=== PATIENT | female | born 1950 | race Caucasian/White ===

== ENCOUNTER → 2017-03-18 11:06 | Outpatient (CLI) | payer MEDICARE, OTHER, SELFPAY ==
[2017-03-18 12:34] LABS: Hematocrit 43.4 % (37-47); Hemoglobin 13.9 g/dl (12.0-15.0); Red Blood Count 4.74 M/mm3 (4.2-5.4); White Blood Count 6.5 K/mm3 (4.4-11.0)
[2017-03-18 12:35] LABS: Absolute Lymphocyte Count 2.02 X10^3/ul (0.83-4.51); Absolute Neutrophil Count 3.9 X10^3/uL (2.0-7.7); Basophil% 0.6 % (0-1); Eosinophil# 0.08 X10^3/uL; Eosinophils% 1.2 % (0-5); Lymphocyte # 2.02 X10^3/ul (4.0); Lymphocyte % 31.2 % (19-41); Mean Corpuscular Hgb 29.3 pg (27.0-32.0); Mean Corpuscular Volume 91.6 fL (81-99); Mean Platelet Vol. 9.7 fl (6.2-12.0); Monocyte# 0.46 X10^3/uL; Monocyte% 7.1 % (0-10); Neutrophil # 3.85 X10^3/uL (2.7-7.7); Neutrophil % 59.6 % (47-70); Platelet Count 383 K/mm3 (150-450); RBC Distribution Width CV 13.8 % (11.6-14.6); RBC Distribution Width SD 46.1 fl (35.1-43.9)
[2017-03-18 12:36] LABS: Basophil# 0.04 X10^3/uL; Erythrocyte Sedimentation Rate 34 mm/hr (0-30); POSITIVE COUNT NO; POSITIVE DIFFERENTIAL NO; POSITIVE MORPHOLOGY NO
[2017-03-18 13:35] LABS: ALB/GLOB Ratio 0.8 RATIO (0.9-2.4); AST(SGOT) 18 U/L (15-37); Alanine Aminotransfer ALT/SGPT 29 U/L (13-56); Albumin, Serum 3.5 g/dL (3.2-5.0); Alkaline Phosphatase 97 U/L (45-117); Anion Gap 8 (5-15); BUN 13 mg/dL (7-18); BUN/Creat Ratio 20.8 RATIO (10-20); Calcium,Total 9.5 mg/dL (8.5-10.1); Chloride 106 mmol/L (98-107); Creatinine, Serum 0.62 mg/dL (0.55-1.02); EST Glomerular Filtration Rate 101 mL/min (>60); Est Glom Filt Rate - Afr Amer 123 mL/min (>60); Globulin 4.4 g/dL (2.2-4.2); Glucose 90 mg/dL (74-106); Protein, Total 7.9 g/dL (6.4-8.2); Sodium Level 140 mmol/L (136-145); Thyroid Stim Hormone (TSH) 0.58 uIU/mL (0.358-3.74)
[2017-03-19 08:49] LABS: Vitamin D,25 Hydroxy 23.8 ng/mL (19.95-100.01)
== END ==
PROVIDERS: Family Provider Family Medicine; PCP Family Medicine; Visit Provider Physician Assistant
DX: Z96.653 Presence of artificial knee joint, bilateral (principal); K58.9 Irritable bowel syndrome, unspecified; E03.9 Hypothyroidism, unspecified
CPT/HCPCS: 36415; 80053; 82306; 84443; 85025; 85652; 86140

== ENCOUNTER → 2017-03-25 09:09 | Outpatient (CLI) | payer MEDICARE, OTHER, SELFPAY ==
--- NOTE | 2017-03-25 09:12 | NM_ITS ---
CLINICAL: 67-year-old female with reported history of painful left knee arthroplasty operated approximately 10 years previous. LIMITED 99m Tc MDP THREE PHASE BONE SCINTIGRAPHY COMPARISON: None available FINDINGS: Following the intravenous administration of 24.9 mCi of 99m Tc MDP, three-phase bone acquisitions of the knee articulations reveal: 1. The flow and immediate static blood pool acquisitions demonstrate symmetric, normal arterial and venous phase distribution of the radiopharmaceutical to the bilateral knee articulations. 2. Delayed images depict increased tracer concentration identified in the medial-lateral femoral and tibial, distal tibial components of the painful left knee prosthesis. 3. Mild increased uptake is demonstrated in the medial and lateral tibial components of the asymptomatic right knee arthroplasty. 4. The remaining limited skeletal structures are scintigraphically unremarkable. NM/Bone Scan Three Phase IMPRESSION: 1. The increase in radiopharmaceutical concentration identified in the tibial and femoral components of the symptomatic left knee arthroplasty is consistent with a high likelihood of loosening in the setting of operative intervention > 2 years prior to the current presentation. If an infectious etiology is a diagnostic consideration, correlation with labeled leukocyte imaging is recommended. 2. Enhanced uptake otherwise noted in the medial femoral-tibial components of the presumably asymptomatic right knee arthroplasty is most consistent with normal postsurgical change. Electronically Signed: Paolo Quiroga DO at 11:09 EST Tel , Service support ,
== END ==
PROVIDERS: Family Provider Family Medicine; PCP Family Medicine; Visit Provider Physician Assistant
DX: Z96.653 Presence of artificial knee joint, bilateral (principal)
CPT/HCPCS: 78315

== ENCOUNTER → 2017-08-22 12:10 | Outpatient (CLI) | payer MEDICARE, OTHER, SELFPAY ==
--- NOTE | 2017-08-22 12:15 | MRI_ITS ---
STUDY: MRI BRAIN WITH AND WITHOUT CONTRAST (ATTENTION INTERNAL AUDITORY CANALS - I.A.C.'s) REASON FOR EXAM: Female, 67 years old. Right ear pain and ataxia TECHNIQUE: Standardized multiplanar fat and water weighted pulse sequences were obtained. 12 ml of Gadavist contrast material was administered intravenously for the contrast portion of the examination. COMPARISON: None. FINDINGS: Normal bilateral temporal bones. Normal bilateral internal auditory canals. There is no demonstrated intracanalicular or cisternal vestibular schwannoma (acoustic neuroma). There is no enhancement of the bilateral VIIth or VIIIth cranial nerves. Normal bilateral cochlea, vestibules and semicircular canals. Mild atrophy and periventricular white matter ischemic changes without evidence for acute infarct Normal bilateral basal ganglia. Normal thalami. Normal flow voids within the major intracranial circulation suggesting patency by spin echo criteria. Normal venous enhancement. There is no enhancing intra-axial or extra-axial abnormality. There is no extra-axial fluid accumulation. Normal sella turcica, pituitary gland, infundibular stalk, optic chiasm and hypothalamus. Normal tectal plate and pineal gland. Normal midbrain, mike and medulla. Normal cerebellum. Normal basal cisterns. No demonstrated orbital abnormality, within the constraints of a routine brain study. Minor mucosal thickening of the maxillary ethmoid sinuses. Normal calvarium and skull base. Normal visualized soft tissue structures. Normal visualized upper cervical spine. MRI/Brain W/WO Contrast IMPRESSION: Mild atrophy and periventricular white matter ischemic changes without evidence for acute infarct. Electronically Signed: Hood Medina MD at 17:21 EDT , Service support ,
[2017-08-22 12:56] LABS: CREATININE FINGERSTICK < 0.6 mg/dL (0.55-1.02); EGFR FINGERSTICK > 60.0000 mL/min (>60)
== END ==
PROVIDERS: Family Provider Family Medicine; PCP Family Medicine; Visit Provider Otolaryngology
DX: R55 Syncope and collapse (principal); R27.0 Ataxia, unspecified
CPT/HCPCS: 70553; A9585

== ENCOUNTER → 2017-09-11 12:21 | Outpatient (CLI) | payer MEDICARE, OTHER, SELFPAY ==
--- NOTE | 2017-09-11 12:23 | BI_ITS ---
MAMMOGRAPHY - BILATERAL SCREENING REASON FOR EXAM: Female, 67 years old. Routine annual screening examination. PERTINENT HISTORY: Non-contributory. TECHNIQUE: Digital bilateral breast nicole (3D mammographic acquisition) in the CC and MLO projections. 2-D mediolateral oblique (MLO) and craniocaudad (CC) views of both breasts were obtained. CAD: Full Field Digital Mammography with Computer Added Detection was performed. COMPARISON: Comparison is made with prior study dated August 26, 2016 and August 15, 2015. FINDINGS: Breast Composition: The breasts are almost entirely fatty. There are no dominant masses or suspicious calcifications. Stable benign-appearing bilateral axillary lymph nodes. No other significant abnormalities are identified. There has been no significant change since the prior study. BI/SCREENING MAMM (CAD), BILAT IMPRESSION: Stable bilateral screening mammogram. Yearly follow-up mammogram recommended. (A) ASSESSMENT CATEGORY: BIRADS Category 2: Benign. A letter regarding these results will be sent to the patient by the facility within 30 days. Approximately 10% of breast cancers are not detected by mammography. A normal mammogram should not delay biopsy of a clinically suspicious abnormality. [id number] Electronically Signed: Aroldo Neves MD at 8:29 EDT Tel [phone], Service support ,
--- NOTE | 2017-09-11 12:25 | BD_ITS ---
STUDY: DUAL ENERGY X-RAY ABSORPTIOMETRY / DXA REASON FOR EXAM: Female, 67 years old. The patient is postmenopausal. Loss of height. TECHNIQUE: Bone Mineral Density (BMD) measurements of lumbar spine and bilateral hips were obtained. COMPARISON: Comparison is made with prior study dated August 15, 2015. FINDINGS: Lumbar Spine (L1-L4): g/cm2 (1.238) / T-score (0.5) / Z-score (2.1) Findings are suggestive of normal bone density with a low fracture risk. Left Femur Total: g/cm2 (1.107) / T-score (0.8) / Z-score (2.1) Left Femoral Neck: g/cm2 (1.132) / T-score (0.7) / Z-score (2.3) Right Femur Total: g/cm2 (1.075) / T-score (0.5) / Z-score (1.9) Right Femoral Neck: g/cm2 (1.027) / T-score (-0.1) / Z-score (1.5) The T-Scores on the most recent prior examination were: Lumbar Spine (L1-L4): There has been improvement of bone density since the previous examination. Left Femur Total: which represents a worsening of 8.4%. Right Femur Total: which represents a worsening of 3.2%. BD/Dexa Bone Density Study IMPRESSION: The patient is considered normal as outlined below according to World [place] Organization (WHO) criteria with a low fracture risk. There has been worsening of bone density since the previous examination. Reference Information: The T-score is the number of standard deviations above or below the standard which is normal for young adults at their peak bone mineral density. The World Health Organization (WHO) interprets the T-scores as follows: Above -1 Normal bone density Between -1 and -2.5 Osteopenia Equal to / or below -2.5 Osteoporosis As a practical clinical guideline, osteopenia may be graded as follows: Mild -1 through -1.5 Moderate -1.6 through -2.0 Severe -2.1 through -2.4 The Z-score is the number of standard deviations above or below age-matched controls. A Z-score of less than -1.5 would be considered abnormal. References: 1. NIH Osteoporosis and Related Bone Diseases http://www.osteo.org 2. International Society for Clinical Densitometry http://www.iscd.org 3. National Osteoporosis Foundation http://www.nof.org Electronically Signed: Aroldo Neves MD at 15:26 EDT Tel [phone], Service support ,
== END ==
PROVIDERS: Family Provider Family Medicine; PCP Family Medicine; Visit Provider Family Medicine
DX: Z12.31 Encounter for screening mammogram for malignant neoplasm of breast (principal); Z78.0 Asymptomatic menopausal state
CPT/HCPCS: 77063; 77067; 77080

== ENCOUNTER → 2017-11-04 08:00 | Outpatient (CLI) | payer MEDICARE, OTHER, SELFPAY ==
[2017-11-04 09:07] LABS: Anion Gap 7 (5-15); BUN 12 mg/dL (7-18); BUN/Creat Ratio 16.2 RATIO (10-20); Calcium,Total 9.5 mg/dL (8.5-10.1); Chloride 105 mmol/L (98-107); Cholesterol 216 mg/dL (200); Creatinine, Serum 0.74 mg/dL (0.55-1.02); EST Glomerular Filtration Rate 83 mL/min (>60); Est Glom Filt Rate - Afr Amer 100 mL/min (>60); Glucose 97 mg/dL (74-106); High Density Lipoprotein 54 mg/dL; Potassium 4.1 mmol/L (3.5-5.1); Sodium Level 141 mmol/L (136-145); Thyroid Stim Hormone (TSH) 2.29 uIU/mL (0.358-3.74); Triglycerides 146 mg/dL; Very Low Density Lipoprotein 29 mg/dL (5-40)
== END ==
PROVIDERS: Family Provider Family Medicine; PCP Family Medicine; Referring Provider Family Medicine; Visit Provider Family Medicine
DX: Z00.00 Encounter for general adult medical examination without abnormal findings (principal); E03.9 Hypothyroidism, unspecified; K21.9 Gastro-esophageal reflux disease without esophagitis
CPT/HCPCS: 36415; 80048; 80061; 84443

== ENCOUNTER 2017-12-05 09:00 | Outpatient (RCR) | payer MEDICARE, OTHER, SELFPAY ==
--- NOTE | 2017-10-07 17:22 | HP.PTEVAL_ITS ---
Patient's Visit Information YESENIA HODGSON is a 67 year old F referred to Physical Therapy by Jose David Lindsay with a diagnosis of BPPV Acute on Chronic. Date of Evaluation: 10/07/17 Physical Therapist: Aura Horowitz - Visit Plan Frequency: 1-2x /Week Duration: 4 Weeks Plan: Bring pt back JORDON and try the R Siemont for correction of R non fatigue torsional nystagmus - Subjective Subjective: Pt reports that she has dizziness. The whole time she has her eyes open she feels like she is going to get sick. She gets vertigo pretty often and saw Dr Brown for it in August and he manipulated her head and had to sleep in recliner for a week. She reports that this is worse than she has ever had it. If she lays back in recliner and rolls head she feels dizzy. SHe is worse when she puts her head up but she is dizzy with head in every direction. Right now she feels light headed and head feels stuffy but if she moves her head than the room spins. This feels worse than what she had last time. She was given something for nausea but has not gotten to pick it up yet. She did have a Cat Scan in August. - Pain RICHARD Pain Intensity (Out of 10): 1 - Objective L Hallpike ....increase dizziness with nystagmus (probably rotational but could be lateral movement) slower pace. Pt did get sick in between R and L Hallpike testing. R Hallpike was positive for delayed upward torsional nystagmus that did not fatigue. Pt had to sit up and get sick after this test. R hallpike worse than L with delayed onset and no fatigue - Goals Goal 1:: I HEP Goal Time Frame: 2 Weeks Goal 2:: Abolish dizziness Goal Time Frame: 2-4 Weeks - Rehabilitation Potential Rehabilitation Potential: Good - Anticipated Interventions Patient/Client Instruction: Educate patient on: Condition, Plan of Care For the Purpose of:: To improve performance and independence with ADL's, To improve ability of physical actions for home/community/work/leisure, To improve gait and locomotor functions, To improve balance, To improve safety with gait Therapeutic Exercise to Include: Strength training, Balance training, Coordination, Postural training, Neuromotor development For the Purpose of:: To improve muscle performance and motor function, To improve ability to perform ADL's, To increase tolerance to activity/condition/ position, To improve performance and independence with ADL's, To improve ability of physical actions for home/community/work/leisure, To improve gait and locomotor functions Comment: Repositioning For the Purpose of:: To improve ability to perform ADL's, To increase tolerance to activity/condition/position, To improve performance and independence with ADL 's, To decrease level of supervision to perform tasks Thank you for the opportunity to evaluate your patient. For Medicare and Medicare HMO plans, please review the plan of care and approve it. It will need to be FAXED BACK to us at [phone] for Medicare purposes. Please let me know if there are questions or concerns regarding this plan of care. Physician Signature: Date:
--- NOTE | 2017-11-07 08:58 | HP.PTREVAL ---
Jose David Lindsay, It has been my pleasure to treat YESENIA HODGSON over the last 6 visits for BPPV Acute on Chronic. Please see the progress note below for an update on the physical therapy plan of care! Subjective: Symptoms are up and down depending on day. Feels still imbalanced on certain days and feels normal on her good days, more bad then good days. Nasal spray seems to help as sinus gets stuffy. Back to Dr Lindsay on 11/17. Doing HEP 3x/day for one minute. Objective/Function: slight + L hallpike, - R hallpike. Balance is very good. recommended Scott Daroff exercises and f/u with doctor next week for other options if appropriate. Plan Plan: f/u one month to check positional and dizzy feeling. Fair prgonosis with consistent BD ex. Goals Goal 1:: I HEP Goal Time Frame: 2 Weeks Goal Progress: Goal Met Goal 2:: Abolish dizziness Goal Time Frame: 2-4 Weeks Goal Progress: some days Goal 3:: 5 days of no symptoms with dizzyness and negative positional tests. Goal Time Frame: 2-4 Weeks Goal Progress: NEW GOAL Anticipated Interventions Patient/Client Instruction: Educate patient on: Condition, Plan of Care For the Purpose of:: To improve performance and independence with ADL's, To improve ability of physical actions for home/community/work/leisure, To improve gait and locomotor functions, To improve balance, To improve safety with gait Therapeutic Exercise to Include: Strength training, Balance training, Coordination, Postural training, Neuromotor development For the Purpose of:: To improve muscle performance and motor function, To improve ability to perform ADL's, To increase tolerance to activity/condition/position, To improve performance and independence with ADL's, To improve ability of physical actions for home/community/work/leisure, To improve gait and locomotor functions Comment: Repositioning For the Purpose of:: To improve ability to perform ADL's, To increase tolerance to activity/condition/position, To improve performance and independence with ADL's, To decrease level of supervision to perform tasks Please do not hesitate to contact me at [phone] by phone or if you have questions or concerns regarding this new plan of care! Sincerely, Jeff Mccartney, DPT, OC
--- NOTE | 2017-12-05 09:17 | HP.PTDCSUM ---
HP - PT D/C Summary It has been my pleasure to treat YESENIA HODGSON under orders from Jose David Lindsay, for the diagnosis of BPPV Acute on Chronic for a total of 7 visit(s). Discharge Date: 12/05/17 Please see the following information for a summary of their discharge status. - Subjective Subjective: Doing exercises daily. Usually L side is a little spin. Feeling better most of time. still gets episodes of head feeling wierd but usually does not last long. Usually preciptated with turning too quick. [facility]. Went to [facility] on plane and head felt fine. - Pain RICHARD Pain Intensity (Out of 10): 0 - Overall Improvement % Improvement: 97 - Objective Objective/Function: - R hallpike, Quick + L hallpike for up torsional 1-2 seconds. Walks well without gait deviations and feeling much better. Feels like she can continue on her own and will let doctor know if improvement slows or gets worse. - Goals Goal 1:: I HEP Goal Progress: Goal Met Goal 2:: Abolish dizziness Goal Progress: Progressing Goal 3:: 5 days of no symptoms with dizzyness and negative positional tests. Goal Progress: Not Progressing - Plan Plan: D/C - D/C Information If there are questions or concerns regarding this patient's physical therapy, please feel free to call me at [phone]. Thank you for the referral of this patient. Sincerely, Jeff Mccartney, DPT, OC
== END 2017-12-05 19:00 | disposition home or self-care (01) ==
LOC: PT 09:00
PROVIDERS: Family Provider Family Medicine; PCP Family Medicine; Visit Provider Family Medicine
DX: H81.10 Benign paroxysmal vertigo, unspecified ear (principal)
CPT/HCPCS: 97161; 97530

== ENCOUNTER → 2018-03-23 12:18 | Outpatient (CLI) | payer MEDICARE, OTHER, SELFPAY ==
[2018-03-23 16:00] LABS: Absolute Lymphocyte Count 1.99 X10^3/ul (0.83-4.51); Absolute Neutrophil Count 4.1 X10^3/uL (2.0-7.7); Basophil# 0.03 X10^3/uL; Basophil% 0.5 % (0-1); Eosinophil# 0.09 X10^3/uL; Eosinophils% 1.4 % (0-5); Hematocrit 45.5 % (37-47); Hemoglobin 14.5 g/dl (12.0-15.0); Lymphocyte # 1.99 X10^3/ul (4.0); Lymphocyte % 30.1 % (19-41); Mean Corp Hgb Conc 31.9 g/gl (32-36); Mean Corpuscular Hgb 29.5 pg (27.0-32.0); Mean Corpuscular Volume 92.7 fL (81-99); Mean Platelet Vol. 9.6 fl (6.2-12.0); Monocyte# 0.44 X10^3/uL; Monocyte% 6.7 % (0-10); Neutrophil # 4.05 X10^3/uL (2.7-7.7); Neutrophil % 61.1 % (47-70); Platelet Count 389 K/mm3 (150-450); RBC Distribution Width CV 14.1 % (11.6-14.6); RBC Distribution Width SD 47.4 fl (35.1-43.9); Red Blood Count 4.91 M/mm3 (4.2-5.4); White Blood Count 6.6 K/mm3 (4.4-11.0)
[2018-03-23 16:03] LABS: POSITIVE COUNT NO; POSITIVE DIFFERENTIAL NO; POSITIVE MORPHOLOGY NO
[2018-03-23 16:22] LABS: AST(SGOT) 21 U/L (15-37); Alanine Aminotransfer ALT/SGPT 32 U/L (13-56); Albumin, Serum 3.7 g/dL (3.2-5.0); Alkaline Phosphatase 96 U/L (45-117); Amylase 31 U/L (25-115); Bilirubin, Direct 0.13 mg/dL (0.00-0.30); Globulin 3.8 g/dL (2.2-4.2); Lipase 141 U/L (73-393); Protein, Total 7.5 g/dL (6.4-8.2)
== END ==
PROVIDERS: Family Provider Family Medicine; PCP Family Medicine; Visit Provider Family Medicine
DX: R10.9 Unspecified abdominal pain (principal)
CPT/HCPCS: 36415; 80076; 82150; 83690; 85025

== ENCOUNTER → 2018-08-18 12:20 | Outpatient (CLI) | payer MEDICARE, OTHER, SELFPAY | PROVIDERS: Family Provider Family Medicine; PCP Family Medicine; Referring Provider Nurse Practitioner Adult Health; Visit Provider Nurse Practitioner Adult Health | DX: R30.0 Dysuria (principal) | CPT/HCPCS: 87086; 87088; 87186 ==

== ENCOUNTER 2018-08-31 13:30 | Outpatient (RCR) | payer MEDICARE, OTHER, SELFPAY | END 2018-09-09 23:59 | LOC: NS 13:30 | PROVIDERS: Family Provider Family Medicine; PCP Family Medicine; Visit Provider Family Medicine | DX: Z71.3 Dietary counseling and surveillance (principal); E66.9 Obesity, unspecified; Z68.41 Body mass index [BMI] 40.0-44.9, adult | CPT/HCPCS: 97802; 97803 ==

== ENCOUNTER → 2018-09-14 12:50 | Outpatient (CLI) | payer MEDICARE, OTHER, SELFPAY | PROVIDERS: Family Provider Family Medicine; PCP Family Medicine; Referring Provider Family Medicine; Visit Provider Family Medicine | DX: R30.0 Dysuria (principal); Z71.3 Dietary counseling and surveillance; E66.9 Obesity, unspecified; Z68.41 Body mass index [BMI] 40.0-44.9, adult | CPT/HCPCS: 87086; 87088; 97803 ==

== ENCOUNTER 2018-09-28 13:00 | Outpatient (RCR) | payer MEDICARE, OTHER, SELFPAY | END 2018-10-10 23:59 | LOC: NS 13:00 | PROVIDERS: Family Provider Family Medicine; PCP Family Medicine; Visit Provider Family Medicine | DX: Z71.3 Dietary counseling and surveillance (principal); E66.9 Obesity, unspecified; Z68.41 Body mass index [BMI] 40.0-44.9, adult | CPT/HCPCS: 97803 ==

== ENCOUNTER 2018-10-26 13:00 | Outpatient (RCR) | payer MEDICARE, OTHER, SELFPAY | END 2018-11-09 23:59 | LOC: NS 13:00 | PROVIDERS: Family Provider Family Medicine; PCP Family Medicine; Visit Provider Family Medicine | DX: Z71.3 Dietary counseling and surveillance (principal); E66.9 Obesity, unspecified; Z68.41 Body mass index [BMI] 40.0-44.9, adult | CPT/HCPCS: 97803 ==

== ENCOUNTER 2018-11-24 09:30 | Outpatient (RCR) | payer MEDICARE, OTHER, SELFPAY | END 2018-12-10 23:59 | LOC: NS 09:30 | PROVIDERS: Family Provider Family Medicine; PCP Family Medicine; Visit Provider Family Medicine | DX: Z71.3 Dietary counseling and surveillance (principal); E66.9 Obesity, unspecified; Z68.41 Body mass index [BMI] 40.0-44.9, adult | CPT/HCPCS: 97803 ==

== ENCOUNTER → 2018-12-10 08:25 | Outpatient (CLI) | payer MEDICARE, OTHER, SELFPAY ==
[2018-12-10 09:56] LABS: Absolute Lymphocyte Count 1.81 X10^3/uL (0.83-4.51); Absolute Neutrophil Count 2.8 X10^3/uL (2.0-7.7); Basophil# 0.03 X10^3/uL; Basophil% 0.6 % (0-1); Eosinophil# 0.12 X10^3/uL; Eosinophils% 2.3 % (0-5); Hematocrit 43.8 % (37-47); Hemoglobin 14.2 g/dL (12.0-15.0); Lymphocyte # 1.81 X10^3/ul (4.0); Lymphocyte % 35.1 % (19-41); Mean Corp Hgb Conc 32.4 g/dL (32-36); Mean Corpuscular Hgb 29.9 pg (27.0-32.0); Mean Corpuscular Volume 92.2 fL (81-99); Mean Platelet Vol. 10.1 fl (6.2-12.0); Monocyte% 7.8 % (0-10); NRBC Flagged by Analyzer 0 % (0-5); Neutrophil # 2.78 X10^3/uL (2.7-7.7); Platelet Count 312 K/mm3 (150-450); RBC Distribution Width CV 13.5 % (11.6-14.6); RBC Distribution Width SD 45.7 fl (35.1-43.9); Red Blood Count 4.75 M/mm3 (4.2-5.4); White Blood Count 5.2 K/mm3 (4.4-11.0)
[2018-12-10 10:22] LABS: ALB/GLOB Ratio 0.8 RATIO (0.9-2.4); AST(SGOT) 22 U/L (15-37); Alanine Aminotransfer ALT/SGPT 46 U/L (13-56); Albumin, Serum 3.4 g/dL (3.2-5.0); Alkaline Phosphatase 93 U/L (45-117); Anion Gap 5 (5-15); BUN 12 mg/dL (7-18); BUN/Creat Ratio 17.4 RATIO (10-20); Calcium,Total 9.7 mg/dL (8.5-10.1); Chloride 106 mmol/L (98-107); Cholesterol 207 mg/dL (200); Creatinine, Serum 0.69 mg/dL (0.55-1.02); EST Glomerular Filtration Rate 90 mL/min (>60); Est Glom Filt Rate - Afr Amer 109 mL/min (>60); Glucose 94 mg/dL (74-106); High Density Lipoprotein 48 mg/dL; Protein, Total 7.4 g/dL (6.4-8.2); Sodium Level 141 mmol/L (136-145); T4 Free Direct 1.23 ng/dL (0.76-1.46); Thyroid Stim Hormone (TSH) 0.38 uIU/mL (0.358-3.74); Triglycerides 123 mg/dL; Very Low Density Lipoprotein 25 mg/dL (5-40)
[2018-12-10 11:06] LABS: Vitamin B12 > 2000 pg/mL (211-911); Vitamin D,25 Hydroxy 37.4 ng/mL (29.95-100.01)
== END ==
PROVIDERS: Family Provider Family Medicine; PCP Family Medicine; Visit Provider Family Medicine
DX: E55.9 Vitamin D deficiency, unspecified (principal); E03.9 Hypothyroidism, unspecified; E78.00 Pure hypercholesterolemia, unspecified; Z91.89 Other specified personal risk factors, not elsewhere classified; E53.8 Deficiency of other specified B group vitamins
CPT/HCPCS: 36415; 80053; 80061; 82306; 82607; 84439; 84443; 85025

== ENCOUNTER 2018-12-28 10:00 | Outpatient (RCR) | payer MEDICARE, OTHER, SELFPAY | END 2019-01-09 23:59 | LOC: NS 10:00 | PROVIDERS: Family Provider Family Medicine; PCP Family Medicine; Visit Provider Family Medicine | DX: Z71.3 Dietary counseling and surveillance (principal); E66.9 Obesity, unspecified; Z68.41 Body mass index [BMI] 40.0-44.9, adult | CPT/HCPCS: 97803 ==

== ENCOUNTER → 2019-01-19 10:16 | Outpatient (CLI) | payer MEDICARE, OTHER, SELFPAY ==
--- NOTE | 2019-01-19 10:17 | BI_ITS ---
MAMMOGRAPHY - BILATERAL SCREENING REASON FOR EXAM: Female, 69 years old. Routine annual screening examination. PERTINENT HISTORY: Non-contributory. TECHNIQUE: Digital bilateral breast nikolay (3D mammographic acquisition) in the CC and MLO projections. 2-D mediolateral oblique (MLO) and craniocaudad (CC) views of both breasts were obtained. CAD: Full Field Digital Mammography with Computer Added Detection was performed. COMPARISON: Comparison is made with prior study dated September 11, 2017 and August 26, 2016. FINDINGS: Breast Composition: The breasts are almost entirely fatty. There are no dominant masses or suspicious calcifications. Stable small benign-appearing bilateral axillary lymph nodes. No other significant abnormalities are identified. There has been no significant change since the prior study. BI/SCREEN MAMM (CAD) W/NIKOLAY BILAT IMPRESSION: Stable bilateral screening mammogram. Yearly follow-up mammogram recommended. (A) ASSESSMENT CATEGORY: BIRADS Category 2: Benign. A letter regarding these results will be sent to the patient by the facility within 30 days. Approximately 10% of breast cancers are not detected by mammography. A normal mammogram should not delay biopsy of a clinically suspicious abnormality. [id number] Electronically Signed: Aroldo Neves, at 12:22 EST , Service support ,
== END ==
PROVIDERS: Family Provider Family Medicine; PCP Family Medicine; Referring Provider Family Medicine; Visit Provider Family Medicine
DX: Z12.31 Encounter for screening mammogram for malignant neoplasm of breast (principal)
CPT/HCPCS: 77063; 77067

== ENCOUNTER 2019-02-08 09:30 | Outpatient (RCR) | payer MEDICARE, OTHER, SELFPAY | END 2019-02-09 23:59 | LOC: NS 09:30 | PROVIDERS: Family Provider Family Medicine; PCP Family Medicine; Visit Provider Family Medicine | DX: Z71.3 Dietary counseling and surveillance (principal); E66.9 Obesity, unspecified; Z68.41 Body mass index [BMI] 40.0-44.9, adult | CPT/HCPCS: 97803 ==

== ENCOUNTER 2019-02-22 10:26 | Outpatient (RCR) | payer SELFPAY | END 2019-02-22 23:59 | disposition home or self-care (01) | LOC: NS 10:26 | PROVIDERS: Family Provider Family Medicine; PCP Family Medicine; Visit Provider Family Medicine | DX: Z71.3 Dietary counseling and surveillance (principal); E66.9 Obesity, unspecified; Z68.41 Body mass index [BMI] 40.0-44.9, adult | CPT/HCPCS: 97802; 97803 ==

== ENCOUNTER → 2019-07-12 09:13 | Outpatient (CLI) | payer MEDICARE, OTHER, SELFPAY ==
[2019-07-12 11:06] LABS: Vitamin D,25 Hydroxy 37.7 ng/mL
[2019-07-12 11:25] LABS: Thyroid Stim Hormone (TSH) 0.91 uIU/mL (0.358-3.74)
[2019-07-14 17:15] LABS: Lead, Blood Adult 16+yrs 1 ug/dL (0-4)
== END ==
PROVIDERS: PCP Family Medicine; Referring Provider Family Medicine; Visit Provider Family Medicine
DX: E55.9 Vitamin D deficiency, unspecified (principal); E03.9 Hypothyroidism, unspecified
CPT/HCPCS: 36415; 82306; 83655; 84443

== ENCOUNTER → 2019-10-29 09:10 | Outpatient (CLI) | payer MEDICARE, OTHER, SELFPAY ==
--- NOTE | 2019-10-29 09:19 | RAD_ITS ---
STUDY: X-RAY CHEST REASON FOR EXAM: Female, 69 years old. Sob on exertion TECHNIQUE: PA and lateral views of the chest. COMPARISON: Comparison is made with prior study dated 08/23/2016. FINDINGS: Hyperinflation. Scattered calcified granulomas. There is no demonstrated pleural abnormality. Normal size heart. Normal mediastinum and aubrie. Normal visualized pulmonary arteries. There is atherosclerotic tortuosity of the aortic arch and descending thoracic aorta. There are diffuse degenerative changes of the visualized thoracic spine. Normal visualized ribs, clavicles, and shoulders. There is no demonstrated abnormality of the visualized soft tissue structures of the upper abdomen. RAD/Chest PA and Lateral IMPRESSION: Hyperinflation. The lungs are clear. Electronically Signed: Aroldo Neves, at 12:47 EDT , Service support ,
[2019-10-29 10:17] LABS: Absolute Neutrophil Count 3.4 X10^3/uL (2.0-7.7); Basophil# 0.04 X10^3/uL; Basophil% 0.7 % (0-1); Eosinophil# 0.12 X10^3/uL; Eosinophils% 2.1 % (0-5); Hematocrit 45.6 % (37-47); Hemoglobin 14.7 g/dL (12.0-15.0); Lymphocyte % 30.8 % (19-41); Mean Corp Hgb Conc 32.2 g/dL (32-36); Mean Corpuscular Volume 93.1 fL (81-99); Mean Platelet Vol. 9.6 fl (6.2-12.0); Monocyte# 0.43 X10^3/uL; Monocyte% 7.4 % (0-10); NRBC Flagged by Analyzer 0 % (0-5); Neutrophil # 3.43 X10^3/uL (2.7-7.7); Neutrophil % 58.7 % (47-70); Platelet Count 324 K/mm3 (150-450); RBC Distribution Width CV 13.3 % (11.6-14.6); RBC Distribution Width SD 45.6 fl (35.1-43.9); White Blood Count 5.8 K/mm3 (4.4-11.0)
[2019-10-29 10:37] LABS: Anion Gap 7 (5-15); BUN 14 mg/dL (7-18); BUN/Creat Ratio 18.9 RATIO (10-20); Calcium,Total 9.4 mg/dL (8.5-10.1); Chloride 104 mmol/L (98-107); Creatinine, Serum 0.74 mg/dL (0.55-1.02); EST Glomerular Filtration Rate 82 mL/min (>60); Est Glom Filt Rate - Afr Amer 100 mL/min (>60); Glucose 99 mg/dL (74-106); Potassium 4.3 mmol/L (3.5-5.1); Sodium Level 140 mmol/L (136-145)
== END ==
PROVIDERS: PCP Family Medicine; Referring Provider Family Medicine; Visit Provider Family Medicine
DX: R06.02 Shortness of breath (principal)
CPT/HCPCS: 36415; 71046; 80048; 85025; 86140

== ENCOUNTER → 2019-12-13 10:47 | Outpatient (CLI) | payer MEDICARE, OTHER, SELFPAY | PROVIDERS: PCP Family Medicine; Visit Provider Family Medicine | DX: R35.0 Frequency of micturition (principal) | CPT/HCPCS: 87086; 87088 ==

== ENCOUNTER → 2019-12-15 15:18 | Outpatient (CLI) | payer MEDICARE, OTHER, SELFPAY ==
[2019-12-15 18:07] LABS: ALB/GLOB Ratio 0.8 RATIO (0.9-2.4); AST(SGOT) 22 U/L (15-37); Alanine Aminotransfer ALT/SGPT 35 U/L (13-56); Albumin, Serum 3.4 g/dL (3.2-5.0); Alkaline Phosphatase 99 U/L (45-117); Anion Gap 4 (5-15); BUN 16 mg/dL (7-18); BUN/Creat Ratio 19.5 RATIO (10-20); CRP 4.22 mg/L (0.0-3.0); Calcium,Total 9.4 mg/dL (8.5-10.1); Chloride 106 mmol/L (98-107); Creatinine, Serum 0.82 mg/dL (0.55-1.02); EST Glomerular Filtration Rate 73 mL/min (>60); Est Glom Filt Rate - Afr Amer 89 mL/min (>60); Globulin 4.2 g/dL (2.2-4.2); Glucose 100 mg/dL (74-106); Lipase 166 U/L (73-393); Potassium 4.6 mmol/L (3.5-5.1); Protein, Total 7.6 g/dL (6.4-8.2); Sodium Level 142 mmol/L (136-145)
== END ==
PROVIDERS: PCP Family Medicine; Referring Provider Internal Medicine Gastroenterology; Visit Provider Internal Medicine Gastroenterology
DX: R10.9 Unspecified abdominal pain (principal)
CPT/HCPCS: 36415; 80053; 83690; 86140

== ENCOUNTER → 2019-12-17 10:21 | Outpatient (CLI) | payer MEDICARE, OTHER, SELFPAY | PROVIDERS: PCP Family Medicine; Referring Provider Internal Medicine Gastroenterology; Visit Provider Internal Medicine Gastroenterology | DX: Z11.59 Encounter for screening for other viral diseases (principal) | CPT/HCPCS: 87635; C9803; U0003 ==

== ENCOUNTER → 2020-01-31 12:43 | Outpatient (CLI) | payer MEDICARE, OTHER, SELFPAY ==
--- NOTE | 2020-01-31 12:47 | RAD_ITS ---
HISTORY: urinary frequency ADDITIONAL HISTORY: None. COMPARISON: CT 08/23/2016 EXAMINATION/TECHNIQUE: XR Abdomen 1 View Number of images including paperwork: 2 FINDINGS: FREE AIR: None detected. BOWEL GAS PATTERN: Nonobstructive. Moderate amount of colonic stool. CALCIFICATIONS: No definite urinary tract calculi. ORGANS: No evidence of organomegaly. SOFT TISSUES: Unremarkable. BONES: No acute skeletal findings. Degenerative changes. LOWER CHEST: Unremarkable visible portions. DEVICES: None. RAD/Abdomen Single View IMPRESSION: No acute abdominal abnormality is radiographically apparent. at 0627 Reported and signed by: Jo Sanchez MD Electronically Signed: Jo Sanchez MD at 6:27 EST Tel , Service support ,
[2020-01-31 13:48] LABS: Bacteria 0 SEEN /hpf (None Seen); Mucous, Urine 0 SEEN /hpf (<or=2+); Squamous Epithelial Cells - UA 0 SEEN /hpf (5-10)
[2020-01-31 16:04] LABS: Color, Urine Yellow (Yellow); Glucose, Dipstick Normal (Normal); Ketone-Dipstick Negative (Negative); Leukocyte Esterase-Dipstick 500 /ul (Negative); Nitrite-Dipstick Negative (Negative); Occult Blood-Urine 150 /ul (Negative); Protein-Dipstick Negative (Negative); Urine Bilirubin Dipstick Negative (Negative); Urine Clarity Clear (Clear); Urine Urobilinogen Normal (Normal)
[2020-01-31 16:51] LABS: Red Blood Cells-Urine 0-5 SEEN /hpf (0-5); White Blood Cells 5-10 SEEN /hpf (0-5)
== END ==
PROVIDERS: PCP Family Medicine; Referring Provider Family Medicine; Visit Provider Family Medicine
DX: R35.0 Frequency of micturition (principal)
CPT/HCPCS: 74018; 81001; 87086; 87088; 87186

== ENCOUNTER → 2020-04-03 11:30 | Outpatient (CLI) | payer MEDICARE, OTHER, SELFPAY ==
[2020-04-03 15:13] LABS: Absolute Lymphocyte Count 2.13 X10^3/uL (0.83-4.51); Basophil# 0.06 X10^3/uL; Eosinophils% 3.4 % (0-5); Hematocrit 46.4 % (37-47); Hemoglobin 14.5 g/dL (12.0-15.0); Lymphocyte # 2.13 X10^3/ul (4.0); Lymphocyte % 36.5 % (19-41); Mean Corp Hgb Conc 31.3 g/dL (32-36); Mean Corpuscular Hgb 29.4 pg (27.0-32.0); Mean Corpuscular Volume 93.9 fL (81-99); Mean Platelet Vol. 9.7 fl (6.2-12.0); Monocyte% 6.9 % (0-10); NRBC Flagged by Analyzer 0 % (0-5); Neutrophil # 3.03 X10^3/uL (2.7-7.7); Platelet Count 383 K/mm3 (150-450); RBC Distribution Width CV 13.4 % (11.6-14.6); Red Blood Count 4.94 M/mm3 (4.2-5.4); White Blood Count 5.8 K/mm3 (4.4-11.0)
[2020-04-03 15:40] LABS: Anion Gap 4 (5-15); BUN 14 mg/dL (7-18); BUN/Creat Ratio 18.8 RATIO (10-20); Calcium,Total 9.6 mg/dL (8.5-10.1); Chloride 105 mmol/L (98-107); Creatinine, Serum 0.74 mg/dL (0.55-1.02); EST Glomerular Filtration Rate 82 mL/min (>60); Est Glom Filt Rate - Afr Amer 99 mL/min (>60); Glucose 94 mg/dL (74-106); Potassium 4.1 mmol/L (3.5-5.1); Sodium Level 139 mmol/L (136-145); T4 Free Direct 1.18 ng/dL (0.76-1.46); Thyroid Stim Hormone (TSH) 0.96 uIU/mL (0.358-3.74)
[2020-04-03 15:47] LABS: Vitamin D,25 Hydroxy 40.2 ng/mL
[2020-04-03 15:53] LABS: Vitamin B12 > 2000 pg/mL (211-911)
== END ==
PROVIDERS: PCP Family Medicine; Referring Provider Family Medicine; Visit Provider Family Medicine
DX: E53.8 Deficiency of other specified B group vitamins (principal); E55.9 Vitamin D deficiency, unspecified; E03.9 Hypothyroidism, unspecified; K21.9 Gastro-esophageal reflux disease without esophagitis; R73.01 Impaired fasting glucose
CPT/HCPCS: 36415; 80048; 82306; 82607; 84439; 84443; 85025

== ENCOUNTER → 2020-04-04 08:41 | Outpatient (CLI) | payer MEDICARE, OTHER, SELFPAY ==
[2020-04-04 10:38] LABS: Anion Gap 5 (5-15); BUN 18 mg/dL (7-18); BUN/Creat Ratio 22.7 RATIO (10-20); Calcium,Total 9.6 mg/dL (8.5-10.1); Chloride 107 mmol/L (98-107); Cholesterol 245 mg/dL (200); Creatinine, Serum 0.79 mg/dL (0.55-1.02); EST Glomerular Filtration Rate 76 mL/min (>60); Est Glom Filt Rate - Afr Amer 92 mL/min (>60); Glucose 100 mg/dL (74-106); High Density Lipoprotein 63 mg/dL; Potassium 4.3 mmol/L (3.5-5.1); Sodium Level 140 mmol/L (136-145); Triglycerides 107 mg/dL; Very Low Density Lipoprotein 21 mg/dL (5-40)
== END ==
PROVIDERS: PCP Family Medicine; Referring Provider Family Medicine; Visit Provider Family Medicine
DX: R73.01 Impaired fasting glucose (principal); E78.00 Pure hypercholesterolemia, unspecified
CPT/HCPCS: 36415; 80048; 80061

== ENCOUNTER → 2020-05-05 06:29 | Outpatient (CLI) | payer MEDICARE, OTHER, SELFPAY ==
--- NOTE | 2020-05-05 17:26 | STRESSREP ---
Stress Test Report Exercise myocardial perfusion stress test. 70-year-old lady with a history of chest pain. Medications Tylenol aspirin Nexium. Stress protocol: Resting EKG demonstrates normal sinus rhythm with a rate of 67 bpm normal intervals are noted resting blood pressures 116/80 mmHg. The patient exercised according to the regular Cristian protocol for a total duration of 6 minutes. The maximum heart rate attained was 157 bpm which was 104% of max impacted heart rate the maximum workload was 7 metabolic equivalents. At rest there were no ST or T wave changes noted to suggest ischemia and at peak exercise is no ST or T wave changes were noted to suggest ischemia. The patient experienced left arm pain which appeared to persist throughout the test with mild shortness of breath. On termination the shortness of breath improved. The test was terminated due to dyspnea. The peak blood pressure 148/68 mmHg which was a good blood pressure response to exercise. Myocardial perfusion protocol. 14.3 mCi of technetium 99m sestamibi was injected at rest. The patient exercised according to regular Cristian protocol and at peak exercise 44.6 mCi of technetium 99m sestamibi was injected stress images were obtained stress and rest images were reconstructed and compared in the short axis vertical long and horizontal long axis. Perfusion SPECT analysis: Review of the stress images demonstrate normal uptake of tracer noted in all areas of the myocardium. The resting images similarly demonstrate normal uptake of tracer noted in all areas of the myocardium. No obvious areas of reversibility are noted suggest ischemia. No previous infarct is noted. Gated SPECT analysis: The gated ejection fraction is 74%. Conclusion: Exercise myocardial perfusion stress test with no obvious areas of nuclear perfusion with ischemia are noted. Left arm discomfort with exercise of unknown significance. Preserved ejection fraction. Good functional capacity.
== END ==
PROVIDERS: PCP Family Medicine; Referring Provider Nurse Practitioner Family; Visit Provider Nurse Practitioner Family
DX: R07.9 Chest pain, unspecified (principal)
CPT/HCPCS: 78452; 93017; A9500; A4216

== ENCOUNTER → 2020-06-14 12:28 | Outpatient (CLI) | payer MEDICARE, OTHER, SELFPAY ==
[2020-06-14 11:50] VITALS: BMI 38.0
--- NOTE | 2020-06-14 12:35 | RAD_ITS ---
STUDY: X-RAY CHEST REASON FOR EXAM: Female, 70 years old. cad TECHNIQUE: 2 views COMPARISON: Prior chest radiograph from 10/29/2019 FINDINGS: The lungs are clear and expanded. There is no demonstrated pleural abnormality. Normal size heart. Normal mediastinum and aubrie. Normal visualized pulmonary arteries. Normal visualized aortic arch and descending thoracic aorta. There are diffuse degenerative changes of the visualized thoracic spine. Normal visualized ribs, clavicles, and shoulders. There is no demonstrated abnormality of the visualized soft tissue structures of the upper abdomen. RAD/Chest PA and Lateral IMPRESSION: No acute cardiopulmonary findings or changes. Electronically Signed: Myrna Matta MD at 23:59 EDT , Service support ,
[2020-06-14 13:40] LABS: Absolute Lymphocyte Count 2.36 X10^3/uL (0.83-4.51); Absolute Neutrophil Count 3.8 X10^3/uL (2.0-7.7); Basophil# 0.07 X10^3/uL; Eosinophil# 0.22 X10^3/uL; Eosinophils% 3.2 % (0-5); Hematocrit 48.9 % (37-47); Hemoglobin 15.4 g/dL (12.0-15.0); Lymphocyte # 2.36 X10^3/ul (0.83-4.51); Lymphocyte % 33.9 % (19-41); Mean Corp Hgb Conc 31.5 g/dL (32-36); Mean Corpuscular Hgb 29.7 pg (27.0-32.0); Mean Corpuscular Volume 94.4 fL (81-99); Mean Platelet Vol. 9.4 fl (6.2-12.0); Monocyte# 0.51 X10^3/uL; Monocyte% 7.3 % (0-10); NRBC Flagged by Analyzer 0 % (0-5); Neutrophil % 54.5 % (47-70); Platelet Count 382 K/mm3 (150-450); RBC Distribution Width CV 13.4 % (11.6-14.6); RBC Distribution Width SD 47.1 fl (35.1-43.9); Red Blood Count 5.18 M/mm3 (4.2-5.4)
[2020-06-14 13:51] LABS: International Normalized Ratio 2.7; Prothrombin Time (Protime)PT. 27.8 SECONDS (11.7-14.9)
[2020-06-14 14:10] LABS: Anion Gap 1 (5-15); BUN 12 mg/dL (7-18); BUN/Creat Ratio 16.7 RATIO (10-20); Chloride 104 mmol/L (98-107); Creatinine, Serum 0.72 mg/dL (0.55-1.02); EST Glomerular Filtration Rate 85 mL/min (>60); Est Glom Filt Rate - Afr Amer 103 mL/min (>60); Glucose 100 mg/dL (74-106); Potassium 4.1 mmol/L (3.5-5.1); Sodium Level 138 mmol/L (136-145)
== END ==
PROVIDERS: PCP Family Medicine; Referring Provider Internal Medicine Cardiovascular Disease; Visit Provider Internal Medicine Cardiovascular Disease
DX: I25.10 Atherosclerotic heart disease of native coronary artery without angina pectoris (principal); R07.89 Other chest pain; Z86.711 Personal history of pulmonary embolism
CPT/HCPCS: 36415; 71046; 80048; 85025; 85610

== ENCOUNTER 2020-06-19 08:45 | Day surgery (SDC) | payer MEDICARE, OTHER, SELFPAY ==
[2020-06-14 11:50] VITALS: BMI 38.0
[2020-06-16 11:38] VITALS: BMI 38.0
--- NOTE | 2020-06-19 08:22 | HP_ITS ---
Intake Vital Signs 06/14/20 11:50 Height 5 ft 3 in Weight: 215 lb BMI 38.0 BP 129/78 H Respiration 16 Pulse 72 Pulse Oximetry (%) 98 Intake Visit Reasons: CP, HAD STRESS TEST (RANCALEB) Allergies cephalexin monohydrate [From Keflex] Allergy (Verified 06/14/20 11:39) Chest tightness ciprofloxacin [From Cipro] Allergy (Verified 06/14/20 11:39) Nausea ciprofloxacin HCl [From Cipro] Allergy (Verified 06/14/20 11:39) Nausea hyoscyamine sulfate [From Levbid] Allergy (Verified 06/14/20 11:39) Chest tightness nitrofurantoin [From Macrobid] Allergy (Verified 06/14/20 11:39) Nausea nitrofurantoin macrocrystalline [From Macrobid] Allergy (Verified 06/14/20 11:39) Nausea NSAIDS (Non-Steroidal Anti-Inflamma Allergy (Verified 06/14/20 11:39) Nausea tramadol Allergy (Verified 06/14/20 11:39) Chest tightness atorvastatin Adverse Reaction (Verified 06/14/20 11:46) insomnia/leg pain nalbuphine HCl [From Nubain] Adverse Reaction (Verified 06/14/20 11:39) Nausea Medications acetaminophen 500 mg PO BID 03/13/14 [History Confirmed 06/14/20] aspirin 81 mg PO DAILY@0800 03/13/14 [History Confirmed 06/14/20] levothyroxine 100 mcg PO DAILY 03/13/14 [History Confirmed 06/14/20] warfarin 4 mg PO TU 03/13/14 [History Confirmed 06/14/20] [facility] [History Confirmed 06/14/20] albuterol sulfate 90 mcg/actuation aerosol inhaler 2 puff INHALATION Q6H PRN 05/30/20 [History Confirmed 06/14/20] cholecalciferol (vitamin D3) 50 mcg (2,000 unit) capsule 2,000 unit PO DAILY cap 05/30/20 [History Confirmed 06/14/20] cyanocobalamin (vitamin B-12) 100 mcg tablet 100 mcg PO DAILY 05/30/20 [History Confirmed 06/14/20] fluticasone propionate 50 mcg/actuation nasal spray,suspension 2 spray INTRANASAL DAILY 05/30/20 [History Confirmed 06/14/20] omeprazole 40 mg capsule,delayed release 40 mg PO DAILY 05/30/20 [History Confirmed 06/14/20] PFSH Medical History Asthma Chronic back pain Esophageal reflux History of pulmonary embolism (08/04/12) Hyperlipidemia Hypothyroidism Irritable bowel syndrome Lung nodule Obesity Osteoarthritis Surgical History History of bunionectomy History of cholecystectomy History of tonsillectomy History of total knee arthroplasty (2012) Family History Sister Heart disease CHF at 63 Social History Smoking Status: Former smoker HPI HPI History of Present Illness Details: Pleasant 70-year-old lady with no previous cardiac history who presents with complaints of epigastric burning as well as chest pressure. She says that this is not necessarily related to activity. Sometimes it is radiates to the left arm and occasionally the jaw. She has not had any dizziness or diaphoresis no near syncope or syncope she has been taking turmeric but recently had stopped it. She has previously had a cholecystectomy. She did undergo a stress test in April of this year where she exercised to 7 metabolic equivalents with left upper extremity pain with exercise. Her previous echocardiogram from 2017 was normal with mild LVH. Her blood pressure has been under good control. ROS Const Const: Negative for fatigue, weakness, headache(s), frequent falls, daytime sleepiness, difficulty sleeping, excessive sweating, weight gain or weight loss Eyes Eyes: Negative for blind spots, loss of peripheral vision, transient loss of vision, blurry vision, double vision or tunnel vision ENT ENT: Negative for headache(s), dizziness, Nosebleed/epistaxis, balance problems, lip swelling, tongue swelling or bleeding gums Cardio Chest Pain: Yes (LUE radiates to left chest at rest with activity. Chest feels heavy) GI GI: Negative nausea, vomiting, heartburn, constipation, vomiting blood/hematemesis, bright, red blood in stools, black,tarry stools or loose stools : Negative for hematuria Musc Musc: Negative for muscle aches/ myalgia, muscle weakness, joint pain or balance problems Skin Skin: Positive for other; Negative non-healing lesions, rash or unusual bruising Neuro Neuro: Negative for dizziness, lightheadedness, near syncope, syncope, orthostatic symptoms, frequent falls, headache(s), weakness, confusion, memory loss, restless legs, blurry vision, double vision, vertigo or lack of coordination Kunal Hematologic/Lymphatic: Negative for easy bruising Endo Endo: Negative for fatigue, cold intolerance, heat intolerance, excessive sweating, flushing, increased thirst/drinking, increased hunger, hair loss or hair growth Psych Psych: Negative for anxiety, depression or panic attacks Allergy Allergy/Immunology: Negative for throat swelling, Negative for tongue swelling, Negative for hives, Negative for rash and Negative for lip swelling Cardiology Exam Const Appearance: cooperative, healthy appearing, no acute distress, well developed and well groomed Nutritional Appearance: average body habitus and well nourished Orientation: alert, awake and oriented x3 Head Head: normal to inspection, normocephalic and atraumatic Ears: hearing grossly normal bilaterally and external ears normal Nose: external nose normal, nares normal, nasal mucous membranes and turbinates normal, septum normal and no nasal discharge Face and Sinus: face symmetric Mouth: oral mucosae normal, tongue normal, oropharynx normal and moist mucous membranes Teeth and gingiva: dentition normal Throat: posterior oropharynx normal, tonsils normal and uvula midline Eyes General: appearance normal, both eyes and all related structures Eyelids: eyelids normal Conjunctivae: conjunctivae normal Pupils: PERRL, normal by confrontation and accommodation normal EOM: EOM intact bilaterally Neck Neck: normal visual inspection, trachea midline and no JVD JVD: +5 Carotids: normal carotid upstroke and bounding pulses Chest Chest inspection: normal inspection of the chest, symmetric chest movement and normal respiratory effort Auscultation: Bilateral: Clear to Auscultation Cardio Palpation: normal PMI Rate: regular rate Rhythm: regular rhythm Heart sounds: S1 normal, S2 normal and normal, physiologic split S2; Negative rub, gallop or murmur GI GI: normal to inspection, soft, no hepatosplenomegaly and bowel sounds present Neuro General: patient alert, patient awake, patient oriented x3, gait normal, moves all extremities and no focal sensory deficit Skin Skin: no rashes or lesions noted Extremities Pulses: Normal: Right Femoral Pulse, Left Femoral Pulse, Right Dorsalis Pedis Pulse, Left Dorsalis Pedis Pulse, Right Posterior Tibial Pulse, Left Posterior Tibial Pulse, Right Radial Pulse and Left Radial Pulse Lower Extremity Edema: None: Bilateral Musculoskel Musculoskeletal: No joint tenderness Psych Psychological: normal affect Supplemental Info Supplemental Information Labs: LDL Cholesterol 161 mg/dL (0-130) H HDL Cholesterol 63 mg/dL (40-) Triglycerides 107 mg/dL (-199) VLDL Cholesterol 21 mg/dL (5-40) Diagnostics: Stress Test NM Stress Test Chest X-Ray Pulmonary: No Data to Display Assessment and Plan Assessment and Plan (1) Atypical chest pain: Status: Chronic Plan - Dr. Lucio Gomez MD: She does have chest discomfort which has some features which are slightly atypical. However there are some issues which are also concerning. With her stress test demonstrating chest discomfort and arm discomfort and had continued presentation with the above I will suggest that we proceed with a left heart catheterization. The risk benefits and alternatives have been explained to her she understands and agrees to proceed. (2) History of pulmonary embolism: Status: Resolved Comment: Bilateral PE 3 days post-op knee replacement 08/04/12 Plan - Dr. Lucio Gomez MD: She has had a previous history of pulmonary embolism. She will continue with the Coumadin interrupting it briefly for the procedure. She does understand the above. Plan Details Follow Up: 6 Months (mmm) Coding Level of Care Code Off vis,new,level 5 Diagnoses Atypical chest pain R07.89 History of pulmonary embolism Z86.711 Coding Level of Care Code Off vis,new,level 5 Diagnoses Atypical chest pain R07.89 History of pulmonary embolism Z86.711
[2020-06-19 09:06] LABS: INR Fingerstick 1.4; Prothrombin Time Fingerstick 17.1 SEC (11.9-14.4)
--- NOTE | 2020-06-19 11:01 | CL.D_ITS ---
Patient Name: YESENIA HODGSON Study Date: 06/19/2020 Performing: Lucio Gomez MD Ht: 62.99 inches 160 cm : 1950 Wt: 216.05 lbs 98 kg Age: 70 Gender: female BSA: 2 PROCEDURE(S) PERFORMED [id number]/[id number]/LV CLINICAL PROFILE AND INDICATIONS Indications: Suspected CAD Heart Failure: None Stress/Imaging Date: 05/05/20ress Test with SPECT MPI: Negative CAD Presentations: Symptom unlikely to be ischemic. CONCLUSIONS Non obstructive coronary arteries RECOMMENDATIONS Medical therapy DESCRIPTION OF PROCEDURE The patient arrived to the procedure lab. The risks and benefits of the procedure as well as a full d escription of our services here and current unavailability of surgical backup were fully explained to the patient and/or their significant other prior to the catheterization. The Timeout was completed, verifying the correct patient and procedure. The patient's procedural site was prepped and draped in the usual fashion. Local anesthetic was given subcutaneously to right radial region with Lidocaine 2% . Using a modified Seldinger technique, arterial access was obtained via the right radial artery, a 6 Fr sheath was inserted. Left Coronary Artery selective angiography was performed in multiple views u sing a 5 Fr. 4.0 [place] catheter. Right Coronary Artery selective angiography was then performed in mu ltiple views using a 5 Fr. 4.0 [place] catheter. Left Ventriculography was performed in HILARIO projection using a 5 Fr. Pigtail catheter.The arterial sheath was pulled and a TR Band was applied for hemostasis 12 cc of air CORONARY ANGIOGRAPHY DOMINANCE: Right Dominant LEFT HEART ASSESSMENT Left Ventricular Ejection Fraction: by LV Gram 60 % Normal LV wall motion Normal Left Ventricular systolic function LEFT MAIN: Angiographically normal LEFT ANTERIOR DESCENDING ARTERY: No significant disease noted CIRCUMFLEX ARTERY: Mild luminal irregularities RIGHT CORONARY ARTERY: Mild luminal irregularities COMPLICATIONS No Complications PROCEDURE MEDICATIONS Fentanyl 50 mcg IV Versed 1 mg IV Versed 1 mg IV Oxygen: 2 L/min via nasal cannula Heparin diluted in 23cc Heparinized saline. Patient given 10cc IA of this solution. 06/19/2020 10:45: 12 Verapamil 2.5mg, Ntg 100mcgs, 2000 units of Heparin diluted in 23cc Heparinized saline. Patient give n 10cc IA of this solution. 06/19/2020 10:45:12 SUMMARY OF HEMODYNAMIC DATA Time AIR REST ECG 09:25:14 AO 90/62 (75) SA 10:47:21 LV 110/8, 11 10:53:29 LV 106/10, 13 10:53:35 LVp 98/16, 21 10:54:04 AOp 108/13 (52) 10:54:09 Signed By Lucio Gomez MD On 06/19/2020 11:00:41 AM Lucio Gomez MD
== END 2020-06-19 13:00 | disposition home or self-care (01) ==
LOC: CLSP 08:49
PROVIDERS: PCP Family Medicine; Visit Provider Internal Medicine Cardiovascular Disease
DX: R07.89 Other chest pain (principal); J45.909 Unspecified asthma, uncomplicated; M54.9 Dorsalgia, unspecified; G89.29 Other chronic pain; E78.5 Hyperlipidemia, unspecified; E03.9 Hypothyroidism, unspecified; K58.9 Irritable bowel syndrome, unspecified; M19.90 Unspecified osteoarthritis, unspecified site; K21.9 Gastro-esophageal reflux disease without esophagitis; E66.9 Obesity, unspecified; Z79.01 Long term (current) use of anticoagulants; Z79.82 Long term (current) use of aspirin; Z79.899 Other long term (current) drug therapy; Z86.711 Personal history of pulmonary embolism; Z87.891 Personal history of nicotine dependence
CPT/HCPCS: 36416; 85610; 93458; 99152; J7040; C1769; C1894; Q9967

== ENCOUNTER → 2020-06-28 08:07 | Outpatient (CLI) | payer MEDICARE, OTHER, SELFPAY ==
[2020-06-16 11:38] VITALS: BMI 38.0
[2020-06-28 11:12] LABS: ALB/GLOB Ratio 0.8 RATIO (0.9-2.4); AST(SGOT) 15 U/L (15-37); Alanine Aminotransfer ALT/SGPT 26 U/L (13-56); Albumin, Serum 3.3 g/dL (3.2-5.0); Alkaline Phosphatase 99 U/L (45-117); Anion Gap 4 (5-15); BUN 12 mg/dL (7-18); BUN/Creat Ratio 17.3 RATIO (10-20); Calcium,Total 9.4 mg/dL (8.5-10.1); Chloride 105 mmol/L (98-107); Cholesterol 215 mg/dL (200); EST Glomerular Filtration Rate 89 mL/min (>60); Est Glom Filt Rate - Afr Amer 107 mL/min (>60); Globulin 3.9 g/dL (2.2-4.2); Glucose 89 mg/dL (74-106); High Density Lipoprotein 63 mg/dL; Potassium 4.1 mmol/L (3.5-5.1); Protein, Total 7.2 g/dL (6.4-8.2); Sodium Level 140 mmol/L (136-145); Triglycerides 99 mg/dL; Very Low Density Lipoprotein 20 mg/dL (5-40)
== END ==
PROVIDERS: PCP Family Medicine; Referring Provider Family Medicine; Visit Provider Family Medicine
DX: E78.00 Pure hypercholesterolemia, unspecified (principal)
CPT/HCPCS: 36415; 80053; 80061

== ENCOUNTER → 2020-07-03 14:32 | Outpatient (CLI) | payer MEDICARE, OTHER, SELFPAY ==
[2020-06-16 11:38] VITALS: BMI 38.0
--- NOTE | 2020-07-03 14:43 | VDUE_ITS ---
Reason For Study: RUE PAIN Right Proximal Right jugular vein is spontaneous, widely patent, phasic, with no intraluminal echogenicity noted. Right subclavian vein is spontaneous, widely patent, phasic, with no intraluminal echogenicity noted. Right Lower Arm Right radial vein is compressible. Right ulnar vein is compressible. Right Arm Right axillary vein is spontaneous, patent, phasic, competent, compressible and demonstrates augmentation. Right brachial vein is compressible. Right cephalic vein is compressible. Right basilic vein is compressible. Patient Safety Right radial artery is patent with PSV 79.5 cm/sec. S/P heart catherization via right radial artery 06/19/2020. VL/Venous Duplex US, Unilateral Interpretation Summary No evidence for acute deep venous thrombosis[right] upper extremity with patent and compressible cephalic and basilic veins. Right radial artery demonstrates patency and normal flow Ordering Physician: Ron Lindsay Referring Physician: Ron Lindsay Performed By: Pat Collins, GAMALIEL, RVT ?
== END ==
PROVIDERS: PCP Family Medicine; Referring Provider Family Medicine; Visit Provider Family Medicine
DX: M79.601 Pain in right arm (principal)
CPT/HCPCS: 93971

== ENCOUNTER → 2020-07-24 14:01 | Outpatient (CLI) | payer MEDICARE, OTHER, SELFPAY ==
[2020-06-16 11:38] VITALS: BMI 38.0
== END ==
PROVIDERS: PCP Family Medicine; Visit Provider Family Medicine
DX: R39.15 Urgency of urination (principal)
CPT/HCPCS: 87086; 87088

== ENCOUNTER → 2020-07-25 12:30 | Outpatient (CLI) | payer MEDICARE, OTHER, SELFPAY ==
[2020-06-16 11:38] VITALS: BMI 38.0
[2020-07-25 15:13] LABS: Erythrocyte Sedimentation Rate 20 mm/hr (0-30)
[2020-07-25 15:15] LABS: Absolute Lymphocyte Count 2.37 X10^3/uL (0.83-4.51); Absolute Neutrophil Count 4.9 X10^3/uL (2.0-7.7); Basophil# 0.05 X10^3/uL; Basophil% 0.6 % (0-1); Eosinophil# 0.15 X10^3/uL; Eosinophils% 1.9 % (0-5); Hematocrit 45.4 % (37-47); Hemoglobin 14.6 g/dL (12.0-15.0); Lymphocyte # 2.37 X10^3/ul (0.83-4.51); Lymphocyte % 29.3 % (19-41); Mean Corp Hgb Conc 32.2 g/dL (32-36); Mean Corpuscular Hgb 29.9 pg (27.0-32.0); Mean Corpuscular Volume 92.8 fL (81-99); Mean Platelet Vol. 9.5 fl (6.2-12.0); Monocyte# 0.54 X10^3/uL; Monocyte% 6.7 % (0-10); NRBC Flagged by Analyzer 0 % (0-5); Neutrophil # 4.94 X10^3/uL (2.7-7.7); Platelet Count 379 K/mm3 (150-450); RBC Distribution Width CV 13.4 % (11.6-14.6); RBC Distribution Width SD 46.1 fl (35.1-43.9); Red Blood Count 4.89 M/mm3 (4.2-5.4); White Blood Count 8.1 K/mm3 (4.4-11.0)
[2020-07-25 15:31] LABS: CRP 4.17 mg/L (0.0-3.0)
[2020-07-25 15:46] LABS: Vitamin B12 > 2000 pg/mL (211-911)
[2020-07-27 14:09] LABS: SJOGREN'S Anti-SS-A test < 0.2 AI (0.0-0.9); SJOGREN'S Anti-SS-B test 0.4 AI (0.0-0.9)
[2020-07-27 14:55] LABS: ANTINUCLEAR ANTIBODIES DIRECT Negative (Negative)
== END ==
PROVIDERS: PCP Family Medicine; Referring Provider Family Medicine; Visit Provider Family Medicine
DX: Z01.83 Encounter for blood typing (principal); K14.6 Glossodynia; R39.15 Urgency of urination
CPT/HCPCS: 36415; 82607; 85025; 85652; 86038; 86140; 86235; 86900; 86901; 87086

== ENCOUNTER → 2020-09-04 18:01 | Outpatient (CLI) | payer MEDICARE, OTHER, SELFPAY ==
[2020-06-16 11:38] VITALS: BMI 38.0
== END ==
PROVIDERS: PCP Family Medicine; Referring Provider Family Medicine; Visit Provider Family Medicine
DX: Z20.822 Contact with and (suspected) exposure to COVID-19 (principal)
CPT/HCPCS: 87635; U0005; U0003

== ENCOUNTER 2020-09-29 07:30 | Outpatient (RCR) | payer MEDICARE, OTHER, SELFPAY ==
[2020-06-16 11:38] VITALS: BMI 38.0
--- NOTE | 2020-09-15 08:30 | HP.PTEVAL ---
Patient's Visit Information YESENIA HODGSON is a 70 year old F referred to Physical Therapy by Dr. Ron Lindsay MD with a diagnosis of H/O LUMBAR DDD,LEFT SI DYSFUNCTION. Date of Evaluation: 09/15/20 Physical Therapist: Jm Toney, PT, Cert MDT, OCS - Visit Plan Frequency: 2x /Week Duration: 4 Weeks Plan: PT INTERVENTIONS LUMBAR FLEXION ,DLS,POSTURAL EX'S ,LE FLEXABLITY AND MODLATIES - Subjective This 70 y/o female presents to physical therapy with back pain. Patient has has back pain since August driving to [place] especially on the way back . Seen DR prescribed muscle relaxer and prednisone. Recommended PT. Patient pain located middle lumbar to right. Pain is described as constant constant stabbing pain. Aggravating factors sitting, walking ,bending, lifting and affects ADLS and housework tasks. Alleviating factors none. Patient pain affects sleeping . Coughing/sneezing-. Bowel/bladder -. Denies paresthesia/tingling-. Patient pain affects QOL. Patient has had no treatment. COMORBITIES: Bilateral TKR. SOCIAL: . VOCATION: retired. - Objective POSTURE: mild forward posture. PALAPTION: tender Left LS region. SYMMTRIES: align. NEURO: intact, reflexes L-4,L4-5 ,L5-S1 1/3. MMT: quads/hams 4/5,hip flexion 4-/5,hip abd 3+/5,ankle 4/5. LUMBAR ROM: min loss, extension mod/severe loss pain ,side glides mod loss pain left - Special Tests L/S Slump test left side: Negative L/S Slump test right side: Negative L/S Left Straight Leg Raise: Negative L/S Right Straight Leg Raise: Negative Lumbar Standing: Flexion - Mechanical Response: No effect Lumbar Standing: Flexion - Symptoms During Testing: No effect Lumbar Standing: Flexion - Symptoms After Testing: No effect Lumbar Standing: Extension - Mechanical Response: No effect Lumbar Standing: Extension - Symptoms During Testing: Increases Lumbar Standing: Extension - Symptoms After Testing: No worse Lumbar Standing: Right Side Glides - Mechanical Response: No effect Lumbar Standing: Right Side [place] - Symptoms During Testing: No effect Lumbar Standing: Right Side [place] - Symptoms After Testing: No effect Lumbar Standing: Left Side [place] - Mechanical Response: No effect Lumbar Standing: Left Side [place] - Symptoms During Testing: Increases Lumbar Standing: Left Side [place] - Symptoms After Testing: No worse - Balance/Special Test Scores Oswestry Low Back Score: 38 - Goals Goal 1:: I with HEP Goal Time Frame: 4-6 Weeks Goal 2:: Improve posture/body mechanics for ADLS Goal Time Frame: 4-6 Weeks Goal 3:: Patient to decrease lumbar pain by 50% or > to improve function and ADL'S Goal Time Frame: 4-6 Weeks Goal 4:: Patient to improve lumbar ROM for function of recovery Goal Time Frame: 4-6 Weeks Goal 5:: Patient to improve back owestry score by 5 points or > to improve function and QOL. - Rehabilitation Potential Physical Therapy Diagnosis: This patient has left lumbar pain with possible stenosis with pain with walking ,standing ,better with flexion seated, pain with position and test movements thus benefit from skilled PT Rehabilitation Potential: Good - Anticipated Interventions Patient/Client Instruction: Educate patient on: Condition, Plan of Care For the Purpose of:: To decrease pain, To increase ROM, To improve muscle performance and motor function, To improve ability to perform ADL's, To increase tolerance to activity/condition/position, To improve ability of physical actions for home/community/work/leisure, To improve health of tissue, To decrease soft tissue restriction, To increase flexibility/ROM, To assume or resume ADL's, To reduce risk of recurrence, To improve health and function, To improve ability to perform tasks related to life management Therapeutic Exercise to Include: Strength training, Body mechanics, Postural training, Active ROM, Dynamic Lumbar Stabilization For the Purpose of:: To decrease pain, To increase ROM, To improve muscle performance and motor function, To improve ability to perform ADL's, To increase tolerance to activity/condition/position, To improve ability of physical actions for home/community/work/leisure, To improve health of tissue, To decrease soft tissue restriction, To increase flexibility/ROM, To assume or resume ADL's, To reduce risk of recurrence, To improve health and function, To improve ability to perform tasks related to life management TENS: Yes IF ES: Yes Cryotherapy (ice pack, ice massage): Yes Thermo therapy (hot pack): Yes Ultrasound (thermal/non thermal): Yes For the Purpose of:: To decrease pain, To increase ROM, To improve health of tissue, To decrease soft tissue restriction Thank you for the opportunity to evaluate your patient. For Medicare and Medicare HMO plans, please review the plan of care and approve it. It will need to be FAXED BACK to us at [phone] for Medicare purposes. For Medicare only, by signing this I certify the plan of care. Please let me know if there are questions or concerns regarding this plan of care. Physician Signature: Date:
--- NOTE | 2020-11-23 11:56 | HP.PT.NRP ---
YESENIA HODGSON was seen in my office for initial evaluation on 09/15/20. The following Plan of Care was established for this patient: Initial Frequency: 2x /Week Initial Duration: 4 Weeks Patient/Client Instruction: Educate patient on: Condition, Plan of Care For the Purpose of:: To decrease pain, To increase ROM, To improve muscle performance and motor function, To improve ability to perform ADL's, To increase tolerance to activity/condition/position, To improve ability of physical actions for home/community/work/leisure, To improve health of tissue, To decrease soft tissue restriction, To increase flexibility/ROM, To assume or resume ADL's, To reduce risk of recurrence, To improve health and function, To improve ability to perform tasks related to life management Therapeutic Exercise to Include: Strength training, Body mechanics, Postural training, Active ROM, Dynamic Lumbar Stabilization For the Purpose of:: To decrease pain, To increase ROM, To improve muscle performance and motor function, To improve ability to perform ADL's, To increase tolerance to activity/condition/position, To improve ability of physical actions for home/community/work/leisure, To improve health of tissue, To decrease soft tissue restriction, To increase flexibility/ROM, To assume or resume ADL's, To reduce risk of recurrence, To improve health and function, To improve ability to perform tasks related to life management TENS: Yes IF ES: Yes Cryotherapy (ice pack, ice massage): Yes Thermo therapy (hot pack): Yes Ultrasound (thermal/non thermal): Yes For the Purpose of:: To decrease pain, To increase ROM, To improve health of tissue, To decrease soft tissue restriction This patient was last seen in our office . Pertinent comments regarding their Physical therapy will appear below: Patient seen for PT for lumbar pain/SI focusing on DLS and modalities,doing better thus d/c At this point I will be discontinuing this patient from physical therapy. I would be happy to see this patient again in the future if found appropriate by the physician. Thank you! Jm Toney, PT, Cert MDT, OCS Balance/Gait/Functional tests - Balance/Special Test Scores Oswestry Low Back Score: 0
== END 2020-09-29 19:00 | disposition home or self-care (01) ==
LOC: PT 07:30
PROVIDERS: PCP Family Medicine; Referring Provider Family Medicine; Visit Provider Family Medicine
DX: M51.36 Other intervertebral disc degeneration, lumbar region (principal); M53.3 Sacrococcygeal disorders, not elsewhere classified
CPT/HCPCS: 97110; 97162

== ENCOUNTER → 2020-10-06 17:39 | Outpatient (CLI) | payer MEDICARE, OTHER, SELFPAY | PROVIDERS: Visit Provider Family Medicine | DX: U07.1 COVID-19 (principal) | CPT/HCPCS: 87635; U0005; U0003 ==

== ENCOUNTER → 2020-12-19 08:55 | Outpatient (CLI) | payer MEDICARE, OTHER, SELFPAY ==
[2020-12-19 10:54] LABS: ALB/GLOB Ratio 0.7 RATIO (0.9-2.4); AST(SGOT) 19 U/L (15-37); Alanine Aminotransfer ALT/SGPT 32 U/L (13-56); Albumin, Serum 3.2 g/dL (3.2-5.0); Alkaline Phosphatase 100 U/L (45-117); Anion Gap 4 (5-15); BUN 12 mg/dL (7-18); BUN/Creat Ratio 15.3 RATIO (10-20); Calcium,Total 9.5 mg/dL (8.5-10.1); Chloride 104 mmol/L (98-107); Creatinine, Serum 0.78 mg/dL (0.55-1.02); EST Glomerular Filtration Rate 77 mL/min (>60); Est Glom Filt Rate - Afr Amer 93 mL/min (>60); Globulin 4.4 g/dL (2.2-4.2); Glucose 93 mg/dL (74-106); Protein, Total 7.6 g/dL (6.4-8.2); Sodium Level 139 mmol/L (136-145); Thyroid Stim Hormone (TSH) 1.14 uIU/mL (0.358-3.74)
[2020-12-19 11:08] LABS: AST(SGOT) 19 U/L (15-37); Alanine Aminotransfer ALT/SGPT 31 U/L (13-56); Albumin, Serum 3.4 g/dL (3.2-5.0); Alkaline Phosphatase 103 U/L (45-117); Bilirubin, Direct 0.11 mg/dL (0.00-0.30); Cholesterol 240 mg/dL (200); Globulin 3.9 g/dL (2.2-4.2); High Density Lipoprotein 62 mg/dL; Protein, Total 7.3 g/dL (6.4-8.2); Triglycerides 136 mg/dL; Very Low Density Lipoprotein 27 mg/dL (5-40)
== END ==
PROVIDERS: PCP Family Medicine; Referring Provider Nurse Practitioner Gerontology; Visit Provider Nurse Practitioner Gerontology
DX: R73.01 Impaired fasting glucose (principal); E78.5 Hyperlipidemia, unspecified
CPT/HCPCS: 36415; 80053; 80061; 80076; 84443; 86769

== ENCOUNTER → 2021-01-02 09:54 | Outpatient (CLI) | payer MEDICARE, OTHER, SELFPAY ==
--- NOTE | 2021-01-02 09:55 | CDU_ITS ---
Reason For Study: dizziness Rt. Velocities/BP Lt. Velocities/BP Prox CCA 104.7/23.9 cm/sec. Prox CCA 111.2/25.2 cm/sec. Mid CCA 99.5/22.6 cm/sec. Mid CCA 91.7/14.7 cm/sec. Dist CCA 89.1/22.6 cm/sec. Dist CCA 93.0/21.3 cm/sec. Prox ICA 68.2/20.0 cm/sec. Prox ICA 95.6/22.6 cm/sec. Mid ICA 79.9/17.3 cm/sec. Mid ICA 65.6/21.3 cm/sec. Dist ICA 87.8/26.5 cm/sec. Dist ICA 90.4/29.1 cm/sec. Rt. ICA/CCA = .9. Lt. ICA/CCA = 1.0. Prox ECA 79.9/14.7 cm/sec. Prox ECA 85.2/14.7 cm/sec. Rt. Vert. 49.9/14.7 cm/sec. Lt. Vert. 59.1/18.6 cm/sec. Right Extracranial There is intimal thickening but no significant atherosclerotic plaque noted in the right common carotid artery. There is heterogeneous, irregular atherosclerotic plaque noted in the right internal carotid artery. There is intimal thickening but no significant atherosclerotic plaque noted in the right external carotid artery. Antegrade flow is noted in the right vertebral artery. Left Extracranial There is intimal thickening but no significant atherosclerotic plaque noted in the left common carotid artery. There is intimal thickening but no significant atherosclerotic plaque noted in the left internal carotid artery. There is intimal thickening but no significant atherosclerotic plaque noted in the left external carotid artery. Antegrade flow is noted in the left vertebral artery. Procedure Carotid Duplex [id number]. This is a Carotid Duplex examination using B-mode, color flow and specral Doppler. The exam was diagnostic. Exam performed in department. VL/Carotid Duplex Ultrasound Interpretation Summary Minimal plaque at the proximal right internal carotid artery with less than 50% stenosis Less than 50% stenosis right external carotid artery Intimal thickening at the proximal left internal carotid artery with less than 50% stenosis Less than 50% stenosis left external carotid artery Patent and antegrade vertebral arteries bilaterally Ordering Physician: Claudia Yeh Performed By: Mendoza Pisano RVT
== END ==
PROVIDERS: PCP Family Medicine; Referring Provider Nurse Practitioner Gerontology; Visit Provider Nurse Practitioner Gerontology
DX: R42 Dizziness and giddiness (principal)
CPT/HCPCS: 93880

== ENCOUNTER 2021-02-16 08:50 | Outpatient (CLI) | payer MEDICARE, OTHER, SELFPAY ==
[2021-02-16 10:14] LABS: AST(SGOT) 16 U/L (15-37); Alanine Aminotransfer ALT/SGPT 29 U/L (13-56); Albumin, Serum 3.4 g/dL (3.2-5.0); Alkaline Phosphatase 93 U/L (45-117); Cholesterol 228 mg/dL (200); Globulin 4.3 g/dL (2.2-4.2); High Density Lipoprotein 64 mg/dL; Protein, Total 7.7 g/dL (6.4-8.2); Triglycerides 138 mg/dL; Very Low Density Lipoprotein 28 mg/dL (5-40)
== END 2021-02-16 23:59 | disposition short-term general hospital (02) ==
PROVIDERS: PCP Family Medicine; Referring Provider Nurse Practitioner Gerontology; Visit Provider Nurse Practitioner Gerontology
DX: E78.5 Hyperlipidemia, unspecified (principal)
CPT/HCPCS: 36415; 80061; 80076

== ENCOUNTER 2021-03-26 17:51 | Outpatient (CLI) | payer MEDICARE, OTHER, SELFPAY ==
[2021-03-26 17:52] LABS: Bacteria 0 SEEN /hpf (None Seen); Mucous, Urine 0 SEEN /hpf (<or=2+); Squamous Epithelial Cells - UA 0 SEEN /hpf (5-10); White Blood Cells 0 SEEN /hpf (0-5)
[2021-03-26 18:18] LABS: Color, Urine Yellow (Yellow); Glucose, Dipstick Normal (Normal); Ketone-Dipstick Negative (Negative); Leukocyte Esterase-Dipstick Negative /ul (Negative); Nitrite-Dipstick Negative (Negative); Occult Blood-Urine 25 /ul (Negative); Protein-Dipstick Negative (Negative); Specific Gravity, Urine 1.015 (1.002-1.030); Urine Bilirubin Dipstick Negative (Negative); Urine Clarity Clear (Clear); Urine Urobilinogen Normal (Normal)
[2021-03-26 18:31] LABS: Red Blood Cells-Urine 0-5 SEEN /hpf (0-5)
== END 2021-03-26 23:59 | disposition home or self-care (01) ==
PROVIDERS: PCP Family Medicine; Visit Provider Nurse Practitioner Family
DX: R30.0 Dysuria (principal)
CPT/HCPCS: 81001; 87086; 87088

== ENCOUNTER 2021-05-30 09:00 | Outpatient (RCR) | payer MEDICARE, OTHER, SELFPAY ==
--- NOTE | 2021-05-11 11:48 | HP.PTEVAL ---
Patient's Visit Information YESENIA HODGSON is a 71 year old F referred to Physical Therapy by Dr. Ron Lindsay MD with a diagnosis of LUMBAR DDD WITH ACUTE FLARE AND PAIN IN LEFT LEG.. Date of Evaluation: 05/11/21 Physical Therapist: Juana Olea, PT, Cert MDT - Visit Plan Frequency: 2-3x /Week Duration: 4-6 Weeks Plan: US X6. POSTURE CORRECTION/STRENGTHENING, INSTRUCTION IN APPROPRIATE BODY MECHANICS AND ACTIVITY MODIFICATIONS. DLS STARTING WITH A NEUTRAL SPINE PROGRESSING ROM TOLERATED. ANNA LE ROM, STRETCHING AND STRENGTHENING. HEP INSTRUCTION. - Subjective Work/Leisure: RETIRED. Present symptoms: LOW BACK PAIN. IT ACHES AND IT IS PAINFUL TO SIT. SOMETIMES IT GOES DOWN MY LEGS L>R. DENIES LE NUMBNESS AND TINGLING. LEGS FEEL RESTLESS. Present since: CHRONIC. FLARE UP ABOUT 2 WEEKS AGO FOR NO APPARENT REASON. Pain Scale: WORST 6/10, LEAST 1-2/10. Currently: 2-3/10. Symptoms at onset: INCREASED BACK AND ANNA LE PAIN. Worse: SITTING, STANDING IN ONE SPOT. Better: LYING DOWN, PILLOW BEHIND BACK AND HEATING PAD. Disturbed sleep: NO. Previous history/Previous treatment: PHYSICAL THERAPY, TYLONOL, HEATING PAD. NO BACK SURGERY. NO BACK INJECTIONS. NO CHIROPRACTIC. Coughing/sneezing/straining: NEGATIVE. Gait: DISTANCE LIMITED DUE TO BACK ACHING. Difficulty initiating urination: NO. DENIES BOWEL AND BLADDER DYSFUNCTION. Accidents: NO. Unexplained weight loss: NO. Imaging: NONE RECENT. REMOTE IMAGING SHOWED DD AND ARTHRITIS PER PATIENT REPORT. PMH/Recent major surgery: ARTHRITIS. ASTHMA. ANNA TKR'S 2007 AND 2012. BLOOD CLOTS 2013 AFTER 2ND TKR - ON COUMADIN. - Objective Sitting/Standing Posture: POOR. Lordosis: NORMAL. Lateral shift: NO. Active Correction of posture: NE. Other Observations: INDEP GAIT INTO PT WITHOUT ANY AD'S OR LOB. MILD INCREASED TRUNK FLEXION. ABLE TO TRANSFER INDEP'LY FROM SIT TO STAND WITHOUT UE ASSIST. Motor deficit: ANNA LE'S GROSSLY 5/5 WITH MMT'ING EXCEPT ANNA HIPS 4/5. Sensory deficit: ANNA LE LIGHT TOUCH SENSATION IS GROSSLY INTACT AND SYMMETRICAL. ROM deficit: TIGHT ANNA LE HIP FLEXORS AND GASTROC SOLEUS COMPLEX'S. Dural Signs: NEGATIVE ANNA LE'S. Lumbar mvmt loss: flex - MOD. ext - MOD. R SG - MOD. L SG - MOD. PATIENT C/O INCREASED LOW LOW BACK PAIN ANNA WITH LUMBAR ROM TESTING ALL PLANES. Core strength: POOR. Palpation: NO ACUTE LUMBOSACRAL TENDERNESS. PATIENT DENIES FALLS. TREATMENT: NEUROMUSCULAR REEDUCATION - RETRAINING OF MVMT AND POSTURE FOR SITTING, LYING AND STANDING ACTIVITIES. - Balance/Special Test Scores Oswestry Low Back Score: 8 TUG Test Time Seconds: 11.3 30 Second Chair Rise Test Seconds: 11 - Goals Goal 1:: DECREASE C/O BACK AND LE SX'S TO EASE ADL'S Goal Time Frame: 4-6 Weeks Goal 2:: IMPROVE SITTING, STANDING AND HOMEMAKING FUNCTION. Goal Time Frame: 4-6 Weeks Goal 3:: INSTRUCT IN PROPHYLAXIS Goal Time Frame: 4-6 Weeks Goal 4:: PATIENT WILL COMPLETE 14 STANDS IN 30 SECS TO DEMONSTRATE IMPROVED FUNCTIONAL STRENGTH Goal Time Frame: 4-6 Weeks Goal 5:: PATIENT WILL COMPLETE TUG IN < 10 SECS TO DEMONSTRATE IMPROVED GAIT STABILITY Goal Time Frame: 4-6 Weeks - Anticipated Interventions Patient/Client Instruction: Educate patient on: Condition, Plan of Care, Risk Factors For the Purpose of:: To improve self management Therapeutic Exercise to Include: Strength training, Body mechanics, Postural training, Flexibilty training, Gait and locomotor training, Neuromotor development, Dynamic Lumbar Stabilization For the Purpose of:: To decrease pain, To increase ROM, To improve muscle performance and motor function, To increase tolerance to activity/condition/position, To improve ability of physical actions for home/community/work/leisure, To improve gait and locomotor functions Cryotherapy (ice pack, ice massage): Yes Thermo therapy (hot pack): Yes Ultrasound (thermal/non thermal): Yes For the Purpose of:: To decrease pain, To improve nutrient delivery to tissue Thank you for the opportunity to evaluate your patient. For Medicare and Medicare HMO plans, please review the plan of care and approve it. It will need to be FAXED BACK to us at [phone] for Medicare purposes. For Medicare only, by signing this I certify the plan of care. Please let me know if there are questions or concerns regarding this plan of care. Physician Signature: Date:
--- NOTE | 2021-05-30 10:53 | HP.PTREVAL_ITS ---
Dr. Ron Ibanez MD, It has been my pleasure to treat YESENIA HODGSON over the last 9 visits for LUMBAR DDD WITH ACUTE FLARE AND PAIN IN LEFT LEG.. Please see the progress note below for an update on the physical therapy plan of care! Subjective: PATIENT REPORTS SHE HAS GOOD DAYS AND BAD DAYS WITH HER BACK AND L KNEE BUT OVER-ALL HER BACK IS DOING A LOT BETTER. PATIENT REPORTS THAT WHEN SHE GETS UP AND DOWN FROM A CHAIR NOW IT DOESN'T PINCH AND BOTHER HER IN HER BACK NOW LIKE IT DID BEFORE STARTING THERAPY. Objective/Function: PATIENT WAS SEEN TODAY FOR RE-ASSESSMENT OF PROGRESS TOWARD THE SET PT GOALS AND THE NEED FOR FURTHER PHYSICAL THERAPY VS READINESS FOR DISCHARGE. SHE IS A GOOD CANDIDATE TO CONTINUE PT AND TRY AQUATIC THERAPY BASED ON PROGRESS MADE BUT ROOM FOR FURHTER IMPROVEMENT. SHE HAS HAD SOME TROUBLE TOLERATING EX PROGRESSION ON LAND SO A TRIAL OF AQUATIC THEREAPY IS INDICATED AND SHE IS AGREEABLE. SHE WILL DISCUSS WITH HER PCP UPON RETURN FROM VACATION AND IN CONJUNCTION WITH ORTHO FOLLOW UP FOR HER LEFT KNEE. UPON EXAM TODAY: PATIENT HAS INCREASED PAINFREE LUMBAR FLEXION, IMPROVED TUG TIME AND INCREASED REPS WITH 30 SEC SIT TO STAND TEST. Plan Plan: CONSIDER AQUATIC THERAPY FOR LOW BACK UPON RETURN FROM VACATION. (PATIENT REPORTS SHE DISCUSSED THIS WITH DR. IBANEZ AND HE WAS AGREEABLE). POSTURE CORRECTION/STRENGTHENING, INSTRUCTION IN APPROPRIATE BODY MECHANICS AND ACTIVITY MODIFICATIONS. DLS STARTING WITH A NEUTRAL SPINE PROGRESSING ROM TOLERATED. ANNA LE ROM, STRETCHING AND STRENGTHENING. HEP INSTRUCTION. Balance/Gait/Functional tests - Balance/Special Test Scores Oswestry Low Back Score: 5 TUG Test Time Seconds: 10.19 Tug Test: <20 sec.=mostly independent 30 Second Chair Rise Test Seconds: 12 Goals Goal 1:: DECREASE C/O BACK AND LE SX'S TO EASE ADL'S Goal Time Frame: 4-6 Weeks Goal Progress: Progressing Goal 2:: IMPROVE SITTING, STANDING AND HOMEMAKING FUNCTION. Goal Time Frame: 4-6 Weeks Goal Progress: Progressing Goal 3:: INSTRUCT IN PROPHYLAXIS Goal Time Frame: 4-6 Weeks Goal Progress: Progressing Goal 4:: PATIENT WILL COMPLETE 14 STANDS IN 30 SECS TO DEMONSTRATE IMPROVED FUNCTIONAL STRENGTH Goal Time Frame: 4-6 Weeks Goal Progress: Progressing Goal 5:: PATIENT WILL COMPLETE TUG IN < 10 SECS TO DEMONSTRATE IMPROVED GAIT STABILITY Goal Time Frame: 4-6 Weeks Goal Progress: Progressing Anticipated Interventions Patient/Client Instruction: Educate patient on: Condition, Plan of Care, Risk Factors For the Purpose of:: To improve self management Therapeutic Exercise to Include: Strength training, Body mechanics, Postural training, Flexibilty training, Gait and locomotor training, Neuromotor development, Dynamic Lumbar Stabilization For the Purpose of:: To decrease pain, To increase ROM, To improve muscle performance and motor function, To increase tolerance to a ctivity/condition/position, To improve ability of physical actions for home/community/work/leisure, To improve gait and locomotor functions Cryotherapy (ice pack, ice massage): Yes Thermo therapy (hot pack): Yes Ultrasound (thermal/non thermal): Yes For the Purpose of:: To decrease pain, To improve nutrient delivery to tissue Please do not hesitate to contact me at [phone] by phone or if you have questions or concerns regarding this new plan of care! Sincerely, Juana Olea, PT, Cert MDT
--- NOTE | 2021-11-20 12:16 | HP.PT.NRP ---
YESENIA HODGSON was seen in my office for initial evaluation on 05/11/21. The following Plan of Care was established for this patient: Initial Frequency: 2-3x /Week Initial Duration: 4-6 Weeks Patient/Client Instruction: Educate patient on: Condition, Plan of Care, Risk Factors For the Purpose of:: To improve self management Therapeutic Exercise to Include: Strength training, Body mechanics, Postural training, Flexibilty training, Gait and locomotor training, Neuromotor development, Dynamic Lumbar Stabilization For the Purpose of:: To decrease pain, To increase ROM, To improve muscle performance and motor function, To increase tolerance to activity/condition/position, To improve ability of physical actions for home/community/work/leisure, To improve gait and locomotor functions Cryotherapy (ice pack, ice massage): Yes Thermo therapy (hot pack): Yes Ultrasound (thermal/non thermal): Yes For the Purpose of:: To decrease pain, To improve nutrient delivery to tissue This patient was last seen in our office 05/30/21. Pertinent comments regarding their Physical therapy will appear below: This patient has not returned to Physical Therapy and is appropriate to return to MD for further follow-up as needed. At this point I will be discontinuing this patient from physical therapy. I would be happy to see this patient again in the future if found appropriate by the physician. Thank you! Juana Olea, PT, Cert MDT Balance/Gait/Functional tests - Balance/Special Test Scores Oswestry Low Back Score: 5 TUG Test Time Seconds: 10.19 Tug Test: <20 sec.=mostly independent 30 Second Chair Rise Test Seconds: 12
== END 2021-05-30 19:00 | disposition home or self-care (01) ==
LOC: PT 09:00
PROVIDERS: PCP Family Medicine; Referring Provider Family Medicine; Visit Provider Family Medicine
DX: M51.36 Other intervertebral disc degeneration, lumbar region (principal); M79.605 Pain in left leg
CPT/HCPCS: 97035; 97110; 97112; 97162; 97164; 97530

== ENCOUNTER → 2021-06-19 | Outpatient (CLI) | payer MEDICARE, OTHER, SELFPAY ==
--- NOTE | 2021-06-19 10:17 | BI_ITS ---
MAMMOGRAPHY - BILATERAL SCREENING REASON FOR EXAM: Female, 71 years old. Routine annual screening examination. PERTINENT HISTORY: Non-contributory. TECHNIQUE: Digital bilateral breast nicole (3D mammographic acquisition) in the CC and MLO projections. 2-D mediolateral oblique (MLO) and craniocaudad (CC) views of both breasts were obtained. CAD: Full Field Digital Mammography with Computer Added Detection was performed. COMPARISON: Comparison is made with prior study dated 01/19/2019 and 09/11/2017. FINDINGS: Breast Composition: The breasts are almost entirely fatty. There are no dominant masses or suspicious calcifications. Stable benign-appearing small bilateral axillary lymph nodes. No other significant abnormalities are identified. There has been no significant change since the prior study. BI/SCREENING MAMM (CAD), BILAT IMPRESSION: Stable bilateral screening mammogram. Yearly follow-up mammogram recommended. (A) ASSESSMENT CATEGORY: BIRADS Category 2: Benign. A letter regarding these results will be sent to the patient by the facility within 30 days. Approximately 10% of breast cancers are not detected by mammography. A normal mammogram should not delay biopsy of a clinically suspicious abnormality. [id number] Electronically Signed: Aroldo Neves MD at 11:08 EDT ,
--- NOTE | 2021-06-19 10:21 | BD_ITS ---
STUDY: DUAL ENERGY X-RAY ABSORPTIOMETRY / DXA REASON FOR EXAM: Female, 71 years old. [id number]. Patient is postmenopausal. TECHNIQUE: Bone Mineral Density (BMD) measurements of lumbar spine and bilateral hips were obtained. COMPARISON: Comparison is made with prior study 09/11/2017. FINDINGS: Lumbar Spine (L1-L4): g/cm2 (1.092) / T-score (0.4) / Z-score (2.6) Findings are suggestive of normal bone density with a low fracture risk. Left Femur Total: g/cm2 (0.985) / T-score (0.4) / Z-score (1.9) Left Femoral Neck: g/cm2 (0.846) / T-score (0.0) / Z-score (1.9) Right Femur Total: g/cm2 (0.989) / T-score (0.4) / Z-score (2.0) Right Femoral Neck: g/cm2 (0.790) / T-score (-0.5) / Z-score (1.3) The T-Scores on the most recent prior examination were: Lumbar Spine (L1-L4): There has been worsening of bone density since the previous examination. Left Femur Total: which represents a worsening of 5%. Right Femur Total: which represents a worsening of 1.7%. BD/Dexa Bone Density Study IMPRESSION: The patient is considered normal as outlined below according to World Genaro Organization (WHO) criteria with a low fracture risk. There has been worsening of bone density since the previous examination. Reference Information: The T-score is the number of standard deviations above or below the standard which is normal for young adults at their peak bone mineral density. The World Health Organization (WHO) interprets the T-scores as follows: Above -1 Normal bone density Between -1 and -2.5 Osteopenia Equal to / or below -2.5 Osteoporosis As a practical clinical guideline, osteopenia may be graded as follows: Mild -1 through -1.5 Moderate -1.6 through -2.0 Severe -2.1 through -2.4 The Z-score is the number of standard deviations above or below age-matched controls. A Z-score of less than -1.5 would be considered abnormal. References: 1. NIH Osteoporosis and Related Bone Diseases www osteo.org 2. International Society for Clinical Densitometry www iscd.org 3. National Osteoporosis Foundation www nof.org Electronically Signed: Aroldo Neves MD at 10:15 EDT ,
== END | disposition home or self-care (01) ==
LOC: OPBD 10:15
PROVIDERS: PCP Family Medicine; Referring Provider Family Medicine; Visit Provider Family Medicine
DX: Z12.31 Encounter for screening mammogram for malignant neoplasm of breast (principal); Z78.0 Asymptomatic menopausal state
CPT/HCPCS: 77067; 77080

== ENCOUNTER → 2021-07-05 | Outpatient (CLI) | payer MEDICARE, OTHER, SELFPAY | END | disposition home or self-care (01) | LOC: LABSPEC 09:50 | PROVIDERS: PCP Family Medicine; Referring Provider Family Medicine; Visit Provider Family Medicine | DX: R39.15 Urgency of urination (principal) | CPT/HCPCS: 87086; 87088; 87186 ==

== ENCOUNTER 2021-07-25 10:37 | Emergency (ER) | payer MEDICARE, OTHER, SELFPAY ==
[2021-07-25] VITALS (7 sets, daily range): BP systolic 122–164; BP diastolic 65–74; PULSE 71–92; RESP 15–22; TEMP 36.9; O2SAT 95–98; BMI 42.5
--- NOTE | 2021-07-25 11:01 | EKG12_ITS ---
Test Reason : CHEST PAIN Blood Pressure : / mmHG Vent. Rate : 091 BPM Atrial Rate : 091 BPM P-R Int : 164 ms QRS Dur : 084 ms QT Int : 364 ms P-R-T Axes : 057 038 056 degrees QTc Int : 447 ms Normal sinus rhythm Normal ECG Confirmed by KEVIN GIRALDO, VENKAT ([id number]), editor index MARY CALLAWAY ([id number]) on 07/27/2021 9:08:25 AM Referred By: Confirmed By:VENKAT BROWN MD
--- NOTE | 2021-07-25 11:01 | RAD_ITS ---
STUDY: X-RAY CHEST REASON FOR EXAM: Female, 71 years old. Chest pain TECHNIQUE: Single AP portable view of the chest. COMPARISON: Comparison is made with prior study dated 06/14/2020. FINDINGS: EKG electrodes are seen. The lungs are clear and expanded. Scattered calcified granulomas. There is no demonstrated pleural abnormality. Normal size heart. Normal mediastinum and aubrie. Normal visualized pulmonary arteries. There is atherosclerotic tortuosity of the aortic arch and descending thoracic aorta. There are diffuse degenerative changes of the visualized thoracic spine. Normal visualized ribs, clavicles, and shoulders. There is no demonstrated abnormality of the visualized soft tissue structures of the upper abdomen. RAD/Chest 1 View (Portable) IMPRESSION: No acute abnormality is seen. Stable examination. Electronically Signed: Aroldo Neves MD at 11:27 EDT ,
--- NOTE | 2021-07-25 11:04 | EDS_ITS ---
HPI History of Present Illness Chief Complaint: General Illness Detail of Chief Complaint: chest/epigast pain Informant: patient Onset/Context/Timing Onset: Hours (1) Activity at onset: sudden, onset, activity on onset and rest Timing: Continuous Quality: Positive for Burning and Pain Location: Substernal (And epigastric) Current Severity: Mild Maximum Severity: Moderate Worsened By: Nothing; Not Worsened By Breathing Relieved By: Antacids Associated Symptoms: Positive for - (Shaky all over); Negative for Nausea, Vomiting, Diaphoresis, Dyspnea, Cough, Fever, Lightheadedness or Palpitations Narrative Narrative: Patient states she has a history of recurring chest pain that she has been told is most likely GI-related. She states that occurred this morning soon after she started getting burning in her mid-right chest radiating up toward her right neck and right ear. She took an antiacid, and the burning resolved as a result of this and the other discomfort is better but still present. She feels shaky all over which is new she does not usually have that. Now, her discomfort is mild, she feels shaky, no lightheadedness or palpitations or diaphoresis or nausea/vomiting. The burning is gone and lasted a total of 15 to 20 minutes. No known history of heart disease. [facility] Medical History Asthma Chronic back pain Esophageal reflux History of pulmonary embolism (08/04/12) Hyperlipidemia Hypothyroidism Irritable bowel syndrome Lung nodule Obesity Osteoarthritis Home Medications acetaminophen 500 mg tablet 500 mg PO BID 03/13/14 [History Last Taken 08/20/16] aspirin 81 mg chewable tablet 81 mg PO DAILY@0800 03/13/14 [History Last Taken 06/19/20] levothyroxine 100 mcg tablet 100 mcg PO DAILY 03/13/14 [History Last Taken 06/19/20] warfarin 5 mg tablet 4 mg PO SUMOWETHFRSA 03/13/14 [History Last Taken 08/22/16] warfarin 6 mg tablet 2.5 mg PO TU 03/13/14 [History Last Taken 08/20/16] albuterol sulfate 90 mcg/actuation aerosol inhaler (ProAir HFA) 2 puff inhalation Q6H PRN Wheezing 05/30/20 [History Last Taken Unknown] cholecalciferol (vitamin D3) 50 mcg (2,000 unit) capsule 2,000 unit PO DAILY 05/30/20 [History Last Taken Unknown] omeprazole 40 mg capsule,delayed release 40 mg PO DAILY 05/30/20 [History Last Taken Unknown] cyanocobalamin (vitamin B-12) 100 mcg tablet (Vitamin B-12) 100 mcg PO .qod 12/18/20 [History Last Taken Unknown] fluticasone propionate 50 mcg/actuation nasal spray,suspension 2 spray intranasal DAILY PRN Allergic Symptoms 12/18/20 [History Last Taken Unknown] Allergy/AdvReac Type Severity Reaction Status Date / Time cephalexin monohydrate Allergy Chest Verified 07/25/21 10:44 [From Keflex] tightness ciprofloxacin [From Cipro] Allergy Nausea Verified 07/25/21 10:44 ciprofloxacin HCl Allergy Nausea Verified 07/25/21 10:44 [From Cipro] hyoscyamine sulfate Allergy Chest Verified 07/25/21 10:44 [From Levbid] tightness nitrofurantoin Allergy Nausea Verified 07/25/21 10:44 [From Macrobid] nitrofurantoin Allergy Nausea Verified 07/25/21 10:44 macrocrystalline [From Macrobid] NSAIDS (Non-Steroidal Allergy Nausea Verified 07/25/21 10:44 Anti-Inflamma tramadol Allergy Chest Verified 07/25/21 10:44 tightness atorvastatin AdvReac insomnia/leg Verified 07/25/21 10:44 pain nalbuphine HCl [From Nubain] AdvReac Nausea Verified 07/25/21 10:44 Family History (Reviewed 12/18/20 @ 09:10 by Claudia Yeh ELECTRONIC LAB TECHNICIAN, ELECTRONIC LAB TECHNICIAN-C) Sister Heart disease CHF at 63 Surgical History History of bunionectomy History of cholecystectomy History of left heart catheterization (06/19/20) History of tonsillectomy History of total knee arthroplasty (2012) Social History Smoking Status: Former smoker ROS ROS ED Constitutional Constitutional ED: Denies chills or fever(s) Eyes Eyes: Denies change in vision or diplopia ENT ENT ED: Denies rhinorrhea or sore throat Cardiovascular Cardiovascular: Reports as per HPI and chest pain; Denies palpitations Respiratory/Chest Respiratory/Chest: Denies cough or dyspnea Gastrointestinal Gastrointestinal: Reports as per HPI and abdominal pain; Denies diarrhea, nausea or vomiting Genitourinary Genitourinary ED: Denies dysuria or hematuria Musculoskeletal Musculoskeletal: Denies back pain or neck pain Integumentary Denies abscess or rash Neurologic Neurologic: Denies headache(s), paresthesias or weakness Psychiatric Psychiatric: Denies anxiety or suicidal thoughts EXAM Physical Exam Const Vital Signs: 07/25/21 10:38 07/25/21 10:44 07/25/21 11:53 Temperature 98.4 F Temperature Source Oral Pulse Rate 92 82 Respiratory Rate 22 H 16 Respiratory Effort Short of Breath Blood Pressure 164/74 H Blood Pressure Mean 104 Pulse Ox 95 Oxygen Delivery Method Room Air 07/25/21 12:15 07/25/21 13:11 07/25/21 13:24 Temperature Temperature Source Pulse Rate 82 77 Respiratory Rate 15 16 Respiratory Effort Blood Pressure 134/69 H Blood Pressure Mean 90 Pulse Ox 96 96 Oxygen Delivery Method Room Air Room Air 07/25/21 14:08 Temperature Temperature Source Pulse Rate 71 Respiratory Rate 16 Respiratory Effort Blood Pressure 124/69 H Blood Pressure Mean 87 Pulse Ox 95 Oxygen Delivery Method Room Air Positive well nourished, well developed and obese General Appearance ED: well developed and NAD Nutritional Appearance: obese HEENT Reports moist mucous membranes normocephalic and atraumatic Eyes PERRL and EOMs intact bilaterally Neck full ROM and supple Resp normal respiratory effort and clear to auscultation bilaterally Cardio regular rate, regular rhythm and no murmurs Peripheral Pulses: pulses 2+ throughout GI non-distended GI Narrative: Mild epigastric tenderness no guarding or rebound or other tenderness in the abdomen Auscultation: normoactive bowel sounds Palpation: soft Back/Spine no CVA tenderness General Back: other FROM Extremity normal to inspection and no calf tenderness General Extremety ED: Negative for edema, pulses abnormal or tenderness General Extremity: Negative for edema or pulses abnormal Neuro oriented x3, CN's II-XII intact bilaterally and no sensory deficits noted Sensorium / Orientation: awake and alert Motor Exam: strength 5/5 throughout Skin no rashes or lesions noted and no wounds Heart Score History: Moderately Suspicious ECG: Normal Age: >/= 65 years Risk Factors: 1 or 2 Risk Factors Troponin: </= Normal Limit Score: 4 MDM MDM MDM Narrative Medical decision making narrative: Patient symptoms resolved while she was being observed, her initial troponin was 4 and her second troponin 2 hours later was 4. Her EKG is normal, as is the rest of her work-up. Her pressure came down with observation to 124/69. She feels better and is reassured, uncomfortable discharging her home for close outpatient follow-up. She is already on a PPI and advised to continue that. Lab Data Attestation: I reviewed the patient's lab results. Labs: Laboratory Results - last 24 hr 07/25/21 07/25/21 07/25/21 10:57 10:57 10:57 WBC 7.1 RBC 4.72 Hgb 14.1 Hct 43.7 MCV 92.6 MCH 29.9 MCHC 32.3 RDW Std Deviation 46.3 H RDW Coeff of [place] 13.5 Plt Count 380 MPV 9.3 Immature Gran % (Auto) 0.300 Neut % (Auto) 54.1 Lymph % (Auto) 33.6 Hall % (Auto) 9.2 Eos % (Auto) 2.4 Baso % (Auto) 0.4 Absolute Neuts (auto) 3.9 Absolute Lymphs (auto) 2.40 Nucleated RBC % 0 PT 18.4 H INR 1.6 Sodium 138 Potassium 4.2 Chloride 104 Carbon Dioxide 28.0 Anion Gap 6 BUN 13 Creatinine 1.01 Estim Creat Clear Calc 40.41 Est GFR (MDRD) Af Amer 69 Est GFR (MDRD) Non-Af 57 L BUN/Creatinine Ratio 12.9 Glucose 114 H Calcium 9.8 Troponin I High Sens 4 POC Glucose 07/25/21 07/25/21 11:09 14:00 WBC RBC Hgb Hct MCV MCH MCHC RDW Std Deviation RDW Coeff of [place] Plt Count MPV Immature Gran % (Auto) Neut % (Auto) Lymph % (Auto) Hall % (Auto) Eos % (Auto) Baso % (Auto) Absolute Neuts (auto) Absolute Lymphs (auto) Nucleated RBC % PT INR Sodium Potassium Chloride Carbon Dioxide Anion Gap BUN Creatinine Estim Creat Clear Calc Est GFR (MDRD) Af Amer Est GFR (MDRD) Non-Af BUN/Creatinine Ratio Glucose Calcium Troponin I High Sens 4 POC Glucose 99 Radiography Diagnostic Testing: Clinical Impression(s) from Imaging Studies Chest X-Ray 07/25/21 11:01 IMPRESSION: No acute abnormality is seen. Stable examination. Electronically Signed: Aroldo Neves MD at 11:27 EDT , Rhythm Strip Rhythm Strip: Sinus Rhythm Rate: 90 Ectopy: None EKG Initial EKG: Attestation: I personally reviewed and interpreted this EKG as follows: Interpretation: Sinus Rhythm and No Acute Injury Pattern Comments: normal EKG Discharge Plan Triage Chief Complaint: General Illness ED Provider: Gamaliel Mahoney Dx/Rx/DC Orders Clinical Impression: Chest pain, unspecified Instructions: ED Chest Pain, Uncertain Cause Prescriptions: No Action albuterol sulfate [ProAir HFA] 90 mcg/actuation HFA aerosol inhaler 2 puff INHALATION Q6H PRN (Reason: Wheezing) cholecalciferol (vitamin D3) 50 mcg (2,000 unit) capsule 2,000 unit PO DAILY Label Comments: TAKE 1 CAPSULE BY MOUTH DAILY omeprazole 40 mg capsule,delayed release(DR/EC) 40 mg PO DAILY cyanocobalamin (vitamin B-12) [Vitamin B-12] 100 mcg tablet 100 mcg PO .qod fluticasone propionate 50 mcg/actuation spray,suspension 2 spray INTRANASAL DAILY PRN (Reason: Allergic Symptoms) Rx Instructions: administer into each nostril levothyroxine 100 MCG tablet 100 mcg PO DAILY Label Comments: THYROID warfarin 6 MG tablet 2.5 mg PO Label Comments: blood thinner warfarin 5 MG tablet [facility] mg [facility] Label Comments: blood thinner acetaminophen 500 MG tablet 500 mg PO BID Label Comments: PAIN aspirin 81 MG tablet,chewable 81 mg PO DAILY@0800 Label Comments: [facility] Primary Care Provider: Ron Lindsay Referrals: Ron Lindsay MD [Primary Care Provider] - 3-5 Days if not improving Disposition Disposition: Home, Self Care
[2021-07-25 11:16] LABS: Bedside Glucose 99 mg/dL (74-106)
[2021-07-25 11:26] LABS: Absolute Neutrophil Count 3.9 X10^3/uL (2.0-7.7); Basophil# 0.03 X10^3/uL; Basophil% 0.4 % (0-1); Eosinophil# 0.17 X10^3/uL; Eosinophils% 2.4 % (0-5); Hematocrit 43.7 % (37-47); Hemoglobin 14.1 g/dL (12.0-15.0); Lymphocyte % 33.6 % (19-41); Mean Corp Hgb Conc 32.3 g/dL (32-36); Mean Corpuscular Hgb 29.9 pg (27.0-32.0); Mean Corpuscular Volume 92.6 fL (81-99); Mean Platelet Vol. 9.3 fl (6.2-12.0); Monocyte# 0.66 X10^3/uL; Monocyte% 9.2 % (0-10); NRBC Flagged by Analyzer 0 % (0-5); Neutrophil # 3.86 X10^3/uL (2.7-7.7); Neutrophil % 54.1 % (47-70); Platelet Count 380 K/mm3 (150-450); RBC Distribution Width CV 13.5 % (11.6-14.6); RBC Distribution Width SD 46.3 fl (35.1-43.9); Red Blood Count 4.72 M/mm3 (4.2-5.4); White Blood Count 7.1 K/mm3 (4.4-11.0)
[2021-07-25 11:31] LABS: International Normalized Ratio 1.6; Prothrombin Time (Protime)PT. 18.4 SECONDS (11.7-14.9)
[2021-07-25 11:37] LABS: Anion Gap 6 (5-15); BUN 13 mg/dL (7-18); BUN/Creat Ratio 12.9 RATIO (10-20); Calcium,Total 9.8 mg/dL (8.5-10.1); Chloride 104 mmol/L (98-107); Creatinine, Serum 1.01 mg/dL (0.55-1.02); EST Glomerular Filtration Rate 57 mL/min (>60); Est Glom Filt Rate - Afr Amer 69 mL/min (>60); Estimated Creatinine Clearance 40.41 ml/min; Glucose 114 mg/dL (74-106); Potassium 4.2 mmol/L (3.5-5.1); Sodium Level 138 mmol/L (136-145); Troponin-I HS (w/2H Reflex) 4 pg/mL (3.0-54.0)
[2021-07-25 13:16] LABS: Reflex Troponin-HS? (from REC) Y
[2021-07-25 14:22] LABS: Troponin-I HS 4 pg/mL (3.0-54.0)
== END 2021-07-25 14:50 | disposition home or self-care (01) ==
PROVIDERS: Emergency Provider Emergency Medicine; PCP Family Medicine; Visit Provider Emergency Medicine
DX: R07.9 Chest pain, unspecified (principal); E78.5 Hyperlipidemia, unspecified; M54.9 Dorsalgia, unspecified; Z87.891 Personal history of nicotine dependence; G89.29 Other chronic pain; E03.9 Hypothyroidism, unspecified; Z86.711 Personal history of pulmonary embolism; E66.9 Obesity, unspecified
CPT/HCPCS: 71045; 80048; 82962; 84484; 85025; 85610; 93005; 96360; 96361; 99284; A4216

== ENCOUNTER → 2021-09-17 | Outpatient (CLI) | payer MEDICARE, OTHER, SELFPAY ==
--- NOTE | 2021-09-17 10:45 | RAD_ITS ---
STUDY: X-RAY - ABDOMEN/PELVIS REASON FOR EXAM: Female, 71 years old. KUB - ABD PAIN LEFT SIDE ABDOMINAL PAIN. PT STATES PAIN RADIATES FROM LEFT SIDE OF HER BACK AND WRAPS AROUND THROUGH THE FRONT OF THE LEFT SIDE OF HER ABDOMEN. TECHNIQUE: AP supine, 3 images. COMPARISON: None. FINDINGS: The bowel gas pattern is normal. There is no bowel obstruction. Sensitivity for free air limited on supine view. Moderate amount stool throughout the colon. No abnormal mass or calcification is seen. Degenerative changes in the spine. The lung bases are grossly clear. RAD/Abdomen Single View IMPRESSION: No acute findings. Electronically Signed: Serenity Morel MD at 7:16 EDT ,
[2021-09-17 12:09] LABS: Absolute Neutrophil Count 5.1 X10^3/uL (2.0-7.7); Basophil# 0.05 X10^3/uL; Basophil% 0.7 % (0-1); Eosinophil# 0.12 X10^3/uL; Eosinophils% 1.6 % (0-5); Hematocrit 44.7 % (37-47); Hemoglobin 14.6 g/dL (12.0-15.0); Lymphocyte % 21.7 % (19-41); Mean Corp Hgb Conc 32.7 g/dL (32-36); Mean Corpuscular Hgb 30.5 pg (27.0-32.0); Mean Corpuscular Volume 93.3 fL (81-99); Mean Platelet Vol. 9.3 fl (6.2-12.0); Monocyte# 0.51 X10^3/uL; Monocyte% 6.9 % (0-10); NRBC Flagged by Analyzer 0 % (0-5); Neutrophil # 5.05 X10^3/uL (2.7-7.7); Neutrophil % 68.7 % (47-70); Platelet Count 370 K/mm3 (150-450); RBC Distribution Width CV 13.5 % (11.6-14.6); RBC Distribution Width SD 46.1 fl (35.1-43.9); Red Blood Count 4.79 M/mm3 (4.2-5.4); White Blood Count 7.4 K/mm3 (4.4-11.0)
[2021-09-17 12:28] LABS: International Normalized Ratio 2.1; Prothrombin Time (Protime)PT. 23.2 SECONDS (11.7-14.9)
[2021-09-17 12:37] LABS: Bacteria 0 SEEN /hpf (None Seen); Mucous, Urine 0 SEEN /hpf (<or=2+); White Blood Cells 0 SEEN /hpf (0-5)
[2021-09-17 12:50] LABS: Color, Urine Yellow (Yellow); Glucose, Dipstick Normal (Normal); Ketone-Dipstick Negative (Negative); Leukocyte Esterase-Dipstick Negative /ul (Negative); Nitrite-Dipstick Negative (Negative); Occult Blood-Urine 50 /ul (Negative); Protein-Dipstick Negative (Negative); Urine Bilirubin Dipstick Negative (Negative); Urine Clarity Sl. Cloudy (Clear); Urine Urobilinogen Normal (Normal)
[2021-09-17 12:56] LABS: Red Blood Cells-Urine 0-5 SEEN /hpf (0-5); Squamous Epithelial Cells - UA 0-5 SEEN /hpf (5-10)
[2021-09-17 13:25] LABS: ALB/GLOB Ratio 0.8 RATIO (0.9-2.4); AST(SGOT) 23 U/L (15-37); Alanine Aminotransfer ALT/SGPT 34 U/L (13-56); Albumin, Serum 3.5 g/dL (3.2-5.0); Alkaline Phosphatase 81 U/L (45-117); Anion Gap 4 (5-15); BUN 13 mg/dL (7-18); BUN/Creat Ratio 16.2 RATIO (10-20); Calcium,Total 9.8 mg/dL (8.5-10.1); Chloride 103 mmol/L (98-107); EST Glomerular Filtration Rate 75 mL/min (>60); Est Glom Filt Rate - Afr Amer 90 mL/min (>60); Globulin 4.3 g/dL (2.2-4.2); Glucose 97 mg/dL (74-106); Potassium 4.1 mmol/L (3.5-5.1); Protein, Total 7.8 g/dL (6.4-8.2); Sodium Level 138 mmol/L (136-145)
== END | disposition home or self-care (01) ==
PROVIDERS: PCP Family Medicine; Referring Provider Family Medicine; Visit Provider Family Medicine
DX: I82.402 Acute embolism and thrombosis of unspecified deep veins of left lower extremity (principal); R10.9 Unspecified abdominal pain
CPT/HCPCS: 36415; 74018; 80053; 81001; 85025; 85610; 87086; 87088

== ENCOUNTER → 2021-09-19 | Outpatient (CLI) | payer MEDICARE, OTHER, SELFPAY ==
[2021-09-19 09:10] LABS: AST(SGOT) 19 U/L (15-37); Alanine Aminotransfer ALT/SGPT 28 U/L (13-56); Albumin, Serum 3.5 g/dL (3.2-5.0); Alkaline Phosphatase 80 U/L (45-117); Bilirubin, Direct 0.09 mg/dL (0.00-0.30); Cholesterol 213 mg/dL (200); Globulin 4.1 g/dL (2.2-4.2); High Density Lipoprotein 58 mg/dL; Protein, Total 7.6 g/dL (6.4-8.2); Triglycerides 129 mg/dL; Very Low Density Lipoprotein 26 mg/dL (5-40)
== END | disposition home or self-care (01) ==
LOC: LAB 08:04
PROVIDERS: PCP Family Medicine; Referring Provider Nurse Practitioner Family; Visit Provider Nurse Practitioner Family
DX: R30.0 Dysuria (principal); E55.9 Vitamin D deficiency, unspecified; E53.8 Deficiency of other specified B group vitamins; R73.01 Impaired fasting glucose; E78.00 Pure hypercholesterolemia, unspecified; E78.5 Hyperlipidemia, unspecified
CPT/HCPCS: 36415; 80061; 80076

== ENCOUNTER → 2021-10-30 | Outpatient (CLI) | payer MEDICARE, OTHER, SELFPAY | END | disposition home or self-care (01) | PROVIDERS: PCP Family Medicine; Visit Provider Family Medicine | DX: U07.1 COVID-19 (principal) | CPT/HCPCS: 87635; U0003; U0005 ==

== ENCOUNTER → 2021-11-23 | Outpatient (CLI) | payer MEDICARE, OTHER, SELFPAY ==
--- NOTE | 2021-11-23 10:29 | RAD_ITS ---
EXAM: XR CHEST, 2 VIEWS CLINICAL INDICATION: SOB TECHNIQUE: Frontal and lateral views of the chest. This report was created using [employer] report generation technology. COMPARISON: 07/25/2021 FINDINGS: LUNGS AND PLEURAL SPACES: Unremarkable. No consolidation or edema. No pneumothorax. No effusion. HEART: Unremarkable. Cardiac silhouette not enlarged. MEDIASTINUM: Central airways and mediastinal contour are unremarkable. BONES/JOINTS: Unremarkable. SOFT TISSUES: Unremarkable. RAD/Chest PA and Lateral IMPRESSION: No radiographic evidence of acute cardiopulmonary disease. Electronically Signed: Villa Frausto MD at 21:13 EDT ,
[2021-11-23 12:43] LABS: Hemoglobin 14.5 g/dL (12.0-15.0); Mean Corp Hgb Conc 32.2 g/dL (32-36); Mean Corpuscular Hgb 30.7 pg (27.0-32.0); Mean Corpuscular Volume 95.1 fL (81-99); Mean Platelet Vol. 9.4 fl (6.2-12.0); Platelet Count 388 K/mm3 (150-450); RBC Distribution Width CV 13.9 % (11.6-14.6); RBC Distribution Width SD 49.2 fl (35.1-43.9); Red Blood Count 4.73 M/mm3 (4.2-5.4); White Blood Count 8.4 K/mm3 (4.4-11.0)
[2021-11-23 13:24] LABS: ALB/GLOB Ratio 0.7 RATIO (0.9-2.4); AST(SGOT) 14 U/L (15-37); Alanine Aminotransfer ALT/SGPT 28 U/L (13-56); Albumin, Serum 3.2 g/dL (3.2-5.0); Alkaline Phosphatase 79 U/L (45-117); Anion Gap 5 (5-15); BUN 13 mg/dL (7-18); BUN/Creat Ratio 17.4 RATIO (10-20); Calcium,Total 9.8 mg/dL (8.5-10.1); Chloride 106 mmol/L (98-107); Creatinine, Serum 0.75 mg/dL (0.55-1.02); EST Glomerular Filtration Rate 81 mL/min (>60); Est Glom Filt Rate - Afr Amer 98 mL/min (>60); Globulin 4.4 g/dL (2.2-4.2); Glucose 104 mg/dL (74-106); Potassium 4.1 mmol/L (3.5-5.1); Protein, Total 7.6 g/dL (6.4-8.2); Sodium Level 140 mmol/L (136-145); Thyroid Stim Hormone (TSH) 1.28 uIU/mL (0.358-3.74)
== END | disposition home or self-care (01) ==
LOC: MTLAB 10:26
PROVIDERS: PCP Family Medicine; Referring Provider Family Medicine; Visit Provider Family Medicine
DX: R06.02 Shortness of breath (principal); R00.2 Palpitations
CPT/HCPCS: 36415; 71046; 80053; 83735; 84443; 85027

== ENCOUNTER → 2021-12-12 | Outpatient (CLI) | payer MEDICARE, OTHER, SELFPAY ==
--- NOTE | 2021-12-12 09:33 | RAD_ITS ---
EXAM: XR THORACIC SPINE, 2 VIEWS CLINICAL INDICATION: BACKACHE TECHNIQUE: Frontal and lateral views of the thoracic spine. This report was created using [employer] report generation technology. COMPARISON: None. FINDINGS: See Impression. RAD/Thoracic Spine 2 Views IMPRESSION: 1. Moderate degenerative changes of the spine at multiple levels. 2. No unusual lytic or sclerotic lesions of bone. 3. No spondylolisthesis. 4. Soft tissues are unremarkable. Electronically Signed: Luis Lara MD at 2:55 EDT ,
--- NOTE | 2021-12-12 09:35 | RAD_ITS ---
EXAM: XR LUMBOSACRAL SPINE COMPLETE WITH FLEXION/EXTENSION, 6 OR MORE VIEWS CLINICAL INDICATION: DDD TECHNIQUE: Lateral, frontal, oblique and lateral flexion/extension views of the lumbar spine and sacrum. This report was created using [employer] report [employer] technology. COMPARISON: None. FINDINGS: VERTEBRAE: Degenerative disease at multiple levels. No spondylolisthesis. No pars defects. No acute for healing fracture. Grade 1 degenerative anterolisthesis of L4 on L5 and a of L5 on S1. Preservation of the normal lumbar lordosis. No significant facet arthropathy. DISC SPACES: No acute findings. Disc spaces are maintained. SOFT TISSUES: Soft tissues are unremarkable. GASTROINTESTINAL TRACT: Unremarkable as visualized. Included bowel gas pattern is non-obstructive. OTHER FINDINGS: No mechanical instability with flexion/extension. RAD/L/S Spine w Bend Min 6 Vw IMPRESSION: 1. Grade 1 degenerative anterolisthesis of L4 on L5 and a of L5 on S1. 2. No mechanical instability with flexion/extension stress. 3. No acute or healing fracture. Electronically Signed: Luis Lara MD at 3:00 EDT ,
== END | disposition home or self-care (01) ==
PROVIDERS: PCP Family Medicine; Visit Provider Family Medicine
DX: M54.9 Dorsalgia, unspecified (principal); M51.36 Other intervertebral disc degeneration, lumbar region
CPT/HCPCS: 72070; 72114

== ENCOUNTER → 2022-01-14 | Outpatient (CLI) | payer MEDICARE, OTHER, SELFPAY ==
--- NOTE | 2022-01-14 15:35 | PFTCOMP ---
COMPLETE PULMONARY FUNCTION TEST INTERPRETATION Brief HPI: Patient is a 72-year-old female, currently under the care of myself, who presents to [facility] for complete pulmonary function tests secondary to diagnosis of cough. Respiratory therapist reports good effort and reproducible results. Interpretation: Forced expiration spirometry shows no large airways obstructive ventilatory defect with an FEV1 of 110% predicted. There is no significant bronchodilator response by strict ATS criteria. Spirograms are of good quality and plateau normally. The respiratory flow volume loop shows a normal pattern. Lung volumes by body plethysmography show a normal total lung capacity at 4.46 L, 102% predicted. All other lung volumes are within normal limits. Diffusion capacity by carbon monoxide is normal at 103% predicted. The airway resistance is normal. No previous pulmonary function tests were available for review. Impression: These pulmonary function tests are grossly within normal limits
== END | disposition home or self-care (01) ==
LOC: PSN 09:29
PROVIDERS: PCP Family Medicine; Visit Provider Internal Medicine Critical Care Medicine
DX: R05.9 Cough, unspecified (principal)
CPT/HCPCS: 94060; 94726; 94729

== ENCOUNTER 2022-01-17 09:00 | Outpatient (RCR) | payer MEDICARE, OTHER, SELFPAY ==
--- NOTE | 2021-12-25 10:10 | HP.PTEVAL ---
Patient's Visit Information JESSICA HODGSON is a 71 year old F referred to Physical Therapy by Dr. Ron Lindsay MD with a diagnosis of back pain. Date of Evaluation: 12/20/21 Physical Therapist: Jamel Saldivar DPT - Visit Plan Frequency: 2x /Week Duration: 4 Weeks Plan: Start with ROM of lumbar spine, with focus on centralization or reduction of symptoms. - Subjective Pt. is here today for her initial evaluation with diagnosis of back pain. Pt. reports having increased thoracic and chest pain since having Covid. She is not sure if it is from Covid or related to increased coughing during Covid. She had an xray which showed DDD. During the time when she was awaiting the results of her xray, she started having some R sided gluteal pain as well. Pt. denies N/T in either thoracic spine, chest and any extremities. Pt. is now more concerned about her R hip pain. She reports increased pain with sitting, standing is better, and sitting to supine lying is painful as well. Pt. does feel like her legs get weak times as well, but was unable to isolate when and how often. Pt. is having some trouble sleeping due to her R hip pain, but also feels like her back bothers her at times when sleeping as well. Jessica is hopeful to reduce symptoms in order to get back to all household activities without limitations. - Pain lower thoracic/upper lumbar Pain Intensity (Out of 10): 0 Pain Intensity Range: 6 - Objective POSTURE: Pt. has slouched posture with increased thoracic kyphosis. Pt. has normal iliac crest heights, no lateral shift noted. Pt. has rounded shoulders as well. Pt. has slight decrease in lumbar lordosis as well. PALPATION: Pt. has pain along piriformis on R side, but also has some pain along R side of lumbar spine. No much pain with palpation throughout thoracic spine. NEURO: Pt. had normal DTR of BLEs and BUEs. Normal sensation throughout as well. Pt. able to rise on heels and toes without issues. ROM: LUMBAR SPINE: flexion min loss increase NW R glute, extension min loss decrease NB, SB min loss NE bilat, rotation min loss NE bilat. Pt. has tight B HS. Pt. has normal thoracic ROM without increase in symptoms. MMT: Pt. has good strength throughout BLEs and B UEs. Pt. has no pain with testing. Core strength- poor. No pain with testing. GAIT: PT. has fairly normal gait pattern, normal arm swing. Pt. has normal step length. NO increase in symptoms with gait. STAIRS: Pt. did well, but wants to only load LLE both ascending and descending. - Special Tests Thoracic Sitting: Flexion - Mechanical Response: No effect Thoracic Sitting: Flexion - Symptoms During Testing: No effect Thoracic Sitting: Flexion - Symptoms After Testing: No effect Thoracic Sitting: Extension - Mechanical Response: No effect Thoracic Sitting: Extension - Symptoms During Testing: Decreases Thoracic Sitting: Extension - Symptoms After Testing: Better Thoracic Sitting: Right rotation - Mechanical Response: No effect Thoracic Sitting: Right Rotation - Symptoms During Testing: Increases Thoracic Sitting: Right Rotation - Symptoms After Testing: No worse Thoracic Sitting: Left rotation - Mechanical Response: No effect Thoracic Sitting: Left Rotation - Symptoms During Testing: No effect Thoracic Sitting: Left Rotation - Symptoms After Testing: No effect L/S Slump test left side: Negative L/S Slump test right side: Negative L/S Left Straight Leg Raise: Negative L/S Right Straight Leg Raise: Negative Lumbar Standing: Flexion - Mechanical Response: No effect Lumbar Standing: Flexion - Symptoms During Testing: Decreases Lumbar Standing: Flexion - Symptoms After Testing: No better Lumbar Standing: Extension - Mechanical Response: No effect Lumbar Standing: Extension - Symptoms During Testing: Decreases Lumbar Standing: Extension - Symptoms After Testing: Better Lumbar Standing: Right Side Glides - Mechanical Response: No effect Lumbar Standing: Right Side [place] - Symptoms During Testing: No effect Lumbar Standing: Right Side [place] - Symptoms After Testing: No effect Lumbar Standing: Left Side [place] - Mechanical Response: No effect Lumbar Standing: Left Side [place] - Symptoms During Testing: No effect Lumbar Standing: Left Side [place] - Symptoms After Testing: No effect Lumbar Lying: Flexion - Mechanical Response: No effect Lumbar Lying: Flexion - Symptoms During Testing: Increases Lumbar Lying: Flexion - Symptoms After Testing: Worse Lumbar Static: Sitting Erect - Mechanical Response: No effect Lumbar Static: Sitting Erect - Symptoms During Testing: Decreases Lumbar Static: Sitting Erect - Symptoms After Testing: Better R Hip Scour: Negative R Hip DANNY - Intraarticular Pathology: Negative R Hip FADDIR - Labrum: Negative R Hip Trendelenberg - Glut Medius: Negative R Hip Flaco - IT Band: Negative - Balance/Special Test Scores Oswestry Low Back Score: 22 - Goals Goal 1:: LTG: Pt. to be I with HEP. Goal Time Frame: 4-6 Weeks Goal 2:: STG: Pt. to sleep throughout the night without increase in symptoms. Goal Time Frame: 2 Weeks Goal 3:: LTG: Pt. to be able to walk, sitting and do ADLs without increase in LBP and thoracic pain. Goal Time Frame: 2-4 Weeks Goal 4:: STG: PT. to be able to sit in comfortable chair for 30min without increase in symptoms. Goal Time Frame: 2 Weeks Goal 5:: LTG: Pt. to have no radicular symptoms in RLE. Goal Time Frame: 2-4 Weeks Goal 6:: LTG: Pt. to have no pain in thoracic spine or rib region. Goal Time Frame: 4-6 Weeks - Rehabilitation Potential Physical Therapy Diagnosis: Pt. has signs and symptoms consistent with back pain, both thoracic and lumbar. I could not elicit her thoracic pain today, but I could with her lumbar spine. I think she might have a slight discogenic pathology, but not severe. Pt. would benefit from PT to work on ROM and decreasing symptoms. Rehabilitation Potential: Good - Anticipated Interventions Patient/Client Instruction: Educate patient on: Condition, Plan of Care, Risk Factors, Benefits of Fitness Program For the Purpose of:: To foster healthy habits, To improve decision making, To facilitate caregiver knowledge, To improve self management, To prevent re-injury, To improve ability to perform tasks related to life management Therapeutic Exercise to Include: Strength training, Power training, Postural training, Flexibilty training, Gait and locomotor training, Passive ROM, Active ROM, Dynamic Lumbar Stabilization For the Purpose of:: To decrease pain, To decrease swelling/inflammation, To increase ROM, To improve nutrient delivery to tissue, To decrease level of supervision to perform tasks, To improve ability of physical actions for home/community/work/leisure, To improve gait and locomotor functions, To improve health of tissue, To decrease soft tissue restriction, To increase flexibility/ROM IF ES: Yes Other electric stimulation: Yes Ultrasound (thermal/non thermal): Yes For the Purpose of:: To decrease pain, To decrease swelling/inflammation, To increase ROM, To decrease soft tissue restriction, To increase flexibility/ROM Thank you for the opportunity to evaluate your patient. For Medicare and Medicare HMO plans, please review the plan of care and approve it. It will need to be FAXED BACK to us at [phone] for Medicare purposes. For Medicare only, by signing this I certify the plan of care. Please let me know if there are questions or concerns regarding this plan of care. Physician Signature: Date:
--- NOTE | 2022-01-17 11:25 | HP.PTDCSUM ---
It has been my pleasure to treat YESENIA HODGSON referred by Dr. Ron Lindasy MD, with the diagnosis of back pain for a total of 8 visit(s). Discharge Date: 01/17/22 Please see the following information for a summary of their discharge status. Subjective: Pt. reports no longer having pain in her back or legs. Pt. reports occassionally feeling a pinch. Pt. reports being 95% better overall. She did reports some R shoulder pain with REIL, we pivoted to PETEY with better results. lower thoracic/upper lumbar Pain Intensity (Out of 10): 0 R gluteal region Pain Intensity (Out of 10): 0 % Improvement: 95 Objective/Function: Pt. reports overall doing better. She is not having much pain any more. She reports no leg pain at all. Pt. is pleased with progress. ROM: flexion nil loss NE, exten min loss NE, SB nil loss NE bilat, rotation nil loss NE. MMT: Pt. has 5/5 strength throughout BLEs without increase in symptoms. Core strength fair-. Pt. reports sleeping well without issues. She is now having some R shoulder pain. I assessed I do not think that it is a RTC tear, more of a tendinitis. I gave her some RTC phase III strengthening to work on for a bit. Goal 1:: LTG: Pt. to be I with HEP. Goal Progress: Goal Met Goal 2:: STG: Pt. to sleep throughout the night without increase in symptoms. Goal Progress: Goal Met Goal 3:: LTG: Pt. to be able to walk, sitting and do ADLs without increase in LBP and thoracic pain. Goal Progress: Goal Met Goal 4:: STG: PT. to be able to sit in comfortable chair for 30min without increase in symptoms. Goal Progress: Goal Met Goal 5:: LTG: Pt. to have no radicular symptoms in RLE. Goal Progress: Goal Met Goal 6:: LTG: Pt. to have no pain in thoracic spine or rib region. Goal Progress: Goal Met Plan: Pt. to be DC from PT at this point in time. Discharge Comments: Pt. did very well with extension progression. She is no longer having any pain with this. She has occassional catching' bit is overall much better. She was complaining of some RTC pain on the R side. Seems to be more of a tendinitis. I did give her some phase III exercises to work on. If this does not get better she is to follow up with her physician for further examination. pt. will be DC from PT at this point in time. If there are questions or concerns regarding this patient's physical therapy, please feel free to call me at [phone]. Thank you for the referral of this patient. Sincerely, Jamel Saldivar, DPT Balance/Gait/Functional tests - Balance/Special Test Scores Oswestry Low Back Score: 2
== END 2022-01-17 14:03 | disposition home or self-care (01) ==
LOC: PT 09:00
PROVIDERS: PCP Family Medicine; Referring Provider Family Medicine; Visit Provider Family Medicine
DX: M51.36 Other intervertebral disc degeneration, lumbar region (principal)
CPT/HCPCS: 97110; 97161; 97530

== ENCOUNTER → 2022-04-01 | Outpatient (CLI) | payer MEDICARE, OTHER, SELFPAY | END | disposition home or self-care (01) | PROVIDERS: PCP Family Medicine; Visit Provider Nurse Practitioner Family | DX: R39.15 Urgency of urination (principal) | CPT/HCPCS: 87086; 87088 ==

== ENCOUNTER → 2022-04-05 | Outpatient (CLI) | payer MEDICARE, OTHER, SELFPAY ==
[2022-04-05 10:52] LABS: Mucous, Urine 0 SEEN /hpf (<or=2+)
[2022-04-05 12:25] LABS: Color, Urine Yellow (Yellow); Glucose, Dipstick Normal (Normal); Ketone-Dipstick Negative (Negative); Leukocyte Esterase-Dipstick Negative /ul (Negative); Nitrite-Dipstick Negative (Negative); Occult Blood-Urine 150 /ul (Negative); Protein-Dipstick Negative (Negative); Specific Gravity, Urine 1.005 (1.002-1.030); Urine Bilirubin Dipstick Negative (Negative); Urine Urobilinogen Normal (Normal)
[2022-04-05 12:26] LABS: Urine Clarity Sl Cldy (Clear)
[2022-04-05 12:32] LABS: Bacteria 1+ /hpf (None Seen); Red Blood Cells-Urine 10-25 SEEN /hpf (0-5); Squamous Epithelial Cells - UA 0-5 SEEN /hpf (5-10); White Blood Cells 0-5 SEEN /hpf (0-5)
== END | disposition home or self-care (01) ==
LOC: MFPLAB 10:51
PROVIDERS: PCP Family Medicine; Visit Provider Nurse Practitioner Family
DX: R30.0 Dysuria (principal)
CPT/HCPCS: 81001; 87086; 87088

== ENCOUNTER → 2022-04-10 | Outpatient (CLI) | payer MEDICARE, OTHER, SELFPAY ==
[2022-04-10 12:32] LABS: Absolute Lymphocyte Count 2.02 X10^3/uL (0.83-4.51); Absolute Neutrophil Count 3.9 X10^3/uL (2.0-7.7); Basophil# 0.05 X10^3/uL; Basophil% 0.7 % (0-1); Hematocrit 45.2 % (37-47); Hemoglobin 14.5 g/dL (12.0-15.0); Lymphocyte # 2.02 X10^3/ul (0.83-4.51); Lymphocyte % 30.2 % (19-41); Mean Corp Hgb Conc 32.1 g/dL (32-36); Mean Corpuscular Hgb 29.7 pg (27.0-32.0); Mean Corpuscular Volume 92.4 fL (81-99); Mean Platelet Vol. 9.4 fl (6.2-12.0); Monocyte# 0.48 X10^3/uL; Monocyte% 7.2 % (0-10); NRBC Flagged by Analyzer 0 % (0-5); Neutrophil # 3.91 X10^3/uL (2.7-7.7); Neutrophil % 58.6 % (47-70); Platelet Count 398 K/mm3 (150-450); RBC Distribution Width CV 13.4 % (11.6-14.6); RBC Distribution Width SD 45.7 fl (35.1-43.9); Red Blood Count 4.89 M/mm3 (4.2-5.4); White Blood Count 6.7 K/mm3 (4.4-11.0)
[2022-04-10 13:12] LABS: ALB/GLOB Ratio 0.9 RATIO (0.9-2.4); AST(SGOT) 20 U/L (15-37); Alanine Aminotransfer ALT/SGPT 29 U/L (13-56); Albumin, Serum 3.5 g/dL (3.2-5.0); Alkaline Phosphatase 84 U/L (45-117); Anion Gap 7 (5-15); BUN 8 mg/dL (7-18); BUN/Creat Ratio 10.3 RATIO (10-20); Chloride 105 mmol/L (98-107); Creatinine, Serum 0.78 mg/dL (0.55-1.02); EST Glomerular Filtration Rate 77 mL/min (>60); Est Glom Filt Rate - Afr Amer 93 mL/min (>60); Glucose 96 mg/dL (74-106); Protein, Total 7.5 g/dL (6.4-8.2); Sodium Level 140 mmol/L (136-145)
== END | disposition home or self-care (01) ==
LOC: MTLAB 10:19
PROVIDERS: PCP Family Medicine; Visit Provider Family Medicine
DX: R11.0 Nausea (principal); R39.9 Unspecified symptoms and signs involving the genitourinary system; E03.9 Hypothyroidism, unspecified
CPT/HCPCS: 36415; 80053; 84443; 85025; 87086; 87088

== ENCOUNTER → 2022-06-24 | Outpatient (CLI) | payer MEDICARE, OTHER, SELFPAY ==
--- NOTE | 2022-06-24 09:14 | BI_ITS ---
MAMMOGRAPHY - BILATERAL SCREENING REASON FOR EXAM: Female, 72 years old. Routine annual screening examination. PERTINENT HISTORY: Non-contributory. TECHNIQUE: Digital bilateral breast nikolay (3D mammographic acquisition) in the CC and MLO projections. 2-D mediolateral oblique (MLO) and craniocaudad (CC) views of both breasts were obtained. CAD: Full Field Digital Mammography with Computer Added Detection was performed. COMPARISON: Comparison is made with prior study of June 19, 2021 and January 19, 2019. FINDINGS: Breast Composition: The breasts are almost entirely fatty. There are no dominant masses or suspicious calcifications. Stable appearance of the small bilateral axillary lymph nodes. No other significant abnormalities are identified. There has been no significant change since the prior study. BI/SCRN MAMM (CAD)W/NIKOLAY BILAT IMPRESSION: Stable bilateral screening mammogram. Yearly follow-up mammogram recommended. (A) ASSESSMENT CATEGORY: BIRADS Category 2: Benign. A letter regarding these results will be sent to the patient by the facility within 30 days. Approximately 10% of breast cancers are not detected by mammography. A normal mammogram should not delay biopsy of a clinically suspicious abnormality. [id number] Electronically Signed: Aroldo Neves MD at 10:28 EDT ,
== END | disposition home or self-care (01) ==
PROVIDERS: PCP Family Medicine; Referring Provider Family Medicine; Visit Provider Family Medicine
DX: Z12.31 Encounter for screening mammogram for malignant neoplasm of breast (principal)
CPT/HCPCS: 77063; 77067

== ENCOUNTER → 2022-06-26 | Outpatient (CLI) | payer MEDICARE, OTHER, SELFPAY ==
[2022-06-26 10:22] LABS: Hematocrit 43.1 % (37-47); Mean Corp Hgb Conc 32.5 g/dL (32-36); Mean Corpuscular Hgb 30.3 pg (27.0-32.0); Mean Corpuscular Volume 93.3 fL (81-99); Mean Platelet Vol. 9.6 fl (6.2-12.0); Platelet Count 390 K/mm3 (150-450); RBC Distribution Width CV 13.8 % (11.6-14.6); RBC Distribution Width SD 46.8 fl (35.1-43.9); Red Blood Count 4.62 M/mm3 (4.2-5.4)
[2022-06-26 10:47] LABS: Vitamin B12 > 2000 pg/mL (211-911); Vitamin D,25 Hydroxy 57.7 ng/mL
[2022-06-26 11:01] LABS: ALB/GLOB Ratio 0.8 RATIO (0.9-2.4); AST(SGOT) 18 U/L (15-37); Alanine Aminotransfer ALT/SGPT 30 U/L (13-56); Albumin, Serum 3.3 g/dL (3.2-5.0); Alkaline Phosphatase 87 U/L (45-117); Anion Gap 6 (5-15); BUN 13 mg/dL (7-18); BUN/Creat Ratio 18.6 RATIO (10-20); Calcium,Total 9.3 mg/dL (8.5-10.1); Chloride 109 mmol/L (98-107); Cholesterol 205 mg/dL (200); EST Glomerular Filtration Rate 88 mL/min (>60); Est Glom Filt Rate - Afr Amer 106 mL/min (>60); Glucose 100 mg/dL (74-106); High Density Lipoprotein 59 mg/dL; Potassium 4.2 mmol/L (3.5-5.1); Protein, Total 7.3 g/dL (6.4-8.2); Sodium Level 141 mmol/L (136-145); Thyroid Stim Hormone (TSH) 1.09 uIU/mL (0.358-3.74); Triglycerides 112 mg/dL; Very Low Density Lipoprotein 22 mg/dL (5-40)
== END | disposition home or self-care (01) ==
LOC: MFPLAB 08:46
PROVIDERS: PCP Family Medicine; Visit Provider Family Medicine
DX: K21.9 Gastro-esophageal reflux disease without esophagitis (principal); E78.00 Pure hypercholesterolemia, unspecified; E03.9 Hypothyroidism, unspecified; E53.8 Deficiency of other specified B group vitamins; E55.9 Vitamin D deficiency, unspecified
CPT/HCPCS: 36415; 80053; 80061; 82306; 82607; 84443; 85027

== ENCOUNTER 2022-07-07 01:55 | Emergency (ER) | payer MEDICARE, OTHER, SELFPAY ==
[2022-07-07 01:56] VITALS: BP 158/70; PULSE 93; RESP 15; TEMP 36.7; O2SAT 99; BMI 39.8
--- NOTE | 2022-07-07 02:15 | CT_ITS ---
EXAM: CT ABDOMEN AND PELVIS WITH INTRAVENOUS CONTRAST CLINICAL INDICATION: llq abdominal pain TECHNIQUE: Helically acquired images were obtained of the abdomen and pelvis with intravenous contrast. This CT exam was performed using one or more of the following dose reduction techniques: automated exposure control, adjustment of the mA and/or kV according to patient size, and/or use of iterative reconstruction technique. CONTRAST: IV 100mL Isovue-370 RADIATION DOSE: Total DLP: 1342.57 mGy-cm. COMPARISON: Previous CT of 08/23/2016. FINDINGS: LOWER THORAX: Incidental dependent atelectasis at the lung bases. No coronary artery calcification is visualized. No significant pericardial effusion. ABDOMEN: LIVER: Unremarkable. Homogeneous. No focal mass. GALLBLADDER AND BILE DUCTS: Gallbladder is nonvisualized. No biliary ductal dilatation. No gallbladder distention or wall edema. PANCREAS: Mild pancreatic atrophy. No findings of acute pancreatitis. No focal cystic or solid mass. SPLEEN: Unremarkable. Normal size without focal cystic or solid mass. ADRENALS: Unremarkable. No nodules. KIDNEYS AND URETERS: Unremarkable. Normal renal size and position. No hydronephrosis. STOMACH AND BOWEL: Stomach is decompressed. No periduodenal inflammatory changes or distended small bowel loops. Numerous diverticula project from the descending and sigmoid colon, without evidence for acute diverticulitis. No findings of small bowel obstruction or colitis. Moderate amount of formed stool fills the cecum, ascending colon and transverse colon. PELVIS: APPENDIX: Normal. No evidence of acute appendicitis. BLADDER: Unremarkable. REPRODUCTIVE: Atrophic uterus. Hypodense endometrial stripe measures up to 7 mm in thickness. No adnexal mass. ABDOMEN and PELVIS: INTRAPERITONEAL SPACE: Unremarkable. No ascites or other fluid collection. No free air. BONES/JOINTS: Flowing osteophytes about the lower thoracic disc spaces. Degenerative spurring throughout the lumbar spine with severe disc space narrowing at L5/S1 and degenerative vacuum disc phenomenon at L3/4. Extensive lumbar facet arthritis with slight anterolisthesis of L4 on L5. Stable benign cavernous hemangioma of bone within the T12 vertebral body. No suspicious lytic or blastic abnormality. SOFT TISSUES: Unremarkable. No discrete abdominal or pelvic wall hernia. VASCULATURE: Unremarkable. Abdominal aorta is non-dilated. The SMA and REED enhance normally. LYMPH NODES: Unremarkable. No enlarged lymph nodes. CT/Abdomen/Pelvis W IV Cont ONLY IMPRESSION: 1. Diverticulosis coli, without evidence for diverticulitis. 2. No renal or obstructing ureteral stones. 3. Interval development of hypodense thickening of the endometrium, which could be due to exogenous hormonal therapy or endometrial pathology such as endometrial hyperplasia; TREE DRILLER follow-up this suggested, especially there is a history of postmenopausal bleeding. Electronically Signed: Dominic Wise MD at 3:47 EDT ,
--- NOTE | 2022-07-07 02:21 | EDS_ITS ---
HPI HPI - GI History of Present Illness Chief Complaint: Abd Pain Narrative Narrative: 72-year-old female presenting with left lower quadrant abdominal pain. She states it starts in the left lower quadrant kind of moves around to the left flank. At times she will notice pain on the right side of her abdomen. She claims to have chills and some mild nausea but no fever at home. No history of diverticulitis. She does have history of kidney stones however this does not feel like her kidney stones. No urinary or vaginal complaints. No diarrhea. PFSH PFSH Medical History Asthma Chronic back pain Esophageal reflux History of pulmonary embolism (08/04/12) Hyperlipidemia Hypothyroidism Irritable bowel syndrome Lung nodule Obesity Osteoarthritis Home Medications aspirin 81 mg chewable tablet 81 mg PO DAILY@0800 03/13/14 [History Last Taken 06/19/20] levothyroxine 100 mcg tablet 100 mcg PO DAILY 03/13/14 [History Last Taken 06/19/20] cholecalciferol (vitamin D3) 50 mcg (2,000 unit) capsule 2,000 unit PO DAILY 05/30/20 [History Last Taken Unknown] omeprazole 40 mg capsule,delayed release 20 mg PO DAILY 05/30/20 [History Last Taken Unknown] warfarin 5 mg tablet 5 mg PO MOWEFR 01/02/22 [History Last Taken Unknown] warfarin 6 mg tablet 4 mg PO SUTUTHSA 01/02/22 [History Last Taken Unknown] Allergy/AdvReac Type Severity Reaction Status Date / Time cephalexin monohydrate Allergy Chest Verified 07/07/22 02:02 [From Keflex] tightness ciprofloxacin [From Cipro] Allergy Nausea Verified 07/07/22 02:02 ciprofloxacin HCl Allergy Nausea Verified 07/07/22 02:02 [From Cipro] hyoscyamine sulfate Allergy Chest Verified 07/07/22 02:02 [From Levbid] tightness nitrofurantoin Allergy Nausea Verified 07/07/22 02:02 [From Macrobid] nitrofurantoin Allergy Nausea Verified 07/07/22 02:02 macrocrystalline [From Macrobid] NSAIDS (Non-Steroidal Allergy Nausea Verified 07/07/22 02:02 Anti-Inflamma tramadol Allergy Chest Verified 07/07/22 02:02 tightness atorvastatin AdvReac insomnia/leg Verified 07/07/22 02:02 pain nalbuphine HCl [From Nubain] AdvReac Nausea Verified 07/07/22 02:02 Family History Sister Heart disease CHF at 63 Surgical History History of bunionectomy History of cholecystectomy History of left heart catheterization (06/19/20) History of tonsillectomy History of total knee arthroplasty (2012) Social History Smoking Status: Former smoker how long ago did patient quit smoking: over 30 years alcohol intake: never substance use type: does not use caffeine: Yes Type: coffee Number of servings: 1 ROS ROS ED Constitutional Constitutional ED: Reports chills; Denies fever(s) or sweats Eyes Eyes: Denies blurry vision or change in vision ENT ENT ED: Denies ear pain or sore throat Cardiovascular Cardiovascular: Denies chest pain, palpitations or racing heartbeat Respiratory/Chest Respiratory/Chest: Denies cough, dyspnea or sputum Gastrointestinal Gastrointestinal: Reports abdominal pain and nausea; Denies constipation, diarrhea or vomiting Genitourinary Genitourinary ED: Denies dysuria, hematuria or urinary frequency Musculoskeletal Musculoskeletal: Denies arthralgias, myalgias or neck pain Integumentary Denies abscess, Abrasions or rash Neurologic Neurologic: Denies headache(s), paresthesias or weakness Psychiatric Psychiatric: Denies anxiety, depression, suicidal ideation or suicidal thoughts Endocrine Endocrinology: Denies polydipsia or polyuria EXAM Physical Exam Const Vital Signs: 07/07/22 01:56 Temperature 98.0 F Temperature Source Temporal Pulse Rate 93 Respiratory Rate 15 Blood Pressure 158/70 H Blood Pressure Mean 99 Pulse Ox 99 Oxygen Delivery Method Room Air Positive well nourished and obese General Appearance ED: NAD; Negative for pallor Nutritional Appearance: obese HEENT Reports moist mucous membranes normocephalic and atraumatic Eyes PERRL and EOMs intact bilaterally Resp normal respiratory effort Auscultation: Negative for rales, rhonchi or wheezes Cardio regular rate and regular rhythm GI Palpation: tender LLQ and periumbilical Neuro CN's II-XII intact bilaterally and moves all extremities Sensorium / Orientation: alert Motor Exam: strength 5/5 throughout Psych mental status grossly normal and thought process normal Skin General Skin Exam: Negative for jaundice or pallor MDM MDM MDM Narrative Medical decision making narrative: Patient presenting with chills, left lower quadrant pain, nausea. Differential includes UTI, pyelonephritis, diverticulitis, colitis, bowel obstruction, kidney stones. Patient medicated with morphine and Zofran. CBC to assess white blood cell count, hemoglobin, platelets, differential. CMP to assess liver function, renal function, glucose, anion gap. Lipase to assess for pancreatitis. Urinalysis to assess for UTI. CT of the abdomen pelvis will be obtained as well. Patient on Coumadin so I will check an INR. CBC shows a normal white blood cell count of 6.9. Hemoglobin stable 13.8. Platelets normal 354. Renal function electrolytes within normal limits. LFTs are normal. Urinalysis negative for infection but does show occult blood. Patient states she chronically has occult blood in her urine. INR therapeutic at 3.0. CT of the abdomen pelvis does not show any diverticulitis, colitis, renal calculi. It does show there is an abnormal thickening of the endometrial stripe and recommended follow-up with gynecology. Patient doing better on reevaluation. Discussed all findings with her. She states that she recently was called for follow-up visit with gynecology but did not go. I recommended that she make an appointment. She acknowledged understanding. Impression: 1. Abdominal pain 2. Abnormal CT Lab Data Attestation: I reviewed the patient's lab results. Labs: Laboratory Results - last 24 hr 07/07/22 07/07/22 07/07/22 02:15 02:15 02:20 WBC 6.9 RBC 4.55 Hgb 13.8 Hct 42.0 MCV 92.3 MCH 30.3 MCHC 32.9 RDW Std Deviation 46.9 H RDW Coeff of [place] 13.7 Plt Count 354 MPV 9.0 Immature Gran % (Auto) 0.100 Neut % (Auto) 51.9 Lymph % (Auto) 36.0 [place] % (Auto) 8.9 Eos % (Auto) 2.4 Baso % (Auto) 0.7 Absolute Neuts (auto) 3.6 Absolute Lymphs (auto) 2.50 Nucleated RBC % 0 PT INR Sodium 140 Potassium 3.8 Chloride 105 Carbon Dioxide 28.0 Anion Gap 7 BUN 10 Creatinine 0.79 Estim Creat Clear Calc 40.22 Est GFR (MDRD) Af Amer 92 Est GFR (MDRD) Non-Af 76 BUN/Creatinine Ratio 12.7 Glucose 110 H Calcium 9.9 Total Bilirubin 0.30 AST 26 ALT 37 Alkaline Phosphatase 95 Total Protein 7.4 Albumin 3.4 Globulin 4.0 Albumin/Globulin Ratio 0.8 L Lipase 35 Urine Color Yellow Urine Clarity Clear Urine pH 6.0 Ur Specific [place] 1.010 Urine Protein Negative Urine Glucose (UA) Normal Urine Ketones Negative Urine Occult Blood 250 H Urine Nitrite Negative Urine Bilirubin Negative Urine Urobilinogen Normal Ur Leukocyte Esterase 100 H Urine RBC 5-10 SEEN Urine WBC 0-5 SEEN Ur Squamous Epith Cells 0-5 SEEN Urine Bacteria RARE Urine Mucus 0 SEEN 07/07/22 02:35 WBC RBC Hgb Hct MCV MCH MCHC RDW Std Deviation RDW Coeff of [place] Plt Count MPV Immature Gran % (Auto) Neut % (Auto) Lymph % (Auto) [place] % (Auto) Eos % (Auto) Baso % (Auto) Absolute Neuts (auto) Absolute Lymphs (auto) Nucleated RBC % PT 31.9 H INR 3.0 Sodium Potassium Chloride Carbon Dioxide Anion Gap BUN Creatinine Estim Creat Clear Calc Est GFR (MDRD) Af Amer Est GFR (MDRD) Non-Af BUN/Creatinine Ratio Glucose Calcium Total Bilirubin AST ALT Alkaline Phosphatase Total Protein Albumin Globulin Albumin/Globulin Ratio Lipase Urine Color Urine Clarity Urine pH Ur Specific [place] Urine Protein Urine Glucose (UA) Urine Ketones Urine Occult Blood Urine Nitrite Urine Bilirubin Urine Urobilinogen Ur Leukocyte Esterase Urine RBC Urine WBC Ur Squamous Epith Cells Urine Bacteria Urine Mucus Radiography Diagnostic Testing: Clinical Impression(s) from Imaging Studies Abdomen/Pelvis CT 07/07/22 02:15 IMPRESSION: 1. Diverticulosis coli, without evidence for diverticulitis. 2. No renal or obstructing ureteral stones. 3. 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 Electronically Signed: Dominic Wise MD at 3:47 EDT , Discharge Plan Triage Chief Complaint: Abd Pain ED Provider: Dominic Rosas Dx/Rx/DC Orders Prescriptions: No Action cholecalciferol (vitamin D3) 50 mcg (2,000 unit) capsule 2,000 unit PO DAILY Label Comments: TAKE 1 CAPSULE BY MOUTH DAILY omeprazole 40 mg capsule,delayed release(DR/EC) 20 mg PO DAILY levothyroxine 100 MCG tablet 100 mcg PO DAILY Label Comments: THYROID aspirin 81 MG tablet,chewable 81 mg PO DAILY@0800 Label Comments: HEART HEALTH warfarin 5 mg tablet 5 mg PO MOWEFR Label Comments: blood thinner warfarin 6 mg tablet 4 mg PO SUTUTHSA Label Comments: blood thinner Primary Care Provider: Ron Lindsay Referrals: Ron Lindsay MD [Primary Care Provider] -
[2022-07-07 02:27] LABS: Color, Urine Yellow (Yellow); Glucose, Dipstick Normal (Normal); Ketone-Dipstick Negative (Negative); Leukocyte Esterase-Dipstick 100 /ul (Negative); Mucous, Urine 0 SEEN /hpf (<or=2+); Nitrite-Dipstick Negative (Negative); Occult Blood-Urine 250 /ul (Negative); Protein-Dipstick Negative (Negative); Urine Bilirubin Dipstick Negative (Negative); Urine Clarity Clear (Clear); Urine Urobilinogen Normal (Normal)
[2022-07-07 02:28] LABS: Absolute Neutrophil Count 3.6 X10^3/uL (2.0-7.7); Basophil# 0.05 X10^3/uL; Basophil% 0.7 % (0-1); Eosinophil# 0.17 X10^3/uL; Eosinophils% 2.4 % (0-5); Hemoglobin 13.8 g/dL (12.0-15.0); Mean Corp Hgb Conc 32.9 g/dL (32-36); Mean Corpuscular Hgb 30.3 pg (27.0-32.0); Mean Corpuscular Volume 92.3 fL (81-99); Monocyte# 0.62 X10^3/uL; Monocyte% 8.9 % (0-10); NRBC Flagged by Analyzer 0 % (0-5); Neutrophil # 3.59 X10^3/uL (2.7-7.7); Neutrophil % 51.9 % (47-70); Platelet Count 354 K/mm3 (150-450); RBC Distribution Width CV 13.7 % (11.6-14.6); RBC Distribution Width SD 46.9 fl (35.1-43.9); Red Blood Count 4.55 M/mm3 (4.2-5.4); White Blood Count 6.9 K/mm3 (4.4-11.0)
[2022-07-07 02:36] LABS: Bacteria RARE /hpf (None Seen); Red Blood Cells-Urine 5-10 SEEN /hpf (0-5); Squamous Epithelial Cells - UA 0-5 SEEN /hpf (5-10); White Blood Cells 0-5 SEEN /hpf (0-5)
[2022-07-07 02:45] LABS: ALB/GLOB Ratio 0.8 RATIO (0.9-2.4); AST(SGOT) 26 U/L (15-37); Alanine Aminotransfer ALT/SGPT 37 U/L (13-56); Albumin, Serum 3.4 g/dL (3.2-5.0); Alkaline Phosphatase 95 U/L (45-117); Anion Gap 7 (5-15); BUN 10 mg/dL (7-18); BUN/Creat Ratio 12.7 RATIO (10-20); Calcium,Total 9.9 mg/dL (8.5-10.1); Chloride 105 mmol/L (98-107); Creatinine, Serum 0.79 mg/dL (0.55-1.02); EST Glomerular Filtration Rate 76 mL/min (>60); Est Glom Filt Rate - Afr Amer 92 mL/min (>60); Estimated Creatinine Clearance 40.22 ml/min; Glucose 110 mg/dL (74-106); Lipase 35 U/L (13-75); Potassium 3.8 mmol/L (3.5-5.1); Protein, Total 7.4 g/dL (6.4-8.2); Sodium Level 140 mmol/L (136-145)
[2022-07-07 02:51] LABS: Prothrombin Time (Protime)PT. 31.9 SECONDS (11.7-14.9)
[2022-07-07 05:01] VITALS: BP 146/72; PULSE 90; RESP 18
== END 2022-07-07 05:02 | disposition home or self-care (01) ==
PROVIDERS: Emergency Provider Student in an Organized Health Care Education/Training Program; PCP Family Medicine; Visit Provider Student in an Organized Health Care Education/Training Program
DX: R10.32 Left lower quadrant pain (principal); E78.5 Hyperlipidemia, unspecified; Z87.891 Personal history of nicotine dependence; R93.5 Abnormal findings on diagnostic imaging of other abdominal regions, including retroperitoneum; Z79.82 Long term (current) use of aspirin; E03.9 Hypothyroidism, unspecified; K21.9 Gastro-esophageal reflux disease without esophagitis; Z79.899 Other long term (current) drug therapy; Z79.01 Long term (current) use of anticoagulants; Z90.49 Acquired absence of other specified parts of digestive tract; Z96.659 Presence of unspecified artificial knee joint
CPT/HCPCS: 74177; 80053; 81001; 83690; 85025; 85610; 99282; Q9967; A4216

== ENCOUNTER → 2022-07-15 | Outpatient (CLI) | payer MEDICARE, OTHER, SELFPAY | END | disposition home or self-care (01) | LOC: LABSPEC 15:19 | PROVIDERS: PCP Family Medicine; Referring Provider Family Medicine; Visit Provider Family Medicine | DX: N39.0 Urinary tract infection, site not specified (principal) | CPT/HCPCS: 87077; 87086; 87088; 87186 ==

== ENCOUNTER → 2022-08-15 | Outpatient (CLI) | payer MEDICARE, OTHER, SELFPAY | END | disposition home or self-care (01) | LOC: LABSPEC 10:58 | PROVIDERS: PCP Family Medicine; Visit Provider Family Medicine | DX: R39.9 Unspecified symptoms and signs involving the genitourinary system (principal) | CPT/HCPCS: 87086; 87088 ==

== ENCOUNTER → 2022-09-05 | Outpatient (CLI) | payer MEDICARE, OTHER, SELFPAY ==
[2022-09-05 15:39] LABS: Absolute Lymphocyte Count 1.97 X10^3/uL (0.83-4.51); Absolute Neutrophil Count 4.7 X10^3/uL (2.0-7.7); Basophil# 0.05 X10^3/uL; Basophil% 0.7 % (0-1); Eosinophil# 0.11 X10^3/uL; Eosinophils% 1.5 % (0-5); Hematocrit 45.2 % (37-47); Hemoglobin 14.3 g/dL (12.0-15.0); Lymphocyte # 1.97 X10^3/ul (0.83-4.51); Lymphocyte % 26.6 % (19-41); Mean Corp Hgb Conc 31.6 g/dL (32-36); Mean Corpuscular Hgb 29.8 pg (27.0-32.0); Mean Corpuscular Volume 94.2 fL (81-99); Mean Platelet Vol. 9.7 fl (6.2-12.0); Monocyte# 0.56 X10^3/uL; Monocyte% 7.6 % (0-10); NRBC Flagged by Analyzer 0 % (0-5); Neutrophil # 4.71 X10^3/uL (2.7-7.7); Neutrophil % 63.5 % (47-70); Platelet Count 409 K/mm3 (150-450); RBC Distribution Width CV 13.8 % (11.6-14.6); RBC Distribution Width SD 47.8 fl (35.1-43.9); White Blood Count 7.4 K/mm3 (4.4-11.0)
[2022-09-05 16:25] LABS: ALB/GLOB Ratio 0.8 RATIO (0.9-2.4); AST(SGOT) 18 U/L (15-37); Alanine Aminotransfer ALT/SGPT 25 U/L (13-56); Albumin, Serum 3.4 g/dL (3.2-5.0); Alkaline Phosphatase 88 U/L (45-117); Anion Gap 6 (5-15); BUN 9 mg/dL (7-18); BUN/Creat Ratio 11.4 RATIO (10-20); Chloride 103 mmol/L (98-107); Cholesterol 223 mg/dL (200); Creatinine, Serum 0.79 mg/dL (0.55-1.02); EST Glomerular Filtration Rate 76 mL/min (>60); Est Glom Filt Rate - Afr Amer 92 mL/min (>60); Globulin 4.3 g/dL (2.2-4.2); Glucose 91 mg/dL (74-106); High Density Lipoprotein 61 mg/dL; Potassium 4.4 mmol/L (3.5-5.1); Protein, Total 7.7 g/dL (6.4-8.2); Sodium Level 139 mmol/L (136-145); Triglycerides 145 mg/dL; Troponin-I HS 4 pg/mL (3.0-54.0); Very Low Density Lipoprotein 29 mg/dL (5-40)
== END | disposition home or self-care (01) ==
LOC: MTLAB 11:35
PROVIDERS: PCP Family Medicine; Visit Provider Family Medicine
DX: R07.89 Other chest pain (principal)
CPT/HCPCS: 36415; 80053; 80061; 84484; 85025

== ENCOUNTER → 2022-09-13 | Outpatient (CLI) | payer MEDICARE, OTHER, SELFPAY ==
--- NOTE | 2022-09-13 07:43 | VDUE_ITS ---
Reason For Study: Swelling LUE Right Proximal Left Proximal Right subclavian vein is spontaneous, widely Left jugular vein is spontaneous, widely patent, phasic, with no intraluminal patent, phasic, with no intraluminal echogenicity noted. echogenicity noted. Left subclavian vein is spontaneous, widely patent, phasic, with no intraluminal echogenicity noted. Left Arm Left axillary vein is spontaneous, patent, phasic, competent, compressible and demonstrates augmentation. Left brachial vein is compressible. Left cephalic vein is compressible. Left basilic vein is compressible. Left Lower Arm Left radial vein is compressible. Left ulnar vein is compressible. VL/Venous Duplex US, Unilateral Interpretation Summary No evidence for acute deep venous thrombosis[left] upper extremity with patent and compressible cephalic and basilic veins. Normal flow patterns right subclavian vein Ordering Physician: Jose Mcleod Referring Physician: Jose David Lindsay Performed By: Taryn Guzman, GAMALIEL, RVT ???
--- NOTE | 2022-09-13 08:37 | US_ITS ---
STUDY: ULTRASOUND BREAST - LEFT REASON FOR EXAM: Female, 72 years old. Generalized left breast pain. TECHNIQUE: Axial and longitudinal images of the LEFT breast were performed with a high resolution ultrasound transducer. # OF IMAGES: [id number] COMPARISON: Comparison is made with prior mammogram dated June 24, 2022. FINDINGS: LEFT Breast: The entire left breast was examined by ultrasound. No sonographic abnormality is seen. US/Breast Complete Unilateral IMPRESSION: No sonographic abnormality is seen. ASSESSMENT CATEGORY: BIRADS Category 1: Negative. A letter regarding these results will be sent to the patient by the facility within 30 days. Electronically Signed: Aroldo Neves MD at 15:09 EDT ,
== END | disposition home or self-care (01) ==
LOC: CVS 07:42
PROVIDERS: PCP Family Medicine; Referring Provider Family Medicine; Visit Provider Family Medicine
DX: R22.32 Localized swelling, mass and lump, left upper limb (principal); N64.4 Mastodynia
CPT/HCPCS: 76641; 93971

== ENCOUNTER → 2022-10-17 | Outpatient (CLI) | payer MEDICARE, OTHER, SELFPAY ==
[2022-10-17 12:42] LABS: Bacteria 0 SEEN /hpf (None Seen); Mucous, Urine 0 SEEN /hpf (<or=2+)
[2022-10-17 15:34] LABS: Absolute Lymphocyte Count 2.53 X10^3/uL (0.83-4.51); Absolute Neutrophil Count 5.7 X10^3/uL (2.0-7.7); Basophil# 0.05 X10^3/uL; Basophil% 0.5 % (0-1); Color, Urine Yellow (Yellow); Eosinophil# 0.16 X10^3/uL; Eosinophils% 1.7 % (0-5); Glucose, Dipstick Normal (Normal); Hematocrit 44.4 % (37-47); Hemoglobin 13.8 g/dL (12.0-15.0); Ketone-Dipstick Negative (Negative); Leukocyte Esterase-Dipstick 500 /ul (Negative); Lymphocyte # 2.53 X10^3/ul (0.83-4.51); Lymphocyte % 27.5 % (19-41); Mean Corp Hgb Conc 31.1 g/dL (32-36); Mean Corpuscular Hgb 29.6 pg (27.0-32.0); Mean Corpuscular Volume 95.1 fL (81-99); Mean Platelet Vol. 9.7 fl (6.2-12.0); Monocyte# 0.76 X10^3/uL; Monocyte% 8.3 % (0-10); NRBC Flagged by Analyzer 0 % (0-5); Neutrophil # 5.68 X10^3/uL (2.7-7.7); Neutrophil % 61.7 % (47-70); Nitrite-Dipstick Negative (Negative); Occult Blood-Urine 250 /ul (Negative); Platelet Count 447 K/mm3 (150-450); Protein-Dipstick Negative (Negative); RBC Distribution Width CV 14.1 % (11.6-14.6); RBC Distribution Width SD 49.2 fl (35.1-43.9); Red Blood Count 4.67 M/mm3 (4.2-5.4); Urine Bilirubin Dipstick Negative (Negative); Urine Clarity Clear (Clear); Urine Urobilinogen Normal (Normal); White Blood Count 9.2 K/mm3 (4.4-11.0)
[2022-10-17 15:51] LABS: ALB/GLOB Ratio 0.8 RATIO (0.9-2.4); AST(SGOT) 17 U/L (15-37); Alanine Aminotransfer ALT/SGPT 30 U/L (13-56); Albumin, Serum 3.4 g/dL (3.2-5.0); Alkaline Phosphatase 78 U/L (45-117); Anion Gap 5 (5-15); BUN 11 mg/dL (7-18); BUN/Creat Ratio 15.2 RATIO (10-20); Calcium,Total 9.4 mg/dL (8.5-10.1); Chloride 105 mmol/L (98-107); Creatinine, Serum 0.72 mg/dL (0.55-1.02); EST Glomerular Filtration Rate 84 mL/min (>60); Est Glom Filt Rate - Afr Amer 102 mL/min (>60); Glucose 83 mg/dL (74-106); Potassium 4.3 mmol/L (3.5-5.1); Protein, Total 7.4 g/dL (6.4-8.2); Sodium Level 137 mmol/L (136-145); Thyroid Stim Hormone (TSH) 1.14 uIU/mL (0.358-3.74)
[2022-10-17 16:01] LABS: Erythrocyte Sedimentation Rate 32 mm/hr (0-30)
[2022-10-17 16:08] LABS: Red Blood Cells-Urine 5-10 SEEN /hpf (0-5); Squamous Epithelial Cells - UA 0-5 SEEN /hpf (5-10); White Blood Cells 0-5 SEEN /hpf (0-5)
[2022-10-17 16:36] LABS: AST(SGOT) 15 U/L (15-37); Alanine Aminotransfer ALT/SGPT 30 U/L (13-56); Albumin, Serum 3.4 g/dL (3.2-5.0); Alkaline Phosphatase 85 U/L (45-117); Bilirubin, Direct 0.05 mg/dL (0.00-0.30); Cholesterol 231 mg/dL (200); Globulin 3.8 g/dL (2.2-4.2); High Density Lipoprotein 59 mg/dL; Protein, Total 7.2 g/dL (6.4-8.2); Triglycerides 174 mg/dL; Very Low Density Lipoprotein 35 mg/dL (5-40)
== END | disposition home or self-care (01) ==
LOC: MTLAB 12:38
PROVIDERS: Nurse Practitioner Family; PCP Family Medicine; Visit Provider Family Medicine
DX: R39.9 Unspecified symptoms and signs involving the genitourinary system (principal); N39.0 Urinary tract infection, site not specified; E78.00 Pure hypercholesterolemia, unspecified; K58.9 Irritable bowel syndrome, unspecified
CPT/HCPCS: 36415; 80053; 80061; 80076; 81001; 84443; 85025; 85652; 87086; 87088

== ENCOUNTER 2022-11-11 09:30 | Outpatient (RCR) | payer MEDICARE, OTHER, SELFPAY ==
--- NOTE | 2022-10-11 10:46 | HP.PTEVAL_ITS ---
Patient's Visit Information Visit Information Visit Information: YESENIA HODGSON is a 72 year old F referred to Physical Therapy by Dr. Ron Lindsay MD with a diagnosis of Left Piriformis. Date of Evaluation: 10/11/22 Physical Therapist: Shannon Bueno DPT Visit Plan Frequency: 2x /Week Duration: 4 Weeks Plan: Core strength/stabilization- HEP Given IE: Postural Correction, TA contraction, hip adduction with ball, piriformis stretching Subjective Subjective: Patient reports pain in her left buttock area and there were days she could barely get up/down out of a chair. It started sat- then she went to the MD and he sent her to therapy. She cleaned her house on Friday and she normally does not vacuum and thinks that's what probably flared it up. Dr. Lindsay gave her some exercises which helped a little bit (letting her left leg hang of the edge) and a prednisone dose pack. The pain is in the left buttock and radiates to the left knee 2-3 times but did not last long and last night it radiated across the back. Agg: standing too long, getting up/down out of the chair. Eases: heat, laying down on her back. Worst: 7-8/10 Best:2/10. Describes the pain as sharp and shooting. No N/T the LE. No loss or change in bowel or bladder. She just had a colonoscopy last week so she is still working through that. She has had a lot of back issues prior to this- she has DDD and arthritis- she has had therapy for her back before- she has had aquatic and land PT- water therapy was a long time ago- therapy did help. She is more sedentary- she plays on her ipad a lot- she was sitting in a stress less chair- so right now she is sitting in an office chair. Sleep: not disturbed- back. She has not had any recent images of her lumbar spine. CT results from 07/07/22: (Flowing osteophytes about the lower thoracic disc spaces. Degenerative spurring throughout the lumbar spine with severe disc space narrowing at L5/S1 and degenerative vacuum disc phenomenon at L3/4. Extensive lumbar facet arthritis with slight anterolisthesis of L4 on L5. Stable benign cavernous hemangioma of bone within the T12 vertebral body. No suspicious lytic or blastic abnormality.) PMHx/Meds: no changes since ED visit in June 2022 Objective Objective: Posture: FH, RS- can correct with verbal and tactile cues but does not maintain Gait: decreased trunk rotation and arm swing HR/TR: able with UE A Balance: WS unable to SLS ROM: Lumbar: Flexion: hands to toes- reports increased discomfort in lumbar spine when return to neutral, Extn: neutral, SB/Rot: WFL. LE: WFL Strength: Core: fair minus, Hip: 4-/5 throughout, Knee: 4/5, Ankle: 5/5 Flex: HS: moderate, Gastroc: moderate, Piriformis: severe Sensation: WNL to gross touch bilateral LE Reflex: WFL to bilateral patella Palpation: tender along piriformis on the left, greater troch and along the ITband, lumbar paraspinals Special Tests L/S Slump test left side: Positive L/S Slump test right side: Negative L/S Left Straight Leg Raise: Positive L/S Right Straight Leg Raise: Negative L Hip DANNY - Intraarticular Pathology: Positive L Hip FADDIR - Labrum: Positive Balance/Special Test Scores Lower Extremity Functional Score: 45 Goals Goal 1:: Patient will be I with HEP and progression Goal Time Frame: 4-6 Weeks Goal 2:: Patient will maintain proper posture t/o tx session to demo increase core s/s Goal Time Frame: 4-6 Weeks Goal 3:: Patient will report no radicular s/s for 1 week Goal Time Frame: 4-6 Weeks Goal 4:: Patient will report 80% improvement Goal Time Frame: 4-6 Weeks Rehabilitation Potential Physical Therapy Diagnosis: Patient presents with hypomobility- she has decreased core strength/stabilization, flex and muscular endurance leading to poor posture and increased pain with ADL's Rehabilitation Potential: Fair Anticipated Interventions Patient/Client Instruction: Educate patient on: Benefits of Fitness Program Therapeutic Exercise to Include: Strength training, Endurance training, Balance training, Coordination, Agility training, Body mechanics, Postural training, Flexibilty training, Gait and locomotor training, Neuromotor development, Dynamic Lumbar Stabilization and Scapular Strength/Stabilization TENS: Yes Cryotherapy (ice pack, ice massage): Yes Thermo therapy (hot pack): Yes Ultrasound (thermal/non thermal): Yes Text: Thank you for the opportunity to evaluate your patient. For Medicare and Medicare HMO plans, please review the plan of care and approve it. It will need to be FAXED BACK to us at [phone] for Medicare purposes. For Medicare only, by signing this I certify the plan of care. Please let me know if there are questions or concerns regarding this plan of care. Physician Signature: __Date:
--- NOTE | 2022-11-11 10:14 | HP.PTDCSUM ---
Discharge Summary D/C summary: It has been my pleasure to treat YESENIA HODGSON referred by Dr. Ron Lindsay MD, with the diagnosis of Left Piriformis for a total of 9 visit(s). Discharge Date: Please see the following information for a summary of their discharge status. Subjective Subjective: Patient reports that she is doing pretty good. If she stands for a long time she has to shift her weight back and forth but other than she is back to her baseline. She feels that she has learned some exercises she will continue to do at home. She has print outs of the exercises to do at home. Pain Right Buttocks: Pain Intensity (Out of 10): 0 LB: Pain Intensity (Out of 10): 0 Overall Improvement % Improvement: 95 Objective Objective/Function: Posture: Fair throughout Gait: good trunk rotation and arm swing HR/TR: able with UE A Balance: WS unable to SLS ROM: Lumbar: Flexion: hands to toes- no pain with returning to neutral, Extn: WFL, SB/Rot: WFL. LE: WFL Strength: Core: fair, Hip: 4+/5 throughout, Knee: 5/5, Ankle: 5/5 Flex: HS: moderate, Gastroc: moderate, Piriformis: moderate Sensation: WNL to gross touch bilateral LE Reflex: WFL to bilateral patella Palpation: tender along paraspinals Special Tests L/S Slump test left side: Positive L/S Slump test right side: Negative L/S Left Straight Leg Raise: Positive L/S Right Straight Leg Raise: Negative L Hip DANNY - Intraarticular Pathology: Negative L Hip FADDIR - Labrum: Positive Goals Goal 1:: Patient will be I with HEP and progression Goal Progress: Goal Met Goal 2:: Patient will maintain proper posture t/o tx session to demo increase core s/s Goal Progress: Goal Met Goal 3:: Patient will report no radicular s/s for 1 week Goal Progress: Goal Met Goal 4:: Patient will report 80% improvement Goal Progress: Goal Met Plan Plan: 11/11/22: Discharge to I HEP- encouraged to call if questions or concerns D/C Information d/c sentence: If there are questions or concerns regarding this patient's physical therapy, please feel free to call me at [phone]. Thank you for the referral of this patient. Sincerely, Shannon Bueno, DPT Balance/Gait/Functional tests Balance/Special Test Scores Oswestry Low Back Score: 2 Lower Extremity Functional Score: 45 Improvement % Improvement: 95
== END 2022-11-11 10:30 | disposition home or self-care (01) ==
LOC: PT 09:30
PROVIDERS: PCP Family Medicine; Referring Provider Family Medicine; Visit Provider Family Medicine
DX: G57.02 Lesion of sciatic nerve, left lower limb (principal)
CPT/HCPCS: 97110; 97140; 97162; 97164

== ENCOUNTER 2022-11-15 10:49 | Emergency (ER) | payer MEDICARE, OTHER, SELFPAY ==
[2022-11-15 10:50] VITALS: BP 158/75; PULSE 79; RESP 14; TEMP 36.4; O2SAT 98; BMI 43.0
--- NOTE | 2022-11-15 11:11 | EKG12_ITS ---
Test Reason : CP Blood Pressure : / mmHG Vent. Rate : 081 BPM Atrial Rate : 081 BPM P-R Int : 162 ms QRS Dur : 082 ms QT Int : 364 ms P-R-T Axes : 036 020 044 degrees QTc Int : 422 ms Normal sinus rhythm Normal ECG Confirmed by АЛЕКСАНДР GIRALDO, RALPH ([id number]), social media editor DEANGELO JEFFERSON ([id number]) on 11/19/2022 12:06:08 PM Referred By: LIEN Confirmed By:RALPH FOUNTAIN MD
--- NOTE | 2022-11-15 11:38 | RAD_ITS ---
STUDY: X-RAY CHEST REASON FOR EXAM: Female, 72 years old. 3 day history of sternal chest pain. TECHNIQUE: Single AP portable view of the chest. COMPARISON: Comparison is made with prior study November 23, 2021. FINDINGS: EKG electrodes are seen. Mild degree of vascular congestion. There is no demonstrated pleural abnormality. Normal size heart. Normal mediastinum and aubrie. Normal visualized pulmonary arteries. There is atherosclerotic tortuosity of the aortic arch and descending thoracic aorta. There are diffuse degenerative changes of the visualized thoracic spine. Normal visualized ribs, clavicles, and shoulders. There is no demonstrated abnormality of the visualized soft tissue structures of the upper abdomen. RAD/Chest 1 View (Portable) IMPRESSION: Mild degree of vascular congestion. Electronically Signed: Aroldo Neves MD at 12:14 EDT ,
[2022-11-15 11:39] LABS: Absolute Lymphocyte Count 2.11 X10^3/uL (0.83-4.51); Absolute Neutrophil Count 5.2 X10^3/uL (2.0-7.7); Basophil# 0.07 X10^3/uL; Basophil% 0.9 % (0-1); Eosinophil# 0.13 X10^3/uL; Eosinophils% 1.6 % (0-5); Hematocrit 45.1 % (37-47); Hemoglobin 14.3 g/dL (12.0-15.0); Lymphocyte # 2.11 X10^3/ul (0.83-4.51); Lymphocyte % 25.7 % (19-41); Mean Corp Hgb Conc 31.7 g/dL (32-36); Mean Corpuscular Hgb 30.1 pg (27.0-32.0); Mean Corpuscular Volume 94.9 fL (81-99); Mean Platelet Vol. 9.3 fl (6.2-12.0); Monocyte# 0.72 X10^3/uL; Monocyte% 8.8 % (0-10); NRBC Flagged by Analyzer 0 % (0-5); Neutrophil # 5.15 X10^3/uL (2.7-7.7); Neutrophil % 62.6 % (47-70); Platelet Count 380 K/mm3 (150-450); RBC Distribution Width CV 13.8 % (11.6-14.6); RBC Distribution Width SD 48.6 fl (35.1-43.9); Red Blood Count 4.75 M/mm3 (4.2-5.4); White Blood Count 8.2 K/mm3 (4.4-11.0)
[2022-11-15 11:56] LABS: Anion Gap 2 (5-15); BUN 9 mg/dL (7-18); BUN/Creat Ratio 10.3 RATIO (10-20); Calcium,Total 9.7 mg/dL (8.5-10.1); Chloride 104 mmol/L (98-107); Creatinine, Serum 0.87 mg/dL (0.55-1.02); EST Glomerular Filtration Rate 68 mL/min (>60); Est Glom Filt Rate - Afr Amer 82 mL/min (>60); Estimated Creatinine Clearance 46.23 ml/min; Glucose 107 mg/dL (74-106); Potassium 4.2 mmol/L (3.5-5.1); Sodium Level 136 mmol/L (136-145); Troponin-I HS (w/2H Reflex) 3 pg/mL (3.0-54.0)
[2022-11-15 11:59] LABS: International Normalized Ratio 2.3; Prothrombin Time (Protime)PT. 25.7 SECONDS (11.7-14.9)
[2022-11-15 12:00] VITALS: BP 156/70; PULSE 85; RESP 16; O2SAT 94
[2022-11-15 12:52] LABS: BNP,B-Type NATRIURETIC PEPTIDE 15.8 pg/mL (0-100)
[2022-11-15 13:00] VITALS: BP 158/68; PULSE 85; RESP 16; O2SAT 94
[2022-11-15 13:35] LABS: Reflex Troponin-HS? (from REC) Y
[2022-11-15 14:05] LABS: Troponin-I HS 4 pg/mL (3.0-54.0)
--- NOTE | 2022-11-15 14:10 | ED.VIS.CHEST ---
HPI History of Present Illness Chief Complaint: Chest Pain Narrative Narrative: 72-year-old female past medical history of hyperlipidemia, pulmonary embolism, on Coumadin, presents with chest pain and pressure that she has had intermittently for the last 1 to 2 weeks. Today, its been relatively constant since 9 AM. She states that she had a stress test approximately a year ago which was negative. She denies any nausea or vomiting. No shortness of breath or sweating. No exacerbating or alleviating factors to her chest pressure. It is more central and nonradiating. She thinks she may have intermittent left arm pain as well. She presents because her chest pressure has become more constant. [facility] Medical History Asthma Chronic back pain Esophageal reflux History of pulmonary embolism (08/04/12) Hyperlipidemia Hypothyroidism Irritable bowel syndrome Lung nodule Obesity Osteoarthritis Home Medications aspirin 81 mg chewable tablet 81 mg PO DAILY@0800 03/13/14 [History Last Taken 06/19/20] levothyroxine 100 mcg tablet 100 mcg PO DAILY 03/13/14 [History Last Taken 06/19/20] cholecalciferol (vitamin D3) 50 mcg (2,000 unit) capsule 2,000 unit PO DAILY 05/30/20 [History Last Taken Unknown] omeprazole 40 mg capsule,delayed release 20 mg PO DAILY 05/30/20 [History Last Taken Unknown] warfarin 5 mg tablet 5 mg PO MOWEFR 01/02/22 [History Last Taken Unknown] warfarin 6 mg tablet 4 mg PO SUTUTHSA 01/02/22 [History Last Taken Unknown] Allergy/AdvReac Type Severity Reaction Status Date / Time cephalexin monohydrate Allergy Chest Verified 11/15/22 10:49 [From Keflex] tightness ciprofloxacin [From Cipro] Allergy Nausea Verified 11/15/22 10:49 ciprofloxacin HCl Allergy Nausea Verified 11/15/22 10:49 [From Cipro] hyoscyamine sulfate Allergy Chest Verified 11/15/22 10:49 [From Levbid] tightness nitrofurantoin Allergy Nausea Verified 11/15/22 10:49 [From Macrobid] nitrofurantoin Allergy Nausea Verified 11/15/22 10:49 macrocrystalline [From Macrobid] NSAIDS (Non-Steroidal Allergy Nausea Verified 11/15/22 10:49 Anti-Inflamma tramadol Allergy Chest Verified 11/15/22 10:49 tightness atorvastatin AdvReac insomnia/leg Verified 11/15/22 10:49 pain nalbuphine HCl [From Nubain] AdvReac Nausea Verified 11/15/22 10:49 Family History Sister Heart disease CHF at 63 Surgical History History of bunionectomy History of cholecystectomy History of left heart catheterization (06/19/20) History of tonsillectomy History of total knee arthroplasty (2012) Social History Smoking Status: Former smoker how long ago did patient quit smoking: over 30 years alcohol intake: never substance use type: does not use caffeine: Yes Type: coffee Number of servings: 1 ROS ROS ED ROS Narrative Constitutional: No fever, no chills. HEENT: No sore throat. No neck pain. No loss of vision. No rhinorrhea. Cardiovascular: Positive central chest pressure/chest pain. No palpitations. No pedal edema. Respiratory: No cough, no shortness of breath. Abdominal: No abdominal pain. No nausea. No vomiting. Genitourinary: No dysuria. No hematuria. Musculoskeletal: No myalgias. Left arm pain, intermittent Neurologic: No headaches. No dizziness. No lightheadedness. Skin: No rash. No change in color. Psychiatric: No depression. No anxiety. EXAM Physical Exam Narrative Exam Narrative: Afebrile. Vital signs noted. HEENT: Normocephalic. Atraumatic. PERRL, EOMI. Neck soft and supple. No point tenderness or step off. Cardiovascular: Regular rate and rhythm. No murmurs, rubs, or gallops appreciated. Respiratory: No tachypnea. Lungs clear to auscultation bilaterally. Gastrointestinal: Abdomen soft, nontender, with normoactive bowel sounds. No rebound or guarding. Neurological: Awake. Alert. Nonfocal, nonlateralizing. Skin: No rash. Normal color. No pallor. Musculoskeletal: No pedal edema. Full range of motion extremities. Const Vital Signs: 11/15/22 10:50 11/15/22 11:11 11/15/22 11:11 Temperature 97.6 F L Temperature Source Temporal Pulse Rate 79 Respiratory Rate 14 Respiratory Effort Normal Respiratory Pattern Normal Blood Pressure 158/75 H Blood Pressure Mean 102 Pulse Ox 98 Oxygen Delivery Method Room Air Room Air 11/15/22 12:00 11/15/22 13:00 Temperature Temperature Source Pulse Rate 85 85 Respiratory Rate 16 16 Respiratory Effort Respiratory Pattern Blood Pressure 156/70 H 158/68 H Blood Pressure Mean 98 98 Pulse Ox 94 94 Oxygen Delivery Method Room Air Room Air Heart Score History: Slightly/Non-Suspicious ECG: Normal Age: >/= 65 years Risk Factors: 1 or 2 Risk Factors Troponin: </= Normal Limit Score: 3 MDM MDM MDM Narrative Medical decision making narrative: The differential diagnosis would be acute coronary syndrome versus pulmonary embolism versus pneumonia. History and physical is not suggestive for pneumonia as she does not have a cough. Additionally, although she has history of pulmonary embolism, she is currently on Coumadin. Comprehensive work-up was pursued. EKG was obtained and interpreted by myself independently as normal sinus rhythm at 81 bpm without ectopy or acute ST changes. I reviewed her prior records and she did have a stress test in July 2021. Additionally, and a follow-up visit, she had had a heart catheterization in June which showed no blockage of the coronary arteries. She continues to have atypical chest pain. I reviewed her laboratory work from today and she has a normal white count of 8.2, hemoglobin normal at 14.3, hematocrit 45.1, platelet count normal at 380. Her INR is therapeutic at 2.3. Electrolyte panel is grossly unremarkable except for a low anion gap of 2, normal sodium of 136, potassium normal at 4.2. Glucose appropriately elevated at 107. Her chest x-ray in 1 view showed mild vascular congestion, on my independent interpretation I see no evidence of pneumonia or pneumothorax. I reviewed the radiology report which comments on slight vascular congestion. I added BNP which was normal. Her initial high-sensitivity troponin was normal at 3. Repeat was 4. I do feel that this is very atypical chest pain. 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 Additionally, I offered her stronger analgesics in the form of morphine but she declined, stating she can only take Tylenol and takes it 3 times a day. At this point in time, I do feel she can be discharged safely home with follow-up. Return instructions to the emergency department were reviewed. Disposition is discharged home in stable condition. History & Record Review Discussion w/independent historian: Patient and Family Lab Data Attestation: I reviewed the patient's lab results. Labs: Laboratory Results - last 24 hr 11/15/22 11/15/22 11:00 13:42 WBC 8.2 RBC 4.75 Hgb 14.3 Hct 45.1 MCV 94.9 MCH 30.1 MCHC 31.7 L RDW Std Deviation 48.6 H RDW Coeff of [place] 13.8 Plt Count 380 MPV 9.3 Immature Gran % (Auto) 0.400 Neut % (Auto) 62.6 Lymph % (Auto) 25.7 Sabine % (Auto) 8.8 Eos % (Auto) 1.6 Baso % (Auto) 0.9 Absolute Neuts (auto) 5.2 Absolute Lymphs (auto) 2.11 Nucleated RBC % 0 PT 25.7 H INR 2.3 Sodium 136 Potassium 4.2 Chloride 104 Carbon Dioxide 30.0 Anion Gap 2 L BUN 9 Creatinine 0.87 Estim Creat Clear Calc 46.23 Est GFR (MDRD) Af Amer 82 Est GFR (MDRD) Non-Af 68 BUN/Creatinine Ratio 10.3 Glucose 107 H Calcium 9.7 Troponin I High Sens 3 4 B-Natriuretic Peptide 15.8 Radiography Diagnostic Testing: Clinical Impression(s) from Imaging Studies Chest X-Ray 11/15/22 11:38 IMPRESSION: Mild degree of vascular congestion. Electronically Signed: Aroldo Neves MD at 12:14 EDT , Discharge Plan Triage Chief Complaint: Chest Pain ED Provider: Cuong Gomez Dx/Rx/DC Orders Prescriptions: No Action cholecalciferol (vitamin D3) 50 mcg (2,000 unit) capsule 2,000 unit PO DAILY Patient Comments: TAKE 1 CAPSULE BY MOUTH DAILY omeprazole 40 mg capsule,delayed release(DR/EC) 20 mg PO DAILY levothyroxine 100 MCG tablet 100 mcg PO DAILY Patient Comments: THYROID aspirin 81 MG tablet,chewable 81 mg PO DAILY@0800 Patient Comments: [facility] warfarin 5 mg tablet 5 mg PO Patient Comments: blood thinner warfarin 6 mg tablet 4 mg PO [facility] Patient Comments: blood thinner Primary Care Provider: Ron Lindsay Referrals: Ron Lindsay MD [Primary Care Provider] -
[2022-11-15 14:26] VITALS: BP 126/83
[2022-11-15 14:30] VITALS: BP 138/74; PULSE 72; RESP 16; O2SAT 97
== END 2022-11-15 14:31 | disposition home or self-care (01) ==
PROVIDERS: Emergency Provider Emergency Medicine; PCP Family Medicine; Visit Provider Emergency Medicine
DX: R07.9 Chest pain, unspecified (principal); Z87.891 Personal history of nicotine dependence; E78.5 Hyperlipidemia, unspecified; Z86.711 Personal history of pulmonary embolism; Z79.01 Long term (current) use of anticoagulants; E03.9 Hypothyroidism, unspecified; Z79.899 Other long term (current) drug therapy; K21.9 Gastro-esophageal reflux disease without esophagitis; Z90.49 Acquired absence of other specified parts of digestive tract; Z96.659 Presence of unspecified artificial knee joint
CPT/HCPCS: 36415; 71045; 80048; 83880; 84484; 85025; 85610; 93005; 99284

== ENCOUNTER → 2023-01-07 | Outpatient (CLI) | payer MEDICARE, OTHER, SELFPAY ==
--- NOTE | 2023-01-07 17:41 | STRESSREP_ITS ---
Stress Test Report Exercise myocardial perfusion stress test. 73-year-old lady with a history of chest pain Stress protocol: Resting EKG demonstrates normal sinus rhythm with a rate of 72 bpm resting blood pressure is 126/78 mmHg. The patient exercised according to the regular Cristian protocol for a total duration of 3 minutes attaining a maximum heart rate of 146 bpm which was 99% of maximum predicted heart rate; the maximum workload was 4.6 metabolic equivalents. At rest there were no ST or T wave changes noted to suggest ischemia and at peak exercise upsloping ST changes only were noted which did not meet the criteria for ischemia. No clinical angina was noted the test was terminated due to the target heart rate being achieved/fatigue. The peak b lood pressure was 140/70 mmHg. Rate-pressure product was 20,100. Myocardial perfusion protocol. 14.7 mCi of technetium 99m sestamibi was injected at rest. The patient exercised according to regular Cristian protocol for total duration of 3 minutes and at peak exercise 44.4 mCi of technetium 99m sestamibi was injected stress images were obtained stress and rest images were reconstructed in comparing the short axis vertical long and horizontal long axis. Gated images were also obtained. Perfusion SPECT analysis: Review of the stress images demonstrate normal uptake of tracer noted in all areas of the myocardium. The resting images similarly demonstrate normal uptake of tracer noted in all areas of the myocardium. No areas of reversibility are noted to suggest ischemia no previous infarct was noted. Gated SPECT analysis: The gated ejection fraction is 82%. Conclusion: Normal exercise myocardial perfusion stress test at a low workload Preserved ejection fraction.
== END | disposition home or self-care (01) ==
LOC: CVS 06:43
PROVIDERS: PCP Family Medicine; Referring Provider Nurse Practitioner Gerontology; Visit Provider Nurse Practitioner Gerontology
DX: R10.9 Unspecified abdominal pain (principal); R07.9 Chest pain, unspecified
CPT/HCPCS: 78452; 93017; A9500; A4216

== ENCOUNTER → 2023-03-07 | Outpatient (CLI) | payer MEDICARE, OTHER, SELFPAY ==
--- OUTSIDE RECORDS SUMMARY | 2023-03-07 09:28 | XMS RPT_ITS | CCD ---
Author Name Unknown Address [address] [place] [address] Organization [facility] Care Team Providers Care Material Specialist Name Role Phone Cameron GIRALDO, Roderick Corrigan Allergies Allergy Classification Reported Allergen(s) Allergy Type Date of Onset Reaction(s) Facility (4 sources) nalbuphine drug allergy 09-16-2016 [facility] Work Phone: (4 sources) LATEX GLOVES ONE SIZE drug allergy 09-16-2016 [facility] Work Phone: Medications Completed/Discontinued Medications Medication Drug Class(es) Dates Sig (Normalized) Sig (Original) omeprazole 20 mg delayed release oral tablet (4 sources) Proton Pump Inhibitor Start: 09-16-2016 take 1 tablet by mouth once daily OMEPRAZOLE 20 MG TBEC 1 tab PO daily OMEPRAZOLE [id number] Roderick Barnes MD Problems Active Problems Problem Classification Problem Date Documented Date Episodic/Chronic Esophageal disorders (4 sources) Gastroesophageal reflux disease; Translations: [Gastro-esophageal reflux disease without esophagitis] Onset: 09-16-2016 09-16-2016 Chronic Thyroid disorders (4 sources) Hypothyroidism; Translations: [Hypothyroidism, unspecified] Onset: 09-16-2016 09-16-2016 Chronic Past or Other Problems Problem Classification Problem Date Documented Da te Episodic/Chronic Phlebitis; thrombophlebitis and thromboembolism (4 sources) Deep venous thrombosis; Translations: [Acute embolism and thrombosis of unspecified vein] Onset: 09-16-2016 09-16-2016 Episodic Pulmonary heart disease (4 sources) Pulmonary embolism; Translations: [Other pulmonary embolism without acute cor pulmonale] Onset: 09-16-2016 09-16-2016 Episodic Results Test Name Value Interpretation Reference Range Facil ity Vital Signs Date Time Vital Sign Value Performing Clinician Facility 09-16-2016 13:52-0400 BMI (Body Mass Index) 43.57 kg/m2 Roderick Barnes MD [facility] Work Phone: 09-16-2016 13:52-0400 Body Temperature 98.2 [degF] Roderick Barnes MD [facility] Work Phone: 09-16-2016 13:52-0400 BP Diastolic 73 mm[Hg] Roderick Barnes MD [facility] Work Phone: 09-16-2016 13:52-0400 BP Systolic 106 mm[Hg] Roderick Barnes MD [facility] Work Phone: 09-16-2016 13:52-0400 Height 160.02 cm Roderick Barnes MD [facility] Work Phone: 09-16-2016 13:52-0400 Pulse (Heart Rate) 84 /min Roderick Barnes MD [facility] Work Phone: 09-16-2016 13:52-0400 Respiratory Rate 16 /min Roderick Barnes MD [facility] Work Phone: 09-16-2016 13:52-0400 Weight 111.59 kg Roderick Barnes MD [facility] Work Phone: Plan of Treatment Date Care Activity Detail Author Start: 10-28-2016 End: 10-28-2016 Appointment Appointment [facility] Work Phone: [facility] Work Phone: Additional Source Comments FOR RECORDS PERTAINING TO PATIENTS WHO ARE OR HAVE BEEN ENROLLED IN A CHEMICAL DEPENDENCY/SUBSTANCEABUSE PROGRAM, SOME INFORMATION MAY BE OMITTED. This clinical summary was aggregated from multiple sources. Caution should be exercised in using it in the provision of clinical care. This summary normalizes information from multiple sources, and as a consequence, information in this document may materially change the coding, format and clinical context of patient data. In addition, data may be omitted in some cases. CLINICAL DECISIONS SHOULD BE BASED ON THE PRIMARY CLINICAL RECORDS. [facility] [employer] [facility]. provides no warranty or guarantee of the accuracy or completeness of information in this document.
[2023-03-07 10:59] LABS: AST(SGOT) 16 U/L (15-37); Alanine Aminotransfer ALT/SGPT 23 U/L (13-56); Albumin, Serum 3.4 g/dL (3.2-5.0); Alkaline Phosphatase 82 U/L (45-117); Bilirubin, Direct 0.14 mg/dL (0.00-0.30); Cholesterol 146 mg/dL (200); Globulin 4.2 g/dL (2.2-4.2); High Density Lipoprotein 66 mg/dL; Protein, Total 7.6 g/dL (6.4-8.2); Triglycerides 98 mg/dL; Very Low Density Lipoprotein 20 mg/dL (5-40)
== END | disposition home or self-care (01) ==
LOC: LAB 09:06
PROVIDERS: PCP Family Medicine; Referring Provider Nurse Practitioner Gerontology; Visit Provider Nurse Practitioner Gerontology
DX: E78.5 Hyperlipidemia, unspecified (principal)
CPT/HCPCS: 36415; 80061; 80076

== ENCOUNTER → 2023-07-08 | Outpatient (CLI) | payer MEDICARE, OTHER, SELFPAY ==
[2023-07-08 11:21] LABS: ALB/GLOB Ratio 0.8 RATIO (0.9-2.4); AST(SGOT) 23 U/L (15-37); Alanine Aminotransfer ALT/SGPT 30 U/L (13-56); Albumin, Serum 3.3 g/dL (3.2-5.0); Alkaline Phosphatase 74 U/L (45-117); Anion Gap 9 (5-15); BUN 14 mg/dL (7-18); BUN/Creat Ratio 16.3 RATIO (10-20); Calcium,Total 9.7 mg/dL (8.5-10.1); Chloride 106 mmol/L (98-107); Cholesterol 151 mg/dL (200); Creatinine, Serum 0.86 mg/dL (0.55-1.02); EST Glomerular Filtration Rate 69 mL/min (>60); Est Glom Filt Rate - Afr Amer 83 mL/min (>60); Globulin 4.3 g/dL (2.2-4.2); Glucose 92 mg/dL (74-106); High Density Lipoprotein 64 mg/dL; Potassium 4.1 mmol/L (3.5-5.1); Protein, Total 7.6 g/dL (6.4-8.2); Sodium Level 139 mmol/L (136-145); Thyroid Stim Hormone (TSH) 2.51 uIU/mL (0.358-3.74); Triglycerides 105 mg/dL; Very Low Density Lipoprotein 21 mg/dL (5-40)
[2023-07-08 12:21] LABS: Vitamin B12 646 pg/mL (211-911)
[2023-07-08 19:45] LABS: Vitamin D,25 Hydroxy 50.2 ng/mL (29.95-100.01)
== END | disposition home or self-care (01) ==
LOC: MTLAB 08:01
PROVIDERS: PCP Family Medicine; Referring Provider Family Medicine; Visit Provider Family Medicine
DX: E55.9 Vitamin D deficiency, unspecified (principal); E78.00 Pure hypercholesterolemia, unspecified; E03.9 Hypothyroidism, unspecified
CPT/HCPCS: 36415; 80053; 80061; 82306; 82607; 84443

== ENCOUNTER 2023-10-29 09:43 | Outpatient (CLI) | payer MEDICARE, OTHER, SELFPAY ==
--- NOTE | 2023-10-29 09:48 | BI_ITS ---
MAMMOGRAPHY - BILATERAL SCREENING REASON FOR EXAM: Female, 73 years old. Routine annual screening examination. PERTINENT HISTORY: Non-contributory. TECHNIQUE: Digital bilateral breast nikolay (3D mammographic acquisition) in the CC and MLO projections. 2-D mediolateral oblique (MLO) and craniocaudad (CC) views of both breasts were obtained. CAD: Full Field Digital Mammography with Computer Added Detection was performed. COMPARISON: Comparison is made with prior study dated June 24, 2022 and June 19, 2021. FINDINGS: Breast Composition: The breasts are almost entirely fatty. There are no dominant masses or suspicious calcifications. Stable small bilateral fat containing axillary lymph nodes. No other significant abnormalities are identified. There has been no significant change since the prior study. BI/SCRN MAMM (CAD)W/NIKOLAY BILAT IMPRESSION: Stable bilateral screening mammogram. Yearly follow-up mammogram recommended. (A) ASSESSMENT CATEGORY: BIRADS Category 2: Benign. A letter regarding these results will be sent to the patient by the facility within 30 days. Approximately 10% of breast cancers are not detected by mammography. A normal mammogram should not delay biopsy of a clinically suspicious abnormality. [id number] Electronically Signed: Aroldo Neves MD at 10:54 EDT ,
--- NOTE | 2023-10-29 09:50 | BD_ITS ---
STUDY: DUAL ENERGY X-RAY ABSORPTIOMETRY / DXA REASON FOR EXAM: Female, 73 years old. Z78.0 TECHNIQUE: Bone Mineral Density (BMD) measurements of lumbar spine and bilateral hips were obtained. COMPARISON: Comparison is made with prior study June 19, 2021. FINDINGS: Lumbar Spine (L1-L4): g/cm2 (1.074) / T-score (0.2) / Z-score (2.6) Findings are suggestive of normal bone density with a low fracture risk. Left Femur Total: g/cm2 (0.970) / T-score (0.2) / Z-score (1.9) Left Femoral Neck: g/cm2 (0.892) / T-score (0.4) / Z-score (2.4) Right Femur Total: g/cm2 (0.931) / T-score (-0.1) / Z-score (1.6) Right Femoral Neck: g/cm2 (0.854) / T-score (0.0) / Z-score (2.1) The T-Scores on the most recent prior examination were: Lumbar Spine (L1-L4): There has been worsening of bone density since the previous examination. Left Femur Total: which represents a worsening of 1.5%. Right Femur Total: which represents a worsening of 5.9%. BD/Dexa Bone Density Study IMPRESSION: The patient is considered normal as outlined below according to World Genaro Organization (WHO) criteria with a low fracture risk. There has been worsening of bone density since the previous examination. Reference Information: The T-score is the number of standard deviations above or below the standard which is normal for young adults at their peak bone mineral density. The World Health Organization (WHO) interprets the T-scores as follows: Above -1 Normal bone density Between -1 and -2.5 Osteopenia Equal to / or below -2.5 Osteoporosis As a practical clinical guideline, osteopenia may be graded as follows: Mild -1 through -1.5 Moderate -1.6 through -2.0 Severe -2.1 through -2.4 The Z-score is the number of standard deviations above or below age-matched controls. A Z-score of less than -1.5 would be considered abnormal. References: 1. NIH Osteoporosis and Related Bone Diseases www osteo.org 2. International Society for Clinical Densitometry www iscd.org 3. National Osteoporosis Foundation www nof.org Electronically Signed: Aroldo Neves MD at 9:40 EDT ,
== END 2023-10-29 23:59 | disposition home or self-care (01) ==
LOC: OPBD 09:44
PROVIDERS: PCP Family Medicine; Referring Provider Family Medicine; Visit Provider Family Medicine
DX: Z12.31 Encounter for screening mammogram for malignant neoplasm of breast (principal); Z80.3 Family history of malignant neoplasm of breast; Z78.0 Asymptomatic menopausal state
CPT/HCPCS: 77063; 77067; 77080

== ENCOUNTER → 2023-12-22 | Outpatient (CLI) | payer MEDICARE, OTHER, SELFPAY ==
[2023-12-22 09:40] LABS: Cholesterol 175 mg/dL (200); High Density Lipoprotein 70 mg/dL; Triglycerides 102 mg/dL; Very Low Density Lipoprotein 20 mg/dL (5-40)
== END | disposition home or self-care (01) ==
LOC: LAB 08:43
PROVIDERS: PCP Family Medicine; Referring Provider Nurse Practitioner Gerontology; Visit Provider Nurse Practitioner Gerontology
DX: E78.5 Hyperlipidemia, unspecified (principal)
CPT/HCPCS: 36415; 80061

== ENCOUNTER → 2024-01-02 | Outpatient (CLI) | payer MEDICARE, OTHER, SELFPAY ==
[2024-01-02 12:16] LABS: Erythrocyte Sedimentation Rate 29 mm/hr (0-30)
[2024-01-02 12:18] LABS: Hemoglobin 13.6 g/dL (12.0-15.0); Mean Corp Hgb Conc 31.6 g/dL (32-36); Mean Corpuscular Hgb 29.4 pg (27.0-32.0); Mean Corpuscular Volume 92.9 fL (81-99); Mean Platelet Vol. 9.4 fl (6.2-12.0); Platelet Count 388 K/mm3 (150-450); RBC Distribution Width CV 13.7 % (11.6-14.6); RBC Distribution Width SD 47.3 fl (35.1-43.9); Red Blood Count 4.63 M/mm3 (4.2-5.4); White Blood Count 7.4 K/mm3 (4.4-11.0)
[2024-01-02 12:52] LABS: Vitamin D,25 Hydroxy 37.8 ng/mL
[2024-01-02 13:05] LABS: Anion Gap 5 (5-15); BUN 17 mg/dL (7-18); BUN/Creat Ratio 22.2 RATIO (10-20); Calcium,Total 9.5 mg/dL (8.5-10.1); Chloride 109 mmol/L (98-107); Creatinine, Serum 0.76 mg/dL (0.55-1.02); EST Glomerular Filtration Rate 79 mL/min (>60); Est Glom Filt Rate - Afr Amer 95 mL/min (>60); Glucose 126 mg/dL (74-106); Potassium 3.9 mmol/L (3.5-5.1); Sodium Level 139 mmol/L (136-145)
== END | disposition home or self-care (01) ==
LOC: MFPLAB 10:24
PROVIDERS: PCP Family Medicine; Referring Provider Family Medicine; Visit Provider Family Medicine
DX: M25.50 Pain in unspecified joint (principal); I26.99 Other pulmonary embolism without acute cor pulmonale; E03.9 Hypothyroidism, unspecified; E55.9 Vitamin D deficiency, unspecified
CPT/HCPCS: 36415; 80048; 82306; 84443; 85027; 85652

== ENCOUNTER → 2024-04-26 | Outpatient (CLI) | payer MEDICARE, OTHER, SELFPAY ==
--- NOTE | 2024-04-26 15:46 | VDLE_ITS ---
Reason For Study Reason For Study: Left leg pain RIGHT LEFT CFV is compressible, spontaneous, phasic, competent GSV is normal. and demonstrates normal augmentation. CFV is compressible, spontaneous, phasic, competent, Procedure and demonstrates normal augmentation. This is a venous duplex using B-mode, color flow and FV is compressible, spontaneous, phasic, competent spectral Doppler. and demonstrates normal augmentation. Exam performed in department. POP V is compressible, spontaneous, phasic, competent A preliminary report was called and/or faxed to and demonstrates normal augmentation. Vee. T/P Trunk is compressible. PTV is compressible. LT PerV is compressible. VL/Venous Duplex US, Unilateral Interpretation Summary Deep veins of the left lower extremity are patent and compressible segmentally. There is no evidence of left lower extremity deep vein thrombosis. Valvular competence appears intact within the p roximal deep venous system on the left . The left great saphenous vein appears patent and compressible segmentally. The right common femoral vein is patent and compressible . Ordering Physician: Lindsay Baxter Referring Physician: Jose David Lindsay MD Performed By: Rehana Zaldivar RVT
== END | disposition home or self-care (01) ==
PROVIDERS: PCP Family Medicine; Referring Provider Family Medicine; Visit Provider Family Medicine
DX: R60.0 Localized edema (principal)
CPT/HCPCS: 93971

== ENCOUNTER → 2024-05-10 | Outpatient (CLI) | payer MEDICARE, OTHER, SELFPAY ==
[2024-05-10 13:03] LABS: Bacteria 0 SEEN /hpf (None Seen); Mucous, Urine 0 SEEN /hpf (<or=2+)
[2024-05-10 16:40] LABS: Color, Urine Yellow (Yellow); Glucose, Dipstick Normal (Normal); Ketone-Dipstick Negative (Negative); Leukocyte Esterase-Dipstick Negative /ul (Negative); Nitrite-Dipstick Negative (Negative); Occult Blood-Urine 150 /ul (Negative); Protein-Dipstick Negative (Negative); Specific Gravity, Urine 1.005 (1.002-1.030); Urine Bilirubin Dipstick Negative (Negative); Urine Clarity Clear (Clear); Urine Urobilinogen Normal (Normal); Urine pH 6.5 (5.0 - 8.0)
[2024-05-10 17:53] LABS: Red Blood Cells-Urine 5-10 SEEN /hpf (0-5); Squamous Epithelial Cells - UA 0-5 SEEN /hpf (5-10); White Blood Cells 0-5 SEEN /hpf (0-5)
== END | disposition home or self-care (01) ==
LOC: LABSPEC 12:59
PROVIDERS: PCP Family Medicine; Visit Provider Family Medicine
DX: R10.9 Unspecified abdominal pain (principal)
CPT/HCPCS: 81001; 87086; 87088

== ENCOUNTER 2024-05-11 17:03 | Emergency (ER) | payer MEDICARE, OTHER, SELFPAY ==
[2024-05-11] VITALS (8 sets, daily range): BP systolic 133–157; BP diastolic 52–100; PULSE 78–116; RESP 16–36; TEMP 36.6–36.8; O2SAT 92–100; BMI 44.7
--- NOTE | 2024-05-11 18:14 | EKG12_ITS ---
Test Reason : CP Blood Pressure : */* mmHG Vent. Rate : 113 BPM Atrial Rate : 113 BPM P-R Int : 144 ms QRS Dur : 78 ms QT Int : 332 ms P-R-T Axes : 57 44 65 degrees QTcB Int : 455 ms Sinus tachycardia Nonspecific ST abnormality Abnormal ECG Confirmed by Valdez Winchester ([id number]), newspaper editor BEVERLY SAUER ([id number]) on 05/12/2024 7:52:52 AM Referred By: Confirmed By: Valdez Winchester
--- NOTE | 2024-05-11 18:16 | ED.VIS.FALL ---
HPI HPI - Fall History of Present Illness Chief Complaint: Fall Informant: patient Occured/Mechanism Occurred: Today Mechanism/Context: Yes same level fall Pain/Injury Location: Chest and upper back Pain Location: chest and back Quality of Pain: Sharp Worsened by: Movement Relieved by: Rest Associated Symptoms Associated Symptoms: Negative for Parasthesias, Weakness, Loss of function, Inability to ambulate, Loss of consciousness or Amnesia Narrative Narrative: Patient presents after a fall that occurred today. Patient states she bent forward and fell down a hill. Patient complains of pain in her chest and upper back. Patient states it is worse with movement. Patient states her pain is better with rest. Patient describes her pain as sharp. Patient denies any head injury or loss of consciousness. Patient is on Coumadin. Patient denies any nausea or vomiting. Patient denies any headache. Patient denies any visual changes. [facility] Medical History Hyperlipidemia Lung nodule Asthma Osteoarthritis Chronic back pain Hypothyroidism History of pulmonary embolism (08/04/12) Obesity Irritable bowel syndrome Esophageal reflux Home Medications ?Medication ?Instructions ?Recorded ?Last Taken ?Type aspirin 81 mg chewable tablet 81 mg PO DAILY@0800 03/13/14 06/19/20 History levothyroxine 100 mcg tablet 100 mcg PO DAILY 03/13/14 06/19/20 History cholecalciferol (vitamin D3) 50 2,000 unit PO DAILY 05/30/20 Unknown History mcg (2,000 unit) capsule omeprazole 40 mg capsule,delayed 40 mg PO DAILY 12/04/22 Unknown History release albuterol sulfate 90 mcg/actuation 2 puff inhalation Q6H PRN 12/30/22 Unknown History aerosol inhaler fluticasone propionate 50 2 spray intranasal DAILY 12/30/22 Unknown History mcg/actuation nasal spray,suspension lactobacillus combination no.4 3 3,000 mmu cells PO DAILY 12/30/22 Unknown History billion cell capsule (Probiotic) warfarin 4 mg tablet 4 mg PO DAILY 12/30/22 Unknown History budesonide-formoterol HFA 160 2 puff inhalation BID 03/20/23 Unknown History mcg-4.5 mcg/actuation aerosol inhaler loratadine 10 mg tablet 10 mg PO QDAY 10/29/23 Unknown History ondansetron 4 mg disintegrating 4 mg PO Q8 PRN 10/29/23 Unknown History tablet evolocumab 140 mg/mL subcutaneous 140 mg subcut QMONTH #1 mL 01/26/24 Unknown Rx pen injector (Payton Domínguez) rosuvastatin 10 mg tablet 10 mg PO QDAY #30 tabs 04/23/24 Unknown Rx hydrocodone-acetaminophen 5-325mg 1 tab PO Q6H PRN PRN Pain 3 days 05/11/24 Unknown Rx 5mg-325mg #10 TABLETS Allergy/AdvReac Type Severity Reaction Status Date / Time Latex, Natural Rubber Allergy Intermediate Severe Verified 05/11/24 17:05 rash with condoms, some bandaids cephalexin monohydrate (From Allergy Chest Verified 05/11/24 17:05 Keflex) tightness ciprofloxacin (From Cipro) Allergy Nausea Verified 05/11/24 17:05 ciprofloxacin HCl (From Allergy Nausea Verified 05/11/24 17:05 Cipro) hyoscyamine sulfate (From Allergy Chest Verified 05/11/24 17:05 Levbid) tightness nitrofurantoin (From Allergy Nausea Verified 05/11/24 17:05 Macrobid) nitrofurantoin Allergy Nausea Verified 05/11/24 17:05 macrocrystalline (From Macrobid) NSAIDS (Non-Steroidal Allergy Nausea Verified 05/11/24 17:05 Anti-Inflamma tramadol Allergy Chest Verified 05/11/24 17:05 tightness atorvastatin AdvReac insomnia/leg Verified 05/11/24 17:05 pain nalbuphine HCl (From Nubain) AdvReac Nausea Verified 05/11/24 17:05 Family History Sister Heart disease CHF at 63 Surgical History History of left heart catheterization (06/19/20) History of bunionectomy History of tonsillectomy History of cholecystectomy History of total knee arthroplasty (2012) Social History Smoking Status: Former smoker how long ago did patient quit smoking: over 30 years alcohol intake: never substance use type: does not use caffeine: Yes Type: coffee Number of servings: 1 ROS ROS ED Constitutional Constitutional ED: Denies chills or fever(s) Eyes Eyes: Denies blurry vision or change in vision ENT ENT ED: Denies rhinorrhea or sore throat Cardiovascular Cardiovascular: Reports chest pain; Denies palpitations Respiratory/Chest Respiratory/Chest: Denies cough or dyspnea Gastrointestinal Gastrointestinal: Denies nausea or vomiting Genitourinary Genitourinary ED: Denies dysuria or hematuria Musculoskeletal Musculoskeletal: Reports back pain; Denies neck pain Integumentary Denies abscess or rash Neurologic Neurologic: Denies headache(s) or weakness Allergic/Immunologic Allergic/Immunologic ED: Denies mouth swelling or urticaria EXAM Physical Exam Const Vital Signs: 05/11/24 17:04 05/11/24 17:16 05/11/24 18:04 Temperature 98 F Temperature Source Temporal Pulse Rate 116 H 101 H Respiratory Rate 36 H 23 H Respiratory Effort Short of Breath Labored Respiratory Depth Shallow Respiratory Pattern Tachypnea Blood Pressure 154/100 H 133/59 H Blood Pressure Mean 118 83 Pulse Ox 100 100 99 Oxygen Delivery Method Room Air Room Air Room Air 05/11/24 19:00 05/11/24 20:00 05/11/24 21:00 Temperature Temperature Source Pulse Rate 94 98 78 Respiratory Rate 16 18 Respiratory Effort Respiratory Depth Respiratory Pattern Blood Pressure 142/52 H 134/56 H 157/97 H Blood Pressure Mean 82 82 117 Pulse Ox 92 98 96 Oxygen Delivery Method Room Air 05/11/24 22:00 05/11/24 22:44 Temperature 98.3 F Temperature Source Pulse Rate 90 90 Respiratory Rate 17 17 Respiratory Effort Respiratory Depth Respiratory Pattern Blood Pressure 134/59 H 134/59 H Blood Pressure Mean 84 84 Pulse Ox 97 97 Oxygen Delivery Method Positive well nourished and well developed General Appearance ED: well developed and NAD HEENT Reports normocephalic atraumatic Neck no lymphadenopathy and supple Chest Wall Chest Narrative: There is tenderness to palpation over the anterior chest wall. There is no bony crepitance or step-off. There is no subcutaneous emphysema noted. Resp normal respiratory effort and clear to auscultation bilaterally Cardio regular rate and regular rhythm Neuro oriented x3, CN's II-XII intact bilaterally, moves all extremities, no focal motor deficits and no sensory deficits noted Ana Coma Scale: document GCS findings Spontaneous Obeys Commands Oriented 15 Sensorium / Orientation: alert Motor Exam: strength 5/5 throughout Psych mental status grossly normal and thought process normal MDM MDM MDM Narrative Medical decision making narrative: Differential diagnosis includes musculoskeletal pain, closed head injury, intracranial bleeding, cardiac dysrhythmia, cardiac ischemia, and electrolyte abnormality. EKG will be obtained to assess for cardiac dysrhythmia and cardiac ischemia. Chest x-ray will be obtained to assess for pneumonia, bronchitis, pneumothorax, and rib fracture. CT scan of the brain will be obtained to assess for intracranial bleeding. CBC will be obtained to assess for leukocytosis and anemia. Basic metabolic profile will be obtained to assess for electrolyte abnormality and renal function. High-sensitivity troponin will be obtained to assess for cardiac ischemia. 2-hour repeat high-sensitivity troponin will be obtained to assess for ongoing cardiac ischemia. PT with INR PTT will be obtained to assess for coagulopathy. Lab Data Attestation: I reviewed the patient's lab results. Lab results narrative: CBC was reviewed and was within normal limits. Basic metabolic profile was reviewed and was essentially within normal limits. PT with INR and PTT were reviewed. Pro time was 36.1 and INR was 3.5. PTT was 43.6. Initial high-sensitivity troponin was reviewed and was less than 6. 2-hour repeat high-sensitivity troponin was reviewed and was 7. Labs: Laboratory Results - last 24 hr 05/11/24 05/11/24 18:25 20:51 WBC 10.3 RBC 4.70 Hgb 13.9 Hct 42.0 MCV 89.4 MCH 29.6 MCHC 33.1 RDW Std Deviation 44.7 H RDW Coeff of [place] 13.7 Plt Count 374 MPV 9.1 Immature Gran % (Auto) 0.500 Neut % (Auto) 69.9 Lymph % (Auto) 17.7 L [place] % (Auto) 10.3 H Eos % (Auto) 1.1 Baso % (Auto) 0.5 Absolute Neuts (auto) 7.2 Absolute Lymphs (auto) 1.83 Nucleated RBC % 0 PT 36.1 H INR 3.5 APTT 43.6 H Sodium 138 Potassium 4.2 Chloride 101 Carbon Dioxide 21.1 Anion Gap 16 H BUN 11 Creatinine 0.79 Estim Creat Clear Calc 72.54 Est GFR (MDRD) Non-Af 79 BUN/Creatinine Ratio 13.5 Glucose 129 H Calcium 9.4 Troponin T High Sens < 6 Troponin T Hi Sens 2 Hr 7 Radiography Chest X-Ray - ED: 2 View, Read by ED Physician, Read by Radiologist and No Acute Disease Diagnostic Testing: Clinical Impression(s) from Imaging Studies Chest X-Ray 05/11/24 18:38 IMPRESSION: NO ACUTE FINDINGS. Reading Location: [facility] Brain CT 05/11/24 20:41 IMPRESSION: NO ACUTE FINDINGS Reading Location: [facility] PA and lateral chest x-ray was obtained. There are 2 views. On my independent interpretation, lung nevarez are clear. There is normal cardiac silhouette. Bony thorax is normal. There is no acute process noted. Radiologist also interpreted the x-ray and agrees. CT scan of the brain was obtained. There is no acute intracranial abnormality. This was interpreted by the radiologist and was also independently reviewed by myself. EKG Initial EKG: Attestation: I personally reviewed and interpreted this EKG as follows: Interpretation: Sinus Tachycardia (113) and Non-Specific ST Changes Comments: EKG was obtained. On my independent interpretation, it showed a sinus tachycardia with a rate of 113. MI interval, QRS interval, and QTc intervals were all normal. [place] was normal. There are nonspecific ST-T wave changes. Prior EKG tracings: available for review Prior: Unchanged (11/15/2022) Treatment and Re-Evaluation Narrative: Patient was advised of her findings. Patient was advised that this is most likely muscular pain. Patient was instructed to continue Tylenol or ibuprofen as needed for any pain. Patient was instructed to follow-up with her primary care physician in 5 to 7 days. Patient was instructed to return if worse in any way. Patient understood and was agreeable with the plan. All questions were answered. Discharge Plan Triage Chief Complaint: Fall ED Provider: Jeff Rowe Dx/Rx/DC Orders Clinical Impression: Fall, Acute thoracic myofascial strain Instructions: ED Thoracic Spine Strain, ED Chest Wall Strain Prescriptions: New hydrocodone-acetaminophen 5-325 mg tablet 1 tab PO Q6H PRN PRN (Reason: Pain) 3 Days Qty: 10 0RF No Action cholecalciferol (vitamin D3) 50 mcg (2,000 unit) capsule 2,000 unit PO DAILY Patient Comments: TAKE 1 CAPSULE BY MOUTH DAILY omeprazole 40 mg capsule,delayed release(DR/EC) 40 mg PO DAILY budesonide-formoterol 160-4.5 mcg/actuation HFA aerosol inhaler 2 puff inhalation BID Probiotic 3 billion cell capsule 3,000 mmu cells PO DAILY Rx Instructions: administer with a meal albuterol sulfate 90 mcg/actuation HFA aerosol inhaler 2 puff inhalation Q6H PRN warfarin 4 mg tablet 4 mg PO DAILY fluticasone propionate 50 mcg/actuation spray,suspension 2 spray intranasal DAILY rosuvastatin 10 mg tablet 10 mg PO QDAY Qty: 30 0RF loratadine 10 mg tablet 10 mg PO QDAY ondansetron 4 mg tablet,disintegrating 4 mg PO Q8 PRN levothyroxine 100 MCG tablet 100 mcg PO DAILY Patient Comments: THYROID aspirin 81 MG tablet,chewable 81 mg PO DAILY@0800 Patient Comments: [facility] Repatha SureClick 140 mg/mL pen injector 140 mg subcut QMONTH Qty: 1 12RF Primary Care Provider: Jose David Lindsay Referrals: Jose David Lindsay MD [Primary Care Provider] - 3-5 Days Activity Restrictions/Additional Instructions: Your INR was 3.5 today. Print Language: Burmese Disposition Disposition: Home, Self Care Discharge Date/Time: 05/11/24 22:44
[2024-05-11] MEDS: Morphine 4 MG/ML Syringe IV (18:29)
[2024-05-11] MEDS: Ondansetron 4 MG/2 ML Vial IV (18:29)
--- NOTE | 2024-05-11 18:38 | RAD_ITS ---
PROCEDURE: CHEST PA AND LATERAL 05/11/2024 REASON FOR EXAM: CHEST PAIN TECHNIQUE: Frontal and lateral views of the chest. COMPARISON: 11/15/2022 FINDINGS: Hardware: None Heart: The heart size is normal. Mediastinum: The mediastinal contour is unremarkable. Lungs: The lungs are clear. Bones: The bones are unremarkable. RAD/Chest PA and Lateral IMPRESSION: NO ACUTE FINDINGS. Reading Location: [facility]
[2024-05-11 18:41] LABS: Absolute Lymphocyte Count 1.83 X10^3/uL (0.83-4.51); Absolute Neutrophil Count 7.2 X10^3/uL (2.0-7.7); Basophil# 0.05 X10^3/uL; Basophil% 0.5 % (0-1); Eosinophil# 0.11 X10^3/uL; Eosinophils% 1.1 % (0-5); Hemoglobin 13.9 g/dL (12.0-15.0); Lymphocyte # 1.83 X10^3/ul (0.83-4.51); Lymphocyte % 17.7 % (19-41); Mean Corp Hgb Conc 33.1 g/dL (32-36); Mean Corpuscular Hgb 29.6 pg (27.0-32.0); Mean Corpuscular Volume 89.4 fL (81-99); Mean Platelet Vol. 9.1 fl (6.2-12.0); Monocyte# 1.06 X10^3/uL; Monocyte% 10.3 % (0-10); NRBC Flagged by Analyzer 0 % (0-5); Neutrophil # 7.23 X10^3/uL (2.7-7.7); Neutrophil % 69.9 % (47-70); Platelet Count 374 K/mm3 (150-450); RBC Distribution Width CV 13.7 % (11.6-14.6); RBC Distribution Width SD 44.7 fl (35.1-43.9); White Blood Count 10.3 K/mm3 (4.4-11.0)
[2024-05-11 18:50] LABS: International Normalized Ratio 3.5; Partial Thromboplast Time 43.6 Seconds (24.1-36.2); Prothrombin Time (Protime)PT. 36.1 SECONDS (11.7-14.9)
[2024-05-11 19:20] LABS: Troponin T High Sensitivity < 6 ng/L (<=14)
--- NOTE | 2024-05-11 20:41 | CT_ITS ---
PROCEDURE: BRAIN/HEAD WITHOUT CONTRAST 05/11/2024 REASON FOR EXAM: FALL TECHNIQUE: Head CT without intravenous contrast. Coronal and Sagittal reconstruction series were provided. One or more dose reduction techniques were used (e.g., Automated exposure control, adjustment of the mA and/or kV according to patient size, use of iterative reconstruction technique. RADIATION DOSE SUMMARY: CTDlvol: 44 mGy DLP: 829 mGycm COMPARISON: None FINDINGS: Brain: Within normal limits for age CSF Spaces: Normal Sinuses/Mastoids: Clear at visualized levels Bones: Unremarkable CT/Brain/Head without Contrast IMPRESSION: NO ACUTE FINDINGS Reading Location: [facility]
[2024-05-11 21:17] LABS: Anion Gap 16 (5-15); BUN 11 mg/dL (4-19); BUN/Creat Ratio 13.5 RATIO (10-20); Calcium,Total 9.4 mg/dL (7.6-11.0); Carbon Dioxide 21.1 mmol/L (21.0-32.0); Chloride 101 mmol/L (98-108); Creatinine, Serum 0.79 mg/dL (0.70-1.20); EST Glomerular Filtration Rate 79 (>60); Estimated Creatinine Clearance 72.54 ml/min (50-250); Glucose 129 mg/dL (70-99); Potassium 4.2 mmol/L (3.3-5.1); Sodium Level 138 mmol/L (133-145)
[2024-05-11 21:26] LABS: Troponin T High Sens 2 HR 7 ng/L (<=14)
== END 2024-05-11 22:44 | disposition home or self-care (01) ==
PROVIDERS: Emergency Provider Emergency Medicine; PCP Family Medicine; Visit Provider Emergency Medicine
DX: S29.019A Strain of muscle and tendon of unspecified wall of thorax, initial encounter (principal); Z87.891 Personal history of nicotine dependence; E78.5 Hyperlipidemia, unspecified; Z79.01 Long term (current) use of anticoagulants; Z86.711 Personal history of pulmonary embolism; E03.9 Hypothyroidism, unspecified; W17.81XA Fall down embankment (hill), initial encounter; K21.9 Gastro-esophageal reflux disease without esophagitis; Z90.49 Acquired absence of other specified parts of digestive tract
CPT/HCPCS: 70450; 71046; 80048; 84484; 85025; 85610; 85730; 93005; 96374; 96375; 99284; A4216; J2405

== ENCOUNTER → 2024-05-17 | Outpatient (CLI) | payer MEDICARE, OTHER, SELFPAY ==
--- NOTE | 2024-05-17 09:46 | RAD_ITS ---
PROCEDURE: PA and lateral chest radiographs, two views 05/17/2024 REASON FOR EXAM: CHEST PAIN, shortness of breath TECHNIQUE: PA and lateral views of the chest. COMPARISON: 05/11/2024 FINDINGS: The cardiomediastinal silhouette is similar. No pneumothorax, focal airspace consolidation, or pleural effusion. Similar mild elevation right hemidiaphragm. Some coarse markings in the lower lungs are similar. Bones are osteopenic with degenerative changes in the spine. No grossly displaced rib or sternal fractures, although evaluation is limited. RAD/Chest PA and Lateral IMPRESSION: No definite acute cardiopulmonary process or significant change. If there are persistent symptoms or clinical concern, short-term follow-up chest CT evaluation may be considered. Reading Location: [facility]
== END | disposition home or self-care (01) ==
LOC: MTRAD 09:46
PROVIDERS: PCP Family Medicine
DX: R07.9 Chest pain, unspecified (principal); R06.02 Shortness of breath
CPT/HCPCS: 71046

== ENCOUNTER 2024-05-18 10:27 | Emergency (ER) | payer MEDICARE, OTHER, SELFPAY ==
[2024-05-18 10:29] VITALS: BP 147/77; PULSE 77; RESP 14; TEMP 36.6; O2SAT 98
--- NOTE | 2024-05-18 10:42 | ED.VIS.DYS ---
HPI History of Present Illness Chief Complaint: Shortness of Breath Informant: patient Onset/Context/Timing Onset: Weeks (1) Context: gradual Timing: Continuous Quality: Positive for - (similar to prior PE) Worsened by: Nothing Relieved by: Nothing Associated Symptoms cough, subjective and chills; Negative for rhinorrhea, post nasal drip, ear pain, fever, sore throat, sweats, clear sputum, white sputum, yellow sputum or green sputum Chest Pain: Positive for Sharp (substernal) Narrative Narrative: Patient presents with shortness of breath that has been getting worse over the past week. Patient states she fell 1 week ago. Patient states she was seen here at that time. Patient states she had a CT scan of her head done at that time which was negative. Patient states she has been having some shortness of breath that is similar to the symptoms she had with her prior pulmonary embolism. Patient states she is currently on Coumadin. The patient admits to some pain over the lower substernal area. Patient describes it as sharp. Patient admits to a mild cough but denies any sputum. Patient is to send subjective chills. PE Risk Factors: Positive for Prior DVT or PE; Negative for Cancer, OCP + Smoking + > 35, Recent immobilization, Recent surgery or Recent travel [facility] Medical History Hyperlipidemia Lung nodule Asthma Osteoarthritis Chronic back pain Hypothyroidism History of pulmonary embolism (08/04/12) Obesity Irritable bowel syndrome Esophageal reflux Home Medications ?Medication ?Instructions ?Recorded ?Last Taken ?Type aspirin 81 mg chewable tablet 81 mg PO DAILY@0800 03/13/14 06/19/20 History levothyroxine 100 mcg tablet 100 mcg PO DAILY 03/13/14 06/19/20 History cholecalciferol (vitamin D3) 50 2,000 unit PO DAILY 05/30/20 Unknown History mcg (2,000 unit) capsule omeprazole 40 mg capsule,delayed 40 mg PO DAILY 12/04/22 Unknown History release albuterol sulfate 90 mcg/actuation 2 puff inhalation Q6H PRN 12/30/22 Unknown History aerosol inhaler fluticasone propionate 50 2 spray intranasal DAILY 12/30/22 Unknown History mcg/actuation nasal spray,suspension lactobacillus combination no.4 3 3,000 mmu cells PO DAILY 12/30/22 Unknown History billion cell capsule (Probiotic) warfarin 4 mg tablet 4 mg PO DAILY 12/30/22 Unknown History budesonide-formoterol HFA 160 2 puff inhalation BID 03/20/23 Unknown History mcg-4.5 mcg/actuation aerosol inhaler loratadine 10 mg tablet 10 mg PO QDAY 10/29/23 Unknown History ondansetron 4 mg disintegrating 4 mg PO Q8 PRN 10/29/23 Unknown History tablet evolocumab 140 mg/mL subcutaneous 140 mg subcut QMONTH #1 mL 01/26/24 Unknown Rx pen injector (Repatha SureClick) rosuvastatin 10 mg tablet 10 mg PO QDAY #30 tabs 04/23/24 Unknown Rx hydrocodone-acetaminophen 5-325mg 1 tab PO Q6H PRN PRN Pain 3 days 05/11/24 Unknown Rx 5mg-325mg #10 TABLETS Allergy/AdvReac Type Severity Reaction Status Date / Time Latex, Natural Rubber Allergy Intermediate Severe Verified 05/18/24 10:28 rash with condoms, some bandaids cephalexin monohydrate (From Allergy Chest Verified 05/18/24 10:28 Keflex) tightness ciprofloxacin (From Cipro) Allergy Nausea Verified 05/18/24 10:28 ciprofloxacin HCl (From Allergy Nausea Verified 05/18/24 10:28 Cipro) hyoscyamine sulfate (From Allergy Chest Verified 05/18/24 10:28 Levbid) tightness nitrofurantoin (From Allergy Nausea Verified 05/18/24 10:28 Macrobid) nitrofurantoin Allergy Nausea Verified 05/18/24 10:28 macrocrystalline (From Macrobid) NSAIDS (Non-Steroidal Allergy Nausea Verified 05/18/24 10:28 Anti-Inflamma tramadol Allergy Chest Verified 05/18/24 10:28 tightness atorvastatin AdvReac insomnia/leg Verified 05/18/24 10:28 pain nalbuphine HCl (From Nubain) AdvReac Nausea Verified 05/18/24 10:28 Family History Sister Heart disease CHF at 63 Surgical History History of left heart catheterization (06/19/20) History of bunionectomy History of tonsillectomy History of cholecystectomy History of total knee arthroplasty (2013) Social History Smoking Status: Former smoker how long ago did patient quit smoking: over 30 years alcohol intake: never substance use type: does not use caffeine: Yes Type: coffee Number of servings: 1 ROS ROS ED Constitutional Constitutional ED: Denies chills or fever(s) Eyes Eyes: Denies blurry vision or change in vision ENT ENT ED: Denies rhinorrhea or sore throat Cardiovascular Cardiovascular: Reports chest pain; Denies palpitations Respiratory/Chest Respiratory/Chest: Reports cough and dyspnea; Denies sputum Gastrointestinal Gastrointestinal: Denies nausea or vomiting Genitourinary Genitourinary ED: Denies dysuria or hematuria Musculoskeletal Musculoskeletal: Reports back pain; Denies neck pain Integumentary Denies abscess or rash Neurologic Neurologic: Denies headache(s) or weakness Allergic/Immunologic Allergic/Immunologic ED: Denies mouth swelling or urticaria EXAM Physical Exam Const Vital Signs: 05/18/24 10:29 05/18/24 10:33 05/18/24 11:41 Temperature 98 F Temperature Source Temporal Pulse Rate 77 Respiratory Rate 14 Respiratory Effort Short of Breath Respiratory Depth Normal Respiratory Pattern Normal Blood Pressure 147/77 H Blood Pressure Mean 100 Pulse Ox 98 Oxygen Delivery Method Room Air Room Air Room Air 05/18/24 12:28 05/18/24 14:00 Temperature 97.8 F Temperature Source Oral Pulse Rate 64 64 Respiratory Rate 18 18 Respiratory Effort Respiratory Depth Respiratory Pattern Blood Pressure 149/76 H 143/78 H Blood Pressure Mean 100 99 Pulse Ox 98 98 Oxygen Delivery Method Room Air Room Air Positive well nourished and well developed General Appearance ED: well developed and NAD HEENT Reports moist mucous membranes Neck supple and no JVD Chest Wall Chest Narrative: There is tenderness over lower sternum. No stepoff. No subcutaneous emphysema Resp normal respiratory effort and clear to auscultation bilaterally Cardio regular rate and regular rhythm GI non-distended Palpation: soft and tender LUQ (mild) and RUQ (mild); Negative for guarding, mass or rebound tenderness present Extremity normal to inspection General Extremety ED: Negative for edema or tenderness General Extremity: Negative for edema Neuro oriented x3, CN's II-XII intact bilaterally and no sensory deficits noted [place] Coma Scale: document GCS findings Spontaneous Obeys Commands Oriented 15 Sensorium / Orientation: alert Speech: speech normal Motor Exam: strength 5/5 throughout Psych mental status grossly normal MDM MDM MDM Narrative Medical decision making narrative: Differential diagnosis includes cardiac dysrhythmia, cardiac ischemia, electrolyte abnormality, pneumonia, pulmonary embolism, musculoskeletal pain, and anxiety. EKG will be obtained to assess for cardiac dysrhythmia and cardiac ischemia. Basic metabolic profile will be obtained to assess for electrolyte abnormality and renal function. High-sensitivity troponin will be obtained to assess for cardiac ischemia. 2-hour repeat high-sensitivity troponin will be obtained to assess for ongoing cardiac ischemia. CTA of the chest will be obtained to assess for pulmonary embolism. PT with INR and PTT will be obtained to assess for coagulopathy. Lab Data Attestation: I reviewed the patient's lab results. Lab results narrative: CBC was reviewed and was within normal limits. PT with INR and PTT were reviewed. Pro time was 37.5 and INR is 3.7. PTT was 55.3. Basic metabolic profile was reviewed and was within normal limits. Initial high-sensitivity troponin was reviewed and was less than 6. 2-hour repeat high-sensitivity troponin was reviewed and was less than 6. Labs: Laboratory Results - last 24 hr 05/18/24 05/18/24 05/18/24 11:20 12:36 14:11 WBC 6.0 RBC 4.86 Hgb 14.4 Hct 43.8 MCV 90.1 MCH 29.6 MCHC 32.9 RDW Std Deviation 46.1 H RDW Coeff of [place] 13.9 Plt Count 349 MPV 8.9 Immature Gran % (Auto) 0.200 Neut % (Auto) 64.0 Lymph % (Auto) 23.8 Shannon % (Auto) 10.0 Eos % (Auto) 1.5 Baso % (Auto) 0.5 Absolute Neuts (auto) 3.9 Absolute Lymphs (auto) 1.43 Nucleated RBC % 0 PT 37.5 H INR 3.7 APTT 55.3 H Sodium 138 Potassium 4.6 Chloride 102 Carbon Dioxide 23.3 Anion Gap 13 BUN 9 Creatinine 0.82 Est GFR (MDRD) Non-Af 75 BUN/Creatinine Ratio 10.4 Glucose 93 Calcium 9.7 Troponin T High Sens < 6 Troponin T Hi Sens 2 Hr < 6 Radiography Diagnostic Testing: Clinical Impression(s) from Imaging Studies Chest CTA 05/18/24 11:52 IMPRESSION: No evidence of pulmonary embolism or other vascular abnormalities. Status post cholecystectomy. Other nonacute findings detailed above. Reading Location: [place] [id number] CTA of the chest was obtained. There is no evidence of pulmonary embolism or aortic dissection. There is no acute process noted. This was interpreted by the radiologist and was also independently reviewed by myself. EKG Initial EKG: Attestation: I personally reviewed and interpreted this EKG as follows: Interpretation: Sinus Rhythm (76) and No Acute Injury Pattern Comments: EKG was obtained. On my independent interpretation, it showed a normal sinus rhythm with a rate of 76. AR interval, QRS interval, and QTc intervals were all normal. Hunter was normal. There are no acute ST or T wave changes. Prior EKG tracings: available for review Prior: Unchanged (05/11/2024) Treatment and Re-Evaluation :: Patient was advised of her findings. Patient was instructed to continue her Coumadin as prescribed. Patient was instructed to take Tylenol or ibuprofen as needed for any pain. Patient was instructed to follow-up with her primary care physician in 5 to 7 days. Patient understood and was agreeable with the plan. All questions were answered. Discharge Plan Triage Chief Complaint: Shortness of Breath ED Provider: Jeff Rowe Dx/Rx/DC Orders Clinical Impression: Dyspnea, Acute thoracic myofascial strain Instructions: ED Dyspnea Prescriptions: No Action cholecalciferol (vitamin D3) 50 mcg (2,000 unit) capsule 2,000 unit PO DAILY Patient Comments: TAKE 1 CAPSULE BY MOUTH DAILY omeprazole 40 mg capsule,delayed release(DR/EC) 40 mg PO DAILY budesonide-formoterol 160-4.5 mcg/actuation HFA aerosol inhaler 2 puff inhalation BID Probiotic 3 billion cell capsule 3,000 mmu cells PO DAILY Rx Instructions: administer with a meal albuterol sulfate 90 mcg/actuation HFA aerosol inhaler 2 puff inhalation Q6H PRN warfarin 4 mg tablet 4 mg PO DAILY fluticasone propionate 50 mcg/actuation spray,suspension 2 spray intranasal DAILY rosuvastatin 10 mg tablet 10 mg PO QDAY Qty: 30 0RF loratadine 10 mg tablet 10 mg PO QDAY ondansetron 4 mg tablet,disintegrating 4 mg PO Q8 PRN levothyroxine 100 MCG tablet 100 mcg PO DAILY Patient Comments: THYROID aspirin 81 MG tablet,chewable 81 mg PO DAILY@0800 Patient Comments: [facility] hydrocodone-acetaminophen 5-325 mg tablet 1 tab PO Q6H PRN PRN (Reason: Pain) 3 Days Qty: 10 0RF Repatha SureClick 140 mg/mL pen injector 140 mg subcut QMONTH Qty: 1 12RF Primary Care Provider: Jose David Lindsay Referrals: Jose David Lindsay MD [Primary Care Provider] - 5-7 Days Print Language: Nepali Disposition Disposition: Home, Self Care
--- NOTE | 2024-05-18 11:09 | EKG12_ITS ---
Test Reason : SOB/CP Blood Pressure : */* mmHG Vent. Rate : 76 BPM Atrial Rate : 76 BPM P-R Int : 186 ms QRS Dur : 78 ms QT Int : 380 ms P-R-T Axes : 25 12 28 degrees QTcB Int : 427 ms Normal sinus rhythm Normal ECG When compared with ECG of 11-May-2024 17:14, Vent. rate has decreased by 37 bpm Confirmed by АЛЕКСАНДР GIRALDO, RALPH ([id number]), supervising film or videotape editor MARY CALLAWAY ([id number]) on 05/20/2024 12:52:22 PM Referred By: ADY/RU Confirmed By: RALPH FOUNTAIN MD
[2024-05-18 11:35] LABS: Absolute Lymphocyte Count 1.43 X10^3/uL (0.83-4.51); Absolute Neutrophil Count 3.9 X10^3/uL (2.0-7.7); Basophil# 0.03 X10^3/uL; Basophil% 0.5 % (0-1); Eosinophil# 0.09 X10^3/uL; Eosinophils% 1.5 % (0-5); Hematocrit 43.8 % (37-47); Hemoglobin 14.4 g/dL (12.0-15.0); Lymphocyte # 1.43 X10^3/ul (0.83-4.51); Lymphocyte % 23.8 % (19-41); Mean Corp Hgb Conc 32.9 g/dL (32-36); Mean Corpuscular Hgb 29.6 pg (27.0-32.0); Mean Corpuscular Volume 90.1 fL (81-99); Mean Platelet Vol. 8.9 fl (6.2-12.0); NRBC Flagged by Analyzer 0 % (0-5); Neutrophil # 3.86 X10^3/uL (2.7-7.7); Platelet Count 349 K/mm3 (150-450); RBC Distribution Width CV 13.9 % (11.6-14.6); RBC Distribution Width SD 46.1 fl (35.1-43.9); Red Blood Count 4.86 M/mm3 (4.2-5.4)
--- NOTE | 2024-05-18 11:52 | CT_ITS ---
PROCEDURE: CTA CHEST W/WO CONTRAST 05/18/2024 REASON FOR EXAM: DYSPNEA TECHNIQUE: CTA axial imaging of the chest with intravenous contrast. Contiguous axial scans of 1.25 mm slice thicknesses. Sagittal and coronal reconstruction images were obtained. One or more dose reduction techniques were used (e.g., automated exposure control, adjustment of mA and/or kv according to patient size, use of iterative reconstruction technique). PATIENT PREPARATION: Per protocol CONTRAST: Isovue 370 VOLUME: 100 mL RADIATION DOSE SUMMARY: CTDlvol: 29.69 mGy DLP: 505.13 mGycm COMPARISON: Chest PA and lateral dated 05/17/2024 FINDINGS: Lymph nodes: No suspicious adenopathy Heart: Normal heart size and configuration. Mediastinum: No widening. RV/LV Diameter Ratio: Unremarkable. Thoracic Aorta: Mildly tortuous. No aneurysm. Pulmonary Vessels: Unremarkable. No evidence of intraluminal thrombus. Lungs and Airways: Mild scarring and/or hypoventilatory changes in the dependent lungs. No masses. No consolidation. Pleura: Unremarkable. Upper Abdomen: Gallbladder surgically absent. Bones: Multilevel spondylosis and degenerative disc disease. CT/CTA Chest W/WO Contrast IMPRESSION: No evidence of pulmonary embolism or other vascular abnormalities. Status post cholecystectomy. Other nonacute findings detailed above. Reading Location: [place] [id number]
[2024-05-18 12:06] LABS: Troponin T High Sensitivity < 6 ng/L (<=14)
[2024-05-18 12:07] LABS: Anion Gap 13 (5-15); BUN 9 mg/dL (4-19); BUN/Creat Ratio 10.4 RATIO (10-20); Calcium,Total 9.7 mg/dL (7.6-11.0); Carbon Dioxide 23.3 mmol/L (21.0-32.0); Chloride 102 mmol/L (98-108); Creatinine, Serum 0.82 mg/dL (0.70-1.20); EST Glomerular Filtration Rate 75 (>60); Glucose 93 mg/dL (70-99); Potassium 4.6 mmol/L (3.3-5.1); Sodium Level 138 mmol/L (133-145)
[2024-05-18 12:28] VITALS: BP 149/76; PULSE 64; RESP 18; TEMP 36.6; O2SAT 98
[2024-05-18 13:14] LABS: International Normalized Ratio 3.7; Prothrombin Time (Protime)PT. 37.5 SECONDS (11.7-14.9)
[2024-05-18 13:15] LABS: Partial Thromboplast Time 55.3 Seconds (24.1-36.2)
[2024-05-18 14:00] VITALS: BP 143/78; PULSE 64; RESP 18; O2SAT 98
[2024-05-18 14:51] LABS: Troponin T High Sens 2 HR < 6 ng/L (<=14)
[2024-05-18 15:15] VITALS: BP 154/83; PULSE 64; RESP 18; TEMP 37.2; O2SAT 99
== END 2024-05-18 15:17 | disposition home or self-care (01) ==
PROVIDERS: Emergency Provider Emergency Medicine; PCP Family Medicine; Visit Provider Emergency Medicine
DX: R06.00 Dyspnea, unspecified (principal); S29.019D Strain of muscle and tendon of unspecified wall of thorax, subsequent encounter; E78.5 Hyperlipidemia, unspecified; R07.2 Precordial pain; Z87.891 Personal history of nicotine dependence; Z79.01 Long term (current) use of anticoagulants; E03.9 Hypothyroidism, unspecified; Z86.711 Personal history of pulmonary embolism; J45.909 Unspecified asthma, uncomplicated; Z79.82 Long term (current) use of aspirin; Z90.49 Acquired absence of other specified parts of digestive tract; Z82.49 Family history of ischemic heart disease and other diseases of the circulatory system; R05.9 Cough, unspecified; W19.XXXD Unspecified fall, subsequent encounter
CPT/HCPCS: 71275; 80048; 84484; 85025; 85610; 85730; 93005; 99284; Q9967; A4216

== ENCOUNTER → 2024-05-26 | Outpatient (CLI) | payer MEDICARE, OTHER, SELFPAY ==
--- NOTE | 2024-05-26 15:43 | RAD_ITS ---
PROCEDURE: SHOULDER MIN 2 VIEWS 05/26/2024 REASON FOR EXAM: FALL, PAIN TECHNIQUE: 5 view(s) of the right shoulder COMPARISON: None FINDINGS: Bones: No acute fracture Joints: Degenerative changes of the acromioclavicular joints. Soft tissues: Soft tissues are unremarkable. Other: RAD/Shoulder min 2 Views IMPRESSION: DEGENERATIVE OSTEOARTHROSIS. NO ACUTE FINDINGS. Reading Location: [facility]
== END | disposition home or self-care (01) ==
LOC: MTRAD 15:43
PROVIDERS: PCP Family Medicine; Referring Provider Family Medicine; Visit Provider Family Medicine
DX: M25.511 Pain in right shoulder (principal)
CPT/HCPCS: 73030

== ENCOUNTER → 2024-06-24 | Outpatient (CLI) | payer MEDICARE, OTHER, SELFPAY ==
[2024-06-24 09:07] LABS: AST(SGOT) 17 U/L (<=31); Alanine Aminotransfer ALT/SGPT 15 U/L (<=34); Albumin, Serum 3.8 g/dL (3.4-4.8); Alkaline Phosphatase 79 U/L (35-104); Bilirubin, Direct 0.14 mg/dL (0.00-0.30); Cholesterol 159 mg/dL (<=200); Globulin 3.1 g/dL (2.2-4.2); High Density Lipoprotein 57 mg/dL; Low Density Lipoprotein Calc. 76 mg/dL; Protein, Total 6.9 g/dL (5.9-8.4); Total Bilirubin 0.31 mg/dL (0.00-1.30); Triglycerides 131 mg/dL; Very Low Density Lipoprotein 26 mg/dL (5-40); cholesterol:hdl ratio screen 2.78
== END | disposition home or self-care (01) ==
LOC: LAB 07:36
PROVIDERS: PCP Family Medicine; Referring Provider Student in an Organized Health Care Education/Training Program; Visit Provider Student in an Organized Health Care Education/Training Program
DX: E78.5 Hyperlipidemia, unspecified (principal)
CPT/HCPCS: 36415; 80061; 80076

== ENCOUNTER 2024-07-06 08:38 | Outpatient (CLI) | payer MEDICARE, OTHER, SELFPAY ==
[2024-07-06 12:18] LABS: Absolute Lymphocyte Count 1.86 X10^3/uL (0.83-4.51); Absolute Neutrophil Count 3.1 X10^3/uL (2.0-7.7); Basophil# 0.06 X10^3/uL; Basophil% 1.1 % (0-1); Eosinophil# 0.15 X10^3/uL; Eosinophils% 2.7 % (0-5); Hemoglobin 13.6 g/dL (12.0-15.0); Lymphocyte # 1.86 X10^3/ul (0.83-4.51); Lymphocyte % 33.1 % (19-41); Mean Corp Hgb Conc 31.6 g/dL (32-36); Mean Corpuscular Hgb 29.4 pg (27.0-32.0); Mean Corpuscular Volume 92.9 fL (81-99); Mean Platelet Vol. 9.7 fl (6.2-12.0); Monocyte# 0.44 X10^3/uL; Monocyte% 7.8 % (0-10); NRBC Flagged by Analyzer 0 % (0-5); Neutrophil # 3.09 X10^3/uL (2.7-7.7); Neutrophil % 54.9 % (47-70); Platelet Count 369 K/mm3 (150-450); RBC Distribution Width CV 14.2 % (11.6-14.6); RBC Distribution Width SD 48.7 fl (35.1-43.9); Red Blood Count 4.63 M/mm3 (4.2-5.4); White Blood Count 5.6 K/mm3 (4.4-11.0)
[2024-07-06 12:56] LABS: Hemoglobin A1c 5.9 % (<=5.6)
[2024-07-06 12:58] LABS: ALB/GLOB Ratio 1.2 RATIO (0.9-2.4); AST(SGOT) 21 U/L (<=31); Alanine Aminotransfer ALT/SGPT 17 U/L (<=34); Albumin, Serum 3.8 g/dL (3.4-4.8); Alkaline Phosphatase 80 U/L (35-104); Anion Gap 12 (5-15); BUN 14 mg/dL (4-19); Calcium,Total 9.8 mg/dL (7.6-11.0); Carbon Dioxide 23.4 mmol/L (21.0-32.0); Chloride 106 mmol/L (98-108); Cholesterol 174 mg/dL (<=200); Creatinine, Serum 0.67 mg/dL (0.70-1.20); EST Glomerular Filtration Rate 92 (>60); Globulin 3.1 g/dL (2.2-4.2); Glucose 97 mg/dL (70-99); High Density Lipoprotein 57 mg/dL; Low Density Lipoprotein Calc. 96 mg/dL; Potassium 4.1 mmol/L (3.3-5.1); Sodium Level 141 mmol/L (133-145); Thyroid Stim Hormone (TSH) 0.885 uIU/mL (0.300-4.200); Total Bilirubin 0.27 mg/dL (0.00-1.30); Triglycerides 109 mg/dL; Very Low Density Lipoprotein 22 mg/dL (5-40); Vitamin D,25 Hydroxy 41.6 ng/mL (30-100); cholesterol:hdl ratio screen 3.07
== END 2024-07-06 23:59 | disposition home or self-care (01) ==
LOC: MFPLAB 08:39
PROVIDERS: PCP Family Medicine
DX: Z00.00 Encounter for general adult medical examination without abnormal findings (principal)
CPT/HCPCS: 36415; 80053; 80061; 82306; 83036; 84443; 85025

== ENCOUNTER → 2024-09-21 | Outpatient (CLI) | payer MEDICARE, OTHER, SELFPAY ==
--- NOTE | 2024-09-21 10:37 | RAD_ITS ---
PROCEDURE: NECK FOR SOFT TISSUE 09/21/2024 REASON FOR EXAM: NECK PAIN TECHNIQUE: NECK FOR SOFT TISSUE COMPARISON: None FINDINGS: Bones: Disc space narrowing and spondylosis at the C5-C6 and C6-C7 levels. Soft tissues: No prevertebral soft tissue swelling. Other: RAD/Neck for Soft Tissue IMPRESSION: Disc space narrowing at the C5-C6 and C6-C7 levels. No prevertebral soft tissue swelling. No radiopaque foreign body seen. Reading Location: [facility]
--- OUTSIDE RECORDS SUMMARY | 2024-09-21 20:16 | XMS RPT_ITS | CCD ---
Author Organization [facility] Care Team Providers Care Home Worker Name Role Phone Cameron GIRALDO, Roderick Brothers Unavailable Dr. Ron Lindsay Primary Care Provider [phone] Dr. Ron Lindsay Referring Provider Dr. Cristian Graf Attending Provider Dr. Cristian Graf Referring Provider [phone] Cristian Graf Other Provider Rao CHAPIN, DARI-C Claudia Attending Provider Dr. Ron Lindsay Primary Care Provider [phone] Dr. Ron Lindsay Referring Provider Dr. Cristian Graf Attending Provider [phone] Parviz Barragan Attending Provider MD Jose Mcleod Referring Provider [phone] Dr. Ron Lindsay Primary Care Provider [phone] Dr. Ron Lindsay Primary Care Provider [phone] Dr. Ron Lindsay Referring Provider Rao REMEDIATION CONSULTANT, REMEDIATION CONSULTANT-C Claudia Attending Provider Hannah CHAPIN REMEDIATION CONSULTANT-C Naz Attending Provider Rao CHAPIN, REMEDIATION CONSULTANT-C Claudia Referring Provider Rao CHAPIN, REMEDIATION CONSULTANT-C Claudia Other Provider Dr. Lucio Gomez Attending Provider Dr. Jose David Lindsay MD Primary Care Provider Dr. Jose David Lindsay MD Referring Provider [phone] Salty Matthews Attending Provider Vee GIRALDO, Dr. Lindsay Perez Attending Provider Vee GIRALDO, Dr. Lindsay Perez Referring Provider Neftali GIRALDO, Dr. Main Attending Provider Dr. Jeff Rowe DO Emergency Provider [phone] Soledad GRIJALVA, Dr. Aguilar Attending Provider McMorrow REMEDIATION CONSULTANT-C, Ravi Attending Provider McMorrow REMEDIATION CONSULTANT-C, Ravi Referring Provider Giancarlo GIRALDO, Dr. Ryan Bourne Attending Provider Mamta GIRALDO, Dr. Mann Romero Attending Provider Mamta GIRALDO, Dr. Mann Romero Referring Provider [phone] Nisa Matthewsyler Referring Provider [phone] Jonathan REMEDIATION CONSULTANT-C, Wilda Attending Provider [phone] Jagdeepney, Luis Danieler Attending Unavailable Ranney, Christopher Primary Care Unavailable Mann Oleary Attending Unavailable Mann Oleary Referring Unavailable Ranney, Christopher Primary Care Unavailable McMorrow REMEDIATION CONSULTANTRavi Referring Unavailable McMorrow REMEDIATION CONSULTANTRavi Attending Unavailable Ranney, Christopher Primary Care Unavailable Mann Oleary Attending Unavailable Mann Oleary Referring Unavailable Ranney, Christopher Primary Care Unavailable Ranney, Christopher Primary Care Unavailable Demiter, Salty Attending Unavailable Ranney, Christopher Referring Unavailable Ranney, Christopher Primary Care Unavailable Naz Young NP Attending Unavailable Ranney, Christopher Referring Unavailable Demiter, Salty Attending Unavailable Demiter, Salty Referring Unavailable Ranney, Christopher Primary Care Unavailable Jonathan REMEDIATION CONSULTANT, Wilda Attending Unavailable Ranney, Christopher Primary Care Unavailable Jeff Rowe Attending Unavailable Ranney, Christopher Primary Care Unavailable Jeff Rowe Attending Unavailable Ranney, Christopher Primary Care Unavailable Lindsay Baxter Attending Unavailable Lindsay Baxter Referring Unavailable Ranney, Christopher Primary Care Unavailable Ranney, Christopher Primary Care Unavailable Jose David Lindsay Attending Unavailable Jose David Lindsay Referring Unavailable Jose David Lindsay Primary Care Unavailable Rao CHAPIN, Claudia Attending Unavailable Rao CHAPIN, Claudia Referring Unavailable Jose David Lindsay Primary Care Unavailable Jose David Lindsay Attending Unavailable Jose David Lindsay Referring Unavailable Allergies Allergy Classification Reported Allergen(s) Allergy Type Date of Onset Reaction(s) Facility (20 sources) nalbuphine drug allergy 7 Nausea [facility] Work Phone: (4 sources) LATEX GLOVES ONE SIZE drug allergy 7 [facility] Work Phone: (20 sources) atorvastatin Drug Allergy 2 insomnia/leg pain [facility] (20 sources) Cephalexin; Translations: [cephalexin monohydrate] Drug Allergy 2 Chest tightness [facility] (20 sources) Ciprofloxacin Drug Allergy 2 Nausea [facility] (20 sources) Ciprofloxacin; Translations: [ciprofloxacin HCl] Drug Allergy 2 Nausea [facility] (20 sources) Hyoscyamine; Translations: [hyoscyamine sulfate] Drug Allergy 2 Chest tightness [facility] (20 sources) Nitrofurantoin Drug Allergy 2 Nausea [facility] (20 sources) traMADol Drug Allergy 2 Chest tightness [facility] (20 sources) nitrofurantoin macrocrystalline; Translations: [nitrofurantoin macrocrystalline] Allergy to substance 2 Nausea [facility] (20 sources) NSAIDS (Non-Steroidal Anti-Inflamma; Translations: [NSAIDS (Non-Steroidal Anti-Inflamma] Allergy to substance 2 Nausea [facility] (8 sources) natural latex rubber Allergy to substance 3 Severe rash with condoms, some bandaids [facility] (1 source) atorvastatin Drug Allergy 5 [facility] (1 source) Ciprofloxacin Drug Allergy 5 [facility] (1 source) Nalbuphine Drug Allergy 5 [facility] (1 source) natural latex rubber Drug allergy (disorder) 5 [facility] (1 source) Nitrofurantoin Drug Allergy 5 [facility] (1 source) traMADol Drug Allergy 5 [facility] Medications Current Medications Medication Drug Class(es) Dates Sig (Normalized) Sig (Original) acetaminophen 325 mg / HYDROcodone bitartrate 5 mg oral tablet (20 sources) Opioid Agonist Start: 05-11-2024 take 1 tablet by mouth every six hours as needed for pain Hydrocodone-Aceta minophen 5-325 mg tablet Active 1 {tbl} PO EVERY 6 HOURS NEEDED as needed for Pain 10 3 May 11, 2024 Start: 08-24-2016 End: 05-30-2020 Hydrocodone-Acetaminophen 1 EACH tablet Discontinued 1 - 2 NMA PO EVERY 6 HOURS NEEDED as needed for Pain August 24, 2016 3:41pm May 30, 2020 11:14am 1-2 Start: 08-24-2016 End: 05-30-2020 Hydrocodone-Acetaminophen Di scontinued 1 - 2 EACH PO EVERY 6 HOURS NEEDED August 24, 2016 2:41pm May 30, 2020 10:14am 1-2 [id number] 200 actuat albuterol 0.09 mg/actuat metered dose inhaler (20 sources) beta2-Adrenergic Agonist Start: 12-30-2022 Albut sanaz Sulfate 90 mcg/actuation HFA aerosol inhaler Active 2 NMA INHALATION EVERY 6 HOURS as needed December 30, 2022 1:00am Start: 12-30-2022 take 1 puff(s) by in halation every six hours Albuterol Sulfate Active 2 PUFF INHALATION EVERY 6 HOURS December 30, 2022 12:00am Start: 05-30-2020 End: 01-29-2022 Albuterol Sulfate (Proair Hf a) 90 mcg/actuation HFA aerosol inhaler Discontinued 2 NMA INHALATION EVERY 6 HOURS as needed for Wheezing May 30, 2020 12:00am January 29, 2022 4:06pm Start: 05-30-2020 End: 01-29-2022 take 1 puff(s) by inhalation every six hours Albuterol Sulfate (Proair Hfa) 90 mcg/actuation HFA aerosol inhaler Discontinued 2 PUFF INHALATION EVERY 6 HOURS May 29, 2020 11:00pm January 29, 2022 3:06pm aspirin 81 mg chewable tablet (20 sources) Platelet Aggregation Inhibitor, Nonsteroidal Anti-inflammatory Drug Start: 03-13-2014 take 1 tablet by mouth once daily Aspirin 81 MG tablet,chewable Active 81 mg PO DAILY@0800 March 13, 2014 1:00am Budesonide-For moterol (15 sources) Corticosteroid, beta2-Adrenergic Agonist Start: 03-20-2023 Budesonide-Formotero l 160-4.5 mcg/actuation HFA aerosol inhaler Active 2 NMA INHALATION TWICE A DAY March 20, 2023 1:00am Start: 12-30-2022 End: 03-20-2023 Budesonide-Formoterol (Symbi anton) 160-4.5 mcg/actuation HFA aerosol inhaler Discontinued 2 NMA INHALATION TWICE A DAY December 30, 2022 1:00am March 20, 2023 10:16am administer with spacer, rinse mouth after each use Start: 12-30-2022 take 1 puff(s) by mo [facility] twice daily Budesonide-Formoterol (Symbicort) 160-4. 5 mcg/actuation HFA aerosol inhaler Active 2 PUFF INHALATION TWICE A DAY December 30, 2022 12:00am administer with spacer, rinse mouth after each use cholecalciferol 0.05 mg oral capsule (20 sources) Vitamin D Start: 05-30-2020 take 1 capsule by mouth once daily Cholecalciferol (Vitamin D3) 50 mcg (2,000 unit) capsule Active 2000 U PO DAILY May 30, 2020 12:00am 1 ml evolocumab 140 mg/ml auto-injector (20 sources) PCSK9 Inhibitor Start: 01-26-2024 Evolocumab (Repatha Sureclick) 140 mg/mL pen injector Active 140 mg SC EVERY MONTH 1 January 26, 2024 11:49am Start: 12-04-2022 End: 01-16-2024 Evolocumab (Repatha Sureclic k) 140 mg/mL pen injector Discontinued 140 mg SC every 2 weeks 2 June 04, 2023 7:59am January 16, 2024 11:13am fluticasone propionate 0.05 mg/actuat metered dose nasal spray (20 sources) Corticosteroid Start: 12-30-2022 Fluticasone Pr opionate 50 mcg/actuation spray,suspension Active 2 NMA INTRANASAL DAILY December 30, 2022 1:00am Start: 12-30-2022 Fluticasone Pr opionate Active 2 SPRAY INTRANASAL DAILY December 30, 2022 12:00am Start: 05-30-2020 End: 12-18-2020 Fluticasone Propionate 50 mcg/actuation spray,suspension Discontinued 2 NMA INTRANASAL DAILY May 30, 2020 12:00am December 18, 2020 2:13pm administer into each nostril Start: 05-30-2020 End: 12-18-2020 take 1 spray(s) nasal route once daily Fluticasone Propionate Discontinued 2 SPRAY INTRANASAL DAILY May 29, 2020 11:00pm December 18, 2020 1:13pm administer into each nostril Lactobacillus Combination No.4 (Probiotic) 3 billion cell capsule (8 sources) Start: 12-30-2022 take 3 capsules by mouth once daily Lactobacillus Combination No.4 (Probiotic) 3 billion cell capsule Active 3000 NMA PO DAILY December 30, 2022 1:00am administer with a meal Start: 12-30-2022 take 3 capsules by m outh once daily Lactobacillus Combination No.4 (Probiotic) 3 billion cell capsule Active 3000 MMU CELLS PO DAILY December 30, 2022 12:00am administer with a meal levothyroxine sodium 0.1 mg oral tablet (20 sources) l-Thyroxine Start: 03-13-2014 take 1 tablet by mouth once daily Levothyroxine 100 MCG tablet Active 100 ug PO DAILY March 13, 2014 1:00am loratadine 10 mg oral tablet (15 sources) Start: 10-29-2023 take 1 tablet by mouth once daily Loratadine 10 mg tablet Active 10 mg PO daily October 29, 2023 12:00am Start: 12-30-2022 End: 03-20-2023 take 1 tablet by mouth once daily Loratadine 10 mg tablet Discontinued 10 mg PO DAILY December 30, 2022 1:00am March 20, 2023 10:04am omeprazole 40 mg delayed release oral capsule (20 sources) Proton Pump Inhibitor Start: 12-04-2022 take 1 capsule by mouth once daily Omeprazole 40 mg capsule,delayed release(DR/EC) Active 40 mg PO DAILY December 04, 2022 10:39am Start: 05-30-2020 End: 12-04-2022 Omeprazole 40 mg capsule,del ayed release(DR/EC) Discontinued 20 mg PO DAILY May 30, 2020 12:00am December 04, 2022 10:39am Start: 05-30-2020 End: 12-04-2022 take 20 mg by mouth once daily Omeprazole Discontinued 20 MG PO DAILY May 29, 2020 11:00pm December 04, 2022 9:39am Start: 05-30-2020 take 40 mg by mouth once daily Omeprazole Active 40 MG PO DAILY May 29, 2020 11:00pm Start: 09-16-2016 take 1 tablet by claritza th once daily OMEPRAZOLE 20 MG TBEC 1 tab PO daily OMEPRAZOLE [id number] Roderick Barnes MD ondansetron 4 mg disintegrating oral tablet (7 sources) Serotonin-3 Receptor Antagonist Start: 10-29-2023 take 1 tablet by mouth every eight hours as needed Ondansetron 4 mg tablet,disintegrating Active 4 mg PO EVERY 8 HOURS as needed October 29, 2023 12:00am rosuvastatin calcium 10 mg oral tablet (9 sources) HMG-CoA Reductase Inhibitor Start: 04-23-2024 End: 06-15-2024 take 1 tablet by mouth once daily Rosuvastatin 10 mg tablet Active 10 mg PO daily June 15, 2024 10:35am vitamin b12 0.1 mg oral tablet (20 sources) Vitamin B12 Start: 12-18-2020 take 1 tablet by mouth every other day Cyanocobalamin (Vitamin B-12) (Vitamin B-12) 100 mcg tablet Active 100 MCG PO .qod December 18, 2020 1:12pm Start: 05-30-2020 End: 12-18-2020 take 1 tablet by mouth once daily Cyanocobalamin (Vitamin B-12) (Vitamin B-12) 100 mcg tablet Discontinued 100 ug PO DAILY May 30, 2020 12:00am December 18, 2020 2:13pm warfarin sodium 4 mg oral tablet (20 sources) Vitamin K Antagonist Start: 12-30-2022 take 1 tablet by mouth once daily Warfarin 4 mg tablet Active 4 mg PO DAILY December 30, 2022 1:00am Start: 01-02-2022 End: 12-30-2022 take 4 mg by mouth once Warfarin 6 mg tablet Discont inued 4 mg PO every Friday, , , FriJanuary 02, 2022 11:40am December 30, 2022 10:40am Start: 01-02-2022 End: 12-30-2022 take 4 mg by mouth once Warfarin Discontinued 4 MG P O every Friday, , , FriJanuary 02, 2022 10:40am December 30, 2022 9:40am Start: 01-02-2022 Warfarin Activ e 4 MG PO .tuthusat January 02, 2022 10:40am Start: 01-02-2022 End: 12-30-2022 Warfarin 5 mg tablet Discont inued 5 mg PO MOWEFR January 02, 2022 11:40am December 30, 2022 10:40am Start: 03-13-2014 End: 01-02-2022 Warfarin 5 MG tablet [facility] January 02, 2022 11:41am Start: 03-13-2014 End: 01-02-2022 Warfarin 6 MG tablet Discont inued 2.5 mg PO March 13, 2014 1:00am January 02, 2022 11:41am Start: 03-13-2014 End: 01-02-2022 Warfarin Discontinued 4 MG P O March 13, 2014 12:00am January 02, 2022 10:41am Start: 03-13-2014 End: 01-02-2022 Warfarin Discontinued 2.5 MG PO March 13, 2014 12:00am January 02, 2022 10:41am Completed/Discontinued Medications Medication Drug Class(es) Dates Sig (Normalized) Sig (Original) acetaminophen 500 mg oral tablet (20 sources) Start: 03-13-2014 End: 01-29-2022 take 1 tablet by mouth twice daily Acetaminophen 500 MG tablet Discontinued 500 mg PO TWICE A DAY March 13, 2014 1:00am January 29, 2022 4:07pm 1 ml alirocumab 150 mg/ml auto-injector (7 sources) PCSK9 Inhibitor Start: 01-16-2024 End: 01-26-2024 Alirocumab (Praluent Pen) 150 mg/mL pen injector Discontinued 150 mg SC every 2 weeks 2 January 16, 2024 1:00am January 26, 2024 11:50am atorvastatin 10 mg oral tablet (20 sources) HMG-CoA Reductase Inhibitor Start: 05-30-2020 End: 06-14-2020 take 1 tablet by mouth at bedtime Atorvastatin 10 mg tablet Discontinued 10 mg PO AT BEDTIME May 30, 2020 12:00am June 14, 2020 11:46am dicyclomine hydrochloride 10 mg oral capsule (20 sources) Anticholinergic Start: 08-23-2016 End: 08-24-2016 take 1 capsule by mouth once daily Dicyclomine 10 MG capsule Discontinued 10 mg PO DAILY August 23, 2016 12:00am August 24, 2016 3:50pm esomeprazole 20 mg delayed release oral capsule (20 sources) Proton Pump Inhibitor Start: 08-24-2016 End: 05-30-2020 take 2 capsules by mouth twice daily Esomeprazole Magnesium 20 MG capsule,delayed release(DR/EC) Discontinued 40 mg PO TWICE A DAY 1 August 24, 2016 3:50pm May 30, 2020 11:14am Start: 08-24-2016 End: 05-30-2020 take 40 mg by mouth twice daily Esomeprazole Magnesium Discontinued 40 MG PO TWICE A DAY 1 August 24, 2016 2:50pm May 30, 2020 10:14am Start: 03-13-2014 End: 08-24-2016 Esomeprazole Magnesium (Nexi um 24hr) 20 MG Capsule.Dr Discontinued 40 mg PO DAILY March 13, 2014 1:00am August 24, 2016 3:51pm Fluticasone Propion-Salmeterol (20 sources) Corticosteroid, beta2-Adrenergic Agonist Start: 03-13-2014 End: 05-30-2020 take 1 puff(s) by inhalation twice daily as needed Fluticasone Propion-Salmeterol 1 PUFF inhaler Discontinued 2 NMA INHALATION TWICE A DAY as needed for Sob &/Or Wheezing March 13, 2014 1:00am May 30, 2020 11:15am Start: 03-13-2014 End: 05-30-2020 take 1 puff(s) by inhalation twice daily Fluticasone Propion-Salmeterol Discontinued 2 PUFF INHALATION TWICE A DAY March 13, 2014 12:00am May 30, 2020 10:15am Start: 03-13-2014 End: 05-30-2020 take 1 puff(s) by inhalation twice daily Fluticasone Propion-Salmeterol Discontinued 2 PUFF INHALATION TWICE A DAY March 13, 2014 1:00am May 30, 2020 11:15am predniSONE 20 mg oral tablet (8 sources) Start: 12-30-2022 End: 03-20-2023 take 3 tablets by mouth once daily at mealtime Prednisone 20 mg tablet Discontinued 60 mg PO daily December 30, 2022 1:00am March 20, 2023 10:04am administer with food or milk Start: 12-30-2022 take 60 mg by mouth once daily at mealtime Prednisone Active 60 MG PO daily December 30, 2022 12:00am administer with food or milk sulfamethoxazole 800 mg / trimethoprim 160 mg oral tablet (20 sources) Dihydrofolate Reductase Inhibitor Antibacterial, Sulfonamide Antimicrobial Start: 08-23-2016 End: 08-24-2016 Sulfamethoxazole-Trimethopri m 1 TABLET tablet Discontinued 1 {tbl} PO DAILY August 23, 2016 12:00am August 24, 2016 3:50pm Start: 08-23-2016 End: 08-24-2016 take 1 tablet by mouth once daily Sulfamethoxazole-Trimethoprim Discontinu ed 1 TABLET PO DAILY August 22, 2016 11:00pm August 24, 2016 2:50pm 60 actuat tiotropium 0.37764 mg/actuat inhalation spray (16 sources) Anticholinergic Start: 01-29-2022 End: 06-27-2022 take 1.25 ug by inhalation once daily as needed Tiotropium [place] (Spiriva Respimat) 1.25 mcg/actuation mist Discontinued 2 NMA INHALATION DAILY as needed January 29, 2022 1:00am June 27, 2022 10:00am Start: 01-29-2022 End: 06-27-2022 take 1 puff(s) by inhalation once daily Tiotropium [place] (Spiriva Respimat) 1.25 mcg/actuation mist Discontinued 2 PUFF INHALATION DAILY January 29, 2022 12:00am June 27, 2022 9:00am Turmeric Root Extract (15 sources) Start: 05-30-2020 End: 06-14-2020 take 1076 mg by mouth once daily Turmeric Root Extract Discontinued 1076 MG PO DAILY May 29, 2020 11:00pm June 14, 2020 10:44am Start: 05-30-2020 End: 06-14-2020 take 1076 mg by mouth once daily Turmeric Root Extract Discontinued 1076 MG PO DAILY May 30, 2020 12:00am June 14, 2020 11:44am Turmeric Root Extract 1,053 mg tablet (7 sources) Start: 05-30-2020 End: 06-14-2020 take 1 tablet by mouth once daily Turmeric Root Extract 1,053 mg tablet Discontinued 1076 mg PO DAILY May 30, 2020 12:00am June 14, 2020 11:44am Problems Active Problems Problem Classification Problem Date Documented Date Episodic/Chronic Abdominal pain (1 source) Unspecified abdominal pain; Translations: [Unspecified abdominal pain] Onset: 05-12-2024 Episodic Asthma (9 sources) Mild intermittent asthma; Translations: [Mild intermittent asthma, uncomplicated] 12-30-2022 Chronic Conditions associated with dizziness or vertigo (20 sources) Dizziness; Translations: [Dizziness and giddiness] 12-18-2020 Episodic Disorders of lipid metabolism (20 sources) Hyperlipidemia; Translations: [Hyperlipidemia, unspecified] Onset: 06-30-2024 06-14-2020 Chronic E Codes: Fall (6 sources) Fall; Translations: [Unspecified fall, initial encounter] 05-11-2024 Episodic Esophageal disorders (4 sources) Gastroesophageal reflux disease; Translations: [Gastro-esophageal reflux disease without esophagitis] Onset: 09-16-2016 09-16-2016 Chronic Nonspecific chest pain (20 sources) Atypical chest pain; Translations: [Other chest pain] Onset: 05-21-2024 06-14-2020 Episodic Other connective tissue disease (8 sources) Pain in left arm; Translations: [Pain in left arm] 11-23-2022 Episodic Other lower respiratory disease (20 sources) Cough; Translations: [Cough] Episodic Other lower respiratory disease (4 sources) Dyspnea; Translations: [Dyspnea, unspecified] 05-18-2024 Episodic Other lower respiratory disease (1 source) Shortness of breath; Translations: [Shortness of breath] Onset: 05-24-2024 Episodic Other non-traumatic joint disorders (2 sources) Pain in right shoulder; Translations: [Pain in right shoulder] Onset: 05-27-2024 Episodic Residual codes; unclassified (18 sources) Hypersomnia; Translations: [Hypersomnia, unspecified] 01-02-2022 Chronic Residual codes; unclassified (9 sources) Hypersomnia, unspecified; Translations: [Hypersomnia, unspecified] Chronic Sprains and strains (7 sources) Strain of thoracic region; Translations: [Strain of muscle and tendon of unspecified wall of thorax, initial encounter] Onset: 05-11-2024 05-11-2024 Episodic Thyroid disorders (4 sources) Hypothyroidism; Translations: [Hypothyroidism, unspecified] Onset: 09-16-2016 09-16-2016 Chronic Past or Other Problems Problem Classification Problem Date Documented Da te Episodic/Chronic Other non-traumatic joint disorders (1 source) Pain in unspecified joint; Translations: [Pain in unspecified joint] Onset: 01-31-2024 Episodic Other screening for suspected conditions (not mental disorders or infectious disease) (1 source) Encounter for screening mammogram for malignant neoplasm of breast; Translations: [Encounter for screening mammogram for malignant neoplasm of breast] Onset: 03-11-2024 Episodic Phlebitis; thrombophlebitis and thromboembolism (4 sources) Deep venous thrombosis; Translations: [Acute embolism and thrombosis of unspecified vein] Onset: 09-16-2016 09-16-2016 Episodic Pulmonary heart disease (20 sources) Pulmonary embolism; Translations: [H/O: pulmonary embolus] Onset: 08-04-2012 09-16-2016 Episodic Comment on above: Bilateral PE 3 days post-op knee replacement 08/04/12 Residual codes; unclassified (1 source) Localized edema; Translations: [Localized edema] Onset: 05-05-2024 Episodic Results Test Name Value Interpretation Reference Range Facility Absolute lymphocyte countOrd ered By: Wilda Castillo on 07-06-2024 Lymphocytes Auto (Unsp spec) [#/Vol] 1.86 10*3/uL 0.83-4.51 [facility] Absolute neutrophil countOrd ered By: Wilda Castillo on 07-06-2024 Neutrophils (Bld) [#/Vol] 3.1 10*3/uL 2.0-7.7 [facility] Anion gap in Serum or Plasma Ordered By: Wilda Castillo on 07-06-2024 Anion gap [Moles/Vol] 12 mmol/L 5-15 [facility] Automated lymphocyte count a s percentage of total leukocytesOrdered By: Wilda Castillo on 07-06-2024 Lymphocytes/100 WBC Auto (Unsp spec) 33.1 % 19-41 [facility] BUN/creatinine ratioOrdered By: Wilda Castillo on 07-06-2024 Urea nitrogen/Creatinine [Mass ratio] 21.0 mg/mg High 10-20 [facility] Basophil percentageOrdered B y: Wilda Castillo on 07-06-2024 Basophils/100 WBC (Bld) 1.1 % High 0-1 [facility] Bilirubin, totalOrdered By: Wilda Brucevijay on 07-06-2024 Bilirubin [Mass/Vol] 0.27 mg/dL 0.00-1.30 [facility] CBC W/Diff, Automatedon 06-11 Absolute Lymph 1.86 X10 3/uL Normal 0.83-4.51 [facility] Comment on above: Performed By: #### L [id number], [id number], L100.0100, L506.1001, L500.4100, L500.4050 #### [facility] [address] [place], [address] Absolute Neut 3.1 X10 3/uL Normal 2.0-7.7 [facility] Comment on above: Performed By: #### L [id number], [id number], L100.0100, L506.1001, L500.4100, L500.4050 #### [facility] [address] [place], [address] Basophils/100 WBC (Bld) 1.1 % High 0-1 [facility] Comment on above: Performed By: #### L [id number], [id number], L100.0100, L506.1001, L500.4100, L500.4050 #### [facility] [address] [place], [address] Eosinophils/100 WBC (Bld) 2.7 % Normal 0-5 [facility] Comment on above: Performed By: #### L [id number], [id number], L100.0100, L506.1001, L500.4100, L500.4050 #### [facility] [address] [place], [address] Erythrocyte distribution width (RBC) [Ratio] 14.2 % Normal 11.6-14.6 [facility] Comment on above: Performed By: #### L [id number], [id number], L100.0100, L506.1001, L500.4100, L500.4050 #### [facility] [address] [place], [address] Hematocrit (Bld) [Volume fraction] 43.0 % Normal 37-47 [facility] Comment on above: Performed By: #### L [id number], [id number], L100.0100, L506.1001, L500.4100, L500.4050 #### [facility] [address] [place], [address] Hemoglobin (Bld) [Mass/Vol] 13.6 g/dL Normal 12.0-15.0 [facility] Comment on above: Performed By: #### L [id number], [id number], L100.0100, L506.1001, L500.4100, L500.4050 #### [facility] [address] [place], [address] IG% 0.400 Normal 0.0-0.9 [facility] Comment on above: Result Comment: IG% - Immature Granulocytes (promyelocytes, myelocytes and metamyelocytes) > 1% indicates that a LEFT SHIFT is Present. Performed By: #### L [id number], [id number], L100.0100, L506.1001, L500.4100, L500.4050 #### [facility] [address] [place], [address] Lymphocytes/100 WBC (Bld) 33.1 % Normal 19-41 [facility] Comment on above: Performed By: #### L 501.9520, L501.9985, L100.0100, L506.1001, L500.4100, L500.4050 #### [facility] [address] [place], [address] MCH (RBC) [Entitic mass] 29.4 pg Normal 27.0-32.0 [facility] Comment on above: Performed By: #### L 501.9520, L501.9985, L100.0100, L506.1001, L500.4100, L500.4050 #### [facility] [address] [place], [address] MCHC (RBC) [Mass/Vol] 31.6 g/dL Low 32-36 [facility] Comment on above: Performed By: #### L 501.9520, L501.9985, L100.0100, L506.1001, L500.4100, L500.4050 #### [facility] [address] [place], [address] MCV (RBC) [Entitic vol] 92.9 fL Normal 81-99 [facility] Comment on above: Performed By: #### L 501.9520, L501.9985, L100.0100, L506.1001, L500.4100, L500.4050 #### [facility] [address] [place], [address] Monocytes/100 WBC (Bld) 7.8 % Normal 0-10 [facility] Comment on above: Performed By: #### L 501.9520, L501.9985, L100.0100, L506.1001, L500.4100, L500.4050 #### [facility] [address] [place], [address] Neutrophils/100 WBC (Bld) 54.9 % Normal 47-70 [facility] Comment on above: Performed By: #### L 501.9520, L501.9985, L100.0100, L506.1001, L500.4100, L500.4050 #### [facility] [address] [place], [address] Nucleated RBC (Bld) [#/Vol] 0 10*3/uL Normal 0-5 [facility] Comment on above: Performed By: #### L 501.9520, L501.9985, L100.0100, L506.1001, L500.4100, L500.4050 #### [facility] [address] [place], [address] Platelet mean volume (Bld) [Entitic vol] 9.7 fL Normal 6.2-12.0 [facility] Comment on above: Performed By: #### L 501.9520, L501.9985, L100.0100, L506.1001, L500.4100, L500.4050 #### [facility] [address] [place], [address] Platelets (Bld) [#/Vol] 369 10*3/uL Normal 150-450 [facility] Comment on above: Performed By: #### L 501.9520, L501.9985, L100.0100, L506.1001, L500.4100, L500.4050 #### [facility] [address] [place], [address] RBC (Bld) [#/Vol] 4.63 10*6/uL Normal 4.2-5.4 [facility] Comment on above: Performed By: #### L 501.9520, L501.9985, L100.0100, L506.1001, L500.4100, L500.4050 #### [facility] [address] [place], [address] RDW SD 48.7 fl High 35.1-43.9 [facility] Comment on above: Performed By: #### L 501.9520, L501.9985, L100.0100, L506.1001, L500.4100, L500.4050 #### [facility] [address] [place], [address] WBC (Bld) [#/Vol] 5.6 10*3/uL Normal 4.4-11.0 [facility] Comment on above: Performed By: #### L 501.9520, L501.9985, L100.0100, L506.1001, L500.4100, L500.4050 #### [facility] [address] [place], [address] Calculated very low density lipoprotein (VLDL) cholesterol measurementOrdered By: Wilda Castillo on 07-06-2024 Calculated very low density lipoprotein (VLDL) cholesterol measurement 22 mg/dL 5-40 [facility] Carbon dioxide, total [Moles /volume] in Central venous bloodOrdered By: Wilda Castillo on 07-06-2024 CO2 [Moles/Vol] 23.4 mmol/L 21.0-32.0 [facility] Chloride assayOrdered By: Caden Castillo on 07-06-2024 Chloride [Moles/Vol] 106 mmol/L 98-108 [facility] Comprehensive Metabolic Prof ilon 07-06-2024 Albumin [Mass/Vol] 3.8 g/dL Normal 3.4-4.8 [facility] Comment on above: Performed By: #### L 501.9520, L501.9985, L100.0100, L506.1001, L500.4100, L500.4050 #### [facility] [address] [place], [address] Albumin/Globulin [Mass ratio] 1.2 {ratio} Normal 0.9-2.4 [facility] Comment on above: Performed By: #### L 501.9520, L501.9985, L100.0100, L506.1001, L500.4100, L500.4050 #### [facility] [address] [place], [address] ALK PHOS 80 U/L Normal 35-104 [facility] Comment on above: Performed By: #### L 501.9520, L501.9985, L100.0100, L506.1001, L500.4100, L500.4050 #### [facility] [address] [place], [address] ALT [Catalytic activity/Vol] 17 U/L Normal <=34 [facility] Comment on above: Performed By: #### L 501.9520, L501.9985, L100.0100, L506.1001, L500.4100, L500.4050 #### [facility] [address] [place], [address] AST [Catalytic activity/Vol] 21 U/L Normal <=31 [facility] Comment on above: Performed By: #### L 501.9520, L501.9985, L100.0100, L506.1001, L500.4100, L500.4050 #### [facility] [address] [place], [address] Bilirubin [Mass/Vol] 0.27 mg/dL Normal 0.00-1.30 [facility] Comment on above: Performed By: #### L 501.9520, L501.9985, L100.0100, L506.1001, L500.4100, L500.4050 #### [facility] [address] [place], [address] BUN/CRE 21.0 RATIO High 10-20 [facility] Comment on above: Performed By: #### L 501.9520, L501.9985, L100.0100, L506.1001, L500.4100, L500.4050 #### [facility] [address] [place], [address] Calcium [Mass/Vol] 9.8 mg/dL Normal 7.6-11.0 [facility] Comment on above: Performed By: #### L 501.9520, L501.9985, L100.0100, L506.1001, L500.4100, L500.4050 #### [facility] [address] [place], [address] Chloride [Moles/Vol] 106 mmol/L Normal 98-108 [facility] Comment on above: Performed By: #### L 501.9520, L501.9985, L100.0100, L506.1001, L500.4100, L500.4050 #### [facility] [address] [place], [address] CO2 [Moles/Vol] 23.4 mmol/L Normal 21.0-32.0 [facility] Comment on above: Performed By: #### L 501.9520, L501.9985, L100.0100, L506.1001, L500.4100, L500.4050 #### [facility] [address] [place], [address] Creatinine [Mass/Vol] 0.67 mg/dL Low 0.70-1.20 [facility] Comment on above: Performed By: #### L 501.9520, L501.9985, L100.0100, L506.1001, L500.4100, L500.4050 #### [facility] [address] [place], [address] GAP 12 Normal 5-15 [facility] Comment on above: Performed By: #### L 501.9520, L501.9985, L100.0100, L506.1001, L500.4100, L500.4050 #### [facility] [address] [place], [address] GFR/1.73 sq M.predicted among non-blacks MDRD (S/P/Bld) [Vol rate/Area] 92 mL/min/{1.73_m2} Normal >60 [facility] Comment on above: Result Comment: mL/m in/1.73m2 CKD-EPI Creatinine Equation (2020) Performed By: #### L 501.9520, L501.9985, L100.0100, L506.1001, L500.4100, L500.4050 #### [facility] [address] [place], [address] Globulin (S) [Mass/Vol] 3.1 g/dL Normal 2.2-4.2 [facility] Comment on above: Performed By: #### L 501.9520, L501.9985, L100.0100, L506.1001, L500.4100, L500.4050 #### [facility] [address] [place], [address] Glucose [Mass/Vol] 97 mg/dL Normal 70-99 [facility] Comment on above: Performed By: #### L 501.9520, L501.9985, L100.0100, L506.1001, L500.4100, L500.4050 #### [facility] [address] [place], [address] Potassium [Moles/Vol] 4.1 mmol/L Normal 3.3-5.1 [facility] Comment on above: Performed By: #### L 501.9520, L501.9985, L100.0100, L506.1001, L500.4100, L500.4050 #### [facility] [address] [place], [address] Sodium [Moles/Vol] 141 mmol/L Normal 133-145 [facility] Comment on above: Performed By: #### L 501.9520, L501.9985, L100.0100, L506.1001, L500.4100, L500.4050 #### [facility] [address] [place], [address] T PROT 7.0 g/dL Normal 5.9-8.4 [facility] Comment on above: Performed By: #### L 501.9520, L501.9985, L100.0100, L506.1001, L500.4100, L500.4050 #### [facility] [address] [place], [address] Urea nitrogen [Mass/Vol] 14 mg/dL Normal 4-19 [facility] Comment on above: Performed By: #### L 501.9520, L501.9985, L100.0100, L506.1001, L500.4100, L500.4050 #### [facility] [address] [place], [address] Eosinophil percentageOrdered By: Wilda Castillo on 07-06-2024 Eosinophils/100 WBC (Bld) 2.7 % 0-5 [facility] Erythrocyte distribution wid th ratioOrdered By: Wilda Castillo on 07-06-2024 Erythrocyte distribution width (RBC) [Ratio] 14.2 % 11.6-14.6 [facility] Erythrocyte distribution wid th standard deviationOrdered By: Wilda Castillo on 07-06-2024 Erythrocyte distribution width (RBC) [Ratio] 48.7 fl High 35.1-43.9 [facility] Glomerular filtration rate ( GFR) estimation/1.73 sq m using serum, plasma, or whole bOrdered By: Wilda Castillo on 07-06-2024 GFR/1.73 sq M.predicted among non-blacks MDRD (S/P/Bld) [Vol rate/Area] 92 mL/min/{1.73_m2} >60 [facility] Comment on above: mL/min/1.73m2 CKD-EP I Creatinine Equation (2020) Hematocrit Auto (Bld) [Volum e fraction]Ordered By: Wilda Castillo on 07-06-2024 Hematocrit (Bld) [Volume fraction] 43.0 % 37-47 [facility] Hemoglobin A1con 07-06-2024 HbA1c (Bld) [Mass fraction] 5.9 % High <=5.6 [facility] Comment on above: Result Comment: Norm al < 5.7 % Prediabetic 5.7 - 6.4 % Diabetic >or= 6.5 % Please note range changes. Performed By: #### L 501.9520, L501.9985, L100.0100, L506.1001, L500.4100, L500.4050 #### [facility] [address] [place], [address] Hemoglobin A1c percentageOrd ered By: Wilda Castillo on 07-06-2024 HbA1c (Bld) [Mass fraction] 5.9 % High <5.7 [facility] Comment on above: Normal < 5.7 % Predi abetic 5.7 - 6.4 % Diabetic >or= 6.5 % Please note range changes. Hemoglobin measurementOrdere d By: Wilda Castillo on 07-06-2024 Hemoglobin (Bld) [Mass/Vol] 13.6 g/dL 12.0-15.0 [facility] Immature granulocytes/100 WB C Auto (Bld)Ordered By: Wilda Castillo on 07-06-2024 Immature granulocytes/100 WBC (Bld) 0.400 % 0.0-0.9 [facility] Comment on above: IG% - Immature Granu locytes (promyelocytes, myelocytes and metamyelocytes) > 1% indicates that a LEFT SHIFT is Present. LDL calc ser/plasOrdered By: Wilda Castillo on 07-06-2024 Cholesterol in LDL [Mass/Vol] 96 mg/dL [facility] Comment on above: Okhzeznpha=315-467 m g/dL & Higher Xgxy=079 mg/dL or greater Laboratory - Chemistry and C hemistry - challengeOrdered By: Wilda Castillo on 07-06-2024 AST [Catalytic activity/Vol] 21 U/L <32 [facility] Lipid Profileon 07-06-2024 CHOL:HDL 3.07 Normal [facility] Comment on above: Performed By: #### L 501.9520, L501.9985, L100.0100, L506.1001, L500.4100, L500.4050 #### [facility] [address] [place], [address] Cholesterol [Mass/Vol] 174 mg/dL Normal <=[address] [facility] Comment on above: Result Comment: Chol esterol level, Desirable <200 mg/dL Borderline high cholesterol 200-239 mg/dL High cholesterol >=240 mg/dL Recommendations of the NCEP Adult Treatment Panel for the following risk-cutoff thresholds for the [place] population. Performed By: #### L 501.9520, L501.9985, L100.0100, L506.1001, L500.4100, L500.4050 #### [facility] [address] [place], [address] Cholesterol in HDL [Mass/Vol] 57 mg/dL Normal [facility] Comment on above: Result Comment: Guillerm[place] onal Cholesterol Education Program (NCEP) guidelines: <40 mg/dL: Low HDL-cholesterol (major risk factor for CHD) >= 60 mg/dL: High HDL-cholesterol (negative risk factor for CHD) HDL-cholesterol is affected by a number of factors, e.g. smoking, exercise, hormones, sex and age. Performed By: #### L 501.9520, L501.9985, L100.0100, L506.1001, L500.4100, L500.4050 #### [facility] [address] [place], [address] Cholesterol in LDL [Mass/Vol] 96 mg/dL Normal [facility] Comment on above: Result Comment: Bord crakai=782-498 mg/dL Higher Jrrk=935 mg/dL or greater Performed By: #### L 501.9520, L501.9985, L100.0100, L506.1001, L500.4100, L500.4050 #### [facility] [address] [place], [address] Cholesterol in VLDL [Mass/Vol] 22 mg/dL Normal 5-40 [facility] Comment on above: Performed By: #### L 501.9520, L501.9985, L100.0100, L506.1001, L500.4100, L500.4050 #### [facility] [address] [place], [address] Triglyceride [Mass/Vol] 109 mg/dL Normal [facility] Comment on above: Result Comment: The drugs N-Acetylcysteine and Metamizole may falsely depress this assay. Normal range: <150 mg/dL Borderline High: 150-199 mg/dL High: 200-499 mg/dL Very High: >500 mg/dL Performed By: #### L 501.9520, L501.9985, L100.0100, L506.1001, L500.4100, L500.4050 #### [facility] [address] [place], [address] MCV (mean corpuscular volume ) determinationOrdered By: Wilda Castillo on 07-06-2024 MCV (RBC) [Entitic vol] 92.9 fL 81-99 [facility] Mean corpuscular hemoglobin (MCH) determinationOrdered By: Wilda Castillo on 07-06-2024 MCH (RBC) [Entitic mass] 29.4 pg 27.0-32.0 [facility] Mean corpuscular hemoglobin concentration (MCHC) determinationOrdered By: Wilda Castillo on 07-06-2024 MCHC (RBC) [Mass/Vol] 31.6 g/dL Low 32-36 [facility] Mean platelet volume determi nationOrdered By: Wilda Castillo on 07-06-2024 Platelet mean volume (Bld) [Entitic vol] 9.7 fL 6.2-12.0 [facility] Monocyte percentageOrdered B y: Wilda Castillo on 07-06-2024 Monocytes/100 WBC (Bld) 7.8 % 0-10 [facility] Neutrophil percentageOrdered By: Wilda Castillo on 07-06-2024 Neutrophils/100 WBC (Bld) 54.9 % 47-70 [facility] Nucleated red blood cell per centageOrdered By: Wilda Castillo on 07-06-2024 Nucleated RBC/100 WBC (Bld) [Ratio] 0 % 0-5 [facility] Platelet countOrdered By: Caden Castillo on 07-06-2024 Platelets (Bld) [#/Vol] 369 10*3/uL 150-450 [facility] Potassium measurement (mass/ volume)Ordered By: Wilda Castillo on 07-06-2024 Potassium (Unsp spec) [Mass/Vol] 4.1 mmol/L 3.3-5.1 [facility] RBC Auto (Bld) [#/Vol]Ordere d By: Wilda Castillo on 07-06-2024 RBC (Bld) [#/Vol] 4.63 10*6/uL 4.2-5.4 [facility] Screening total cholesterol/ high density lipoprotein (HDL) cholesterol ratioOrdered By: Wilda Castillo on 07-06-2024 Cholesterol.total/Ana sterol in HDL [Mass ratio] 3.07 {ratio} [facility] Serum creatinine measurement (mass/volume)Ordered By: Wilda Castillo on 07-06-2024 Creatinine [Mass/Vol] 0.67 mg/dL Low 0.70-1.20 [facility] Serum globulin measurementOr dered By: Wilda Castillo on 07-06-2024 Globulin (S) [Mass/Vol] 3.1 g/dL 2.2-4.2 [facility] Serum glucose measurement (m ass/volume)Ordered By: Wilda Castillo on 07-06-2024 Glucose [Mass/Vol] 97 mg/dL 70-99 [facility] Serum or plasma alanine gil otransferase (ALT) measurementOrdered By: Wilda Castillo on 07-06-2024 ALT [Catalytic activity/Vol] 17 U/L <35 [facility] Serum or plasma albumin michelle urement (mass/volume)Ordered By: Wilda Castillo on 07-06-2024 Albumin [Mass/Vol] 3.8 g/dL 3.4-4.8 [facility] Serum or plasma albumin/glob ulin mass ratioOrdered By: Wilda Castillo on 07-06-2024 Albumin/Globulin [Mass ratio] 1.2 {ratio} 0.9-2.4 [facility] Serum or plasma alkaline heriberto sphatase measurementOrdered By: Wilda Castillo on 07-06-2024 ALP [Catalytic activity/Vol] 80 U/L 35-104 [facility] Serum or plasma calcium michelle urement (mass/volume)Ordered By: Wilda Castillo on 07-06-2024 Calcium [Mass/Vol] 9.8 mg/dL 7.6-11.0 [facility] Serum or plasma cholesterol in HDL measurement (mass/volume)Ordered By: Wilda Castillo on 07-06-2024 Cholesterol in HDL [Mass/Vol] 57 mg/dL >40 [facility] Comment on above: National Cholesterol Education Program (NCEP) guidelines:<40 mg/dL: Low HDL-cholesterol (major risk factor for CHD)>= 60 mg/dL: High HDL-cholesterol (negative risk factor for CHD)HDL-cholesterol is affected by a number of factors, e.g. smoking, exercise, hormones, sex and age. Serum or plasma cholesterol measurement (mass/volume)Ordered By: Wilda Castillo on 07-06-2024 Cholesterol [Mass/Vol] 174 mg/dL <[address] [facility] Comment on above: Cholesterol level, D esirable <200 mg/dLBorderline high cholesterol 200-239 mg/dLHigh cholesterol >=240 mg/dLRecommendations of the NCEP Adult Treatment Panel for the following risk-cutoff thresholds for the [place] population. Serum or plasma urea nitroge n measurement (mass/volume)Ordered By: Wilda Castillo on 07-06-2024 Urea nitrogen [Mass/Vol] 14 mg/dL 4-19 [facility] Sodium levelOrdered By: Yodit Castillo on 07-06-2024 Sodium [Moles/Vol] 141 mmol/L 133-145 [facility] TSH DL <= 0.005 mIU/L QnOrde red By: Wilda Castillo on 07-06-2024 TSH Qn 0.885 uIU/mL 0.300-4.200 [facility] Thyroid Stim Hormone (TSH)on 07-06-2024 TSH 0.885 uIU/mL Normal 0.300-4.200 [facility] Comment on above: Performed By: #### L 501.9520, L501.9985, L100.0100, L506.1001, L500.4100, L500.4050 #### [facility] [address] [place], [place], [id number] Total proteinOrdered By: Catherine Castillo on 07-06-2024 Protein [Mass/Vol] 7.0 g/dL 5.9-8.4 [facility] Triglycerides measurementOrd ered By: Wilda Castillo on 07-06-2024 Triglyceride [Mass/Vol] 109 mg/dL <199 [facility] Comment on above: The drugs N-Acetylcy steine and Metamizole may falsely depress this assay. Normal range: <150 mg/dLBorderline High: 150-199 mg/dLHigh: 200-499 mg/dLVery High: >500 mg/dL Vitamin D,25 Hydroxyon 07-06 Vitamin D 25-OH 41.6 ng/mL Normal 30-100 [facility] Comment on above: Result Comment: Rebecca min D Status Deficiency: <20 ng/mL (50nmol/L) Insufficiency: 20-30 ng/mL (50-75 nmol/L) Sufficiency: 30-100 ng/mL (75-250 nmol/L) Toxicity: >100 ng/mL (>250 nmol/L) Performed By: #### L 501.9520, L501.9985, L100.0100, L506.1001, L500.4100, L500.4050 #### [facility] [address] [place], [place], [id number] White blood cell (WBC) count Ordered By: Wilda Castillo on 07-06-2024 WBC (Bld) [#/Vol] 5.6 10*3/uL 4.4-11.0 [facility] Bilirubin directOrdered By: Salty Rodriguez on 06-24-2024 Bilirubin.direct [Mass/Vol] 0.14 mg/dL 0.00-0.30 [facility] Bilirubin, totalOrdered By: Salty Rodriguez on 06-24-2024 Bilirubin [Mass/Vol] 0.31 mg/dL 0.00-1.30 [facility] Calculated very low density lipoprotein (VLDL) cholesterol measurementOrdered By: Salty Rodriguez on 06-24-2024 Calculated very low density lipoprotein (VLDL) cholesterol measurement 26 mg/dL 5-40 [facility] LDL calc ser/plasOrdered By: Saltyrahel Rodriguez on 06-24-2024 Cholesterol in LDL [Mass/Vol] 76 mg/dL [facility] Comment on above: Avljtkukxk=831-579 m g/dL & Higher Qhhy=957 mg/dL or greater Laboratory - Chemistry and C hemistry - challengeOrdered By: Salty Rodriguez on 06-24-2024 AST [Catalytic activity/Vol] 17 U/L <32 [facility] Lipid Profileon 06-24-2024 CHOL:HDL 2.78 Normal [facility] Comment on above: Performed By: #### L 500.4100, L500.3400 #### [facility] [address] [place], [place], [id number] ([phone]) Cholesterol [Mass/Vol] 159 mg/dL Normal <=[address] [facility] Comment on above: Result Comment: Chol esterol level, Desirable <200 mg/dL Borderline high cholesterol 200-239 mg/dL High cholesterol >=240 mg/dL Recommendations of the NCEP Adult Treatment Panel for the following risk-cutoff thresholds for the [place] population. Performed By: #### L 500.4100, L500.3400 #### [facility] [address] [place], [place], [id number] Cholesterol in HDL [Mass/Vol] 57 mg/dL Normal [facility] Comment on above: Result Comment: Guillerm[place] onal Cholesterol Education Program (NCEP) guidelines: <40 mg/dL: Low HDL-cholesterol (major risk factor for CHD) >= 60 mg/dL: High HDL-cholesterol (negative risk factor for CHD) HDL-cholesterol is affected by a number of factors, e.g. smoking, exercise, hormones, sex and age. Performed By: #### L 500.4100, L500.3400 #### [facility] [address] [place], [address] Cholesterol in LDL [Mass/Vol] 76 mg/dL Normal [facility] Comment on above: Result Comment: Bord inpmzq=685-586 mg/dL Higher Fyrv=461 mg/dL or greater Performed By: #### L 500.4100, L500.3400 #### [facility] [address] [place], [address] Cholesterol in VLDL [Mass/Vol] 26 mg/dL Normal 5-40 [facility] Comment on above: Performed By: #### L 500.4100, L500.3400 #### [facility] [address] [place], [address] Triglyceride [Mass/Vol] 131 mg/dL Normal [facility] Comment on above: Result Comment: The drugs N-Acetylcysteine and Metamizole may falsely depress this assay. Normal range: <150 mg/dL Borderline High: 150-199 mg/dL High: 200-499 mg/dL Very High: >500 mg/dL Performed By: #### L 500.4100, L500.3400 #### [facility] [address] [place], [address] Liver Profileon 06-24-2024 Albumin [Mass/Vol] 3.8 g/dL Normal 3.4-4.8 [facility] Comment on above: Performed By: #### L 500.4100, L500.3400 #### [facility] [address] [place], [address] ALK PHOS 79 U/L Normal 35-104 [facility] Comment on above: Performed By: #### L 500.4100, L500.3400 #### [facility] [address] [place], [address] ALT [Catalytic activity/Vol] 15 U/L Normal <=34 [facility] Comment on above: Performed By: #### L 500.4100, L500.3400 #### [facility] [address] [place], [address] AST [Catalytic activity/Vol] 17 U/L Normal <=31 [facility] Comment on above: Performed By: #### L 500.4100, L500.3400 #### [facility] [address] [place], [address] Bilirubin [Mass/Vol] 0.31 mg/dL Normal 0.00-1.30 [facility] Comment on above: Performed By: #### L 500.4100, L500.3400 #### [facility] [address] [place], [address] Bilirubin.direct [Mass/Vol] 0.14 mg/dL Normal 0.00-0.30 [facility] Comment on above: Performed By: #### L 500.4100, L500.3400 #### [facility] [address] [place], [address] Globulin (S) [Mass/Vol] 3.1 g/dL Normal 2.2-4.2 [facility] Comment on above: Performed By: #### L 500.4100, L500.3400 #### [facility] [address] [place], [address] T PROT 6.9 g/dL Normal 5.9-8.4 [facility] Comment on above: Performed By: #### L 500.4100, L500.3400 #### [facility] [address] [place], [address] Screening total cholesterol/ high density lipoprotein (HDL) cholesterol ratioOrdered By: Salty Rodriguez on 06-24-2024 Cholesterol.total/Ana sterol in HDL [Mass ratio] 2.78 {ratio} [facility] Serum globulin measurementOr dered By: Salty Rodriguez on 06-24-2024 Globulin (S) [Mass/Vol] 3.1 g/dL 2.2-4.2 [facility] Serum or plasma alanine gil otransferase (ALT) measurementOrdered By: Salty Rodriguez on 06-24-2024 ALT [Catalytic activity/Vol] 15 U/L <35 [facility] Serum or plasma albumin michelle urement (mass/volume)Ordered By: Salty Rodriguez on 06-24-2024 Albumin [Mass/Vol] 3.8 g/dL 3.4-4.8 [facility] Serum or plasma alkaline heriberto sphatase measurementOrdered By: Salty Rodriguez on 06-24-2024 ALP [Catalytic activity/Vol] 79 U/L 35-104 [facility] Serum or plasma cholesterol in HDL measurement (mass/volume)Ordered By: Salty Rodriguez on 06-24-2024 Cholesterol in HDL [Mass/Vol] 57 mg/dL >40 [facility] Comment on above: National Cholesterol Education Program (NCEP) guidelines:<40 mg/dL: Low HDL-cholesterol (major risk factor for CHD)>= 60 mg/dL: High HDL-cholesterol (negative risk factor for CHD)HDL-cholesterol is affected by a number of factors, e.g. smoking, exercise, hormones, sex and age. Serum or plasma cholesterol measurement (mass/volume)Ordered By: Salty Rodriguez on 06-24-2024 Cholesterol [Mass/Vol] 159 mg/dL <[address] [facility] Comment on above: Cholesterol level, D esirable <200 mg/dLBorderline high cholesterol 200-239 mg/dLHigh cholesterol >=240 mg/dLRecommendations of the NCEP Adult Treatment Panel for the following risk-cutoff thresholds for the [place] population. Total proteinOrdered By: Sohail Rodriguez on 06-24-2024 Protein [Mass/Vol] 6.9 g/dL 5.9-8.4 [facility] Triglycerides measurementOrd ered By: Salty Rodriguez on 06-24-2024 Triglyceride [Mass/Vol] 131 mg/dL <199 [facility] Comment on above: The drugs N-Acetylcy steine and Metamizole may falsely depress this assay. Normal range: <150 mg/dLBorderline High: 150-199 mg/dLHigh: 200-499 mg/dLVery High: >500 mg/dL Shoulder min 2 Viewson 05-26 Shoulder min 2 Views [facility] Imaging Services [address] [place] [address] Shoulder min 2 Views MR#: [id number] Acct: [id number] Name: YESENIA HODGSON Rep #: [id number] : 1950 F 74 From: Colton Gunn DO PCP: Dr. Jose David Lindsay MD Status: REG CLI Study: Shoulder min 2 Views Date of Exam: 05/26/24 Exam# [id number] Ordering Dr: Mann Oleary MD PROCEDURE: SHOULDER MIN 2 VIEWS 05/26/2024 REASON FOR EXAM: FALL, PAIN TECHNIQUE: 5 view(s) of the right shoulder COMPARISON: None FINDINGS: Bones: No acute fracture Joints: Degenerative changes of the acromioclavicular joints. Soft tissues: Soft tissues are unremarkable. Other: RAD/Shoulder min 2 Views IMPRESSION: DEGENERATIVE OSTEOARTHROSIS. NO ACUTE FINDINGS. Reading Location: [facility] CC: Dr. Jose David Lindsay MD; Dr. Mann Oleary MD Publication Distributor: Signed Normal [facility] 12 Lead EKGon 05-18-2024 12 Lead EKG [facility] Cardiovascular Services [address] [place] [address] 12 Lead EKG 05/18/24 1036 MR#: [id number] Acct: [id number] Name: YESENIA HODGSON Rep #: [id number] : 1950 74 From: Lucio Gomez MD Attending Dr: Status: DEP ER Ordering Dr: Jeff Rowe DO Date: 05/18/24 Location: ED Sex: F C Admitted: Test Reason : SOB/CP Blood Pressure : */* mmHG Vent. Rate : 76 BPM Atrial Rate : 76 BPM P-R Int : 186 ms QRS Dur : 78 ms QT Int : 380 ms P-R-T Axes : 25 12 28 degrees QTcB Int : 427 ms Normal sinus rhythm Normal ECG When compared with ECG of 11-May-2024 17:14, Vent. rate has decreased by 37 bpm Confirmed by LUCIO GOMEZ MD ([id number]), continuity editor MARY CALLAWAY ([id number]) on 05/20/2024 12:52:22 PM Referred By: ES/RU Confirmed By: LUCIO GOMEZ MD 05/20/24 1252 Date Lucio Gomez MD CC: Dr. Jose David Lindsay MD; Dr. Jeff Rowe DO Signed Normal [facility] Absolute lymphocyte countOrd ered By: Jeff Rowe on 05-18-2024 Lymphocytes Auto (Unsp spec) [#/Vol] 1.43 10*3/uL 0.83-4.51 [facility] Absolute neutrophil countOrd ered By: Jeff Rowe on 05-18-2024 Neutrophils (Bld) [#/Vol] 3.9 10*3/uL 2.0-7.7 [facility] Activated partial thrombopla stin time (aPTT) in platelet poor plasma by coagulation aOrdered By: Jeff Rowe on 05-18-2024 aPTT Coag (PPP) [Time] 55.3 s High 24.1-36.[address] [facility] Anion gap in Serum or Plasma Ordered By: Jeff Rowe on 05-18-2024 Anion gap [Moles/Vol] 13 mmol/L 5-15 [facility] Automated lymphocyte count a s percentage of total leukocytesOrdered By: Jeff Rowe on 05-18-2024 Lymphocytes/100 WBC Auto (Unsp spec) 23.8 % 19-41 [facility] BUN/creatinine ratioOrdered By: Jeff Rowe on 05-18-2024 Urea nitrogen/Creatinine [Mass ratio] 10.4 mg/mg 10- [facility] Basic Metabolic Profile (BMP )on 05-18-2024 BUN/CRE 10.4 RATIO Normal - [facility] Comment on above: Performed By: #### L 500.4100, L500.3400 #### [facility] [address] [place], [address] Calcium [Mass/Vol] 9.7 mg/dL Normal 7.6-11.0 [facility] Comment on above: Performed By: #### L 500.4100, L500.3400 #### [facility] [address] [place], [address] Chloride [Moles/Vol] 102 mmol/L Normal 98-108 [facility] Comment on above: Performed By: #### L 500.4100, L500.3400 #### [facility] [address] [place], [address] CO2 [Moles/Vol] 23.3 mmol/L Normal 21.0-32.0 [facility] Comment on above: Performed By: #### L 500.4100, L500.3400 #### [facility] [address] [place], [address] Creatinine [Mass/Vol] 0.82 mg/dL Normal 0.70-1.20 [facility] Comment on above: Performed By: #### L 500.4100, L500.3400 #### [facility] [address] [place], [address] GAP 13 Normal 5-15 [facility] Comment on above: Performed By: #### L 500.4100, L500.3400 #### [facility] [address] [place], [address] GFR/1.73 sq M.predicted among non-blacks MDRD (S/P/Bld) [Vol rate/Area] 75 mL/min/{1.73_m2} Normal >60 [facility] Comment on above: Result Comment: mL/m in/1.73m2 CKD-EPI Creatinine Equation (2020) Performed By: #### L 500.4100, L500.3400 #### [facility] [address] [place], [address] Glucose [Mass/Vol] 93 mg/dL Normal 70-99 [facility] Comment on above: Performed By: #### L 500.4100, L500.3400 #### [facility] [address] [place], [address] Potassium [Moles/Vol] 4.6 mmol/L Normal 3.3-5.1 [facility] Comment on above: Result Comment: Hemo lysis present, Results??could be affected. ?? Performed By: #### L 500.4100, L500.3400 #### [facility] [address] [place], [address] Sodium [Moles/Vol] 138 mmol/L Normal 133-145 [facility] Comment on above: Performed By: #### L 500.4100, L500.3400 #### [facility] [address] [place], [address] Urea nitrogen [Mass/Vol] 9 mg/dL Normal 4-19 [facility] Comment on above: Performed By: #### L 500.4100, L500.3400 #### [facility] [address] [place], [address] Basophil percentageOrdered B y: Jeffselina Rowe on 05-18-2024 Basophils/100 WBC (Bld) 0.5 % 0-1 [facility] CBC W/Diff, Automatedon 04-0 Absolute Lymph 1.43 X10 3/uL Normal 0.83-4.51 [facility] Comment on above: Performed By: #### L 500.4100, L500.3400 #### [facility] [address] [place], [address] Absolute Neut 3.9 X10 3/uL Normal 2.0-7.7 [facility] Comment on above: Performed By: #### L 500.4100, L500.3400 #### [facility] [address] [place], [address] Basophils/100 WBC (Bld) 0.5 % Normal 0-1 [facility] Comment on above: Performed By: #### L 500.4100, L500.3400 #### [facility] [address] [place], [address] Eosinophils/100 WBC (Bld) 1.5 % Normal 0-5 [facility] Comment on above: Performed By: #### L 500.4100, L500.3400 #### [facility] [address] [place], [address] Erythrocyte distribution width (RBC) [Ratio] 13.9 % Normal 11.6-14.6 [facility] Comment on above: Performed By: #### L 500.4100, L500.3400 #### [facility] [address] [place], [address] Hematocrit (Bld) [Volume fraction] 43.8 % Normal 37-47 [facility] Comment on above: Performed By: #### L 500.4100, L500.3400 #### [facility] [address] [place], [address] Hemoglobin (Bld) [Mass/Vol] 14.4 g/dL Normal 12.0-15.0 [facility] Comment on above: Performed By: #### L 500.4100, L500.3400 #### [facility] [address] [place], [address] IG% 0.200 Normal 0.0-0.9 [facility] Comment on above: Result Comment: IG% - Immature Granulocytes (promyelocytes, myelocytes and metamyelocytes) > 1% indicates that a LEFT SHIFT is Present. Performed By: #### L 500.4100, L500.3400 #### [facility] [address] [place], [address] Lymphocytes/100 WBC (Bld) 23.8 % Normal 19-41 [facility] Comment on above: Performed By: #### L 500.4100, L500.3400 #### [facility] [address] [place], [address] MCH (RBC) [Entitic mass] 29.6 pg Normal 27.0-32.0 [facility] Comment on above: Performed By: #### L 500.4100, L500.3400 #### [facility] [address] [place], [address] MCHC (RBC) [Mass/Vol] 32.9 g/dL Normal 32-36 [facility] Comment on above: Performed By: #### L 500.4100, L500.3400 #### [facility] [address] [place], [address] MCV (RBC) [Entitic vol] 90.1 fL Normal 81-99 [facility] Comment on above: Performed By: #### L 500.4100, L500.3400 #### [facility] [address] [place], [address] Monocytes/100 WBC (Bld) 10.0 % Normal 0-10 [facility] Comment on above: Performed By: #### L 500.4100, L500.3400 #### [facility] [address] [place], [address] Neutrophils/100 WBC (Bld) 64.0 % Normal 47-70 [facility] Comment on above: Performed By: #### L 500.4100, L500.3400 #### [facility] [address] [place], [address] Nucleated RBC (Bld) [#/Vol] 0 10*3/uL Normal 0-5 [facility] Comment on above: Performed By: #### L 500.4100, L500.3400 #### [facility] [address] [place], [address] Platelet mean volume (Bld) [Entitic vol] 8.9 fL Normal 6.2-12.0 [facility] Comment on above: Performed By: #### L 500.4100, L500.3400 #### [facility] [address] [place], [address] Platelets (Bld) [#/Vol] 349 10*3/uL Normal 150-450 [facility] Comment on above: Performed By: #### L 500.4100, L500.3400 #### [facility] [address] [place], [address] RBC (Bld) [#/Vol] 4.86 10*6/uL Normal 4.2-5.4 [facility] Comment on above: Performed By: #### L 500.4100, L500.3400 #### [facility] [address] [place], [address] RDW SD 46.1 fl High 35.1-43.9 [facility] Comment on above: Performed By: #### L 500.4100, L500.3400 #### [facility] [address] [place], [address] WBC (Bld) [#/Vol] 6.0 10*3/uL Normal 4.4-11.0 [facility] Comment on above: Performed By: #### L 500.4100, L500.3400 #### [facility] [address] [facility] [address] [place], [place], [address] CTA Chest W/WO Contraston CTA Chest W/WO Contrast [facility] Imaging Services [address] [place] [address] CTA Chest W/WO Contrast MR#: [id number] Acct: [id number] Name: YESENIA HODGSON Rep #: [id number] : 1950 F 74 From: Jeff Tavares MD PCP: Dr. Jose David Lindsay MD Status: REG ER Study: CTA Chest W/WO Contrast Date of Exam: 05/18/24 Exam# [id number] Ordering Dr: Jeff Rowe DO PROCEDURE: CTA CHEST W/WO CONTRAST 05/18/2024 REASON FOR EXAM: DYSPNEA TECHNIQUE: CTA axial imaging of the chest with intravenous contrast. Contiguous axial scans of 1.25 mm slice thicknesses. Sagittal and coronal reconstruction images were obtained. One or more dose reduction techniques were used (e.g., automated exposure control, adjustment of mA and/or kv according to patient size, use of iterative reconstruction technique). PATIENT PREPARATION: Per protocol CONTRAST: Isovue 370 VOLUME: 100 mL RADIATION DOSE SUMMARY: CTDlvol: 29.69 mGy DLP: 505.13 mGycm COMPARISON: Chest PA and lateral dated 05/17/2024 FINDINGS: Lymph nodes: No suspicious adenopathy Heart: Normal heart size and configuration. Mediastinum: No widening. RV/LV Diameter Ratio: Unremarkable. Thoracic Aorta: Mildly tortuous. No aneurysm. Pulmonary Vessels: Unremarkable. No evidence of intraluminal thrombus. Lungs and Airways: Mild scarring and/or hypoventilatory changes in the dependent lungs. No masses. No consolidation. Pleura: Unremarkable. Upper Abdomen: Gallbladder surgically absent. Bones: Multilevel spondylosis and degenerative disc disease. CT/CTA Chest W/WO Contrast IMPRESSION: No evidence of pulmonary embolism or other vascular abnormalities. Status post cholecystectomy. Other nonacute findings detailed above. Reading Location: [place] [address] CC: Dr. Jose David Lindsay MD; Dr. Jeff Rowe DO Publication Distributor: Signed Normal [facility] Carbon dioxide, total [Moles /volume] in Central venous bloodOrdered By: Jeff Rowe on 05-18-2024 CO2 [Moles/Vol] 23.3 mmol/L 21.0-32.0 [facility] Chloride assayOrdered By: Ismael Rowe on 05-18-2024 Chloride [Moles/Vol] 102 mmol/L 98-108 [facility] Emergency Department Summary on 05-18-2024 Emergency Department Summary [facility] Medical Records Department [address] [place] [address] Emergency Department Summary 05/18/24 MR#: [id number] Acct: [id number] Name: YESENIA HODGSON Rep #: [id number] : 1950 74 From: Jeff Rowe DO PCP: Dr. Jose David Lindsay MD Status:DEP ER Location: ED HPI History of Present Illness Chief Complaint: Shortness of Breath Informant: patient Onset/Context/Timing Onset: Weeks (1) Context: gradual Timing: Continuous Quality: Positive for - (similar to prior PE) Worsened by: Nothing Relieved by: Nothing Associated Symptoms cough, subjective and chills; Negative for rhinorrhea, post nasal drip, ear pain, fever, sore throat, sweats, clear sputum, white sputum, yellow sputum or green sputum Chest Pain: Positive for Sharp (substernal) Narrative Narrative: Patient presents with shortness of breath that has been getting worse over the past week. Patient states she fell 1 week ago. Patient states she was seen here at that time. Patient states she had a CT scan of her head done at that time which was negative. Patient states she has been having some shortness of breath that is similar to the symptoms she had with her prior pulmonary embolism. Patient states she is currently on Coumadin. The patient admits to some pain over the lower substernal area. Patient describes it as sharp. Patient admits to a mild cough but denies any sputum. Patient is to send subjective chills. PE Risk Factors: Positive for Prior DVT or PE; Negative for Cancer, OCP + Smoking + > 35, Recent immobilization, Recent surgery or Recent travel [facility] Medical History Hyperlipidemia Lung nodule Asthma Osteoarthritis Chronic back pain Hypothyroidism History of pulmonary embolism (08/04/12) Obesity Irritable bowel syndrome Esophageal reflux Home Medications ???Medication ???Instructions ???Recorded ???Last Taken ???Type aspirin 81 mg chewable tablet 81 mg PO DAILY@0800 03/13/1406/19 History levothyroxine 100 mcg tablet 100 mcg PO DAILY 03/13/14 06/19/20 History cholecalciferol (vitamin D3) 50 2,000 unit PO DAILY 05/30/20 Unkno wn History mcg (2,000 unit) capsule omeprazole 40 mg capsule,delayed 40 mg PO DAILY 12/04/22 Unknown Hi story release albuterol sulfate 90 mcg/actuation 2 puff inhalation Q6H PRN Unknown History aerosol inhaler fluticasone propionate 50 2 spray intranasal DAILY 12/30/22 Unknown History mcg/actuation nasal spray,suspension lactobacillus combination no.4 3 3,000 mmu cells PO DAILY 12/30/22 Unknown History billion cell capsule (Probiotic) warfarin 4 mg tablet 4 mg PO DAILY 12/30/22 Unknown His tory budesonide-formotero l HFA 160 2 puff inhalation BID 03/20/23 Unk nown History mcg-4.5 mcg/actuation aerosol inhaler loratadine 10 mg tablet 10 mg PO QDAY 10/29/23 Unknown His tory ondansetron 4 mg disintegrating 4 mg PO Q8 PRN 10/29/23 Unknown Hi story tablet evolocumab 140 mg/mL subcutaneous 140 mg subcut QMONTH #1 mL Unknown Rx pen injector (Repathgareth Domínguez) rosuvastatin 10 mg tablet 10 mg PO QDAY #30 tabs 04/23/24 Un known Rx hydrocodone-acetamin ophen 5-325mg 1 tab PO Q6H PRN PRN Pain 3 days 05/11/24 Unknown Rx 5mg-325mg #10 TABLETS Allergy/AdvReac Type Severity Reaction Status Date / Time Latex, Natural Rubber Allergy Intermediate Severe Verified 05/18/24 10:28 rash with condoms, some bandaids cephalexin monohydrate (From Allergy Chest Verified 05/18/24 10:28 Keflex) tightness ciprofloxacin (From Cipro) Allergy Nausea Verified 05/18/24 10:28 ciprofloxacin HCl (From Allergy Nausea Verified 05/18/24 10:28 Cipro) hyoscyamine sulfate (From Allergy Chest Verified 05/18/24 10:28 Levbid) tightness nitrofurantoin (From Allergy Nausea Verified 05/18/24 10:28 Macrobid) nitrofurantoin Allergy Nausea Verified 05/18/24 10:28 macrocrystalline (From Macrobid) NSAIDS (Non-Steroidal Allergy Nausea Verified 05/18/24 10:28 Anti-Inflamma tramadol Allergy Chest Verified 05/18/24 10:28 tightness atorvastatin AdvReac insomnia/leg Verified 05/18/24 10:28 pain nalbuphine HCl (From Nubain) AdvReac Nausea Verified 05/18/24 10:28 Family History Sister Heart disease CHF at 63 Surgical History History of left heart catheterization (06/19/20) History of bunionectomy History of tonsillectomy History of cholecystectomy History of total knee arthroplasty (2012) Social History Smoking Status: Former smoker how long ago did patient quit smoking: over 30 years alcohol i (more content not included)... Normal [facility] Eosinophil percentageOrdered By: Jeff Rowe on 05-18-2024 Eosinophils/100 WBC (Bld) 1.5 % 0-5 [facility] Erythrocyte distribution wid th (RBC) [Ratio]Ordered By: Jeff Rowe on 05-18-2024 Erythrocyte distribution width (RBC) [Entitic vol] 46.1 fL High 35.1-43.9 [facility] Erythrocyte distribution wid th ratioOrdered By: Jeff Rowe on 05-18-2024 Erythrocyte distribution width (RBC) [Ratio] 13.9 % 11.6-14.6 [facility] Erythrocyte distribution wid th standard deviationOrdered By: Jeff Rowe on 05-18-2024 Erythrocyte distribution width (RBC) [Ratio] 46.1 fl High 35.1-43.9 [facility] GFR/1.73 sq M.predicted alexsandra g non-blacks MDRD (S/P/Bld) [Vol rate/Area]Ordered By: Jeff Rowe on 05-18-2024 Estimated GFR (MDRD) Non-Af Amer 75 >60 [facility] Comment on above: mL/min/1.73m2 CKD-EP I Creatinine Equation (2020) Glomerular filtration rate ( GFR) estimation/1.73 sq m using serum, plasma, or whole bOrdered By: Jeff Rowe on 05-18-2024 GFR/1.73 sq M.predicted among non-blacks MDRD (S/P/Bld) [Vol rate/Area] 75 mL/min/{1.73_m2} >60 [facility] Comment on above: mL/min/1.73m2 CKD-EP I Creatinine Equation (2020) Hematocrit Auto (Bld) [Volum e fraction]Ordered By: Jeff Rowe on 05-18-2024 Hematocrit (Bld) [Volume fraction] 43.8 % 37-47 [facility] Hemoglobin measurementOrdere d By: Jeff Rowe on 05-18-2024 Hemoglobin (Bld) [Mass/Vol] 14.4 g/dL 12.0-15.0 [facility] Immature granulocytes/100 WB C Auto (Bld)Ordered By: Jeff Rowe on 05-18-2024 Immature granulocytes/100 WBC (Bld) 0.200 % 0.0-0.9 [facility] Comment on above: IG% - Immature Granu locytes (promyelocytes, myelocytes and metamyelocytes) > 1% indicates that a LEFT SHIFT is Present. International normalized rat io (INR) calculationOrdered By: Jeff Rowe on 05-18-2024 INR Coag (Bld) [Relative time] 3.7 {INR} [facility] L499.0042on 05-18-2024 Trop T High Sen < 6 Normal <=14 [facility] Comment on above: Performed By: #### L 500.4100, L500.3400 #### [facility] [place], [address] L499.0043on 05-18-2024 Trop T High Sen Normal <=14 [facility] Comment on above: Result Comment: NO S PECIMEN COLLECTED. PATIENT DEPARTED ED. Performed By: #### L 499.0043 #### [facility] [address] [place], [address] L501.4021on 05-18-2024 Trop T High Sen < 6 Normal <=14 [facility] Comment on above: Performed By: #### L 500.4100, L500.3400 #### [facility] [address] [place], [address] Lymphocytes Auto (Unsp spec) [#/Vol]Ordered By: Jeff Rowe on 05-18-2024 Lymphocytes (Bld) [#/Vol] 1.43 10*3/uL 0.83-4.51 [facility] Lymphocytes/100 WBC Auto (Un sp spec)Ordered By: Jeff Rowe on 05-18-2024 Lymphocytes/100 WBC (Bld) 23.8 % 19-41 [facility] MCV (mean corpuscular volume ) determinationOrdered By: Jeff Rowe on 05-18-2024 MCV (RBC) [Entitic vol] 90.1 fL 81-99 [facility] Mean corpuscular hemoglobin (MCH) determinationOrdered By: Jeff Rowe on 05-18-2024 MCH (RBC) [Entitic mass] 29.6 pg 27.0-32.0 [facility] Mean corpuscular hemoglobin concentration (MCHC) determinationOrdered By: Jeff Rowe on 05-18-2024 MCHC (RBC) [Mass/Vol] 32.9 g/dL 32-36 [facility] Mean platelet volume determi nationOrdered By: Jeff Rowe on 05-18-2024 Platelet mean volume (Bld) [Entitic vol] 8.9 fL 6.2-12.0 [facility] Monocyte percentageOrdered B y: Jeff Rowe on 05-18-2024 Monocytes/100 WBC (Bld) 10.0 % 0-10 [facility] Neutrophil percentageOrdered By: Jeff Rowe on 05-18-2024 Neutrophils/100 WBC (Bld) 64.0 % 47-70 [facility] Nucleated red blood cell per centageOrdered By: Jeff Rowe on 05-18-2024 Nucleated RBC/100 WBC (Bld) [Ratio] 0 % 0-5 [facility] Partial Thromboplast Timeon 05-18-2024 aPTT Coag (Bld) [Time] 55.3 s High 24.1-36.[address] [facility] Comment on above: Performed By: #### L 500.4100, L500.3400 #### [facility] [address] [place], [address] Platelet countOrdered By: Ismael Rowe on 05-18-2024 Platelets (Bld) [#/Vol] 349 10*3/uL 150-450 [facility] Potassium (Unsp spec) [Mass/ Vol]Ordered By: Jeff Rowe on 05-18-2024 Potassium [Moles/Vol] 4.6 mmol/L 3.3-5.1 [facility] Comment on above: Hemolysis present, R esults could be affected. Potassium measurement (mass/ volume)Ordered By: Jeff Rowe on 05-18-2024 Potassium (Unsp spec) [Mass/Vol] 4.6 mmol/L 3.3-5.1 [facility] Comment on above: Hemolysis present, R esults could be affected. Prothrombin Time w/INRon INR Coag (PPP) [Relative time] 3.7 {INR} Normal [facility] Comment on above: Performed By: #### L 500.4100, L500.3400 #### [facility] [address] [place], [address] PT Coag (PPP) [Time] 37.5 s High 11.7-14.9 [facility] Comment on above: Performed By: #### L 500.4100, L500.3400 #### [facility] [address] [place], [address] Prothrombin timeOrdered By: Jeff Rowe on 05-18-2024 PT Coag (PPP) [Time] 37.5 s High 11.7-14.9 [facility] RBC Auto (Bld) [#/Vol]Ordere d By: Jeff Rowe on 05-18-2024 RBC (Bld) [#/Vol] 4.86 10*6/uL 4.2-5.4 [facility] Serum creatinine measurement (mass/volume)Ordered By: Jeff Rowe on 05-18-2024 Creatinine [Mass/Vol] 0.82 mg/dL 0.70-1.20 [facility] Serum glucose measurement (m ass/volume)Ordered By: Jeff Rowe on 05-18-2024 Glucose [Mass/Vol] 93 mg/dL 70-99 [facility] Serum or plasma calcium michelle urement (mass/volume)Ordered By: Jeff Rowe on 05-18-2024 Calcium [Mass/Vol] 9.7 mg/dL 7.6-11.0 [facility] Serum or plasma urea nitroge n measurement (mass/volume)Ordered By: Jeff Rowe on 05-18-2024 Urea nitrogen [Mass/Vol] 9 mg/dL 4-19 [facility] Sodium levelOrdered By: Jeff Rowe on 05-18-2024 Sodium [Moles/Vol] 138 mmol/L 133-145 [facility] Troponin T.cardiac High sens itivity method [Mass/Vol]Ordered By: Jeff Rowe on 05-18-2024 Troponin T High Sensitivity 2 Hour < 6 ng/L <14 [facility] Troponin T High Sensitivity < 6 ng/L <14 [facility] Troponin T.cardiac [Mass/vol ume] in Serum or Plasma by High sensitivity methodOrdered By: Jeff Rowe on 05-18-2024 Troponin T.cardiac High sensitivity method [Mass/Vol] < 6 ng/L <14 [facility] Troponin T.cardiac High sensitivity method [Mass/Vol] < 6 ng/L <14 [facility] White blood cell (WBC) count Ordered By: Jeff Rowe on 05-18-2024 WBC (Bld) [#/Vol] 6.0 10*3/uL 4.4-11.0 [facility] aPTT Coag (PPP) [Time]Ordere d By: Jeff Rowe on 05-18-2024 aPTT Coag (Bld) [Time] 55.3 s High 24.1-36.[address] [facility] Chest PA and Lateralon 05-17 Chest PA and Lateral [facility] Imaging Services [address] [place] [address] Chest PA and Lateral MR#: [id number] Acct: [id number] Name: YESENIA HODGSON Rep #: [id number] : 1950 F 74 From: Gyu Escalante i DO PCP: Dr. Jose David Lindsay MD Status: REG CLI Study: Chest PA and Lateral Date of Exam: 05/17/24 Exam# [id number] Ordering Dr: Ravi Weeks NP REMEDIATION CONSULTANT -C PROCEDURE: PA and lateral chest radiographs, two views 05/17/2024 REASON FOR EXAM: CHEST PAIN, shortness of breath TECHNIQUE: PA and lateral views of the chest. COMPARISON: 05/11/2024 FINDINGS: The cardiomediastinal silhouette is similar. No pneumothorax, focal airspace consolidation, or pleural effusion. Similar mild elevation right hemidiaphragm. Some coarse markings in the lower lungs are similar. Bones are osteopenic with degenerative changes in the spine. No grossly displaced rib or sternal fractures, although evaluation is limited. RAD/Chest PA and Lateral IMPRESSION: No definite acute cardiopulmonary process or significant change. If there are persistent symptoms or clinical concern, short-term follow-up chest CT evaluation may be considered. Reading Location: [facility] CC: Ravi CHAPIN REMEDIATION CONSULTANT-C Desi; Dr. Jose David Lindsay MD Publication Distributor: Signed Normal [facility] Urine Cultureon 05-12-2024 URC Order Date: 05/10/24 Order Info: 630-4 - CUUR Below infection level. Mixed Gram Positive Organisms Ferguson Count 1000-10,000 MIXC Mixed contaminants. Submit a new specimen if indicated. Normal [facility] Comment on above: Performed By: #### L 501.4021 #### [facility] [address] [place], [address] 12 Lead EKGon 05-11-2024 12 Lead EKG [facility] Cardiovascular Services [address] [place] [address] 12 Lead EKG 05/11/24 1714 MR#: [id number] Acct: [id number] Name: YESENIA HODGSON Rep #: [id number] : 1950 74 From: Valdez Winchester MD Attending Dr: Status: DEP ER Ordering Dr: Jeff Rowe DO Date: 05/11/24 Location: ED Sex: F C Admitted: Test Reason : CP Blood Pressure : */* mmHG Vent. Rate : 113 BPM Atrial Rate : 113 BPM P-R Int : 144 ms QRS Dur : 78 ms QT Int : 332 ms P-R-T Axes : 57 44 65 degrees QTcB Int : 455 ms Sinus tachycardia Nonspecific ST abnormality Abnormal ECG Confirmed by Valdez Winchester ([id number]), continuity editor BEVERLY SAUER ([id number]) on 05/12/2024 7:52:52 AM Referred By: Confirmed By: Valdez Winchester 05/12/24 0752 Date Valdez Winchester MD CC: Dr. Jose David Lindsay MD; Dr. Jeff Rowe DO Signed Normal [facility] Absolute lymphocyte countOrd ered By: Jeff Rowe on 05-11-2024 Lymphocytes Auto (Unsp spec) [#/Vol] 1.83 10*3/uL 0.83-4.51 [facility] Absolute neutrophil countOrd ered By: Jeff Rowe on 05-11-2024 Neutrophils (Bld) [#/Vol] 7.2 10*3/uL 2.0-7.7 [facility] Activated partial thrombopla stin time (aPTT) in platelet poor plasma by coagulation aOrdered By: Jeff Rowe on 05-11-2024 aPTT Coag (PPP) [Time] 43.6 s High 24.1-36.[address] [facility] Anion gap in Serum or Plasma Ordered By: Jeff Rowe on 05-11-2024 Anion gap [Moles/Vol] 16 mmol/L High 5-15 [facility] Automated lymphocyte count a s percentage of total leukocytesOrdered By: Jeff Rowe on 05-11-2024 Lymphocytes/100 WBC Auto (Unsp spec) 17.7 % Low 19-41 [facility] BUN/creatinine ratioOrdered By: Jeff Rowe on 05-11-2024 Urea nitrogen/Creatinine [Mass ratio] 13.5 mg/mg 10-20 [facility] Basic Metabolic Profile (BMP )on 05-11-2024 BUN/CRE 13.5 RATIO Normal 10-20 [facility] Comment on above: Performed By: #### L 501.4021 #### [facility] [address] [place], [address] Calcium [Mass/Vol] 9.4 mg/dL Normal 7.6-11.0 [facility] Comment on above: Performed By: #### L 501.4021 #### [facility] [address] [place], [address] Chloride [Moles/Vol] 101 mmol/L Normal 98-108 [facility] Comment on above: Performed By: #### L 501.4021 #### [facility] [address] [place], [address] CO2 [Moles/Vol] 21.1 mmol/L Normal 21.0-32.0 [facility] Comment on above: Performed By: #### L 501.4021 #### [facility] [address] [place], [address] Creatinine [Mass/Vol] 0.79 mg/dL Normal 0.70-1.20 [facility] Comment on above: Performed By: #### L 501.4021 #### [facility] [address] [place], [address] ECRCL 72.54 ml/min Normal 50-250 [facility] Comment on above: Performed By: #### L 501.4021 #### [facility] [address] [place], [address] GAP 16 High 5-15 [facility] Comment on above: Performed By: #### L 501.4021 #### [facility] [address] [place], [address] GFR/1.73 sq M.predicted among non-blacks MDRD (S/P/Bld) [Vol rate/Area] 79 mL/min/{1.73_m2} Normal >60 [facility] Comment on above: Result Comment: mL/m in/1.73m2 CKD-EPI Creatinine Equation (2020) Performed By: #### L 501.4021 #### [facility] [address] [place], [address] Glucose [Mass/Vol] 129 mg/dL High 70-99 [facility] Comment on above: Performed By: #### L 501.4021 #### [facility] [address] [place], [address] Potassium [Moles/Vol] 4.2 mmol/L Normal 3.3-5.1 [facility] Comment on above: Performed By: #### L 501.4021 #### [facility] [address] [place], [address] Sodium [Moles/Vol] 138 mmol/L Normal 133-145 [facility] Comment on above: Performed By: #### L 501.4021 #### [facility] [address] [place], [address] Urea nitrogen [Mass/Vol] 11 mg/dL Normal 4-19 [facility] Comment on above: Performed By: #### L 501.4021 #### [facility] [address] [place], [address] Basophil percentageOrdered B y: Jeff Rowe on 05-11-2024 Basophils/100 WBC (Bld) 0.5 % 0-1 [facility] Brain/Head without Contrasto n 05-11-2024 Brain/Head without Contrast [facility] Imaging Services [address] [place], [place] [address] Brain/Head without Contrast MR#: [id number] Acct: [id number] Name: YESENIA HODGSON Rep #: [id number] : 1950 F 74 From: Colton Gunn DO PCP: Dr. Jose David Lindsay MD Status: REG ER Study: Brain/Head without Contrast Date of Exam: 03/06 Exam# [id number] Ordering Dr: Jeff Rowe DO PROCEDURE: BRAIN/HEAD WITHOUT CONTRAST 05/11/2024 REASON FOR EXAM: FALL TECHNIQUE: Head CT without intravenous contrast. Coronal and Sagittal reconstruction series were provided. One or more dose reduction techniques were used (e.g., Automated exposure control, adjustment of the mA and/or kV according to patient size, use of iterative reconstruction technique. RADIATION DOSE SUMMARY: CTDlvol: 44 mGy DLP: 829 mGycm COMPARISON: None FINDINGS: Brain: Within normal limits for age CSF Spaces: Normal Sinuses/Mastoids: Clear at visualized levels Bones: Unremarkable CT/Brain/Head without Contrast IMPRESSION: NO ACUTE FINDINGS [facility] CC: Dr. Jose David Lindsay MD; Dr. Jeff Rowe DO Publication Distributor: Signed Normal [facility] CBC W/Diff, Automatedon Absolute Lymph 1.83 X10 3/uL Normal 0.83-4.51 [facility] Comment on above: Performed By: #### L 500.4100, L500.3400 #### [facility] [address] [place], [address] Absolute Neut 7.2 X10 3/uL Normal 2.0-7.7 [facility] Comment on above: Performed By: #### L 500.4100, L500.3400 #### [facility] [address] [place], [address] Basophils/100 WBC (Bld) 0.5 % Normal 0-1 [facility] Comment on above: Performed By: #### L 500.4100, L500.3400 #### [facility] [address] [place], [address] Eosinophils/100 WBC (Bld) 1.1 % Normal 0-5 [facility] Comment on above: Performed By: #### L 500.4100, L500.3400 #### [facility] [address] [place], [address] Erythrocyte distribution width (RBC) [Ratio] 13.7 % Normal 11.6-14.6 [facility] Comment on above: Performed By: #### L 500.4100, L500.3400 #### [facility] [address] [place], [address] Hematocrit (Bld) [Volume fraction] 42.0 % Normal 37-47 [facility] Comment on above: Performed By: #### L 500.4100, L500.3400 #### [facility] [address] [place], [address] Hemoglobin (Bld) [Mass/Vol] 13.9 g/dL Normal 12.0-15.0 [facility] Comment on above: Performed By: #### L 500.4100, L500.3400 #### [facility] [address] [place], [address] IG% 0.500 Normal 0.0-0.9 [facility] Comment on above: Result Comment: IG% - Immature Granulocytes (promyelocytes, myelocytes and metamyelocytes) > 1% indicates that a LEFT SHIFT is Present. Performed By: #### L 500.4100, L500.3400 #### [facility] [address] [place], [address] Lymphocytes/100 WBC (Bld) 17.7 % Low 19-41 [facility] Comment on above: Performed By: #### L 500.4100, L500.3400 #### [facility] [address] [place], [address] MCH (RBC) [Entitic mass] 29.6 pg Normal 27.0-32.0 [facility] Comment on above: Performed By: #### L 500.4100, L500.3400 #### [facility] [address] [place], [address] MCHC (RBC) [Mass/Vol] 33.1 g/dL Normal 32-36 [facility] Comment on above: Performed By: #### L 500.4100, L500.3400 #### [facility] [address] [place], [address] MCV (RBC) [Entitic vol] 89.4 fL Normal 81-99 [facility] Comment on above: Performed By: #### L 500.4100, L500.3400 #### [facility] [address] [place], [address] Monocytes/100 WBC (Bld) 10.3 % High 0-10 [facility] Comment on above: Performed By: #### L 500.4100, L500.3400 #### [facility] [address] [place], [address] Neutrophils/100 WBC (Bld) 69.9 % Normal 47-70 [facility] Comment on above: Performed By: #### L 500.4100, L500.3400 #### [facility] [address] [place], [address] Nucleated RBC (Bld) [#/Vol] 0 10*3/uL Normal 0-5 [facility] Comment on above: Performed By: #### L 500.4100, L500.3400 #### [facility] [address] [place], [address] Platelet mean volume (Bld) [Entitic vol] 9.1 fL Normal 6.2-12.0 [facility] Comment on above: Performed By: #### L 500.4100, L500.3400 #### [facility] [address] [place], [address] Platelets (Bld) [#/Vol] 374 10*3/uL Normal 150-450 [facility] Comment on above: Performed By: #### L 500.4100, L500.3400 #### [facility] [address] [place], [address] RBC (Bld) [#/Vol] 4.70 10*6/uL Normal 4.2-5.4 [facility] Comment on above: Performed By: #### L 500.4100, L500.3400 #### [facility] [address] [place], [address] RDW SD 44.7 fl High 35.1-43.9 [facility] Comment on above: Performed By: #### L 500.4100, L500.3400 #### [facility] [address] [place], [address] WBC (Bld) [#/Vol] 10.3 10*3/uL Normal 4.4-11.0 [facility] Comment on above: Performed By: #### L 500.4100, L500.3400 #### [facility] [address] [place], [address] Carbon dioxide, total [Moles /volume] in Central venous bloodOrdered By: Jeff Rowe on 05-11-2024 CO2 [Moles/Vol] 21.1 mmol/L 21.0-32.0 [facility] Chest PA and Lateralon 05-11 Chest PA and Lateral [facility] Imaging Services [address] [place] [address] Chest PA and Lateral MR#: [id number] Acct: [id number] Name: YESENIA HODGSON Rep #: [id number] : 1950 F 74 From: Colton Gunn DO PCP: Dr. Jose David Lindsay MD Status: REG ER Study: Chest PA and Lateral Date of Exam: 05/11/24 Exam# [id number] Ordering Dr: Jeff Rowe DO PROCEDURE: CHEST PA AND LATERAL 05/11/2024 REASON FOR EXAM: CHEST PAIN TECHNIQUE: Frontal and lateral views of the chest. COMPARISON: 11/15/2022 FINDINGS: Hardware: None Heart: The heart size is normal. Mediastinum: The mediastinal contour is unremarkable. Lungs: The lungs are clear. Bones: The bones are unremarkable. RAD/Chest PA and Lateral IMPRESSION: NO ACUTE FINDINGS. Reading Location: [facility] CC: Dr. Jose David Lindsay MD; Dr. Jeff Rowe DO Publication Distributor: Signed Normal [facility] Chloride assayOrdered By: Ismael Rowe on 05-11-2024 Chloride [Moles/Vol] 101 mmol/L 98-108 [facility] Emergency Department Summary on 05-11-2024 Emergency Department Summary [facility] Medical Records Department [address] [place] [address] Emergency Department Summary 05/11/24 MR#: [id number] Acct: [id number] Name: YESENIA HODGSON Rep #: [id number] : 1950 74 From: Jeff Rowe DO PCP: Dr. Jose David Lindsay MD Status:DEP ER Location: ED HPI HPI - Fall History of Present Illness Chief Complaint: Fall Informant: patient Occured/Mechanism Occurred: Today Mechanism/Context: Yes same level fall Pain/Injury Location: Chest and upper back Pain Location: chest and back Quality of Pain: Sharp Worsened by: Movement Relieved by: Rest Associated Symptoms Associated Symptoms: Negative for Parasthesias, Weakness, Loss of function, Inability to ambulate, Loss of consciousness or Amnesia Narrative Narrative: Patient presents after a fall that occurred today. Patient states she bent forward and fell down a hill. Patient complains of pain in her chest and upper back. Patient states it is worse with movement. Patient states her pain is better with rest. Patient describes her pain as sharp. Patient denies any head injury or loss of consciousness. Patient is on Coumadin. Patient denies any nausea or vomiting. Patient denies any headache. Patient denies any visual changes. [facility] Medical History Hyperlipidemia Lung nodule Asthma Osteoarthritis Chronic back pain Hypothyroidism History of pulmonary embolism (08/04/12) Obesity Irritable bowel syndrome Esophageal reflux Home Medications ???Medication ???Instructions ???Recorded ???Last Taken ???Type aspirin 81 mg chewable tablet 81 mg PO DAILY@0800 03/13/1406/19 History levothyroxine 100 mcg tablet 100 mcg PO DAILY 03/13/14 06/19/20 History cholecalciferol (vitamin D3) 50 2,000 unit PO DAILY 05/30/20 Unkno wn History mcg (2,000 unit) capsule omeprazole 40 mg capsule,delayed 40 mg PO DAILY 12/04/22 Unknown Hi story release albuterol sulfate 90 mcg/actuation 2 puff inhalation Q6H PRN Unknown History aerosol inhaler fluticasone propionate 50 2 spray intranasal DAILY 12/30/22 Unknown History mcg/actuation nasal spray,suspension lactobacillus combination no.4 3 3,000 mmu cells PO DAILY 12/30/22 Unknown History billion cell capsule (Probiotic) warfarin 4 mg tablet 4 mg PO DAILY 12/30/22 Unknown His tory budesonide-formotero l HFA 160 2 puff inhalation BID 03/20/23 Unk nown History mcg-4.5 mcg/actuation aerosol inhaler loratadine 10 mg tablet 10 mg PO QDAY 10/29/23 Unknown His tory ondansetron 4 mg disintegrating 4 mg PO Q8 PRN 10/29/23 Unknown Hi story tablet evolocumab 140 mg/mL subcutaneous 140 mg subcut QMONTH #1 mL Unknown Rx pen injector (Payton Domínguez) rosuvastatin 10 mg tablet 10 mg PO QDAY #30 tabs 04/23/24 Un known Rx hydrocodone-acetamin ophen 5-325mg 1 tab PO Q6H PRN PRN Pain 3 days 05/11/24 Unknown Rx 5mg-325mg #10 TABLETS Allergy/AdvReac Type Severity Reaction Status Date / Time Latex, Natural Rubber Allergy Intermediate Severe Verified 05/11/24 17:05 rash with condoms, some bandaids cephalexin monohydrate (From Allergy Chest Verified 05/11/24 17:05 Keflex) tightness ciprofloxacin (From Cipro) Allergy Nausea Verified 05/11/24 17:05 ciprofloxacin HCl (From Allergy Nausea Verified 05/11/24 17:05 Cipro) hyoscyamine sulfate (From Allergy Chest Verified 05/11/24 17:05 Levbid) tightness nitrofurantoin (From Allergy Nausea Verified 05/11/24 17:05 Macrobid) nitrofurantoin Allergy Nausea Verified 05/11/24 17:05 macrocrystalline (From Macrobid) NSAIDS (Non-Steroidal Allergy Nausea Verified 05/11/24 17:05 Anti-Inflamma tramadol Allergy Chest Verified 05/11/24 17:05 tightness atorvastatin AdvReac insomnia/leg Verified 05/11/24 17:05 pain nalbuphine HCl (From Nubain) AdvReac Nausea Verified 05/11/24 17:05 Family History Sister Heart disease CHF at 63 Surgical History History of left heart catheterization (06/19/20) History of bunionectomy History of tonsillectomy History of cholecystectomy History of total knee arthroplasty (2012) Social History Smoking Status: Former smoker how long ago did patient quit smoking: over 30 years alcohol intake: never substance use type: does not use caffeine: Yes Type: coffee Number of servings: 1 ROS ROS ED Constitutional Constitutional ED: Denies chills or fever(s) Eyes Eyes: Denies blurry vision or change in vision ENT ENT ED: Denies rhinorrhea or sore throat Cardiovascular Cardiovascular: Reports chest presley (more content not included)... Normal [facility] Eosinophil percentageOrdered By: Jeff Rowe on 05-11-2024 Eosinophils/100 WBC (Bld) 1.1 % 0-5 [facility] Erythrocyte distribution wid th (RBC) [Ratio]Ordered By: Jeff Rowe on 05-11-2024 Erythrocyte distribution width (RBC) [Entitic vol] 44.7 fL High 35.1-43.9 [facility] Erythrocyte distribution wid th ratioOrdered By: Jeff Rowe on 05-11-2024 Erythrocyte distribution width (RBC) [Ratio] 13.7 % 11.6-14.6 [facility] Erythrocyte distribution wid th standard deviationOrdered By: Jeff Rowe on 05-11-2024 Erythrocyte distribution width (RBC) [Ratio] 44.7 fl High 35.1-43.9 [facility] Estimation of creatinine mauro aranceOrdered By: Jeff Rowe on 05-11-2024 Estimated Creatinine Clearance Calc 72.54 ml/min 50-250 [facility] GFR/1.73 sq M.predicted alexsandra g non-blacks MDRD (S/P/Bld) [Vol rate/Area]Ordered By: Jeff Rowe on 05-11-2024 Estimated GFR (MDRD) Non-Af Amer 79 >60 [facility] Comment on above: mL/min/1.73m2 CKD-EP I Creatinine Equation (2020) Glomerular filtration rate ( GFR) estimation/1.73 sq m using serum, plasma, or whole bOrdered By: Jeff Rowe on 05-11-2024 GFR/1.73 sq M.predicted among non-blacks MDRD (S/P/Bld) [Vol rate/Area] 79 mL/min/{1.73_m2} >60 [facility] Comment on above: mL/min/1.73m2 CKD-EP I Creatinine Equation (2020) Hematocrit Auto (Bld) [Volum e fraction]Ordered By: Jeff Rowe on 05-11-2024 Hematocrit (Bld) [Volume fraction] 42.0 % 37-47 [facility] Hemoglobin measurementOrdere d By: Jeff Rowe on 05-11-2024 Hemoglobin (Bld) [Mass/Vol] 13.9 g/dL 12.0-15.0 [facility] Immature granulocytes/100 WB C Auto (Bld)Ordered By: Jeff Rowe on 05-11-2024 Immature granulocytes/100 WBC (Bld) 0.500 % 0.0-0.9 [facility] Comment on above: IG% - Immature Granu locytes (promyelocytes, myelocytes and metamyelocytes) > 1% indicates that a LEFT SHIFT is Present. International normalized rat io (INR) calculationOrdered By: Jeff Rowe on 05-11-2024 INR Coag (Bld) [Relative time] 3.5 {INR} [facility] L499.0042on 05-11-2024 Trop T High Sen 7 ng/L Normal <=14 [facility] Comment on above: Performed By: #### L 501.4021 #### [facility] [address] [place], [address] L499.0043on 05-11-2024 Trop T High Sen Normal <=14 [facility] Comment on above: Result Comment: PT D ISCHARGED Performed By: #### L 500.4100, L500.3400 #### [facility] [address] [place], [address] L501.4021on 05-11-2024 Trop T High Sen < 6 Normal <=14 [facility] Comment on above: Performed By: #### L 501.4021 #### [facility] [address] [place], [address] Lymphocytes Auto (Unsp spec) [#/Vol]Ordered By: Jeff Rowe on 05-11-2024 Lymphocytes (Bld) [#/Vol] 1.83 10*3/uL 0.83-4.51 [facility] Lymphocytes/100 WBC Auto (Un sp spec)Ordered By: Jeff Rowe on 05-11-2024 Lymphocytes/100 WBC (Bld) 17.7 % Low 19-41 [facility] MCV (mean corpuscular volume ) determinationOrdered By: Jeff Rowe on 05-11-2024 MCV (RBC) [Entitic vol] 89.4 fL 81-99 [facility] Mean corpuscular hemoglobin (MCH) determinationOrdered By: Jeff Rowe on 05-11-2024 MCH (RBC) [Entitic mass] 29.6 pg 27.0-32.0 [facility] Mean corpuscular hemoglobin concentration (MCHC) determinationOrdered By: Jeff Rowe on 05-11-2024 MCHC (RBC) [Mass/Vol] 33.1 g/dL 32-36 [facility] Mean platelet volume determi nationOrdered By: Jeff Rowe on 05-11-2024 Platelet mean volume (Bld) [Entitic vol] 9.1 fL 6.2-12.0 [facility] Monocyte percentageOrdered B y: Jeff Rowe on 05-11-2024 Monocytes/100 WBC (Bld) 10.3 % High 0-10 [facility] Neutrophil percentageOrdered By: Jeff Rowe on 05-11-2024 Neutrophils/100 WBC (Bld) 69.9 % 47-70 [facility] No Panel InformationOrdered By: Jeff Rowe on 05-11-2024 Troponin T High Sensitivity < 6 ng/L <14 [facility] Nucleated red blood cell per centageOrdered By: Jeff Rowe on 05-11-2024 Nucleated RBC/100 WBC (Bld) [Ratio] 0 % 0-5 [facility] Partial Thromboplast Timeon 05-11-2024 aPTT Coag (Bld) [Time] 43.6 s High 24.1-36.[address] [facility] Comment on above: Performed By: #### L 500.4100, L500.3400 #### [facility] [place], [address] Platelet countOrdered By: Ismael Rowe on 05-11-2024 Platelets (Bld) [#/Vol] 374 10*3/uL 150-450 [facility] Potassium (Unsp spec) [Mass/ Vol]Ordered By: Jeff Rowe on 05-11-2024 Potassium [Moles/Vol] 4.2 mmol/L 3.3-5.1 [facility] Potassium measurement (mass/ volume)Ordered By: Jeff Rowe on 05-11-2024 Potassium (Unsp spec) [Mass/Vol] 4.2 mmol/L 3.3-5.1 [facility] Prothrombin Time w/INRon INR Coag (PPP) [Relative time] 3.5 {INR} Normal [facility] Comment on above: Performed By: #### L 500.4100, L500.3400 #### [facility] [address] [place], [address] PT Coag (PPP) [Time] 36.1 s High 11.7-14.9 [facility] Comment on above: Performed By: #### L 500.4100, L500.3400 #### [facility] [address] [place], [address] Prothrombin timeOrdered By: Jeff Rowe on 05-11-2024 PT Coag (PPP) [Time] 36.1 s High 11.7-14.9 [facility] RBC Auto (Bld) [#/Vol]Ordere d By: Jeff Rowe on 05-11-2024 RBC (Bld) [#/Vol] 4.70 10*6/uL 4.2-5.4 [facility] Serum creatinine measurement (mass/volume)Ordered By: Jeff Rowe on 05-11-2024 Creatinine [Mass/Vol] 0.79 mg/dL 0.70-1.20 [facility] Serum glucose measurement (m ass/volume)Ordered By: Jeff Rowe on 05-11-2024 Glucose [Mass/Vol] 129 mg/dL High 70-99 [facility] Serum or plasma calcium michelle urement (mass/volume)Ordered By: Jeff Rowe on 05-11-2024 Calcium [Mass/Vol] 9.4 mg/dL 7.6-11.0 [facility] Serum or plasma urea nitroge n measurement (mass/volume)Ordered By: Jeff Rowe on 05-11-2024 Urea nitrogen [Mass/Vol] 11 mg/dL 4-19 [facility] Sodium levelOrdered By: Jeff Rowe on 05-11-2024 Sodium [Moles/Vol] 138 mmol/L 133-145 [facility] Troponin T.cardiac High sens itivity method [Mass/Vol]Ordered By: Jeff Rowe on 05-11-2024 Troponin T High Sensitivity 2 Hour 7 ng/L <14 [facility] Troponin T.cardiac [Mass/vol ume] in Serum or Plasma by High sensitivity methodOrdered By: Jeff Rowe on 05-11-2024 Troponin T.cardiac High sensitivity method [Mass/Vol] 7 ng/L <14 [facility] White blood cell (WBC) count Ordered By: Jeff Rowe on 05-11-2024 WBC (Bld) [#/Vol] 10.3 10*3/uL 4.4-11.0 [facility] aPTT Coag (PPP) [Time]Ordere d By: Jeff Rowe on 05-11-2024 aPTT Coag (Bld) [Time] 43.6 s High 24.1-36.[address] [facility] Bilirubin Test strip Ql (U)O rdered By: Jose David Lindsay on 05-10-2024 Bilirubin Ql (U) Negative Negative [facility] Epithelial cells.squamous LM Ql (Urine sed)Ordered By: Jose David Lindsay on 05-10-2024 Epithelial cells.squamous LM.HPF (Urine sed) [#/Area] 0 /[HPF] 5-10 [facility] Glucose Ql (U)Ordered By: Umesh Lindsay on 05-10-2024 Urine Glucose (UA) Normal mg/dl Normal [facility] Ketones Test strip Ql (U)Ord ered By: Jose David Lindsay on 05-10-2024 Ketones Ql (U) Negative Negative [facility] Microscopic analysis of urin e for red blood cells (RBC)Ordered By: Jose David Lindsay on 05-10-2024 Microscopic analysis of urine for red blood cells (RBC) 5-10 SEEN /hpf 0-5 [facility] Urine RBC 5-10 SEEN /hpf 0-5 [facility] Mucus LM Ql (Urine sed)Order ed By: Jose David Lindsay on 05-10-2024 Mucus Ql (Urine sed) 0 SEEN /hpf [facility] Nitrite Test strip Ql (U)Ord ered By: Jose David Lindsay on 05-10-2024 Nitrite Ql (U) Negative Negative [facility] Protein Test strip Ql (U)Ord ered By: Jose David Lindsay on 05-10-2024 Protein Ql (U) Negative Negative [facility] Squamous epithelial cells de tection in urine sediment by light microscopyOrdered By: Jose David Lindsay on 05-10-2024 Epithelial cells.squamous LM Ql (Urine sed) 0-5 SEEN /hpf 5-10 [facility] Urinalysis, Completeon 05-10 EPI,SQUAMOUS 0-5 SEEN Normal 5-10 [facility] Comment on above: Order Comment: Order Date: 05/10/24Order Info: [id number] - UACCOLLECTOR TO SPECIFY Performed By: #### L 501.4021 #### [facility] [address] [place], [address] RBC 5-10 SEEN Normal 0-5 [facility] Comment on above: Order Comment: Order Date: 05/10/24Order Info: [id number] - UACCOLLECTOR TO SPECIFY Performed By: #### L 501.4021 #### [facility] [address] [place], [address] WBC 0-5 SEEN Normal 0-5 [facility] Comment on above: Order Comment: Order Date: 05/10/24Order Info: [id number] - UACCOLLECTOR TO SPECIFY Performed By: #### L 501.4021 #### [facility] [address] [place], [address] BACTERIA 0 SEEN Normal None Seen [facility] Comment on above: Order Comment: Order Date: 05/10/24Order Info: [id number] - UACCOLLECTOR TO SPECIFY Performed By: #### L 501.4021 #### [facility] [address] [place], [address] Mucus Ql (Urine sed) 0 SEEN Normal [facility] Comment on above: Order Comment: Order Date: 05/10/24Order Info: [id number] - UACCOLLECTOR TO SPECIFY Performed By: #### L 501.4021 #### [facility] [address] [place], [address] Urine blood detectionOrdered By: Jose David Lindsay on 05-10-2024 Urine Occult Blood 150 /ul High Negative [facility] Urine clarityOrdered By: Lawson Lindsay on 05-10-2024 Clarity (U) Clear Clear [facility] Urine color determinationOrd ered By: Jose David Lindsay on 05-10-2024 Color (U) Yellow Yellow [facility] Urine cultureOrdered By: Lawson Lindsay on 05-10-2024 Bacteria identified Cx Nom (U) Positive Abnormal [facility] Urine glucose detectionOrder ed By: Jose David Lindsay on 05-10-2024 Glucose Ql (U) Normal mg/dl Normal [facility] Urine leukocyte esterase det ection by dipstickOrdered By: Jose David Lindsay on 05-10-2024 Leukocyte esterase Test strip Ql (U) Negative Negative [facility] Urine pHOrdered By: Claus Lindsay on 05-10-2024 pH (U) 6.5 [pH] 5.0 - 8.0 [facility] Urine sediment bacteria coun t by microscopy (number/high power field)Ordered By: Jose David Lindsay on 05-10-2024 Bacteria LM.HPF (Urine sed) [#/Area] 0 /[HPF] None Seen [facility] Urine specific gravity measu rementOrdered By: Joes David Lindsay on 05-10-2024 Specific gravity (U) [Rel density] 1.005 1.002-1.030 [facility] Urine urobilinogen measureme ntOrdered By: Jose David Lindsay on 05-10-2024 Urobilinogen Ql (U) Normal mg/dl Normal [facility] Urobilinogen Ql (U)Ordered B y: Jose David Lindsay on 05-10-2024 Urine Urobilinogen Normal mg/dl Normal [facility] White blood cell countOrdere d By: Jose David Lindsay on 05-10-2024 Urine WBC 0-5 SEEN /hpf 0-5 [facility] White blood cell count 0-5 SEEN /hpf 0-5 [facility] Venous duplex ultrasound rep ortOrdered By: Ryan Mondragon on 04-27-2024 US Vein [facility] [address] [place] [address] Venous Duplex US, Unilateral 04/26/24 1547 MR#: [id number] Acct: [id number] Name: YESENIA HODGSON Rep #:[id number] : 1950 74 From: Ryan Mondragon MD Attending Dr: Dr. Lindsay Baxter MD Status: REG CLI Ordering Dr: Lindsay Baxter MD Date: 04/26/24 Location: [facility] Sex: F C Admitted: Reason For Study Reason For Study: Left leg pain RIGHT LEFT CFV is compressible, spontaneous, phasic, competent GSV is normal. and demonstrates normal augmentation. CFV is compressible, spontaneous, phasic, competent, Procedure and demonstrates normal augmentation. This is a venous duplex using B-mode, color flow and FV is compressible, spontaneous, phasic, competent spectral Doppler. and demonstrates normal augmentation. Exam performed in department. POP V is compressible, spontaneous, phasic, competent A preliminary report was called and/or faxed to and demonstrates normal augmentation. Vee. T/P Trunk is compressible. PTV is compressible. LT PerV is compressible. VL/Venous Duplex US, Unilateral Interpretation Summary Deep veins of the left lower extremity are patent and compressible segmentally. There is no evidence of left lower extremity deep vein thrombosis. Valvular competence appears intact within the proximal deep venous system on the left . The left great saphenous vein appears patent and compressible segmentally. The right common femoral vein is patent and compressible . Ordering Physician: Lindsay Baxter Referring Physician: Jose David Lindsay MD Performed By: Rehana Zaldivar RVT 04/27/24 1256 Date _ Ryan Mondragon MD CC: Dr. Lindsay Baxter MD; Dr. Jose David Lindsay MD ~ Date Dictated: 04/26/24 1547 Date Transcribed: 04/27/24 1256 Publication Distributor: Signed [facility] Other Venous Duplex US, Unilateral on 04-26-2024 Venous Duplex US, Unilateral [facility] [address] [place] [address] Venous Duplex US, Unilateral 04/26/24 1547 MR#: [id number] Acct: [id number] Name: YESENIA HODGSON Rep #: [id number] : 1950 74 From: Ryan Mondragon MD Attending Dr: Dr. Lindsay Baxter MD Status: REG CLI Ordering Dr: Lindsay Baxter MD Date: 04/26/24 Location: [facility] Sex: F C Admitted: Reason For Study Reason For Study: Left leg pain RIGHT LEFT CFV is compressible, spontaneous, phasic, competent GSV is normal. and demonstrates normal augmentation. CFV is compressible, spontaneous, phasic, competent, Procedure and demonstrates normal augmentation. This is a venous duplex using B-mode, color flow and FV is compressible, spontaneous, phasic, competent spectral Doppler. and demonstrates normal augmentation. Exam performed in department. POP V is compressible, spontaneous, phasic, competent A preliminary report was called and/or faxed to and demonstrates normal augmentation. Vee. T/P Trunk is compressible. PTV is compressible. LT PerV is compressible. VL/Venous Duplex US, Unilateral Interpretation Summary Deep veins of the left lower extremity are patent and compressible segmentally. There is no evidence of left lower extremity deep vein thrombosis. Valvular competence appears intact within the proximal deep venous system on the left . The left great saphenous vein appears patent and compressible segmentally. The right common femoral vein is patent and compressible . Ordering Physician: Lindsay Baxter Referring Physician: Jose David Lindsay MD Performed By: Rehana Zaldivar RVT 04/27/24 1256 Date Ryan Mondragon MD CC: Dr. Lindsay Baxter MD; Dr. Jose David Lindsay MD Date Dictated: 04/26/24 1547 Date Transcribed: 04/27/24 1256 Publication Distributor: Signed Normal [facility] Cardiology Visit Reporton Cardiology Visit Report [facility] [address] [place] [address] OFFICE VISIT Date of Service: 04/23/24 MR#: [id number] Acct: [id number] Name: YESENIA HODGSON Rep #: [id number] : 1950 Provider: ISHMAEL Carvalho Age/Sex: 74/F Location: [facility] Status: Signed HPI HPI History of Present Illness Details: Yesenia Hodgson is a 74-year-old female who presents to the office today for follow-up for monitoring of her cardiovascular disease. Patient has a history of chest pressure and epigastric burning that led to cardiac catheterization in June of 2020 which demonstrated nonobstructive coronary arteries. Patient has a history of hyperlipidemia, DVT and pulmonary embolism. DVT and PE occurred around the time of knee replacement surgery, patient has been on warfarin since. Patient had chest pain 11/2022 in which she presented to the ED as well and EKG and troponins were negative. Patient did undergo stress test 01/07/2023 which was negative for ischemia. Since last seen, approximately 1 year ago, patient reports doing well. Patient reports intermittent chest pain that she notices radiates from epigastric area and is related to diet/eating spicy foods and/or reaching high up. Pain can radiate to back. Pain resolves with stretching or heating pad. Patient tries to stay away from spicy foods. This occurs 1-2x per month. This pain is similar to pain that has been worked up in the past. Patient reports left lower extremity edema that is occasional, occurs when on her feet a lot/sitting, improves with elevation of leg. Patient does try to walk 5 days/week; however, has not been active over the wintertime secondary to decreasing self exposure to viruses as recommended from head orthopedic team physician. Patient is looking forward to being able to do this again as the weather improves. No other concerns at this time. Further ROS below. 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 Is patient in pain?: No Allergies Latex, Natural Rubber Allergy (Intermediate, Verified 04/23/24 08:37) Severe rash with condoms, some bandaids cephalexin monohydrate (From Keflex) Allergy (Verified 04/23/24 08:37) Chest tightness ciprofloxacin (From Cipro) Allergy (Verified 04/23/24 08:37) Nausea ciprofloxacin HCl (From Cipro) Allergy (Verified 04/23/24 08:37) Nausea hyoscyamine sulfate (From Levbid) Allergy (Verified 04/23/24 08:37) Chest tightness nitrofurantoin (From Macrobid) Allergy (Verified 04/23/24 08:37) Nausea nitrofurantoin macrocrystalline (From Macrobid) Allergy (Verified 04/23/24 08:37) Nausea NSAIDS (Non-Steroidal Anti-Inflamma Allergy (Verified 04/23/24 08:37) Nausea tramadol Allergy (Verified 04/23/24 08:37) Chest tightness atorvastatin Adverse Reaction (Verified 04/23/24 08:37) insomnia/leg pain nalbuphine HCl (From Nubain) Adverse Reaction (Verified 04/23/24 08:37) Nausea Medications ???Medication ???Instructions ???Recorded ???Confirmed ???Type aspirin 81 mg chewable tablet 81 mg PO DAILY@0800 03/13/1404/23 History levothyroxine 100 mcg tablet 100 mcg PO DAILY 03/13/14 04/23/24 History cholecalciferol (vitamin D3) 50 2,000 unit PO DAILY 05/30/2004/23 History mcg (2,000 unit) capsule omeprazole 40 mg capsule,delayed 40 mg PO DAILY 12/04/22 04/23/24 H istory release albuterol sulfate 90 mcg/actuation 2 puff inhalation Q6H PRN 04/23/24 History aerosol inhaler fluticasone propionate 50 2 spray intranasal DAILY 12/30/22 04/23/24 History mcg/actuation nasal spray,suspension lactobacillus combination no.4 3 3,000 mmu cells PO DAILY 12/30/22 04/23/24 History billion cell capsule (Probiotic) warfarin 4 mg tablet 4 mg PO DAILY 12/30/22 04/23/24 Hi story budesonide-formotero l HFA 160 2 puff inhalation BID 03/20/23 History mcg-4.5 mcg/actuation aerosol inhaler loratadine 10 mg tablet 10 mg PO QDAY 10/29/23 04/23/24 Hi story ondansetron 4 mg disintegrating 4 mg PO Q8 PRN 10/29/23 04/23/24 H istory tablet evolocumab 140 mg/mL subcutaneous 140 mg subcut QMONTH #1 mL 04/23/24 Rx pen injector (Payton Domínguez) rosuvastatin 10 mg tablet 10 mg PO QDAY #30 tabs 04/23/24 Rx Ejection fraction %: 60 Have you fallen in the past year?: No PFSH Medical History Hyperlipidemia Lung nodule Asthma Osteoarthritis Chronic back pain Hypothyroidism History of pulmonary embolism (08/04/12) Obesity I (more content not included)... Normal [facility] Basic Metabolic Profile (BMP )on 01-02-2024 BUN/CRE 22.2 RATIO High 10-20 [facility] Comment on above: Order Comment: Order Date: 12/29/23Order Info: 666- - BMPOrder Info: [id number] - TSH Performed By: #### L [id number], L501.9985, L100.0100, L506.1001, L500.4100, L500.4050 #### [facility] [address] [place], [address] CA,Total 9.5 mg/dL Normal 8.5-10.1 [facility] Comment on above: Order Comment: Order Date: 12/29/23Order Info: [id number] - BMPOrder Info: [id number] - TSH Performed By: #### L [id number], L501.9985, L100.0100, L506.1001, L500.4100, L500.4050 #### [facility] [address] [place], [address] Chloride [Moles/Vol] 109 mmol/L High 98-107 [facility] Comment on above: Order Comment: Order Date: 12/29/23Order Info: [id number] - BMPOrder Info: [id number] - TSH Performed By: #### L [id number], L501.9985, L100.0100, L506.1001, L500.4100, L500.4050 #### [facility] [address] [place], [address] CO2 [Moles/Vol] 25.0 mmol/L Normal 21.0-32.0 [facility] Comment on above: Order Comment: Order Date: 12/29/23Order Info: 666- - BMPOrder Info: [id number] - TSH Performed By: #### L 501.9520, L501.9985, L100.0100, L506.1001, L500.4100, L500.4050 #### [facility] [address] [place], [address] Creatinine [Mass/Vol] 0.76 mg/dL Normal 0.55-1.02 [facility] Comment on above: Order Comment: Order Date: 12/29/23Order Info: [id number] - BMPOrder Info: 301-3 - TSH Result Comment: The validity of the calculated GFR GFRAA in patients over 70 years has not been determined. Clinical correlation is essential. Performed By: #### L 501.9520, L501.9985, L100.0100, L506.1001, L500.4100, L500.4050 #### [facility] [address] [place], [address] EST GFR - AA 95 mL/min Normal >60 [facility] Comment on above: Order Comment: Order Date: 12/29/23Order Info: [id number] - BMPOrder Info: 301-3 - TSH Result Comment: Afri can Filipino GFR Calc Performed By: #### L 501.9520, L501.9985, L100.0100, L506.1001, L500.4100, L500.4050 #### [facility] [address] [place], [address] GAP 5 Normal 5-15 [facility] Comment on above: Order Comment: Order Date: 12/29/23Order Info: [id number] - BMPOrder Info: [id number] - TSH Performed By: #### L 501.9520, L501.9985, L100.0100, L506.1001, L500.4100, L500.4050 #### [facility] [address] [place], [address] GFR/1.73 sq M.predicted among non-blacks MDRD (S/P/Bld) [Vol rate/Area] 79 mL/min/{1.73_m2} Normal >60 [facility] Comment on above: Order Comment: Order Date: 12/29/23Order Info: [id number] - BMPOrder Info: [id number] - TSH Result Comment: Non- GFR Calc Performed By: #### L 501.9520, L501.9985, L100.0100, L506.1001, L500.4100, L500.4050 #### [facility] [address] [place], [address] Glucose [Mass/Vol] 126 mg/dL High 74-106 [facility] Comment on above: Order Comment: Order Date: 12/29/23Order Info: [id number] - BMPOrder Info: [id number] - TSH Result Comment: Fast ing Glucose result greater than or equal to 126 mg/dL suggests DIABETES MELLITUS per A.D.A. criteria. Performed By: #### L 501.9520, L501.9985, L100.0100, L506.1001, L500.4100, L500.4050 #### [facility] [address] [place], [address] Potassium [Moles/Vol] 3.9 mmol/L Normal 3.5-5.1 [facility] Comment on above: Order Comment: Order Date: 12/29/23Order Info: [id number] BMPOrder Info: [id number] - TSH Performed By: #### L 501.9520, L501.9985, L100.0100, L506.1001, L500.4100, L500.4050 #### [facility] [address] [place], [address] Sodium [Moles/Vol] 139 mmol/L Normal 136-145 [facility] Comment on above: Order Comment: Order Date: 12/29/23Order Info: [id number] BMPOrder Info: [id number] - TSH Performed By: #### L 501.9520, L501.9985, L100.0100, L506.1001, L500.4100, L500.4050 #### [facility] [address] [place], [address] Urea nitrogen [Mass/Vol] 17 mg/dL Normal 7-18 [facility] Comment on above: Order Comment: Order Date: 12/29/23Order Info: [id number] - BMPOrder Info: [id number] - TSH Performed By: #### L 501.9520, L501.9985, L100.0100, L506.1001, L500.4100, L500.4050 #### [facility] [address] [place], [address] CBC-Complete Blood Cnt No Di ffon 01-02-2024 Erythrocyte distribution width (RBC) [Ratio] 13.7 % Normal 11.6-14.6 [facility] Comment on above: Order Comment: Order Date: 12/29/23Order Info: [id number] - CBCOrder Info: [id number] - SED Performed By: #### L 501.9520, L501.9985, L100.0100, L506.1001, L500.4100, L500.4050 #### [facility] [address] [place], [address] Hematocrit (Bld) [Volume fraction] 43.0 % Normal 37-47 [facility] Comment on above: Order Comment: Order Date: 12/29/23Order Info: [id number] - CBCOrder Info: [id number] - SED Performed By: #### L 501.9520, L501.9985, L100.0100, L506.1001, L500.4100, L500.4050 #### [facility] [address] [place], [address] Hemoglobin (Bld) [Mass/Vol] 13.6 g/dL Normal 12.0-15.0 [facility] Comment on above: Order Comment: Order Date: 12/29/23Order Info: [id number] - CBCOrder Info: [id number] - SED Performed By: #### L 501.9520, L501.9985, L100.0100, L506.1001, L500.4100, L500.4050 #### [facility] [address] [place], [address] MCH (RBC) [Entitic mass] 29.4 pg Normal 27.0-32.0 [facility] Comment on above: Order Comment: Order Date: 12/29/23Order Info: [id number] - CBCOrder Info: [id number] - SED Performed By: #### L 501.9520, L501.9985, L100.0100, L506.1001, L500.4100, L500.4050 #### [facility] [address] [place], [address] MCHC (RBC) [Mass/Vol] 31.6 g/dL Low 32-36 [facility] Comment on above: Order Comment: Order Date: 12/29/23Order Info: [id number] - CBCOrder Info: [id number] - SED Performed By: #### L 501.9520, L501.9985, L100.0100, L506.1001, L500.4100, L500.4050 #### [facility] [address] [place], [address] MCV (RBC) [Entitic vol] 92.9 fL Normal 81-99 [facility] Comment on above: Order Comment: Order Date: 12/29/23Order Info: [id number] - CBCOrder Info: [id number] - SED Performed By: #### L 501.9520, L501.9985, L100.0100, L506.1001, L500.4100, L500.4050 #### [facility] [address] [place], [address] Platelet mean volume (Bld) [Entitic vol] 9.4 fL Normal 6.2-12.0 [facility] Comment on above: Order Comment: Order Date: 12/29/23Order Info: [id number] - CBCOrder Info: [id number] - SED Performed By: #### L 501.9520, L501.9985, L100.0100, L506.1001, L500.4100, L500.4050 #### [facility] [address] [place], [address] Platelets (Bld) [#/Vol] 388 10*3/uL Normal 150-450 [facility] Comment on above: Order Comment: Order Date: 12/29/23Order Info: [id number] - CBCOrder Info: [id number] - SED Performed By: #### L 501.9520, L501.9985, L100.0100, L506.1001, L500.4100, L500.4050 #### [facility] [address] [place], [address] RBC (Bld) [#/Vol] 4.63 10*6/uL Normal 4.2-5.4 [facility] Comment on above: Order Comment: Order Date: 12/29/23Order Info: [id number] - CBCOrder Info: [id number] - SED Performed By: #### L 501.9520, L501.9985, L100.0100, L506.1001, L500.4100, L500.4050 #### [facility] [address] [place], [address] RDW SD 47.3 fl High 35.1-43.9 [facility] Comment on above: Order Comment: Order Date: 12/29/23Order Info: [id number] - CBCOrder Info: [id number] - SED Performed By: #### L 501.9520, L501.9985, L100.0100, L506.1001, L500.4100, L500.4050 #### [facility] [address] [place], [address] WBC (Bld) [#/Vol] 7.4 10*3/uL Normal 4.4-11.0 [facility] Comment on above: Order Comment: Order Date: 12/29/23Order Info: [id number] - CBCOrder Info: [id number] - SED Performed By: #### L 501.9520, L501.9985, L100.0100, L506.1001, L500.4100, L500.4050 #### [facility] [address] [place], [address] Erythrocyte Sed Rateon 01-01 SED RATE 29 mm/hr Normal 0-30 [facility] Comment on above: Order Comment: Order Date: 12/29/23Order Info: [id number] - CBCOrder Info: [id number] - SED Performed By: #### L 499.0043 #### [facility] [address] [place], [address] Thyroid Stim Hormone (TSH)on 01-02-2024 TSH 1.250 uIU/mL Normal 0.358-3.740 [facility] Comment on above: Order Comment: Order Date: 12/29/23Order Info: [id number] - BMPOrder Info: [id number] - TSH Performed By: #### L 501.9520, L501.9985, L100.0100, L506.1001, L500.4100, L500.4050 #### [facility] [address] [place], [address] Vitamin D,25 Hydroxyon 01-01 Vitamin D 25-OH 37.8 ng/mL Normal [facility] Comment on above: Order Comment: Order Date: 12/29/23Order Info: [id number] - VITD25 Result Comment: Rebecca min D 25(OH) Status Range Deficiency <20 ng/mL (50nmol/L) Insufficiency 20 - 30 ng/mL (50 - 75 nmol/L) Sufficiency 30 - 100 ng/mL (75 - 250 nmol/L) Toxicity >100 ng/mL (>250 nmol/L) Performed By: #### L 501.9520, L501.9985, L100.0100, L506.1001, L500.4100, L500.4050 #### [facility] [address] [place], [address] Lipid Profileon 12-22-2023 Cholesterol [Mass/Vol] 175 mg/dL Normal [address] [facility] Comment on above: Result Comment: <200 mg/dL Desirable 200-240 mg/dL Borderline >240 mg/dL High Risk Performed By: #### L 501.4021 #### [facility] [address] [place], [address] Cholesterol in HDL [Mass/Vol] 70 mg/dL Normal [facility] Comment on above: Result Comment: The drugs N-Acetylcysteine and Metamizole may falsely depress this assay. Reference Range HDL <40 mg/dL Low HDL Cholesterol HDL >or= 60 mg/dL High HDL Cholesterol Performed By: #### L 501.4021 #### [facility] [address] [place], [address] Cholesterol in LDL [Mass/Vol] 85 mg/dL Normal 0-130 [facility] Comment on above: Performed By: #### L 501.4021 #### [facility] [address] [place], [address] Cholesterol in VLDL [Mass/Vol] 20 mg/dL Normal 5-40 [facility] Comment on above: Performed By: #### L 501.4021 #### [facility] [address] [place], [address] Triglyceride [Mass/Vol] 102 mg/dL Normal [facility] Comment on above: Result Comment: The drugs N-Acetylcysteine and Metamizole may falsely depress this assay. Serum Triglycerides Reference Interval Normal <150 mg/dL Borderline high 150 - 199 mg/dL High 200 - 499 mg/dL Very High > or = 500 mg/dL Performed By: #### L 501.4021 #### [facility] [address] [place], [address] Dexa Bone Density Studyon Dexa Bone Density Study [facility] Imaging Services [address] [place] [address] Dexa Bone Density Study MR#: [id number] Acct: [id number] Name: YESENIA HODGSON Rep #: [id number] : 1950 F 73 From: Aroldo landin MD PCP: Dr. Jose David Lindsay MD Status: REG CLI Study: Dexa Bone Density Study Date of Exam: 10/29/23 Exam# [id number] Ordering Dr: Jose David Lindsay [id number] STUDY: DUAL ENERGY X-RAY ABSORPTIOMETRY / DXA REASON FOR EXAM: Female, 73 years old. Z78.0 TECHNIQUE: Bone Mineral Density (BMD) measurements of lumbar spine and bilateral hips were obtained. COMPARISON: Comparison is made with prior study June 19, 2021. FINDINGS: Lumbar Spine (L1-L4): g/cm2 (1.074) / T-score (0.2) / Z-score (2.6) Findings are suggestive of normal bone density with a low fracture risk. Left Femur Total: g/cm2 (0.970) / T-score (0.2) / Z-score (1.9) Left Femoral Neck: g/cm2 (0.892) / T-score (0.4) / Z-score (2.4) Right Femur Total: g/cm2 (0.931) / T-score (-0.1) / Z-score (1.6) Right Femoral Neck: g/cm2 (0.854) / T-score (0.0) / Z-score (2.1) The T-Scores on the most recent prior examination were: Lumbar Spine (L1-L4): There has been worsening of bone density since the previous examination. Left Femur Total: which represents a worsening of 1.5%. Right Femur Total: which represents a worsening of 5.9%. BD/Dexa Bone Density Study IMPRESSION: The patient is considered normal as outlined below according to World [place] Organization (WHO) criteria with a low fracture risk. There has been worsening of bone density since the previous examination. Reference Information: The T-score is the number of standard deviations above or below the standard which is normal for young adults at their peak bone mineral density. The World Health Organization (WHO) interprets the T-scores as follows: Above -1 Normal bone density Between -1 and -2.5 Osteopenia Equal to / or below -2.5 Osteoporosis As a practical clinical guideline, osteopenia may be graded as follows: Mild -1 through -1.5 Moderate -1.6 through -2.0 Severe -2.1 through -2.4 The Z-score is the number of standard deviations above or below age-matched controls. A Z-score of less than -1.5 would be considered abnormal. References: 1. NIH Osteoporosis and Related Bone Diseases www osteo.org 2. International Society for Clinical Densitometry www iscd.org 3. National Osteoporosis Foundation www nof.org Electronically Signed: Arlodo Neves MD at 9:40 EDT , CC: Dr. Jose David Lindsay MD Publication Distributor: Signed Normal [facility] Pulmonary Visit Reporton Pulmonary Visit Report [facility] [place] [address] [place], [place] [id number] OFFICE VISIT Date of Service: 10/29/23 MR#: [id number] Acct: [id number] Name: YESENIA HODGSON Rep #: [id number] : 1950 Provider: AKIL Young Age/Sex: 73/F Location: [facility] [place].PMW Status: Signed Assessment and Plan Assessment and Plan (1) Mild intermittent asthma, uncomplicated: Status: Chronic Plan: She has been asymptomatic this past year. She has not required the use of her albuterol. She has not had any asthma exacerbations. The patient and myself agree that she may follow-up as needed. HPI 6 M FU Chief Complaint: Routine follow-up HPI Comments Details: This patient presents to the office today for follow-up of her mild intermittent asthma. She is ambulatory and currently on room air. She has not recently been seen in the ED or urgent care for any respiratory illness. She has not required any antibiotics or prednisone for any breathing problems. She is not currently on any inhalers. She denies any difficulty with shortness of breath. She denies any wheezing, chest tightness, chest pain or palpitations. She also denies any fever, chills or body aches. She has not had any cough, sputum production or hemoptysis. Intake Vital Signs 08/18/23 07:41 10/29/23 08:05 Height 5 ft 2 in 5 ft 2 in Weight: 237 lb BMI 43.3 BP 124/83 H Blood Pressure Location Lt brachial Position Sitting Respiration 18 Pulse 74 Pulse Source Monitor Temp 97.4 F L Temperature Source Temporal Artery Pulse Oximetry (%) 96 Oxygen Delivery Method room air Intake Visit Reasons: 6 M FU Chief Complaint: Shortness of breath DME Vendor: NA Accompanied by: Self Is patient in pain?: No Allergies Latex, Natural Rubber Allergy (Intermediate, Verified 10/29/23 15:10) Severe rash with condoms, some bandaids cephalexin monohydrate (From Keflex) Allergy (Verified 10/29/23 15:10) Chest tightness ciprofloxacin (From Cipro) Allergy (Verified 10/29/23 15:10) Nausea ciprofloxacin HCl (From Cipro) Allergy (Verified 10/29/23 15:10) Nausea hyoscyamine sulfate (From Levbid) Allergy (Verified 10/29/23 15:10) Chest tightness nitrofurantoin (From Macrobid) Allergy (Verified 10/29/23 15:10) Nausea nitrofurantoin macrocrystalline (From Macrobid) Allergy (Verified 10/29/23 15:10) Nausea NSAIDS (Non-Steroidal Anti-Inflamma Allergy (Verified 10/29/23 15:10) Nausea tramadol Allergy (Verified 10/29/23 15:10) Chest tightness atorvastatin Adverse Reaction (Verified 10/29/23 15:10) insomnia/leg pain nalbuphine HCl (From Nubain) Adverse Reaction (Verified 10/29/23 15:10) Nausea Medications ???Medication ???Instructions ???Recorded ???Confirmed ???Type aspirin 81 mg chewable tablet 81 mg PO DAILY@0800 03/13/14 10/29/23 History levothyroxine 100 mcg tablet 100 mcg PO DAILY 03/13/14 10/29/23 History cholecalciferol (vitamin D3) 50 2,000 unit PO DAILY 05/30/20 10/29/23 History mcg (2,000 unit) capsule omeprazole 40 mg capsule,delayed 40 mg PO DAILY 12/04/22 10/29/23 History release albuterol sulfate 90 mcg/actuation 2 puff inhalation Q6H PRN 12/30/22 10/29/23 History aerosol inhaler fluticasone propionate 50 2 spray intranasal DAILY 12/30/22 10/29/23 History mcg/actuation nasal spray,suspension lactobacillus combination no.4 3 3,000 mmu cells PO DAILY 12/30/22 10/29/23 History billion cell capsule (Probiotic) warfarin 4 mg tablet 4 mg PO DAILY 12/30/22 10/29/23 History budesonide-formotero l HFA 160 2 puff inhalation BID 03/20/23 10/29/23 History mcg-4.5 mcg/actuation aerosol inhaler evolocumab 140 mg/mL subcutaneous 140 mg subcut Q2W #2 mL 06/04/23 10/29/23 Rx pen injector (Payton Domínguez) loratadine 10 mg tablet 10 mg PO QDAY 10/29/23 10/29/23 History ondansetron 4 mg disintegrating 4 mg PO Q8 PRN 10/29/23 10/29/23 History tablet Have you fallen in the past year?: No PFSH Medical History Hyperlipidemia Lung nodule Asthma Osteoarthritis Chronic back pain Hypothyroidism History of pulmonary embolism (08/04/12) Obesity Irritable bowel syndrome Esophageal reflux Surgical History History of left heart catheterization (06/19/20) History of bunionectomy History of tonsillectomy History of cholecystectomy History of total knee arthroplasty (2012) Family History Sister Heart disease CHF at 63 Social History Smoking Status: Former smoker how long ago did patient quit smoking: over 30 years alcohol intake: never substance (more content not included)... Normal [facility] SCRN MAMM (CAD)W/NIKOLAY BILATo n 10-29-2023 SCRN MAMM (CAD)W/NIKOLAY BILAT [facility] Imaging Services [address] [place] [address] SCRN MAMM (CAD)W/NIKOLAY BILAT MR#: [id number] Acct: [id number] Name: YESENIA HODGSON Rep #: [id number] : 1950 F 73 From: Aroldo landin MD PCP: Dr. Jose David Lindsay MD Status: [facility] Study: SCRN MAMM (CAD)W/NKIOLAY BILAT Date of Exam: 10/11 10/03 Exam# [id number] Ordering Dr: Jose David Lindsay [id number] MAMMOGRAPHY - BILATERAL SCREENING REASON FOR EXAM: Female, 73 years old. Routine annual screening examination. PERTINENT HISTORY: Non-contributory. TECHNIQUE: Digital bilateral breast nikolay (3D mammographic acquisition) in the CC and MLO projections. 2-D mediolateral oblique (MLO) and craniocaudad (CC) views of both breasts were obtained. CAD: Full Field Digital Mammography with Computer Added Detection was performed. COMPARISON: Comparison is made with prior study dated June 24, 2022 and June 19, 2021. FINDINGS: Breast Composition: The breasts are almost entirely fatty. There are no dominant masses or suspicious calcifications. Stable small bilateral fat containing axillary lymph nodes. No other significant abnormalities are identified. There has been no significant change since the prior study. BI/SCRN MAMM (CAD)W/NIKOLAY BILAT IMPRESSION: Stable bilateral screening mammogram. Yearly follow-up mammogram recommended. (A) ASSESSMENT CATEGORY: BIRADS Category 2: Benign. A letter regarding these results will be sent to the patient by the facility within 30 days. Approximately 10% of breast cancers are not detected by mammography. A normal mammogram should not delay biopsy of a clinically suspicious abnormality. [id number] Electronically Signed: Aroldo Neves MD at 10:54 EDT , CC: Dr. Jose David Lindsay MD Publication Distributor: Signed Normal [facility] Basophil percentageOrdered B y: Claudia Yeh on 03-07-2023 Bilirubin [Mass/Vol] 0.40 mg/dL 0.20-1.00 [facility] Comment on above: For patients on eltr ombopag therapy, use of Dimension [place] TBIL is not recommended. Cholesterol [Mass/Vol] 146 mg/dL <[address] [facility] Comment on above: <200 mg/dL Desirable 200-240 mg/dL Borderline >240 mg/dL High Risk Protein [Mass/Vol] 7.6 g/dL 6.4-8.2 [facility] Triglyceride [Mass/Vol] 98 mg/dL <199 [facility] Comment on above: The drugs N-Acetylcy steine and Metamizole may falsely depress this assay.Serum Triglycerides Reference Interval Normal <150 mg/dL Borderline high 150 - 199 mg/dL High 200 - 499 mg/dL Very High > or = 500 mg/dL Direct bilirubinOrdered By: Claudia Yeh on 03-07-2023 Bilirubin.direct [Mass/Vol] 0.14 mg/dL 0.00-0.30 [facility] High density lipoprotein (HD L) measurementOrdered By: Claudia Yeh on 03-07-2023 Cholesterol in HDL (Body fld) [Mass/Vol] 66 mg/dL >40 [facility] Comment on above: The drugs N-Acetylcy steine and Metamizole may falsely depress this assay. Reference Range HDL <40 mg/dL Low HDL Cholesterol HDL >or= 60 mg/dL High HDL Cholesterol Laboratory - Chemistry and C hemistry - challengeOrdered By: Claudia Yeh on 03-07-2023 ALP [Catalytic activity/Vol] 82 U/L 45-117 [facility] ALT [Catalytic activity/Vol] 23 U/L 13-56 [facility] Globulin (S) [Mass/Vol] 4.2 g/dL 2.2-4.2 [facility] Low density lipoprotein (LDL ) cholesterol measurementOrdered By: Claudia Yeh on 03-07-2023 Cholesterol in LDL (Body fld) [Moles/Vol] 60 mg/dL 0-130 [facility] Thin prep Papanicolaou smear with manual screeningOrdered By: Claudia Yeh on 03-07-2023 Thin prep Papanicolaou smear with manual screening 3.4 g/dL 3.2-5.0 [facility] Thin prep Papanicolaou smear with manual screening 16 U/L 15-37 [facility] Very low density lipoprotein (VLDL) cholesterol measurementOrdered By: Claudia Yeh on 03-07-2023 Cholesterol in VLDL Calc [Moles/Vol] 20 mg/dL 5-40 [facility] Absolute lymphocyte countOrd ered By: Cuong Gomez on 11-15-2022 Lymphocytes Auto (Unsp spec) [#/Vol] 2.11 10*3/uL 0.83-4.51 [facility] Basophil percentageOrdered B y: Cuong Gomez on 11-15-2022 Basophils/100 WBC (Bld) 0.9 % 0-1 [facility] Chloride [Moles/Vol] 104 mmol/L 98-107 [facility] Eosinophils/100 WBC (Bld) 1.6 % 0-5 [facility] Glucose [Mass/Vol] 107 mg/dL 74-106 [facility] Comment on above: Fasting Glucose resu lt from 100 to 125 mg/dL suggests IMPAIRED HOMEOSTASIS per A.D.A. criteria. Neutrophils (Bld) [#/Vol] 5.2 10*3/uL 2.0-7.7 [facility] Neutrophils/100 WBC (Bld) 62.6 % 47-70 [facility] Potassium [Moles/Vol] 4.2 mmol/L 3.5-5.1 [facility] Sodium [Moles/Vol] 136 mmol/L 136-145 [facility] WBC (Bld) [#/Vol] 8.2 10*3/uL 4.4-11.0 [facility] Blood erythrocytes count (nu mber/volume)Ordered By: Cuong Gomez on 11-15-2022 RBC (Bld) [#/Vol] 4.75 10*6/uL 4.2-5.4 [facility] Blood hemoglobin measurement (mass/volume)Ordered By: Cuong Gomez on 11-15-2022 Hemoglobin (Bld) [Mass/Vol] 14.3 g/dL 12.0-15.0 [facility] Blood lymphocytes/100 leukoc ytesOrdered By: Cuong Gomez on 11-15-2022 Lymphocytes/100 WBC (Bld) 25.7 % 19-41 [facility] Blood monocytes/100 leukocyt esOrdered By: Cuong Gomez on 11-15-2022 Monocytes/100 WBC (Bld) 8.8 % 0-10 [facility] Blood platelet mean volumeOr dered By: Cuong Gomez on 11-15-2022 Platelet mean volume (Bld) [Entitic vol] 9.3 fL 6.2-12.0 [facility] Determination of erythrocyte mean corpuscular volume (MCV)Ordered By: Cuong Gomez on 11-15-2022 MCV (RBC) [Entitic vol] 94.9 fL 81-99 [facility] Hematocrit Auto (Bld) [Volum e fraction]Ordered By: Cuong Gomez on 11-15-2022 Hematocrit (Bld) [Volume fraction] 45.1 % 37-47 [facility] - Chemistry and C hemistry - challengeOrdered By: Cuong Gomez on 11-15-2022 CO2 [Moles/Vol] 30.0 mmol/L 21.0-32.0 [facility] Natriuretic peptide B (Bld) [Mass/Vol] 15.8 pg/mL 0-100 [facility] Urea nitrogen/Creatinine [Mass ratio] 10.3 mg/mg 10-20 [facility] - CoagulationOrde red By: Cuong Gomez on 11-15-2022 PT Coag (PPP) [Time] 25.7 s 11.7-14.9 [facility] - Hematology and Cell countsOrdered By: Cuong Gomez on 11-15-2022 Erythrocyte distribution width (RBC) [Entitic vol] 48.6 fL 35.1-43.9 [facility] Erythrocyte distribution width (RBC) [Ratio] 13.8 % 11.6-14.6 [facility] Immature granulocytes/100 WBC (Bld) 0.400 % 0.0-0.9 [facility] Comment on above: IG% - Immature Granu locytes (promyelocytes, myelocytes and metamyelocytes) > 1% indicates that a LEFT SHIFT is Present. MCH (RBC) [Entitic mass] 30.1 pg 27.0-32.0 [facility] Nucleated RBC/100 WBC (Bld) [Ratio] 0 % 0-5 [facility] MCHC Auto (RBC) [Mass/Vol]Or dered By: Cuong Gomez on 11-15-2022 MCHC (RBC) [Mass/Vol] 31.7 g/dL 32-36 [facility] No Panel InformationOrdered By: Cuong Gomez on 11-15-2022 Troponin I High Sensitivity 4 pg/mL 3.0-54.0 [facility] Comment on above: Please Note: New Hector t Units and Gender Specific Reference Ranges. For more information see Policy Stat Procedure [place] High Sensitivity Troponin (TNIH) and attachments. Estimated Creatinine Clearance Calc 46.23 ml/min [facility] Estimated GFR (MDRD) Amer 82 mL/min >60 [facility] Comment on above: GFR Calc Estimated GFR (MDRD) Non-Af Amer 68 mL/min >60 [facility] Comment on above: Non- GFR Calc Platelets bldOrdered By: Cassi rocio Patricia on 11-15-2022 Platelets (Bld) [#/Vol] 380 10*3/uL 150-450 [facility] Serum or plasma calcium michelle urement (mass/volume)Ordered By: Cuong Gomez on 11-15-2022 Calcium [Mass/Vol] 9.7 mg/dL 8.5-10.1 [facility] Serum or plasma creatinine m easurement (mass/volume)Ordered By: Cuong Gomez on 11-15-2022 Creatinine [Mass/Vol] 0.87 mg/dL 0.55-1.02 [facility] Comment on above: The validity of the calculated GFR & GFRAA in patients over 70 years has not been determined. Clinical correlation is essential. Serum or plasma urea nitroge n measurement (mass/volume)Ordered By: Cuong Gomez on 11-15-2022 Urea nitrogen [Mass/Vol] 9 mg/dL 7-18 [facility] Thin prep Papanicolaou smear with manual screeningOrdered By: Cuong Gomez on 11-15-2022 Thin prep Papanicolaou smear with manual screening 2 5-15 [facility] Whole blood international no rmalized ratio (INR)Ordered By: Cuong Gomez on 11-15-2022 INR Coag (Bld) [Relative time] 2.3 {INR} [facility] Absolute lymphocyte countOrd ered By: Ron Lindsay on 10-17-2022 Lymphocytes Auto (Unsp spec) [#/Vol] 2.53 10*3/uL 0.83-4.51 [facility] Basophil percentageOrdered B y: oRn Lindsay on 10-17-2022 Basophil percentage 0-5 SEEN /hpf 0-[address] [facility] Basophils/100 WBC (Bld) 0.5 % 0-1 [facility] Bilirubin [Mass/Vol] 0.30 mg/dL 0.20-1.00 [facility] Comment on above: For patients on eltr ombopag therapy, use of Dimension [place] TBIL is not recommended. Chloride [Moles/Vol] 105 mmol/L 98-107 [facility] Eosinophils/100 WBC (Bld) 1.7 % 0-5 [facility] Glucose [Mass/Vol] 83 mg/dL 74-106 [facility] Neutrophils (Bld) [#/Vol] 5.7 10*3/uL 2.0-7.7 [facility] Neutrophils/100 WBC (Bld) 61.7 % 47-70 [facility] Potassium [Moles/Vol] 4.3 mmol/L 3.5-5.1 [facility] Protein [Mass/Vol] 7.4 g/dL 6.4-8.2 [facility] Sodium [Moles/Vol] 137 mmol/L 136-145 [facility] WBC (Bld) [#/Vol] 9.2 10*3/uL 4.4-11.0 [facility] Basophil percentageOrdered B y: Mann Megan on 10-17-2022 Cholesterol [Mass/Vol] 231 mg/dL <[address] [facility] Comment on above: <200 mg/dL Desirable 200-240 mg/dL Borderline >240 mg/dL High Risk Triglyceride [Mass/Vol] 174 mg/dL <199 [facility] Comment on above: The drugs N-Acetylcy steine and Metamizole may falsely depress this assay.Serum Triglycerides Reference Interval Normal <150 mg/dL Borderline high 150 - 199 mg/dL High 200 - 499 mg/dL Very High > or = 500 mg/dL Bilirubin Test strip Ql (U)O rdered By: Ron Lindsay on 10-17-2022 Bilirubin Ql (U) Negative Negative [facility] Blood erythrocytes count (nu mber/volume)Ordered By: Ron Lindsay on 10-17-2022 RBC (Bld) [#/Vol] 4.67 10*6/uL 4.2-5.4 [facility] Blood hemoglobin measurement (mass/volume)Ordered By: Ron Lindsay on 10-17-2022 Hemoglobin (Bld) [Mass/Vol] 13.8 g/dL 12.0-15.0 [facility] Blood lymphocytes/100 leukoc ytesOrdered By: Ron Lindsay on 10-17-2022 Lymphocytes/100 WBC (Bld) 27.5 % 19-41 [facility] Blood monocytes/100 leukocyt esOrdered By: Ron Lindsay on 10-17-2022 Monocytes/100 WBC (Bld) 8.3 % 0-10 [facility] Blood platelet mean volumeOr dered By: Ron Lindsay on 10-17-2022 Platelet mean volume (Bld) [Entitic vol] 9.7 fL 6.2-12.0 [facility] Culture, urineOrdered By: Umesh Lindsay on 10-17-2022 Bacteria identified Cx Nom (U) Positive [facility] Determination of erythrocyte mean corpuscular volume (MCV)Ordered By: Ron Lindsay on 10-17-2022 MCV (RBC) [Entitic vol] 95.1 fL 81-99 [facility] Direct bilirubinOrdered By: Mann Guzman on 10-17-2022 Bilirubin.direct [Mass/Vol] 0.05 mg/dL 0.00-0.30 [facility] Erythrocyte sedimentation ra teOrdered By: Ron Lindsay on 10-17-2022 ESR (Bld) [Velocity] 32 mm/h 0-30 [facility] Hematocrit Auto (Bld) [Volum e fraction]Ordered By: Ron Lindsay on 10-17-2022 Hematocrit (Bld) [Volume fraction] 44.4 % 37-47 [facility] Ketones Test strip Ql (U)Ord ered By: Ron Lindsay on 10-17-2022 Ketones Ql (U) Negative Negative [facility] - Chemistry and C hemistry - challengeOrdered By: Ron Lindsay on 10-17-2022 ALP [Catalytic activity/Vol] 78 U/L 45-117 [facility] ALT [Catalytic activity/Vol] 30 U/L 13-56 [facility] CO2 [Moles/Vol] 27.0 mmol/L 21.0-32.0 [facility] Globulin (S) [Mass/Vol] 4.0 g/dL 2.2-4.2 [facility] Urea nitrogen/Creatinine [Mass ratio] 15.2 mg/mg 10-20 [facility] - Hematology and Cell countsOrdered By: Ron Lindsay on 10-17-2022 Erythrocyte distribution width (RBC) [Entitic vol] 49.2 fL 35.1-43.9 [facility] Erythrocyte distribution width (RBC) [Ratio] 14.1 % 11.6-14.6 [facility] Immature granulocytes/100 WBC (Bld) 0.300 % 0.0-0.9 [facility] Comment on above: IG% - Immature Granu locytes (promyelocytes, myelocytes and metamyelocytes) > 1% indicates that a LEFT SHIFT is Present. MCH (RBC) [Entitic mass] 29.6 pg 27.0-32.0 [facility] Nucleated RBC/100 WBC (Bld) [Ratio] 0 % 0-5 [facility] MCHC Auto (RBC) [Mass/Vol]Or dered By: Ron Lindsay on 10-17-2022 MCHC (RBC) [Mass/Vol] 31.1 g/dL 32-36 [facility] Mucus LM Ql (Urine sed)Order ed By: Ron Lindsay on 10-17-2022 Mucus Ql (Urine sed) 0 SEEN /hpf [facility] Nitrite Test strip Ql (U)Ord ered By: Ron Lindsay on 10-17-2022 Nitrite Ql (U) Negative Negative [facility] No Panel InformationOrdered By: Ron Lindsay on 10-17-2022 Estimated GFR (MDRD) Amer 102 mL/min >60 [facility] Comment on above: GFR Calc Estimated GFR (MDRD) Non-Af Amer 84 mL/min >60 [facility] Comment on above: Non- GFR Calc Thyroid Stimulating Hormone (TSH) 1.14 uIU/mL 0.358-3.74 [facility] Platelets bldOrdered By: Lawson Lindsay on 10-17-2022 Platelets (Bld) [#/Vol] 447 10*3/uL 150-450 [facility] Protein Test strip Ql (U)Ord ered By: Ron Lindsay on 10-17-2022 Protein Ql (U) Negative Negative [facility] Serum or plasma albumin michelle urement (mass/volume)Ordered By: Ron Lindsay on 10-17-2022 Albumin [Mass/Vol] 3.4 g/dL 3.2-5.0 [facility] Serum or plasma albumin/glob ulin mass ratioOrdered By: Rno Lindsay on 10-17-2022 Albumin/Globulin [Mass ratio] 0.8 {ratio} 0.9-2.4 [facility] Serum or plasma calcium michelle urement (mass/volume)Ordered By: Ron Lindsay on 10-17-2022 Calcium [Mass/Vol] 9.4 mg/dL 8.5-10.1 [facility] Serum or plasma cholesterol in HDL measurement (mass/volume)Ordered By: Mann Guzman on 10-17-2022 Cholesterol in HDL [Mass/Vol] 59 mg/dL >40 [facility] Comment on above: The drugs N-Acetylcy steine and Metamizole may falsely depress this assay. Reference Range HDL <40 mg/dL Low HDL Cholesterol HDL >or= 60 mg/dL High HDL Cholesterol Serum or plasma cholesterol in VLDL measurement (mass/volume)Ordered By: Mann Guzman on 10-17-2022 Cholesterol in VLDL [Mass/Vol] 35 mg/dL 5-40 [facility] Serum or plasma creatinine m easurement (mass/volume)Ordered By: Ron Lindsay on 10-17-2022 Creatinine [Mass/Vol] 0.72 mg/dL 0.55-1.02 [facility] Comment on above: The validity of the calculated GFR & GFRAA in patients over 70 years has not been determined. Clinical correlation is essential. Serum or plasma low density lipoprotein (LDL) cholesterol measurement (mass/volume)Ordered By: Mann Guzman on 10-17-2022 Cholesterol in LDL [Mass/Vol] 137 mg/dL 0-130 [facility] Serum or plasma urea nitroge n measurement (mass/volume)Ordered By: Ron Lindsay on 10-17-2022 Urea nitrogen [Mass/Vol] 11 mg/dL 7-18 [facility] Squamous epithelial cells de tection in urine sediment by light microscopyOrdered By: Ron Lindsay on 10-17-2022 Epithelial cells.squamous LM Ql (Urine sed) 0-5 SEEN /hpf 5-10 [facility] Thin prep Papanicolaou smear with manual screeningOrdered By: Ron Lindsay on 10-17-2022 Thin prep Papanicolaou smear with manual screening 17 U/L 15-37 [facility] Thin prep Papanicolaou smear with manual screening 5 5-15 [facility] Urine blood detectionOrdered By: Ron Lindsay on 10-17-2022 RBC Ql (U) 250 /ul Negative [facility] RBC Ql (U) 5-10 SEEN /hpf 0-5 [facility] Urine clarityOrdered By: Lawson Lindsay on 10-17-2022 Clarity (U) Clear Clear [facility] Urine color determinationOrd ered By: Ron Lindsay on 10-17-2022 Color (U) Yellow Yellow [facility] Urine glucose detectionOrder ed By: Ron Lindsay on 10-17-2022 Glucose Ql (U) Normal mg/dl Normal [facility] Urine leukocyte esterase det ection by dipstickOrdered By: Ron Lindsay on 10-17-2022 Leukocyte esterase Test strip Ql (U) 500 /ul Negative [facility] Urine pHOrdered By: Claus Lindsay on 10-17-2022 pH (U) 7.0 [pH] 5.0 - 8.0 [facility] Urine sediment bacteria coun t by microscopy (number/high power field)Ordered By: Ron Lindsay on 10-17-2022 Bacteria LM.HPF (Urine sed) [#/Area] 0 /[HPF] None Seen [facility] Urine specific gravity measu rementOrdered By: Rno Lindsay on 10-17-2022 Specific gravity (U) [Rel density] 1.010 1.002-1.030 [facility] Urobilinogen Auto test strip Ql (U)Ordered By: Ron Lindsay on 10-17-2022 Urobilinogen Ql (U) Normal mg/dl Normal [facility] Absolute lymphocyte countOrd ered By: Jose Mcleod on 09-05-2022 Lymphocytes Auto (Unsp spec) [#/Vol] 1.97 10*3/uL 0.83-4.51 [facility] Basophil percentageOrdered B y: Jose Mcleod on 09-05-2022 Basophils/100 WBC (Bld) 0.7 % 0-1 [facility] Bilirubin [Mass/Vol] 0.40 mg/dL 0.20-1.00 [facility] Comment on above: For patients on eltr ombopag therapy, use of Dimension [place] TBIL is not recommended. Chloride [Moles/Vol] 103 mmol/L 98-107 [facility] Cholesterol [Mass/Vol] 223 mg/dL <[address] [facility] Comment on above: <200 mg/dL Desirable 200-240 mg/dL Borderline >240 mg/dL High Risk Eosinophils/100 WBC (Bld) 1.5 % 0-5 [facility] Glucose [Mass/Vol] 91 mg/dL 74-106 [facility] Neutrophils (Bld) [#/Vol] 4.7 10*3/uL 2.0-7.7 [facility] Neutrophils/100 WBC (Bld) 63.5 % 47-70 [facility] Potassium [Moles/Vol] 4.4 mmol/L 3.5-5.1 [facility] Protein [Mass/Vol] 7.7 g/dL 6.4-8.2 [facility] Sodium [Moles/Vol] 139 mmol/L 136-145 [facility] Triglyceride [Mass/Vol] 145 mg/dL <199 [facility] Comment on above: The drugs N-Acetylcy steine and Metamizole may falsely depress this assay.Serum Triglycerides Reference Interval Normal <150 mg/dL Borderline high 150 - 199 mg/dL High 200 - 499 mg/dL Very High > or = 500 mg/dL WBC (Bld) [#/Vol] 7.4 10*3/uL 4.4-11.0 [facility] Blood erythrocytes count (nu mber/volume)Ordered By: Jose Mcleod on 09-05-2022 RBC (Bld) [#/Vol] 4.80 10*6/uL 4.2-5.4 [facility] Blood hemoglobin measurement (mass/volume)Ordered By: Jose Mcleod on 09-05-2022 Hemoglobin (Bld) [Mass/Vol] 14.3 g/dL 12.0-15.0 [facility] Blood lymphocytes/100 leukoc ytesOrdered By: Jose Mcleod on 09-05-2022 Lymphocytes/100 WBC (Bld) 26.6 % 19-41 [facility] Blood monocytes/100 leukocyt esOrdered By: Jose Mcleod on 09-05-2022 Monocytes/100 WBC (Bld) 7.6 % 0-10 [facility] Blood platelet mean volumeOr dered By: Jose Mcleod on 09-05-2022 Platelet mean volume (Bld) [Entitic vol] 9.7 fL 6.2-12.0 [facility] Determination of erythrocyte mean corpuscular volume (MCV)Ordered By: Jose Mcleod on 09-05-2022 MCV (RBC) [Entitic vol] 94.2 fL 81-99 [facility] Hematocrit Auto (Bld) [Volum e fraction][facility] Hematocrit (Bld) [Volume fraction] 45.2 % 37-47 [facility] Laboratory - Chemistry and C hemistry - challengeOrdered By: [facility] ALP [Catalytic activity/Vol] 88 U/L 45-117 [facility] ALT [Catalytic activity/Vol] 25 U/L 13-56 [facility] CO2 [Moles/Vol] 30.0 mmol/L 21.0-32.0 [facility] Globulin (S) [Mass/Vol] 4.3 g/dL 2.2-4.2 [facility] Urea nitrogen/Creatinine [Mass ratio] 11.4 mg/mg 10-20 [facility] - Hematology and Cell countsOrdered By: [facility] on 09-05-2022 Erythrocyte distribution width (RBC) [Entitic vol] 47.8 fL 35.1-43.9 [facility] Erythrocyte distribution width (RBC) [Ratio] 13.8 % 11.6-14.6 [facility] Immature granulocytes/100 WBC (Bld) 0.100 % 0.0-0.9 [facility] Comment on above: IG% - Immature Granu locytes (promyelocytes, myelocytes and metamyelocytes) > 1% indicates that a LEFT SHIFT is Present. MCH (RBC) [Entitic mass] 29.8 pg 27.0-32.0 [facility] Nucleated RBC/100 WBC (Bld) [Ratio] 0 % 0-5 [facility] MCHC Auto (RBC) [Mass/Vol]Or dered By: [facility] on 09-05-2022 MCHC (RBC) [Mass/Vol] 31.6 g/dL 32-36 [facility] No Panel InformationOrdered By: Jose Mcleod on 09-05-2022 Estimated GFR (MDRD) Amer 92 mL/min >60 [facility] Comment on above: GFR Calc Estimated GFR (MDRD) Non-Af Amer 76 mL/min >60 [facility] Comment on above: Non- GFR Calc Troponin I High Sensitivity 4 pg/mL 3.0-54.0 [facility] Comment on above: Please Note: New Hector t Units and Gender Specific Reference Ranges. For more information see Policy Stat Procedure [place] High Sensitivity Troponin (TNIH) and attachments. Platelets bldOrdered By: Toya Mcleod on 09-05-2022 Platelets (Bld) [#/Vol] 409 10*3/uL 150-450 [facility] Serum or plasma albumin michelle urement (mass/volume)Ordered By: Jose Mcleod on 09-05-2022 Albumin [Mass/Vol] 3.4 g/dL 3.2-5.0 [facility] Serum or plasma albumin/glob ulin mass ratioOrdered By: Jose Mcleod on 09-05-2022 Albumin/Globulin [Mass ratio] 0.8 {ratio} 0.9-2.4 [facility] Serum or plasma calcium michelle urement (mass/volume)Ordered By: Jose Mcleod on 09-05-2022 Calcium [Mass/Vol] 10.0 mg/dL 8.5-10.1 [facility] Serum or plasma cholesterol in HDL measurement (mass/volume)Ordered By: Jsoe Mcleod on 09-05-2022 Cholesterol in HDL [Mass/Vol] 61 mg/dL >40 [facility] Comment on above: The drugs N-Acetylcy steine and Metamizole may falsely depress this assay. Reference Range HDL <40 mg/dL Low HDL Cholesterol HDL >or= 60 mg/dL High HDL Cholesterol Serum or plasma cholesterol in VLDL measurement (mass/volume)Ordered By: Jose Mcleod on 09-05-2022 Cholesterol in VLDL [Mass/Vol] 29 mg/dL 5-40 [facility] Serum or plasma creatinine m easurement (mass/volume)Ordered By: Jose Mcleod on 09-05-2022 Creatinine [Mass/Vol] 0.79 mg/dL 0.55-1.02 [facility] Comment on above: The validity of the calculated GFR & GFRAA in patients over 70 years has not been determined. Clinical correlation is essential. Serum or plasma low density lipoprotein (LDL) cholesterol measurement (mass/volume)Ordered By: Jose Mcleod on 09-05-2022 Cholesterol in LDL [Mass/Vol] 133 mg/dL 0-130 [facility] Serum or plasma urea nitroge n measurement (mass/volume)Ordered By: Jose Mcleod on 09-05-2022 Urea nitrogen [Mass/Vol] 9 mg/dL 7-18 [facility] Thin prep Papanicolaou smear with manual screeningOrdered By: Jose Mcleod on 09-05-2022 Thin prep Papanicolaou smear with manual screening 18 U/L 15-37 [facility] Thin prep Papanicolaou smear with manual screening 6 5-15 [facility] Culture, urineOrdered By: Umesh Mcleod on 08-15-2022 Bacteria identified Cx Nom (U) Mixed Gram Pos & Gram Neg Org [facility] Culture, urineOrdered By: Umesh Lindsay on 07-15-2022 Bacteria identified Cx Nom (U) Enterococcus faecalis [facility] Absolute lymphocyte countOrd ered By: Dr. Rosas on 07-07-2022 Lymphocytes Auto (Unsp spec) [#/Vol] 2.50 10*3/uL 0.83-4.51 [facility] Basophil percentageOrdered B y: Dr. Rosas on 07-07-2022 Basophil percentage 0-5 SEEN /hpf 0-[address] [facility] Basophils/100 WBC (Bld) 0.7 % 0-1 [facility] Bilirubin [Mass/Vol] 0.30 mg/dL 0.20-1.00 [facility] Comment on above: For patients on eltr ombopag therapy, use of Dimension [place] TBIL is not recommended. Chloride [Moles/Vol] 105 mmol/L 98-107 [facility] Eosinophils/100 WBC (Bld) 2.4 % 0-5 [facility] Glucose [Mass/Vol] 110 mg/dL 74-106 [facility] Comment on above: Fasting Glucose resu lt from 100 to 125 mg/dL suggests IMPAIRED HOMEOSTASIS per A.D.A. criteria. Neutrophils (Bld) [#/Vol] 3.6 10*3/uL 2.0-7.7 [facility] Neutrophils/100 WBC (Bld) 51.9 % 47-70 [facility] Potassium [Moles/Vol] 3.8 mmol/L 3.5-5.1 [facility] Protein [Mass/Vol] 7.4 g/dL 6.4-8.2 [facility] Sodium [Moles/Vol] 140 mmol/L 136-145 [facility] WBC (Bld) [#/Vol] 6.9 10*3/uL 4.4-11.0 [facility] Bilirubin Test strip Ql (U)O rdered By: Dr. Rosas on 07-07-2022 Bilirubin Ql (U) Negative Negative [facility] Blood erythrocytes count (nu mber/volume)Ordered By: Dr. Rosas on 07-07-2022 RBC (Bld) [#/Vol] 4.55 10*6/uL 4.2-5.4 [facility] Blood hemoglobin measurement (mass/volume)Ordered By: Dr. Rosas on 07-07-2022 Hemoglobin (Bld) [Mass/Vol] 13.8 g/dL 12.0-15.0 [facility] Blood lymphocytes/100 leukoc ytesOrdered By: Dr. Rosas on 07-07-2022 Lymphocytes/100 WBC (Bld) 36.0 % 19-41 [facility] Blood monocytes/100 leukocyt esOrdered By: Dr. Rosas on 07-07-2022 Monocytes/100 WBC (Bld) 8.9 % 0-10 [facility] Blood platelet mean volumeOr dered By: Dr. Rosas on 07-07-2022 Platelet mean volume (Bld) [Entitic vol] 9.0 fL 6.2-12.0 [facility] Determination of erythrocyte mean corpuscular volume (MCV)Ordered By: Dr. Rosas on 07-07-2022 MCV (RBC) [Entitic vol] 92.3 fL 81-99 [facility] Hematocrit Auto (Bld) [Volum e fraction]Ordered By: Dr. Rosas on 07-07-2022 Hematocrit (Bld) [Volume fraction] 42.0 % 37-47 [facility] INR in Blood by Coagulation assayOrdered By: Dr. Rosas on 07-07-2022 INR Coag (Bld) [Relative time] 3.0 {INR} [facility] Ketones Test strip Ql (U)Ord ered By: Dr. Rosas on 07-07-2022 Ketones Ql (U) Negative Negative [facility] Laboratory - Chemistry and C hemistry - challengeOrdered By: Dr. Rosas on 07-07-2022 ALP [Catalytic activity/Vol] 95 U/L 45-117 [facility] ALT [Catalytic activity/Vol] 37 U/L 13-56 [facility] CO2 [Moles/Vol] 28.0 mmol/L 21.0-32.0 [facility] Globulin (S) [Mass/Vol] 4.0 g/dL 2.2-4.2 [facility] Lipase [Catalytic activity/Vol] 35 U/L 13-75 [facility] Comment on above: Please note:LIPASE r evised reference range effective 22. New Lipase methodology. Expected to produce lower values than the previous assay method. NEW Reference Range: 13 - 75 U/L Urea nitrogen/Creatinine [Mass ratio] 12.7 mg/mg 10-20 [facility] Laboratory - CoagulationOrde red By: Dr. Rosas on 07-07-2022 PT Coag (PPP) [Time] 31.9 s 11.7-14.9 [facility] Laboratory - Hematology and Cell countsOrdered By: Dr. Rosas on 07-07-2022 Erythrocyte distribution width (RBC) [Entitic vol] 46.9 fL 35.1-43.9 [facility] Erythrocyte distribution width (RBC) [Ratio] 13.7 % 11.6-14.6 [facility] Immature granulocytes/100 WBC (Bld) 0.100 % 0.0-0.9 [facility] Comment on above: IG% - Immature Granu locytes (promyelocytes, myelocytes and metamyelocytes) > 1% indicates that a LEFT SHIFT is Present. MCH (RBC) [Entitic mass] 30.3 pg 27.0-32.0 [facility] Nucleated RBC/100 WBC (Bld) [Ratio] 0 % 0-5 [facility] MCHC Auto (RBC) [Mass/Vol]Or dered By: Dr. Rosas on 07-07-2022 MCHC (RBC) [Mass/Vol] 32.9 g/dL 32-36 [facility] Mucus LM Ql (Urine sed)Order ed By: Dr. Rosas on 07-07-2022 Mucus Ql (Urine sed) 0 SEEN /hpf [facility] Nitrite Test strip Ql (U)Ord ered By: Dr. Rosas on 07-07-2022 Nitrite Ql (U) Negative Negative [facility] No Panel InformationOrdered By: Dr. Rosas on 07-07-2022 Estimated Creatinine Clearance Calc 40.22 ml/min [facility] Estimated GFR (MDRD) Amer 92 mL/min >60 [facility] Comment on above: GFR Calc Estimated GFR (MDRD) Non-Af Amer 76 mL/min >60 [facility] Comment on above: Non- GFR Calc Platelets bldOrdered By: Dr. Rosas on 07-07-2022 Platelets (Bld) [#/Vol] 354 10*3/uL 150-450 [facility] Protein Test strip Ql (U)Ord ered By: Dr. Rosas on 07-07-2022 Protein Ql (U) Negative Negative [facility] Serum or plasma albumin michelle urement (mass/volume)Ordered By: Dr. Rosas on 07-07-2022 Albumin [Mass/Vol] 3.4 g/dL 3.2-5.0 [facility] Serum or plasma albumin/glob ulin mass ratioOrdered By: Dr. Rosas on 07-07-2022 Albumin/Globulin [Mass ratio] 0.8 {ratio} 0.9-2.4 [facility] Serum or plasma calcium michelle urement (mass/volume)Ordered By: Dr. Rosas on 07-07-2022 Calcium [Mass/Vol] 9.9 mg/dL 8.5-10.1 [facility] Serum or plasma creatinine m easurement (mass/volume)Ordered By: Dr. Rosas on 07-07-2022 Creatinine [Mass/Vol] 0.79 mg/dL 0.55-1.02 [facility] Comment on above: The validity of the calculated GFR & GFRAA in patients over 70 years has not been determined. Clinical correlation is essential. Serum or plasma urea nitroge n measurement (mass/volume)Ordered By: Dr. Rosas on 07-07-2022 Urea nitrogen [Mass/Vol] 10 mg/dL 7-18 [facility] Squamous epithelial cells de tection in urine sediment by light microscopyOrdered By: Dr. Rosas on 07-07-2022 Epithelial cells.squamous LM Ql (Urine sed) 0-5 SEEN /hpf 5-10 [facility] Thin prep Papanicolaou smear with manual screeningOrdered By: Dr. Rosas on 07-07-2022 Thin prep Papanicolaou smear with manual screening 26 U/L 15-37 [facility] Thin prep Papanicolaou smear with manual screening 7 5-15 [facility] Urine blood detectionOrdered By: Dr. Rosas on 07-07-2022 RBC Ql (U) 250 /ul Negative [facility] RBC Ql (U) 5-10 SEEN /hpf 0-5 [facility] Urine clarityOrdered By: Dr. Rosas on 07-07-2022 Clarity (U) Clear Clear [facility] Urine color determinationOrd ered By: Dr. Rosas on 07-07-2022 Color (U) Yellow Yellow [facility] Urine glucose detectionOrder ed By: Dr. Rosas on 07-07-2022 Glucose Ql (U) Normal mg/dl Normal [facility] Urine leukocyte esterase det ection by dipstickOrdered By: Dr. Rosas on 07-07-2022 Leukocyte esterase Test strip Ql (U) 100 /ul Negative [facility] Urine pHOrdered By: Dr. Kg jones on 07-07-2022 pH (U) 6.0 [pH] 5.0 - 8.0 [facility] Urine sediment bacteria coun t by microscopy (number/high power field)Ordered By: Dr. Rosas on 07-07-2022 Bacteria LM.HPF (Urine sed) [#/Area] RARE /hpf None Seen [facility] Urine specific gravity measu rementOrdered By: Dr. Rosas on 07-07-2022 Specific gravity (U) [Rel density] 1.010 1.002-1.030 [facility] Urobilinogen Auto test strip Ql (U)Ordered By: Dr. Rosas on 07-07-2022 Urobilinogen Ql (U) Normal mg/dl Normal [facility] Basophil percentageOrdered B y: Dr. Lindsay on 06-26-2022 Bilirubin [Mass/Vol] 0.30 mg/dL 0.20-1.00 [facility] Comment on above: For patients on eltr ombopag therapy, use of Dimension [place] TBIL is not recommended. Chloride [Moles/Vol] 109 mmol/L 98-107 [facility] Cholesterol [Mass/Vol] 205 mg/dL <[address] [facility] Comment on above: <200 mg/dL Desirable 200-240 mg/dL Borderline >240 mg/dL High Risk Glucose [Mass/Vol] 100 mg/dL 74-106 [facility] Comment on above: Fasting Glucose resu lt from 100 to 125 mg/dL suggests IMPAIRED HOMEOSTASIS per A.D.A. criteria. Potassium [Moles/Vol] 4.2 mmol/L 3.5-5.1 [facility] Protein [Mass/Vol] 7.3 g/dL 6.4-8.2 [facility] Sodium [Moles/Vol] 141 mmol/L 136-145 [facility] Triglyceride [Mass/Vol] 112 mg/dL <199 [facility] Comment on above: The drugs N-Acetylcy steine and Metamizole may falsely depress this assay.Serum Triglycerides Reference Interval Normal <150 mg/dL Borderline high 150 - 199 mg/dL High 200 - 499 mg/dL Very High > or = 500 mg/dL WBC (Bld) [#/Vol] 6.0 10*3/uL 4.4-11.0 [facility] Blood erythrocytes count (nu mber/volume)Ordered By: Dr. Lindsay on 06-26-2022 RBC (Bld) [#/Vol] 4.62 10*6/uL 4.2-5.4 [facility] Blood hemoglobin measurement (mass/volume)Ordered By: Dr. Lindsay on 06-26-2022 Hemoglobin (Bld) [Mass/Vol] 14.0 g/dL 12.0-15.0 [facility] Blood platelet mean volumeOr dered By: Dr. Lindsay on 06-26-2022 Platelet mean volume (Bld) [Entitic vol] 9.6 fL 6.2-12.0 [facility] Determination of erythrocyte mean corpuscular volume (MCV)Ordered By: Dr. Lindsay on 06-26-2022 MCV (RBC) [Entitic vol] 93.3 fL 81-99 [facility] Hematocrit Auto (Bld) [Volum e fraction]Ordered By: Dr. Lindsay on 06-26-2022 Hematocrit (Bld) [Volume fraction] 43.1 % 37-47 [facility] Laboratory - Chemistry and C hemistry - challengeOrdered By: Dr. Lindsay on 06-26-2022 ALP [Catalytic activity/Vol] 87 U/L 45-117 [facility] ALT [Catalytic activity/Vol] 30 U/L 13-56 [facility] CO2 [Moles/Vol] 26.0 mmol/L 21.0-32.0 [facility] Globulin (S) [Mass/Vol] 4.0 g/dL 2.2-4.2 [facility] Urea nitrogen/Creatinine [Mass ratio] 18.6 mg/mg 10-20 [facility] - Hematology and Cell countsOrdered By: Dr. Lindsay on 06-26-2022 Erythrocyte distribution width (RBC) [Entitic vol] 46.8 fL 35.1-43.9 [facility] Erythrocyte distribution width (RBC) [Ratio] 13.8 % 11.6-14.6 [facility] MCH (RBC) [Entitic mass] 30.3 pg 27.0-32.0 [facility] MCHC Auto (RBC) [Mass/Vol]Or dered By: Dr. Lindsay on 06-26-2022 MCHC (RBC) [Mass/Vol] 32.5 g/dL 32-36 [facility] No Panel InformationOrdered By: Dr. Lindsay on 06-26-2022 Estimated GFR (MDRD) Amer 106 mL/min >60 [facility] Comment on above: GFR Calc Estimated GFR (MDRD) Non-Af Amer 88 mL/min >60 [facility] Comment on above: Non- GFR Calc Thyroid Stimulating Hormone (TSH) 1.09 uIU/mL 0.358-3.74 [facility] Vitamin B12 Level > 2000 pg/mL 211-911 [facility] Vitamin D 25-Hydroxy 57.7 ng/mL [facility] Comment on above: Vitamin D 25(OH) Sta tus Range Deficiency <20 ng/mL (50nmol/L) Insufficiency 20 - 30 ng/mL (50 - 75 nmol/L) Sufficiency 30 - 100 ng/mL (75 - 250 nmol/L) Toxicity >100 ng/mL (>250 nmol/L) Platelets bldOrdered By: Dr. Lindsay on 06-26-2022 Platelets (Bld) [#/Vol] 390 10*3/uL 150-450 [facility] Serum or plasma albumin michelle urement (mass/volume)Ordered By: Dr. Lindsay on 06-26-2022 Albumin [Mass/Vol] 3.3 g/dL 3.2-5.0 [facility] Serum or plasma albumin/glob ulin mass ratioOrdered By: Dr. Lindsay on 06-26-2022 Albumin/Globulin [Mass ratio] 0.8 {ratio} 0.9-2.4 [facility] Serum or plasma calcium michelle urement (mass/volume)Ordered By: Dr. Lindsay on 06-26-2022 Calcium [Mass/Vol] 9.3 mg/dL 8.5-10.1 [facility] Serum or plasma cholesterol in HDL measurement (mass/volume)Ordered By: Dr. Lindsay on 06-26-2022 Cholesterol in HDL [Mass/Vol] 59 mg/dL >40 [facility] Comment on above: The drugs N-Acetylcy steine and Metamizole may falsely depress this assay. Reference Range HDL <40 mg/dL Low HDL Cholesterol HDL >or= 60 mg/dL High HDL Cholesterol Serum or plasma cholesterol in VLDL measurement (mass/volume)Ordered By: Dr. Lindsay on 06-26-2022 Cholesterol in VLDL [Mass/Vol] 22 mg/dL 5-40 [facility] Serum or plasma creatinine m easurement (mass/volume)Ordered By: Dr. Lindsay on 06-26-2022 Creatinine [Mass/Vol] 0.70 mg/dL 0.55-1.02 [facility] Comment on above: The validity of the calculated GFR & GFRAA in patients over 70 years has not been determined. Clinical correlation is essential. Serum or plasma low density lipoprotein (LDL) cholesterol measurement (mass/volume)Ordered By: Dr. Lindsay on 06-26-2022 Cholesterol in LDL [Mass/Vol] 124 mg/dL 0-130 [facility] Serum or plasma urea nitroge n measurement (mass/volume)Ordered By: Dr. Lindsay on 06-26-2022 Urea nitrogen [Mass/Vol] 13 mg/dL 7-18 [facility] Thin prep Papanicolaou smear with manual screeningOrdered By: Dr. Lindsay on 06-26-2022 Thin prep Papanicolaou smear with manual screening 18 U/L 15-37 [facility] Thin prep Papanicolaou smear with manual screening 6 5-15 [facility] Culture, urineOrdered By: Dr Lai Lindsay on 04-11-2022 Bacteria identified Cx Nom (U) Positive [facility] Absolute lymphocyte countOrd ered By: Dr. Lindsay on 04-10-2022 Lymphocytes Auto (Unsp spec) [#/Vol] 2.02 10*3/uL 0.83-4.51 [facility] Basophil percentageOrdered B y: Dr. Lindsay on 04-10-2022 Basophils/100 WBC (Bld) 0.7 % 0-1 [facility] Bilirubin [Mass/Vol] 0.70 mg/dL 0.20-1.00 [facility] Comment on above: For patients on eltr ombopag therapy, use of Dimension [place] TBIL is not recommended. Chloride [Moles/Vol] 105 mmol/L 98-107 [facility] Eosinophils/100 WBC (Bld) 3.0 % 0-5 [facility] Glucose [Mass/Vol] 96 mg/dL 74-106 [facility] Neutrophils (Bld) [#/Vol] 3.9 10*3/uL 2.0-7.7 [facility] Neutrophils/100 WBC (Bld) 58.6 % 47-70 [facility] Potassium [Moles/Vol] 4.0 mmol/L 3.5-5.1 [facility] Protein [Mass/Vol] 7.5 g/dL 6.4-8.2 [facility] Sodium [Moles/Vol] 140 mmol/L 136-145 [facility] WBC (Bld) [#/Vol] 6.7 10*3/uL 4.4-11.0 [facility] Blood erythrocytes count (nu mber/volume)Ordered By: Dr. Lindsay on 04-10-2022 RBC (Bld) [#/Vol] 4.89 10*6/uL 4.2-5.4 [facility] Blood hemoglobin measurement (mass/volume)Ordered By: Dr. Lindsay on 04-10-2022 Hemoglobin (Bld) [Mass/Vol] 14.5 g/dL 12.0-15.0 [facility] Blood lymphocytes/100 leukoc ytesOrdered By: Dr. Lindsay on 04-10-2022 Lymphocytes/100 WBC (Bld) 30.2 % 19-41 [facility] Blood monocytes/100 leukocyt esOrdered By: Dr. Lindsay on 04-10-2022 Monocytes/100 WBC (Bld) 7.2 % 0-10 [facility] Blood platelet mean volumeOr dered By: Dr. Lindsay on 04-10-2022 Platelet mean volume (Bld) [Entitic vol] 9.4 fL 6.2-12.0 [facility] Determination of erythrocyte mean corpuscular volume (MCV)Ordered By: Dr. Lindsay on 04-10-2022 MCV (RBC) [Entitic vol] 92.4 fL 81-99 [facility] Hematocrit Auto (Bld) [Volum e fraction]Ordered By: Dr. Lindsay on 04-10-2022 Hematocrit (Bld) [Volume fraction] 45.2 % 37-47 [facility] Laboratory - Chemistry and C hemistry - challengeOrdered By: Dr. Lindsay on 04-10-2022 ALP [Catalytic activity/Vol] 84 U/L 45-117 [facility] ALT [Catalytic activity/Vol] 29 U/L 13-56 [facility] CO2 [Moles/Vol] 28.0 mmol/L 21.0-32.0 [facility] Globulin (S) [Mass/Vol] 4.0 g/dL 2.2-4.2 [facility] Urea nitrogen/Creatinine [Mass ratio] 10.3 mg/mg 10-20 [facility] - Hematology and Cell countsOrdered By: Dr. Lindsay on 04-10-2022 Erythrocyte distribution width (RBC) [Entitic vol] 45.7 fL 35.1-43.9 [facility] Erythrocyte distribution width (RBC) [Ratio] 13.4 % 11.6-14.6 [facility] Immature granulocytes/100 WBC (Bld) 0.300 % 0.0-0.9 [facility] Comment on above: IG% - Immature Granu locytes (promyelocytes, myelocytes and metamyelocytes) > 1% indicates that a LEFT SHIFT is Present. MCH (RBC) [Entitic mass] 29.7 pg 27.0-32.0 [facility] Nucleated RBC/100 WBC (Bld) [Ratio] 0 % 0-5 [facility] MCHC Auto (RBC) [Mass/Vol]Or dered By: Dr. Lindsay on 04-10-2022 MCHC (RBC) [Mass/Vol] 32.1 g/dL 32-36 [facility] No Panel InformationOrdered By: Dr. Lindsay on 04-10-2022 Estimated GFR (MDRD) Amer 93 mL/min >60 [facility] Comment on above: GFR Calc Estimated GFR (MDRD) Non-Af Amer 77 mL/min >60 [facility] Comment on above: Non- GFR Calc Thyroid Stimulating Hormone (TSH) 0.90 uIU/mL 0.358-3.74 [facility] Platelets bldOrdered By: Dr. Lindsay on 04-10-2022 Platelets (Bld) [#/Vol] 398 10*3/uL 150-450 [facility] Serum or plasma albumin michelle urement (mass/volume)Ordered By: Dr. Lindsay on 04-10-2022 Albumin [Mass/Vol] 3.5 g/dL 3.2-5.0 [facility] Serum or plasma albumin/glob ulin mass ratioOrdered By: Dr. Lindsay on 04-10-2022 Albumin/Globulin [Mass ratio] 0.9 {ratio} 0.9-2.4 [facility] Serum or plasma calcium michelle urement (mass/volume)Ordered By: Dr. Lindsay on 04-10-2022 Calcium [Mass/Vol] 10.0 mg/dL 8.5-10.1 [facility] Serum or plasma creatinine m easurement (mass/volume)Ordered By: Dr. Lindsay on 04-10-2022 Creatinine [Mass/Vol] 0.78 mg/dL 0.55-1.02 [facility] Comment on above: The validity of the calculated GFR & GFRAA in patients over 70 years has not been determined. Clinical correlation is essential. Serum or plasma urea nitroge n measurement (mass/volume)Ordered By: Dr. Lindsay on 04-10-2022 Urea nitrogen [Mass/Vol] 8 mg/dL 7-18 [facility] Thin prep Papanicolaou smear with manual screeningOrdered By: Dr. Lindsay on 04-10-2022 Thin prep Papanicolaou smear with manual screening 20 U/L 15-37 [facility] Thin prep Papanicolaou smear with manual screening 7 5-15 [facility] Culture, urineOrdered By: Salma Cannon on 04-07-2022 Bacteria identified Cx Nom (U) Positive [facility] Basophil percentageOrdered B y: Eva Cannon on 04-05-2022 Basophil percentage 0-5 SEEN /hpf 0-[address] [facility] Bilirubin Test strip Ql (U)O rdered By: Eva Cannon on 04-05-2022 Bilirubin Ql (U) Negative Negative [facility] Ketones Test strip Ql (U)Ord ered By: Eva Cannon on 04-05-2022 Ketones Ql (U) Negative Negative [facility] Mucus LM Ql (Urine sed)Order ed By: Eva Cannon on 04-05-2022 Mucus Ql (Urine sed) 0 SEEN /hpf [facility] Nitrite Test strip Ql (U)Ord ered By: Eva Cannon on 04-05-2022 Nitrite Ql (U) Negative Negative [facility] Protein Test strip Ql (U)Ord ered By: Eva Cannon on 04-05-2022 Protein Ql (U) Negative Negative [facility] Squamous epithelial cells de tection in urine sediment by light microscopyOrdered By: Eva Cannon on 04-05-2022 Epithelial cells.squamous LM Ql (Urine sed) 0-5 SEEN /hpf 5-10 [facility] Urine blood detectionOrdered By: Eva Cannon on 04-05-2022 RBC Ql (U) 150 /ul Negative [facility] RBC Ql (U) 10-25 SEEN /hpf 0-5 [facility] Urine clarityOrdered By: Pramod Cannon on 04-05-2022 Clarity (U) Sl Cldy Clear [facility] Urine color determinationOrd ered By: Eva Cannon on 04-05-2022 Color (U) Yellow Yellow [facility] Urine glucose detectionOrder ed By: Eva Cannon on 04-05-2022 Glucose Ql (U) Normal mg/dl Normal [facility] Urine leukocyte esterase det ection by dipstickOrdered By: Eva Cannon on 04-05-2022 Leukocyte esterase Test strip Ql (U) Negative Negative [facility] Urine pHOrdered By: Eva corado on 04-05-2022 pH (U) 7.0 [pH] 5.0 - 8.0 [facility] Urine sediment bacteria coun t by microscopy (number/high power field)Ordered By: Eva Cannon on 04-05-2022 Bacteria LM.HPF (Urine sed) [#/Area] 1 /[HPF] None Seen [facility] Urine specific gravity measu rementOrdered By: Eva Cannon on 04-05-2022 Specific gravity (U) [Rel density] 1.005 1.002-1.030 [facility] Urobilinogen Auto test strip Ql (U)Ordered By: Eva Cannon on 04-05-2022 Urobilinogen Ql (U) Normal mg/dl Normal [facility] Culture, urineOrdered By: Salma Cannon on 04-03-2022 Bacteria identified Cx Nom (U) Positive [facility] Basophil percentageon 2021 Bilirubin [Mass/Vol] 0.20 mg/dL 0.20-1.00 [facility] Work Phone: Comment on above: For patients on eltr ombopag therapy, use of Dimension [place] TBIL is not recommended. Chloride [Moles/Vol] 106 mmol/L 98-107 [facility] Work Phone: Glucose [Mass/Vol] 104 mg/dL 74-106 [facility] Work Phone: Comment on above: Fasting Glucose resu lt from 100 to 125 mg/dL suggests IMPAIRED HOMEOSTASIS per A.D.A. criteria. Potassium [Moles/Vol] 4.1 mmol/L 3.5-5.1 [facility]: Protein [Mass/Vol] 7.6 g/dL 6.4-8.2 [facility] Work [facility]: Sodium [Moles/Vol] 140 mmol/L 136-145 [facility] Work Phone: WBC (Bld) [#/Vol] 8.4 10*3/uL 4.4-11.0 [facility] Work Phone: Blood erythrocytes count (nu mber/volume)on 11-23-2021 RBC (Bld) [#/Vol] 4.73 10*6/uL 4.2-5.4 [facility] Work Phone: Blood hemoglobin measurement (mass/volume)on 11-23-2021 Hemoglobin (Bld) [Mass/Vol] 14.5 g/dL 12.0-15.0 [facility] Work Phone: Blood platelet mean volumeon 11-23-2021 Platelet mean volume (Bld) [Entitic vol] 9.4 fL 6.2-12.0 [facility] Work Phone: Determination of erythrocyte mean corpuscular volume (MCV)on 11-23-2021 MCV (RBC) [Entitic vol] 95.1 fL 81-99 [facility] Work Phone: Hematocrit Auto (Bld) [Volum e fraction]on 11-23-2021 Hematocrit (Bld) [Volume fraction] 45.0 % 37-47 [facility] Work Phone: Laboratory - Chemistry and C hemistry - challengeon 11-23-2021 ALP [Catalytic activity/Vol] 79 U/L 45-117 [facility] Work Phone: ALT [Catalytic activity/Vol] 28 U/L 13-56 [facility] Work Phone: CO2 [Moles/Vol] 29.0 mmol/L 21.0-32.0 [facility] Work Phone: Globulin (S) [Mass/Vol] 4.4 g/dL 2.2-4.2 [facility] Work Phone: Magnesium [Mass/Vol] 2.0 mg/dL 1.6-2.6 [facility] Work Phone: Urea nitrogen/Creatinine [Mass ratio] 17.4 mg/mg 10-20 [facility] Work Phone: Laboratory - Hematology and Cell countson 11-23-2021 Erythrocyte distribution width (RBC) [Entitic vol] 49.2 fL 35.1-43.9 [facility] Work Phone: Erythrocyte distribution width (RBC) [Ratio] 13.9 % 11.6-14.6 [facility] Work Phone: MCH (RBC) [Entitic mass] 30.7 pg 27.0-32.0 [facility] Work Phone: MCHC Auto (RBC) [Mass/Vol]on 11-23-2021 MCHC (RBC) [Mass/Vol] 32.2 g/dL 32-36 [facility] Work Phone: No Panel Informationon 11-23 Estimated GFR (MDRD) Amer 98 mL/min >60 [facility] Work Phone: Comment on above: GFR Calc Estimated GFR (MDRD) Non-Af Amer 81 mL/min >60 [facility] Work Phone: Comment on above: Non- GFR Calc Thyroid Stimulating Hormone (TSH) 1.28 uIU/mL 0.358-3.74 [facility] Work Phone: Platelets bldon 11-23-2021 Platelets (Bld) [#/Vol] 388 10*3/uL 150-450 [facility] Work Phone: Serum or plasma albumin michelle urement (mass/volume)on 11-23-2021 Albumin [Mass/Vol] 3.2 g/dL 3.2-5.0 [facility] Work Phone: Serum or plasma albumin/glob ulin mass ratioon 11-23-2021 Albumin/Globulin [Mass ratio] 0.7 {ratio} 0.9-2.4 [facility] Work Phone: Serum or plasma calcium michelle urement (mass/volume)on 11-23-2021 Calcium [Mass/Vol] 9.8 mg/dL 8.5-10.1 [facility] Work Phone: Serum or plasma creatinine m easurement (mass/volume)on 11-23-2021 Creatinine [Mass/Vol] 0.75 mg/dL 0.55-1.02 [facility] Work Phone: Comment on above: The validity of the calculated GFR & GFRAA in patients over 70 years has not been determined. Clinical correlation is essential. Serum or plasma urea nitroge n measurement (mass/volume)on 11-23-2021 Urea nitrogen [Mass/Vol] 13 mg/dL 7-18 [facility] Work Phone: Thin prep Papanicolaou smear with manual screeningon 11-23-2021 Thin prep Papanicolaou smear with manual screening 14 U/L 15-37 [facility] Work Phone: Thin prep Papanicolaou smear with manual screening 5 5-15 [facility] Work Phone: Laboratory - Microbiology an d Antimicrobial susceptibilityon 10-30-2021 SARS-CoV-2 (COVID-19) RNA MORENA+probe Ql (Unsp spec) Detected Not Detect [facility] Work Phone: Comment on above: Normal Reference Ran ge: Not DetectedMethod:(RT-PCR) real-time reverse transcriptase PCRLuminex JONNY Instrument*The Food and Drug Administration (FDA) has issued an Emergency Use Authorization (EAU) for the JONNY SARS-CoV-2 Assay for the rapid detection of the virus that causes COVID-19. This test has been validated, but the FDAs independent review of this validation is pending.*Negative results do not preclude infection and should not be used as the sole basis for treatment or patient management. Optimum specimen types and timing for peak viral levels during infections caused by SARS-CoV-2 have not been determined. Collection of multiple specimens from the same patient may be necessary to detect the virus. The possibility of a false negative result should be considered if the patient has clinical presentation or has had recent exposure. Basophil percentageon 2021 Bilirubin [Mass/Vol] 0.40 mg/dL 0.20-1.00 [facility] Work Phone: Comment on above: For patients on eltr ombopag therapy, use of Dimension [place] TBIL is not recommended. Cholesterol [Mass/Vol] 213 mg/dL <[address] [facility] Work Phone: Comment on above: <200 mg/dL Desirable 200-240 mg/dL Borderline >240 mg/dL High Risk Protein [Mass/Vol] 7.6 g/dL 6.4-8.2 [facility] Work Phone: Triglyceride [Mass/Vol] 129 mg/dL <199 [facility] Work Phone: Comment on above: The drugs N-Acetylcy steine and Metamizole may falsely depress this assay.Serum Triglycerides Reference Interval Normal <150 mg/dL Borderline high 150 - 199 mg/dL High 200 - 499 mg/dL Very High > or = 500 mg/dL Direct bilirubinon 2 Bilirubin.direct [Mass/Vol] 0.09 mg/dL 0.00-0.30 [facility] Work Phone: Laboratory - Chemistry and C hemistry - challengeon 09-19-2021 ALP [Catalytic activity/Vol] 80 U/L 45-117 [facility] Work Phone: ALT [Catalytic activity/Vol] 28 U/L 13-56 [facility] Work Phone: Globulin (S) [Mass/Vol] 4.1 g/dL 2.2-4.2 [facility] Work Phone: Serum or plasma albumin michelle urement (mass/volume)on 09-19-2021 Albumin [Mass/Vol] 3.5 g/dL 3.2-5.0 [facility] Work Phone: Serum or plasma cholesterol in HDL measurement (mass/volume)on 09-19-2021 Cholesterol in HDL [Mass/Vol] 58 mg/dL >40 [facility] Work Phone: Comment on above: The drugs N-Acetylcy steine and Metamizole may falsely depress this assay. Reference Range HDL <40 mg/dL Low HDL Cholesterol HDL >or= 60 mg/dL High HDL Cholesterol Serum or plasma cholesterol in VLDL measurement (mass/volume)on 09-19-2021 Cholesterol in VLDL [Mass/Vol] 26 mg/dL 5-40 [facility] Work Phone: Serum or plasma low density lipoprotein (LDL) cholesterol measurement (mass/volume)on 09-19-2021 Cholesterol in LDL [Mass/Vol] 129 mg/dL 0-130 [facility] Work Phone: Thin prep Papanicolaou smear with manual screeningon 09-19-2021 Thin prep Papanicolaou smear with manual screening 19 U/L 15-37 [facility] Work Phone: Absolute lymphocyte counton 09-17-2021 Lymphocytes Auto (Unsp spec) [#/Vol] 1.60 10*3/uL 0.83-4.51 [facility] Work Phone: Basophil percentageon 2021 Basophils/100 WBC (Bld) 0.7 % 0-1 [facility] Work Phone: Bilirubin [Mass/Vol] 0.30 mg/dL 0.20-1.00 [facility] Work Phone: Comment on above: For patients on eltr ombopag therapy, use of Dimension [place] TBIL is not recommended. Chloride [Moles/Vol] 103 mmol/L 98-107 [facility] Work Phone: Eosinophils/100 WBC (Bld) 1.6 % 0-5 [facility] Work Phone: [phone] Glucose [Mass/Vol] 97 mg/dL 74-106 [facility] Work Phone: Neutrophils (Bld) [#/Vol] 5.1 10*3/uL 2.0-7.7 [facility] Work Phone: [phone] Neutrophils/100 WBC (Bld) 68.7 % 47-70 [facility] Work Phone: [phone] Potassium [Moles/Vol] 4.1 mmol/L 3.5-5.1 [facility] Work [facility]: [phone] Protein [Mass/Vol] 7.8 g/dL 6.4-8.2 [facility] Work Phone: [phone] Sodium [Moles/Vol] 138 mmol/L 136-145 [facility] Work Phone: [phone] WBC (Bld) [#/Vol] 7.4 10*3/uL 4.4-11.0 [facility] Work Phone: [phone] Basophil percentage 0 SE[facility]: [phone] Bilirubin Test strip Ql (U)o n 09-17-2021 Bilirubin Ql (U) Negative Negative [facility] Work Phone: [phone] Blood erythrocytes count (nu mber/volume)on 09-17-2021 RBC (Bld) [#/Vol] 4.79 10*6/uL 4.2-5.4 [facility] Work Phone: [phone] Blood hemoglobin measurement (mass/volume)on 09-17-2021 Hemoglobin (Bld) [Mass/Vol] 14.6 g/dL 12.0-15.0 [facility] Work Phone: Blood lymphocytes/100 leukoc yteson 09-17-2021 Lymphocytes/100 WBC (Bld) 21.7 % 19-41 [facility] Work Phone: [phone] Blood monocytes/100 leukocyt eson 09-17-2021 Monocytes/100 WBC (Bld) 6.9 % 0-10 [facility] Work Phone: Blood platelet mean volumeon 09-17-2021 Platelet mean volume (Bld) [Entitic vol] 9.3 fL 6.2-12.0 [facility] Work Phone: Determination of erythrocyte mean corpuscular volume (MCV)on 09-17-2021 MCV (RBC) [Entitic vol] 93.3 fL 81-99 [facility] Work Phone: Hematocrit Auto (Bld) [Volum e fraction]on 09-17-2021 Hematocrit (Bld) [Volume fraction] 44.7 % 37-47 [facility] Work Phone: INR in Blood by Coagulation assayon 09-17-2021 INR Coag (Bld) [Relative time] 2.1 {INR} [facility] Work Phone: Ketones Test strip Ql (U)on 09-17-2021 Ketones Ql (U) Negative Negative [facility] Work Phone: Laboratory - Chemistry and C hemistry - challengeon 09-17-2021 ALP [Catalytic activity/Vol] 81 U/L 45-117 [facility] Work Phone: ALT [Catalytic activity/Vol] 34 U/L 13-56 [facility] Work Phone: CO2 [Moles/Vol] 31.0 mmol/L 21.0-32.0 [facility] Work Phone: Globulin (S) [Mass/Vol] 4.3 g/dL 2.2-4.2 [facility] Work Phone: Urea nitrogen/Creatinine [Mass ratio] 16.2 mg/mg 10-20 [facility] Work Phone: Laboratory - Coagulationon 0 09-17-2021 PT Coag (PPP) [Time] 23.2 s 11.7-14.9 [facility] Work [facility]: Laboratory - Hematology and Cell countson 09-17-2021 Erythrocyte distribution width (RBC) [Entitic vol] 46.1 fL 35.1-43.9 [facility] Work Phone: Erythrocyte distribution width (RBC) [Ratio] 13.5 % 11.6-14.6 [facility] Work Phone: Immature granulocytes/100 WBC (Bld) 0.400 % 0.0-0.9 [facility] Work Phone: Comment on above: IG% - Immature Granu locytes (promyelocytes, myelocytes and metamyelocytes) > 1% indicates that a LEFT SHIFT is Present. MCH (RBC) [Entitic mass] 30.5 pg 27.0-32.0 [facility] Work Phone: Nucleated RBC/100 WBC (Bld) [Ratio] 0 % 0-5 [facility] Work Phone: MCHC Auto (RBC) [Mass/Vol]on 09-17-2021 MCHC (RBC) [Mass/Vol] 32.7 g/dL 32-36 [facility] Work Phone: Mucus LM Ql (Urine sed)on Mucus Ql (Urine sed) 0 SEEN /hpf [facility] Work Phone: Nitrite Test strip Ql (U)on 09-17-2021 Nitrite Ql (U) Negative Negative [facility] Work Phone: No Panel Informationon 09-17 Estimated GFR (MDRD) Amer 90 mL/min >60 [facility] Work Phone: Comment on above: GFR Calc Estimated GFR (MDRD) Non-Af Amer 75 mL/min >60 [facility] Work Phone: Comment on above: Non- GFR Calc Platelets bldon 09-17-2021 Platelets (Bld) [#/Vol] 370 10*3/uL 150-450 [facility] Work Phone: Protein Test strip Ql (U)on 09-17-2021 Protein Ql (U) Negative Negative [facility] Work Phone: Serum or plasma albumin michelle urement (mass/volume)on 09-17-2021 Albumin [Mass/Vol] 3.5 g/dL 3.2-5.0 [facility] Work Phone: Serum or plasma albumin/glob ulin mass ratioon 09-17-2021 Albumin/Globulin [Mass ratio] 0.8 {ratio} 0.9-2.4 [facility] Work Phone: Serum or plasma calcium michelle urement (mass/volume)on 09-17-2021 Calcium [Mass/Vol] 9.8 mg/dL 8.5-10.1 [facility] Work Phone: Serum or plasma creatinine m easurement (mass/volume)on 09-17-2021 Creatinine [Mass/Vol] 0.80 mg/dL 0.55-1.02 [facility] Work Phone: Comment on above: The validity of the calculated GFR & GFRAA in patients over 70 years has not been determined. Clinical correlation is essential. Serum or plasma urea nitroge n measurement (mass/volume)on 09-17-2021 Urea nitrogen [Mass/Vol] 13 mg/dL 7-18 [facility] Work Phone: Squamous epithelial cells de tection in urine sediment by light microscopyon 09-17-2021 Epithelial cells.squamous LM Ql (Urine sed) 0-5 SEEN /hpf 5-10 [facility] Work Phone: Thin prep Papanicolaou smear with manual screeningon 09-17-2021 Thin prep Papanicolaou smear with manual screening 23 U/L 15-37 [facility] Work Phone: Thin prep Papanicolaou smear with manual screening 4 5-15 [facility] Work Phone: Urine blood detectionon RBC Ql (U) 50 /ul Negative [facility] Work Phone: RBC Ql (U) 0-5 SEEN /hpf 0-5 [facility] Work Phone: Urine clarityon 09-17-2021 Clarity (U) Sl. Cloudy Clear [facility] Work Phone: Urine color determinationon 09-17-2021 Color (U) Yellow Yellow [facility] Work Phone: Urine glucose detectionon Glucose Ql (U) Normal mg/dl Normal [facility] Work Phone: Urine leukocyte esterase det ection by dipstickon 09-17-2021 Leukocyte esterase Test strip Ql (U) Negative Negative [facility] Work Phone: Urine pHon 09-17-2021 pH (U) 8.0 [pH] 5.0 - 8.0 [facility] Work Phone: Urine sediment bacteria coun t by microscopy (number/high power field)on 09-17-2021 Bacteria LM.HPF (Urine sed) [#/Area] 0 /[HPF] None Seen [facility] Work Phone: Urine specific gravity measu rementon 09-17-2021 Specific gravity (U) [Rel density] 1.010 1.002-1.030 [facility] Work Phone: Urobilinogen Auto test strip Ql (U)on 09-17-2021 Urobilinogen Ql (U) Normal mg/dl Normal [facility] Work Phone: Absolute lymphocyte counton 07-25-2021 Lymphocytes Auto (Unsp spec) [#/Vol] 2.40 10*3/uL 0.83-4.51 [facility] Work Phone: Basophil percentageon 2021 Basophils/100 WBC (Bld) 0.4 % 0-1 [facility] Work Phone: Chloride [Moles/Vol] 104 mmol/L 98-107 [facility] Work Phone: Eosinophils/100 WBC (Bld) 2.4 % 0-5 [facility] Work Phone: Glucose [Mass/Vol] 114 mg/dL 74-106 [facility] Work Phone: Comment on above: Fasting Glucose resu lt from 100 to 125 mg/dL suggests IMPAIRED HOMEOSTASIS per A.D.A. criteria. Neutrophils (Bld) [#/Vol] 3.9 10*3/uL 2.0-7.7 [facility] Work Phone: Neutrophils/100 WBC (Bld) 54.1 % 47-70 [facility] Work Phone: Potassium [Moles/Vol] 4.2 mmol/L 3.5-5.1 [facility] Work Phone: Comment on above: Moderate Hemolysis, Result may be falsely increased. Sodium [Moles/Vol] 138 mmol/L 136-145 [facility] Work Phone: WBC (Bld) [#/Vol] 7.1 10*3/uL 4.4-11.0 [facility] Work Phone: Blood erythrocytes count (nu mber/volume)on 07-25-2021 RBC (Bld) [#/Vol] 4.72 10*6/uL 4.2-5.4 [facility] Work Phone: Blood hemoglobin measurement (mass/volume)on 07-25-2021 Hemoglobin (Bld) [Mass/Vol] 14.1 g/dL 12.0-15.0 [facility] Work Phone: Blood lymphocytes/100 leukoc yteson 07-25-2021 Lymphocytes/100 WBC (Bld) 33.6 % 19-41 [facility] Work Phone: Blood monocytes/100 leukocyt eson 07-25-2021 Monocytes/100 WBC (Bld) 9.2 % 0-10 [facility] Work Phone: Blood platelet mean volumeon 07-25-2021 Platelet mean volume (Bld) [Entitic vol] 9.3 fL 6.2-12.0 [facility] Work Phone: Determination of erythrocyte mean corpuscular volume (MCV)on 07-25-2021 MCV (RBC) [Entitic vol] 92.6 fL 81-99 [facility] Work Phone: Glucose Glucometer (BldC) [M ass/Vol]on 07-25-2021 Glucose [Mass/Vol] 99 mg/dL 74-106 [facility] Work Phone: Comment on above: MANAGEMENT OF PATIEN T CARE PER NURSING PROTOCOL Hematocrit Auto (Bld) [Volum e fraction]on 07-25-2021 Hematocrit (Bld) [Volume fraction] 43.7 % 37-47 [facility] Work Phone: INR in Blood by Coagulation assayon 07-25-2021 INR Coag (Bld) [Relative time] 1.6 {INR} [facility] Work Phone: Laboratory - Chemistry and C hemistry - challengeon 07-25-2021 CO2 [Moles/Vol] 28.0 mmol/L 21.0-32.0 [facility] Work Phone: Urea nitrogen/Creatinine [Mass ratio] 12.9 mg/mg 10-20 [facility] Work Phone: Laboratory - Coagulationon 0 07-25-2021 PT Coag (PPP) [Time] 18.4 s 11.7-14.9 [facility] Work [facility]: Laboratory - Hematology and Cell countson 07-25-2021 Erythrocyte distribution width (RBC) [Entitic vol] 46.3 fL 35.1-43.9 [facility] Work Phone: Erythrocyte distribution width (RBC) [Ratio] 13.5 % 11.6-14.6 [facility] Work Phone: Immature granulocytes/100 WBC (Bld) 0.300 % 0.0-0.9 [facility] Work Phone: Comment on above: IG% - Immature Granu locytes (promyelocytes, myelocytes and metamyelocytes) > 1% indicates that a LEFT SHIFT is Present. MCH (RBC) [Entitic mass] 29.9 pg 27.0-32.0 [facility] Work Phone: Nucleated RBC/100 WBC (Bld) [Ratio] 0 % 0-5 [facility] Work Phone: MCHC Auto (RBC) [Mass/Vol]on 07-25-2021 MCHC (RBC) [Mass/Vol] 32.3 g/dL 32-36 [facility] Work Phone: No Panel Informationon 07-25 Troponin I High Sensitivity 4 pg/mL 3.0-54.0 [facility] Work Phone: Comment on above: Please Note: New Hector t Units and Gender Specific Reference Ranges. For more information see Policy Stat Procedure [place] High Sensitivity Troponin (TNIH) and attachments. Estimated Creatinine Clearance Calc 40.41 ml/min [facility] Work Phone: Estimated GFR (MDRD) Amer 69 mL/min >60 [facility] Work Phone: Comment on above: GFR Calc Estimated GFR (MDRD) Non-Af Amer 57 mL/min >60 [facility] Work Phone: Comment on above: Non- GFR Calc Platelets bldon 07-25-2021 Platelets (Bld) [#/Vol] 380 10*3/uL 150-450 [facility] Work Phone: Serum or plasma calcium michelle urement (mass/volume)on 07-25-2021 Calcium [Mass/Vol] 9.8 mg/dL 8.5-10.1 [facility] Work Phone: Serum or plasma creatinine m easurement (mass/volume)on 07-25-2021 Creatinine [Mass/Vol] 1.01 mg/dL 0.55-1.02 [facility] Work Phone: Comment on above: The validity of the calculated GFR & GFRAA in patients over 70 years has not been determined. Clinical correlation is essential. Serum or plasma urea nitroge n measurement (mass/volume)on 07-25-2021 Urea nitrogen [Mass/Vol] 13 mg/dL 08-27 [facility] Work Phone: Thin prep Papanicolaou smear with manual screeningon 07-25-2021 Thin prep Papanicolaou smear with manual screening 06-24 [facility] Work Phone: Office Visit: f/u epigastric painon 10-28-2016 Documentation of current medications (procedure) Done Invalid Interpretation Code [facility] [place] Work Phone: Fall risk assessment No Invalid Interpretation Code [facility] [place] Work Phone: Tobacco smoking status [facility] Never Invalid Interpretation Code [facility] [place] Work Phone: Tobacco use [facility] Former smoker Invalid Interpretation Code [facility] [facility] [place] Work Phone: Office Visiton 09-16-2016 Documentation of current medications (procedure) Done Invalid Interpretation Code [facility] [place] Work Phone: Fall risk assessment No Invalid Interpretation Code [facility] [place] Work Phone: Tobacco smoking status NHIS Never Invalid Interpretation Code [facility] [place] Work Phone: Tobacco use [facility] Former smoker Invalid Interpretation Code [facility] [place] Work Phone: Office Visiton 08-10-2016 Breast Mammogram screening Normal Bilateral Invalid Interpretation Code [facility] [place] Work Phone: Office Visiton 02-10-2014 Colonoscopy (procedure) Colonoscopy (procedure) Invalid Interpretation Code [facility] [place] Work Phone: Culture, urine Bacteria identified Cx Nom (U) Presumptive E. coli [facility] Work Phone: Bacteria identified Cx Nom (U) Positive [facility] Work Phone: Vital Signs Date Time Vital Sign Value Performing Clinician Faci lity 05-18-2024 15:15-0400 Body temperature 98.9 [degF] Dr. Jose David Lindsay MD Work Phone: [facility] 05-18-2024 15:15-0400 Diastolic blood pressure 83 mm[Hg] Dr. Jose David Lindsay MD Work Phone: [facility] 05-18-2024 15:15-0400 Heart rate 64 /min Dr. Jose David Lindsay MD Work Phone: [facility] 05-18-2024 15:15-0400 Respiratory rate 18 /min Dr. Jose David Lindsay MD Work Phone: [facility] 05-18-2024 15:15-0400 SaO2% (BldA) [Mass fraction] 99 % Dr. Jose David Lindsay MD Work Phone: [facility] 05-18-2024 15:15-0400 Systolic blood pressure 154 mm[Hg] Dr. Jose David Lindsay MD Work Phone: [facility] 05-18-2024 10:29-0400 Body height 157.[address] Jose David Lindsay MD Work Phone: [facility] 05-11-2024 22:44-0400 Body temperature 98.3 [degF] Dr. Jose David Lindsay MD Work Phone: [facility] 05-11-2024 22:44-0400 Diastolic blood pressure 59 mm[Hg] Dr. Jose David Lindsay MD Work Phone: [facility] 05-11-2024 22:44-0400 Heart rate 90 /min Dr. Jose David Lindsay MD Work Phone: [facility] 05-11-2024 22:44-0400 Respiratory rate 17 /min Dr. Jose David Lindsay MD Work Phone: [facility] 05-11-2024 22:44-0400 SaO2% (BldA) [Mass fraction] 97 % Dr. Jose David Lindsay MD Work Phone: [facility] 05-11-2024 22:44-0400 Systolic blood pressure 134 mm[Hg] Dr. Jose David Lindsay MD Work Phone: [facility] 05-11-2024 17:04-0400 Body height 157.[address] Jose David Lindsay MD Work Phone: [facility] 05-11-2024 17:04-0400 Body mass index (BMI) [Ratio] 44.7 kg/m2 Dr. Jose David Lindsay MD Work Phone: 0(952)220-119277 [place] [address] 05-11-2024 17:04-0400 Body weight 111.[address] Jose David Lindsay MD Work Phone: 0(052)019-293159 [place] [address] 04-23-2024 07:32-0400 Body height 157.[address] Jose David Lindsay MD Work Phone: 5(824)338-300459 [place] [address] 04-23-2024 07:32-0400 Body mass index (BMI) [Ratio] 44 kg/m2 Dr. Jose David Lindsay MD Work Phone: 4(422)977-712877 [place] [address] 04-23-2024 07:32-0400 Body weight 109.[address] Jose David Lindsay MD Work Phone: 1(290)642-268359 [place] [address] 04-23-2024 07:32-0400 Diastolic blood pressure 82 mm[Hg] Dr. Jose David Lindsay MD Work Phone: 5(928)751-452259 [place] [address] 04-23-2024 07:32-0400 Heart rate 65 /min Dr. Jose David Lidnsay MD Work Phone: 6(462)078-353859 [place] [address] 04-23-2024 07:32-0400 Respiratory rate 18 /min Dr. Jose David Lindsay MD Work Phone: 6(392)444-440759 [place] [address] 04-23-2024 07:32-0400 SaO2% (BldA) [Mass fraction] 95 % Dr. Jose David Lindsay MD Work Phone: 7(988)156-406477 [place] [address] 04-23-2024 07:32-0400 Systolic blood pressure 129 mm[Hg] Dr. Jose David Lindsay MD Work Phone: [facility] 12-30-2022 07:48-0500 Body height 157.[address] Ron Lindsay Work Phone: [facility] 12-30-2022 07:48-0500 Body mass index (BMI) [Ratio] 43 kg/m2 Dr. Ron Lindsay Work Phone: [facility] 12-30-2022 07:48-0500 Body temperature 97.3 [degF] Dr. Ron Lindsay Work Phone: [facility] 12-30-2022 07:48-0500 Body weight 106.[address] Ron Lindsay Work Phone: [facility] 12-30-2022 07:48-0500 Diastolic blood pressure 63 mm[Hg] Dr. Ron Lindsay Work Phone: 0(011)603-985777 [place] [address] 12-30-2022 07:48-0500 Heart rate 70 /min Dr. Ron Lindsay Work Phone: [facility] 12-30-2022 07:48-0500 Respiratory rate 16 /min Dr. Ron Lindsay Work Phone: [facility] 12-30-2022 07:48-0500 SaO2% (BldA) [Mass fraction] 96 % Dr. Ron Lindsay Work Phone: [facility] 12-30-2022 07:48-0500 Systolic blood pressure 115 mm[Hg] Dr. Ron Lindsay Work Phone: [facility] 12-04-2022 10:30-0400 Body mass index (BMI) [Ratio] 36.7 kg/m2 Dr. Ron Lindsay Work Phone: [facility] 12-04-2022 10:30-0400 Body weight 91.[address] Ron Lindsay Work Phone: [facility] 12-04-2022 10:30-0400 Diastolic blood pressure 75 mm[Hg] Dr. Ron Lindsay Work Phone: [facility] 12-04-2022 10:30-0400 Heart rate 70 /min Dr. Ron Lindsay Work Phone: [facility] 12-04-2022 10:30-0400 Respiratory rate 20 /min Dr. Ron Lindsay Work Phone: [facility] 12-04-2022 10:30-0400 SaO2% (BldA) [Mass fraction] 97 % Dr. Ron Lindsay Work Phone: [facility] 12-04-2022 10:30-0400 Systolic blood pressure 113 mm[Hg] Dr. Ron Lindsay Work Phone: 0(846)920-981759 [place] [address] 11-15-2022 14:30-0400 Diastolic blood pressure 74 mm[Hg] Dr. Ron Lindsay Work Phone: 3(172)863-131377 [place] [address] 11-15-2022 14:30-0400 Heart rate 72 /min Dr. Ron Lindsay Work Phone: 3(676)317-988677 [place] [address] 11-15-2022 14:30-0400 Respiratory rate 16 /min Dr. Ron Lindsay Work Phone: 9(850)944-455659 [place] [address] 11-15-2022 14:30-0400 SaO2% (BldA) [Mass fraction] 97 % Dr. Ron Lindsay Work Phone: 5(984)362-163277 [place] [address] 11-15-2022 14:30-0400 Systolic blood pressure 138 mm[Hg] Dr. Ron Lindsay Work Phone: [facility] 11-15-2022 10:50-0400 Body mass index (BMI) [Ratio] 43 kg/m2 Dr. Ron Lindsay Work Phone: 0(010)628-366377 [place] [address] 11-15-2022 10:50-0400 Body temperature 97.6 [degF] Dr. Ron Lindsay Work Phone: 4(422)747-142559 [place] [address] 11-15-2022 10:50-0400 Body weight 106.[address] Ron Lindsay Work Phone: [facility] 07-07-2022 05:01-0400 Diastolic blood pressure 72 mm[Hg] Dr. Ron Lindsay Work Phone: [facility] 07-07-2022 05:01-0400 Heart rate 90 /min Dr. Ron Lindsay Work Phone: [facility] 07-07-2022 05:01-0400 Respiratory rate 18 /min Dr. Ron Lindsay Work Phone: [facility] 07-07-2022 05:01-0400 Systolic blood pressure 146 mm[Hg] Dr. Ron Lindsay Work Phone: 6(614)571-264185 [address] 07-07-2022 01:56-0400 Body height 157.[address] Ron Lindsay Work Phone: 2(861)311-375277 [place] [address] 07-07-2022 01:56-0400 Body mass index (BMI) [Ratio] 39.8 kg/m2 Dr. Ron Lindsay Work Phone: [facility] 07-07-2022 01:56-0400 Body temperature 98 [degF] Dr. Ron Lindsay Work Phone: [facility] 07-07-2022 01:56-0400 Body weight 98.[address] Ron Lindsay Work Phone: [facility] 07-07-2022 01:56-0400 SaO2% (BldA) [Mass fraction] 99 % Dr. Ron Lindsay Work Phone: [facility] 06-27-2022 05:50-0400 Body mass index (BMI) [Ratio] 43.9 kg/m2 Dr. Ron Lindsay Work Phone: [facility] 06-27-2022 05:50-0400 Body temperature 97.4 [degF] Dr. Ron Lindsay Work Phone: [facility] 06-27-2022 05:50-0400 Body weight 108.[address] Ron Lindsay Work Phone: [facility] 06-27-2022 05:50-0400 Diastolic blood pressure 90 mm[Hg] Dr. Ron Lindsay Work Phone: [facility] 06-27-2022 05:50-0400 Heart rate 70 /min Dr. Ron Lindsay Work Phone: [facility] 06-27-2022 05:50-0400 Respiratory rate 18 /min Dr. Ron Lindsay Work Phone: [facility] 06-27-2022 05:50-0400 SaO2% (BldA) [Mass fraction] 98 % Dr. Ron Lindsay Work Phone: [facility] 06-27-2022 05:50-0400 Systolic blood pressure 170 mm[Hg] Dr. Ron Lindsay Work Phone: [facility] 01-29-2022 15:33-0500 Diastolic blood pressure 78 mm[Hg] Dr. Ron Lindsay Work Phone: [facility] 01-29-2022 15:33-0500 Systolic blood pressure 126 mm[Hg] Dr. Ron Lindsay Work Phone: [facility] 01-29-2022 15:03-0500 Body height 157.[address] Ron Lindsay Work Phone: [facility] 01-29-2022 15:03-0500 Body mass index (BMI) [Ratio] 44 kg/m2 Dr. Ron Lindsay Work Phone: [facility] 01-29-2022 15:03-0500 Body weight 109.[address] Ron Lindsay Work Phone: [facility] 01-29-2022 15:03-0500 Heart rate 71 /min Dr. Ron Lindsay Work Phone: [facility] 01-29-2022 15:03-0500 Respiratory rate 18 /min Dr. Ron Lindsay Work Phone: [facility] 01-02-2022 10:32-0500 Body height 157.[address] Ron Lindsay Work Phone: [facility] Work Phone: 01-02-2022 10:32-0500 Body mass index (BMI) [Ratio] 43 kg/m2 Dr. Ron Lindsay Work Phone: [facility] 01-02-2022 10:32-0500 Body temperature 98 [degF] Dr. Ron Lindsay Work Phone: [facility] 01-02-2022 10:32-0500 Body weight 106.[address] Ron Lindsay Work Phone: [facility] 01-02-2022 10:32-0500 Diastolic blood pressure 78 mm[Hg] Dr. Ron Lindsay Work Phone: [facility] 01-02-2022 10:32-0500 Heart rate 71 /min Dr. Ron Lindsay Work Phone: [facility] 01-02-2022 10:32-0500 Respiratory rate 16 /min Dr. Ron Lindsay Work Phone: [facility] 01-02-2022 10:32-0500 SaO2% (BldA) [Mass fraction] 95 % Dr. Ron Lindsay Work Phone: [facility] 01-02-2022 10:32-0500 Systolic blood pressure 128 mm[Hg] Dr. Ron Lindsay Work Phone: [facility] 07-25-2021 14:49-0400 Diastolic blood pressure 65 mm[Hg] [facility] Work Phone: 07-25-2021 14:49-0400 Heart rate 74 /min [facility] Work Phone: 07-25-2021 14:49-0400 Respiratory rate 16 /min [facility] Work Phone: 07-25-2021 14:49-0400 SaO2% (BldA) [Mass fraction] 98 % [facility] Work Phone: 07-25-2021 14:49-0400 Systolic blood pressure 122 mm[Hg] [facility] Work Phone: 07-25-2021 10:38-0400 Body height 157.48 cm [facility] Work Phone: 07-25-2021 10:38-0400 Body mass index (BMI) [Ratio] 42.5 kg/m2 [facility] Work Phone: 07-25-2021 10:38-0400 Body temperature 98.4 [degF] [facility] Work Phone: 07-25-2021 10:38-0400 Body weight 105.5 kg [facility] Work Phone: 09-16-2016 13:52-0400 BMI (Body Mass Index) 43.57 kg/m2 Roderick Barnes MD [facility] [employer] Work Phone: 09-16-2016 13:52-0400 Body Temperature 98.2 [degF] Roderick Barnes MD [facility] [employer] Work Phone: 09-16-2016 13:52-0400 BP Diastolic 73 mm[Hg] Roderick Barnes MD [facility] [employer] Work Phone: 09-16-2016 13:52-0400 BP Systolic 106 mm[Hg] Roderick Barnes MD [facility] [employer] Work Phone: 09-16-2016 13:52-0400 Height 160.02 cm Roderick Barnes MD [facility] [employer] Work Phone: 09-16-2016 13:52-0400 Pulse (Heart Rate) 84 /min Roderick Barnes MD [facility] [employer] Work Phone: 09-16-2016 13:52-0400 Respiratory Rate 16 /min Roderick Barnes MD [facility] Work Phone: 09-16-2016 13:52-0400 Weight 111.59 kg Roderick Barnes MD [facility] Work Phone: Encounters Encounter Date Encounter Type Care Provider Facility Start: 08-09-2024 Encounter for genera l adult medical examination without abnormal findings Wilda Castillo NP [facility] Start: 07-06-2024 End: 07-06-[address] Jose David Lindsay MD Work Phone: [facility] Work Phone: Start: 07-06-2024 End: 07-06-2024 Patient encounter procedure Wilda Castillo REMEDIATION CONSULTANT-C -Laboratory [facility] Start: 07-06-2024 End: 07-06-2024 ambulatory Wilda Castillo NP Facility:[facility] Start: 06-24-2024 End: 06-24-[address] Jose David Lindsay MD Work Phone: [facility] Work Phone: Start: 06-24-2024 End: 06-24-2024 Patient encounter procedure Salty Rodriguez PA -Laboratory Work Phone: Start: 06-24-2024 End: 06-24-2024 ambulatory Salty Rodriguez Facility:[facility] Start: 05-27-2024 ambulatory Mann Oleary Facilit y:[facility] Start: 05-26-2024 End: 05-26-[address] Mann Oleary MD -Radiology [place] Work Phone: Start: 05-26-2024 End: 05-26-2024 ambulatory Mann Oleary Facility:[facility] Start: 05-18-2024 End: 05-18-2024 Emergency department patient visit Dr. Jose David Lindsay MD Work Phone: -Emergency Department Work Phone: Start: 05-17-2024 End: 05-17-[address] Jose David Lindsay MD Work Phone: [facility] Work Phone: Start: 05-17-2024 End: 05-17-2024 Patient encounter procedure Ravi Weeks REMEDIATION CONSULTANT-C -Radiology, [place] Work Phone: Start: 05-17-2024 End: 05-17-2024 ambulatory Ravi Weeks REMEDIATION CONSULTANT Facility:[facility] Start: 05-11-2024 End: 05-11-2024 Emergency department patient visit Dr. Jose David Lindsay MD Work Phone: -Emergency Department Work Phone: Start: 05-10-2024 End: 05-10-[address] Jose David Lindsay MD Work Phone: [facility] Work Phone: Start: 05-10-2024 End: 05-10-[address] Jose David Lindsay MD -Laboratory, [facility] Work Phone: Start: 05-10-2024 End: 05-10-2024 ambulatory Jose David Lindsay Facility:[facility] Start: 04-26-2024 End: 04-26-[address] Jose David Lindsay MD Work Phone: [facility] Work Phone: Start: 04-26-2024 End: 04-26-[address] Lindsay Baxter MD -Cardiovascular Services Work Phone: Start: 04-26-2024 End: 04-26-2024 ambulatory Lindsay Baxter Facility:[facility] Start: 04-23-2024 End: 04-23-2024 Patient encounter procedure Salty QUIÑONES -[facility] Work Phone: Start: 04-23-2024 End: 04-23-2024 ambulatory Jose David Lindsay Facility:[facility] Start: 01-02-2024 End: 01-02-2024 ambulatory Jose David Lindsay Facility:[facility] Start: 12-22-2023 End: 12-22-2023 ambulatory Jose David Lindsay Facility:[facility] Start: 10-29-2023 End: 10-29-2023 ambulatory Jose David Lindsay Facility:[facility] Start: 10-29-2023 End: 10-29-2023 ambulatory Jose David Lindsay Facility:[facility] Start: 03-07-2023 End: 03-07-[address] Ron Lindsay Work Phone: [facility] Work Phone: Start: 03-07-2023 End: 03-07-[address] Ron Lindsay Work Phone: [facility]-Laboratory Work Phone: Start: 01-08-2023 Non-patient / Non-visit Dr. Ron Lindsay Work Phone: [facility] Work Phone: Start: 01-07-2023 Non-patient / Non-visit Dr. Ron Lindsay Work Phone: [facility] Start: 01-07-2023 End: 01-07-[address] Ron Lindsay Work Phone: [facility]-Cardiovascular Services Work Phone: Start: 12-30-2022 End: 12-30-[address] Ron Lindsay Work Phone: [facility]-Pulmonary Medicine [facility] Work Phone: Start: 12-04-2022 End: 12-04-[address] Ron Lindsay Work Phone: [facility] Work Phone: Start: 11-15-2022 End: 11-15-2022 Emergency department patient visit Dr. Ron Lindsay Work Phone: [facility]-Emergency Department Work Phone: Start: 11-11-2022 End: 11-11-[address] Ron Lindsay Work Phone: [facility] Work Phone: Start: 11-11-2022 End: 11-11-[address] [facility] Start: 10-21-[address] Easton Lindsay [facility] Start: 10-17-2022 End: 10-17-[address] Ron Lindsay Work Phone: [facility] Work Phone: Start: 10-17-2022 End: 10-17-[address] Ron Lindsay Work Phone: [facility] Work Phone: Start: 09-13-2022 Non-patient / Non-visit Dr. Ron Lindsay Work Phone: [facility] Start: 09-13-2022 End: 09-13-[address] Ron Lindsay [facility] Start: 09-05-2022 End: 09-05-[address] Ron Lindsay Work Phone: [facility] Work Phone: Start: 09-05-2022 End: 09-05-[address] Ron Lindsay Work Phone: [facility] Work Phone: Start: 08-15-2022 End: 08-15-[address] Ron Lindsay Work Phone: [facility] Work Phone: Start: 08-15-2022 End: 08-15-[address] Ron Lindsay [facility] Work [facility] Start: 07-15-2022 End: 07-15-[address] Ron Lindsay [facility] Work [facility] Start: 07-07-2022 End: 07-07-2022 Emergency department patient visit Dr. Ron Lindsay Work Phone: [facility]-Emergency Department Start: 06-27-2022 End: 06-27-[address] Ron Lindsay Work Phone: [facility] Start: 06-26-2022 End: 06-26-[address] Ron Lindsay Work Phone: [facility] Start: 06-24-2022 End: 06-24-[address] Ron Lindsay Work Phone: [facility]-Outpatient Breast Imaging Start: 04-10-2022 End: 04-10-[address] Ron Lindsay Work Phone: [facility] Work Phone: Start: 04-10-2022 End: 04-10-[address] Ron Lindsay Work Phone: [facility] Start: 04-05-2022 End: 04-05-[address] Ron Lindsay Work Phone: [facility] Work Phone: Start: 04-05-2022 End: 04-05-[address] Ron Lindsay Work Phone: [facility] Start: 04-01-2022 End: 04-01-[address] Ron Lindsay Work Phone: [facility] Work Phone: Start: 04-01-2022 End: 04-01-[address] Ron Lindsay Work Phone: [facility]-Laboratory, [facility] Start: 01-29-2022 End: 01-29-[address] Ron Lindsay Work Phone: [facility] Start: 01-17-2022 End: 01-17-[address] Ron Lindsay Work Phone: [facility] Work Phone: Start: 01-17-2022 End: 01-17-[address] Ron Lindsay Work Phone: [facility]-Physical Therapy Start: 01-14-2022 Non-patient / Non-visit Dr. Ron Lindsay Work Phone: [facility] Start: 01-14-2022 End: 01-14-[address] Ron Lindsay Work Phone: [facility] Work Phone: Start: 01-14-2022 End: 01-14-[address] Ron Lindsay Work Phone: [facility]-Pulmonary Services/Neurology Start: 01-02-2022 End: 01-02-[address] Ron Lindsay Work Phone: [facility]-Pulmonary Medicine [facility] Start: 12-12-2021 End: 12-12-[address] Ron Lindsay [facility] Phone[facility] Start: 11-23-2021 End: 11-23-[address] Ron Lindsay Work Phone: [facility] Start: 10-30-2021 End: 10-30-2021 ambulatory [facility] Work Phone: Start: 10-30-2021 End: 10-30-2021 [facility] Start: 09-19-2021 End: 09-19-2021 [facility] Start: 09-17-2021 End: 09-17-2021 Patient encounter procedure [facility] Start: 07-25-2021 End: 07-25-2021 Emergency department patient visit [facility]-Emergency Department Start: 07-05-2021 End: 07-05-2021 [facility] Start: 06-19-2021 End: 06-19-2021 Patient encounter procedure [facility]-Outpatient Bone Densitometry Start: 05-30-2021 Registered Recurring [facility]-Physical Therapy Procedures Date Procedure Procedure Detail Performing Clinician Start: 07-06-2024 Vitamin D, 25-hydrox y measurement Dr. Jose David Lindsay MD Work Phone: Comment on above: Vitamin D StatusDefi ciency: <20 ng/mL (50nmol/L)Insufficiency: 20-30 ng/mL (50-75 nmol/L)Sufficiency: 30-100 ng/mL (75-250 nmol/L)Toxicity: >100 ng/mL (>250 nmol/L) Start: 05-26-2024 Plain X-ray of shoulder Dr. Jose David Lindsay MD Work Phone: Start: 05-18-2024 CT angiography of ch est with contrast Dr. Jose David Lindsay MD Work Phone: Start: 05-17-2024 X-ray of chest, PA a nd lateral views Dr. Jose David Lindsay MD Work Phone: Start: 05-11-2024 CT of head without contrast Dr. Jose David Lindsay MD Work Phone: Start: 05-11-2024 X-ray of chest, PA a nd lateral views Dr. Jose David Lindsay MD Work Phone: Start: 05-11-[address] Jose David Lindsay MD Work Phone: Start: 05-10-[address] Easton Lindsay MD Work Phone: Start: 05-10-2024 Urnls dip stick/tabl et reagent auto microscopy Dr. Jose David Lindsay MD Work Phone: Start: 01-07-2023 Radionuclide imaging of perfusion of myocardium under exercise stress Dr. Ron Lindsay Work Phone: Start: 11-15-2022 Plain chest X-ray Dr. Angelina Lindsay Work Phone: Start: 10-17-2022 Bacteria identified in Urine by Culture Dr. Ron Lindsay Work Phone: Start: 10-17-[address] Easton Lindsay Work Phone: Start: 08-15-[address] Easton Lindsay Work Phone: Start: 07-15-2022 Bacteria identified in Urine by Culture Dr. Ron Lindsay Work Phone: Start: 07-15-[address] Easton Lindsay Work Phone: Start: 07-07-2022 Computed tomography of abdomen and pelvis with intravenous contrast Dr. Ron Lindsay Work Phone: Start: 06-24-2022 Screening mammography Keaton Lindsay Work Phone: Start: 12-12-2021 Complete x-ray serie s of lumbar spine with bending views Dr. Ron Lindsay Work Phone: Start: 12-12-2021 Radiography of thora cic spine Dr. Ron Lindsay Work Phone: Start: 11-23-2021 Plain chest X-ray Dr. Angelina Lindsay Work Phone: Start: 09-17-2021 Diagnostic radiograp hy of abdomen Start: 07-25-2021 Plain chest X-ray Start: 06-19-2021 Dual energy X-ray absorptiometry Start: 06-19-2021 Screening mammograph y of bilateral breasts Bacteria identified in Urine by Culture Urine culture Urine culture Dr. Ron Lindsay Work Phone: Urine culture Dr. Ron Lindsay Work Phone: Urine culture Dr. Ron Lindsay Work Phone: Plan of Treatment Date Care Activity Detail Author Start: 05-18-2024 [facility] Start: 05-18-2024 [facility] Start: 05-11-2024 [facility] Start: 05-11-2024 [facility] Start: 05-10-2024 Bacteria identified in Urine by Culture Urine Culture [facility] Start: 12-04-2022 Evaluation of diagno stic study results [facility] [facility] Start: 11-15-2022 [facility] Start: 07-25-2021 [facility] Work Phone: Start: 10-28-2016 End: 10-28-2016 Appointment Appointment [facility] Work Phone: Hepatic function panel [facility] Lipid 1996 panel - S leidy or Plasma [facility] Patient Education [facility] Work Phone: Patient referral [facility] Work Phone: Troponin T.cardiac [Mass/volume] in Serum or Plasma by High sensitivity method [facility] Troponin T.cardiac [Mass/volume] in Serum or Plasma by High sensitivity method [facility] Urine culture [facility] Work Phone: Payers Date Payer Category Payer Private Health Insurance [id number] 2023 Self-pay [id number] 2023 Private Health Insurance [id number] 2014 Medicare [id number] Private Health Insurance [id number] Unknown [id number] 2.16.8 [id number] Unknown [id number] 2.16.8 [id number] Unknown [id number] 2.16.8 40.1.000134.3.579.2.462 Unknown [id number] 2.16.8 40.1.325129.3.579.2.462 Unknown [id number] 2.16.8 40.1.602749.3.579.2.462 Unknown [id number] 2.16.8 40.1.573484.3.579.2.462 Unknown [id number] 2.16.8 40.1.975965.3.579.2.462 Unknown [id number] 2.16.8 40.1.107248.3.579.2.462 Unknown [id number] 2.16.8 40.1.241419.3.579.2.462 Unknown [id number] 2.16.8 40.1.205789.3.579.2.462 Unknown [id number] 2.16.8 40.1.603493.3.579.2.462 Unknown [id number] 2.16.8 40.1.915217.3.579.2.462 Unknown [id number] 2.16.8 40.1.334198.3.579.2.462 Unknown [id number] 2.16.8 [id number] Social History Date Type Detail Facility Start: 07-25-2021 End: 12-30-2022 Tobacco smoking status [facility] Unknown if ever smoked [facility] Start: 06-14-2020 None [facility] Start: 06-19-2020 Non-smoker [facility] Start: 1950 Sex Assigned At Female [facility] Start: 08-23-2016 Spouse/ Signif icant Other [facility] Start: 04-23-2024 End: 05-18-2024 Tobacco smoking status NHIS Ex-smoker (finding) [facility] Start: 05-05-2024 End: 05-21-2024 Sex Female (finding) [facility] Mental Status Date Assessment Result Facility 11-15-2022 Cognitive function Level Of Cons ciousness Awake;Alert;Appropriate;Follow s Commands [facility] Work Phone: 07-25-2021 Cognitive function Voice/Name [facility] Work Phone: Clinical Notes 08-04-2012 to 05-18-2024 Note Date & Type Note Facility 05-18-2024 Radiology Diagnostic study note [facility] Imaging Services [address] [place], [place] [address] CTA Chest W/WO Contrast MR#: [id number] Acct: [id number] Name: YESENIA HODGSON Rep #: [id number] : 1950 F 74 From: Daisha Tavares MD PCP: Dr. Jose David Lindsay MD Status: REG ER Study:CTA Chest W/WO Contrast Date of Exam: 05/18/24 Exam# [id number] Ordering Dr: Jeff Rowe DO PROCEDURE: CTA CHEST W/WO CONTRAST 05/18/2024 REASON FOR EXAM: DYSPNEA TECHNIQUE: CTA axial imaging of the chest with intravenous contrast. Contiguous axial scans of 1.25 mm slice thicknesses. Sagittal and coronal reconstruction images were obtained. One or more dose reduction techniques were used (e.g., automated exposure control, adjustment of mA and/or kv according to patient size, use of iterative reconstruction technique). PATIENT PREPARATION: Per protocol CONTRAST: Isovue 370 VOLUME: 100 mL RADIATION DOSE SUMMARY: CTDlvol: 29.69 mGy DLP: 505.13 mGycm COMPARISON: Chest PA and lateral dated 05/17/2024 FINDINGS: Lymph nodes: No suspicious adenopathy Heart: Normal heart size and configuration. Mediastinum: No widening. RV/LV Diameter Ratio: Unremarkable. Thoracic Aorta: Mildly tortuous. No aneurysm. Pulmonary Vessels: Unremarkable. No evidence of intraluminal thrombus. Lungs and Airways: Mild scarring and/or hypoventilatory changes in the dependentlungs. No masses. No consolidation. Pleura: Unremarkable. Upper Abdomen: Gallbladder surgically absent. Bones: Multilevel spondylosis and degenerative disc disease. CT/CTA Chest W/WO Contrast IMPRESSION: No evidence of pulmonary embolism or other vascular abnormalities. Status post cholecystectomy. Other nonacute findings detailed above. Reading Location: [place] [address] CC: Dr. Jose David Lindsay MD; Dr. Jeff Rowe, DO ~ Publication Distributor: Signed [facility] 05-17-2024 Radiology Diagnostic study note [facility] Imaging Services [address] [place], [place] [address] Chest PA and Lateral MR#: [id number] Acct: [id number] Name: YESENIA HODGSON Rep #: [id number] : 1950 F 74 From: Mónica Mcghee DO PCP: Dr. Jose David Lindsay MD Status: REG CLI Study:Chest PA and Lateral Date of Exam: 05/17/24 Exam# [id number] Ordering Dr: Ravi Weeks REMEDIATION CONSULTANT REMEDIATION CONSULTANT-C PROCEDURE: PA and lateral chest radiographs, two views 05/17/2024 REASON FOR EXAM: CHEST PAIN, shortness of breath TECHNIQUE: PA and lateral views of the chest. COMPARISON: 05/11/2024 FINDINGS: The cardiomediastinal silhouette is similar. No pneumothorax, focal airspace consolidation, or pleural effusion. Similar mild elevation right hemidiaphragm. Some coarse markings in the lower lungs are similar. Bones are osteopenic with degenerative changes in the spine. No grossly displaced rib or sternal fractures, although evaluation is limited. RAD/Chest PA and Lateral IMPRESSION: No definite acute cardiopulmonary process or significant change. If there are persistent symptoms or clinical concern, short-term follow-up chest CT evaluation may be considered. Reading Location: [facility] CC: Ravi CHAPIN REMEDIATION CONSULTANTEduardo McMorrow; Dr. Jose David Lindsay MD ~ Publication Distributor: Signed [facility] 05-12-2024 Hospital Discharge instructions Additional Instructions Your INR was 3.5 today. [facility] Work Phone: 05-11-2024 Radiology Diagnostic study note [facility] Imaging Services [address] [place] [address] Brain/Head without Contrast MR#: [id number] Acct: [id number] Name: YESENIA HODGSON Rep #: [id number] : 1950 F 74 From: Jeffrey Gunn DO PCP: Dr. Jose David Lindsay MD Status: REG ER Study:Brain/Head without Contrast Date of Exa m: 05/11/24 Exam# [id number] Ordering Dr: Jeff Rowe DO PROCEDURE: BRAIN/HEAD WITHOUT CONTRAST 05/11/2024 REASON FOR EXAM: FALL TECHNIQUE: Head CT without intravenous contrast. Coronal and Sagittal reconstruction serieswere provided. One or more dose reduction techniques were used (e.g., Automated exposure control, adjustment of the mA and/or kV according to patient size, use of iterative reconstruction technique. RADIATION DOSE SUMMARY: CTDlvol: 44 mGy DLP: 829 mGycm COMPARISON: None FINDINGS: Brain: Within normal limits for age CSF Spaces: Normal Sinuses/Mastoids: Clear at visualized levels Bones: Unremarkable CT/Brain/Head without Contrast IMPRESSION: NO ACUTE FINDINGS Reading Location: [facility] CC: Dr. Jose David Lindsay MD; Dr. Jeff Rowe DO ~ Publication Distributor: Signed [facility] 05-11-2024 Radiology Diagnostic study note [facility] Imaging Services [address] [place] [address] Chest PA and Lateral MR#: [id number] Acct: [id number] Name: YESENIA HODGSON Rep #: [id number] : 1950 F 74 From: Jeffrey Gunn DO PCP: Dr. Jose David Lindsay MD Status: REG ER Study:Chest PA and Lateral Date of Exam: 05/11/24 Exam# [id number] Ordering Dr: Jeff Rowe DO PROCEDURE: CHEST PA AND LATERAL 05/11/2024 REASON FOR EXAM: CHEST PAIN TECHNIQUE: Frontal and lateral views of the chest. COMPARISON: 11/15/2022 FINDINGS: Hardware: None Heart: The heart size is normal. Mediastinum: The mediastinal contour is unremarkable. Lungs: The lungs are clear. Bones: The bones are unremarkable. RAD/Chest PA and Lateral IMPRESSION: NO ACUTE FINDINGS. [facility] CC: Dr. Jose David Lindsay MD; Dr. Jeff Rowe DO ~ Publication Distributor: Signed [facility] 05-11-2024 Hospital Discharge instructions Additional Instructions Your INR was 3.5 today. [facility] Work Phone: 04-23-2024 Evaluation note Diagnosis Onset Date Resolution Atypical chest pain chronic April 23, 2024 8:28am Hyperlipidemia chronic April 8:28am History of pulmonary embolism August 04, 2012 resolved April 23, 2024 8:28am [facility] Work Phone: 1(937) 700-949805-28-[address] Rosas [facility] July 07, 2022 4:51am Note Date/Time July 07, 2022 2:23a m [facility] Medical Records Department [address] [place] [address] Emergency Department Summary 07/07/22 MR#: [id number] Acct: [id number] Name: YESENIA HODGSON Rep #:[id number] : 1950 72 From: Dominic Rosas DO PCP: Dr. Ron Lindsay MD Status: REG ER Location: ED HPI HPI - GI History of Present Illness Chief Complaint: Abd Pain Narrative Narrative: 72-year-old female presenting with left lower quadrant abdominal pain. She states it starts in the left lower quadrant kind of moves around to the left flank. At times she will notice pain on the right side of her abdomen. She claims to have chills and some mild nausea but no fever at home. No history of diverticulitis. She does have history of kidney stones however this does not feel like her kidney stones. No urinary or vaginal complaints. No diarrhea. PFSH PFSH Medical History Asthma Chronic back pain Esophageal reflux History of pulmonary embolism (08/04/12) Hyperlipidemia Hypothyroidism Irritable bowel syndrome Lung nodule Obesity Osteoarthritis Home Medications aspirin 81 mg chewable tablet 81 mg PO DAILY@0800 03/13/14 [History Last Taken 06/19/20] levothyroxine 100 mcg tablet 100 mcg PO DAILY 03/13/14 [History Last Taken 06/19/20] cholecalciferol (vitamin D3) 50 mcg (2,000 unit) capsule 2,000 unit PO DAILY 05/30/20 [History Last Taken Unknown] omeprazole 40 mg capsule,delayed release 20 mg PO DAILY 05/30/20 [History Last Taken Unknown] warfarin 5 mg tablet 5 mg PO MOWEFR 01/02/22 [History Last Taken Unknown] warfarin 6 mg tablet 4 mg PO SUTUTHSA 01/02/22 [History Last Taken Unknown] Allergy/AdvReac Type Severity Reaction Status Date / Time cephalexin monohydrate Allergy Chest Verified 07/07/22 02:02 [From Keflex] tightness ciprofloxacin [From Cipro] Allergy Nausea Verified 07/07/22 02:02 ciprofloxacin HCl Allergy Nausea Verified 07/07/22 02:02 [From Cipro] hyoscyamine sulfate Allergy Chest Verified 07/07/22 02:02 [From Levbid] tightness nitrofurantoin Allergy Nausea Verified 07/07/22 02:02 [From Macrobid] nitrofurantoin Allergy Nausea Verified 07/07/22 02:02 macrocrystalline [From Macrobid] NSAIDS (Non-Steroidal Allergy Nausea Verified 07/07/22 02:02 Anti-Inflamma tramadol Allergy Chest Verified 07/07/22 02:02 tightness atorvastatin AdvReac insomnia/leg Verified 07/07/22 02:02 pain nalbuphine HCl [From Nubain] AdvReac Nausea Verified 07/07/22 02:02 Family History Sister Heart disease CHF at 63 Surgical History History of bunionectomy History of cholecystectomy History of left heart catheterization (06/19/20) History of tonsillectomy History of total knee arthroplasty (2012) Social History Smoking Status: Former smoker how long ago did patient quit smoking: over 30 years alcohol intake: never substance use type: does not use caffeine: Yes Type: coffee Number of servings: 1 ROS ROS ED Constitutional Constitutional ED: Reports chills; Denies fever(s) or sweats Eyes Eyes: Denies blurry vision or change in vision ENT ENT ED: Denies ear pain or sore throat Cardiovascular Cardiovascular: Denies chest pain, palpitations or racing heartbeat Respiratory/Chest Respiratory/Chest: Denies cough, dyspnea or sputum Gastrointestinal Gastrointestinal: Reports abdominal pain and nausea; Denies constipation, diarrhea or vomiting Genitourinary Genitourinary ED: Denies dysuria, hematuria or urinary frequency Musculoskeletal Musculoskeletal: Denies arthralgias, myalgias or neck pain Integumentary Denies abscess, Abrasions or rash Neurologic Neurologic: Denies headache(s), paresthesias or weakness Psychiatric Psychiatric: Denies anxiety, depression, suicidal ideation or suicidal thoughts Endocrine Endocrinology: Denies polydipsia or polyuria EXAM Physical Exam Const Vital Signs: 07/07/22 01:56 Temperature 98.0 F Temperature Source Temporal Pulse Rate 93 Respiratory Rate 15 Blood Pressure 158/70 H Blood Pressure Mean 99 Pulse Ox 99 Oxygen Delivery Method Room Air Positive well nourished and obese General Appearance ED: NAD; Negative for pallor Nutritional Appearance: obese HEENT Reports moist mucous membranes normocephalic and atraumatic Eyes PERRL and EOMs intact bilaterally Resp normal respiratory effort Auscultation: Negative for rales, rhonchi or wheezes Cardio regular rate and regular rhythm GI Palpation: tender LLQ and periumbilical Neuro CN's II-XII intact bilaterally and moves all extremities Sensorium / Orientation: alert Motor Exam: strength 5/5 throughout Psych mental status grossly normal and thought process normal Skin General Skin Exam: Negative for jaundice or pallor MDM MDM MDM Narrative Medical decision making narrative: Patient presenting with chills, left lower quadrant pain, nausea. Differential includes UTI, pyelonephritis, diverticulitis, colitis, bowel obstruction, kidneystones. Patient medicated with morphine and Zofran. CBC to assess white blood cell count, hemoglobin, platelets, differential. CMP to assess liver function, renal function, glucose, anion gap. Lipase to assess for pancreatitis. Urinalysis to assess for UTI. CT of the abdomen pelvis will be obtained as well. Patient on Coumadin so I will check an INR. CBC shows a normal white blood cell count of 6.9. Hemoglobin stable 13.8. Platelets normal 354. Renal function electrolytes within normal limits. LFTs are normal. Urinalysis negative for infection but does show occult blood. Patient states she chronically has occult blood in her urine. INR therapeutic at 3.0. CT of the abdomen pelvis does not show any diverticulitis, colitis, renal calculi. It does show there is an abnormal thickening of the endometrial stripe and recommended follow-up with gynecology. Patient doing better on reevaluation. Discussed all findings with her. She states that she recently was called for follow-up visit with gynecology but did not go. I recommended that she make an appointment. She acknowledged understanding. Impression: 1. Abdominal pain 2. Abnormal CT Lab Data Attestation: I reviewed the patient's lab results. Labs: Laboratory Results - last 24 hr 07/07/22 07/07/22 07/07/22 02:15 02:15 02:20 WBC 6.9 RBC 4.55 Hgb 13.8 Hct 42.0 MCV 92.3 MCH 30.3 MCHC 32.9 RDW Std Deviation 46.9 H RDW Coeff of [place] 13.7 Plt Count 354 MPV 9.0 Immature Gran % (Auto) 0.100 Neut % (Auto) 51.9 Lymph % (Auto) 36.0 [place] % (Auto) 8.9 Eos % (Auto) 2.4 Baso % (Auto) 0.7 Absolute Neuts (auto) 3.6 Absolute Lymphs (auto) 2.50 Nucleated RBC % 0 PT INR Sodium 140 Potassium 3.8 Chloride 105 Carbon Dioxide 28.0 Anion Gap 7 BUN 10 Creatinine 0.79 Estim Creat Clear Calc 40.22 Est GFR (MDRD) Af Amer 92 Est GFR (MDRD) Non-Af 76 BUN/Creatinine Ratio 12.7 Glucose 110 H Calcium 9.9 Total Bilirubin 0.30 AST 26 ALT 37 Alkaline Phosphatase 95 Total Protein 7.4 Albumin 3.4 Globulin 4.0 Albumin/Globulin Ratio 0.8 L Lipase 35 Urine Color Yellow Urine Clarity Clear Urine pH 6.0 Ur Specific [place] 1.010 Urine Protein Negative Urine Glucose (UA) Normal Urine Ketones Negative Urine Occult Blood 250 H Urine Nitrite Negative Urine Bilirubin Negative Urine Urobilinogen Normal Ur Leukocyte Esterase 100 H Urine RBC 5-10 SEEN Urine WBC 0-5 SEEN Ur Squamous Epith Cells 0-5 SEEN Urine Bacteria RARE Urine Mucus 0 SEEN 07/07/22 02:35 WBC RBC Hgb Hct MCV MCH MCHC RDW Std Deviation RDW Coeff of [place] Plt Count MPV Immature Gran % (Auto) Neut % (Auto) Lymph % (Auto) [place] % (Auto) Eos % (Auto) Baso % (Auto) Absolute Neuts (auto) Absolute Lymphs (auto) Nucleated RBC % PT 31.9 H INR 3.0 Sodium Potassium Chloride Carbon Dioxide Anion Gap BUN Creatinine Estim Creat Clear Calc Est GFR (MDRD) Af Amer Est GFR (MDRD) Non-Af BUN/Creatinine Ratio Glucose Calcium Total Bilirubin AST ALT Alkaline Phosphatase Total Protein Albumin Globulin Albumin/Globulin Ratio Lipase Urine Color Urine Clarity Urine pH Ur Specific [place] Urine Protein Urine Glucose (UA) Urine Ketones Urine Occult Blood Urine Nitrite Urine Bilirubin Urine Urobilinogen Ur Leukocyte Esterase Urine RBC Urine WBC Ur Squamous Epith Cells Urine Bacteria Urine Mucus Radiography Diagnostic Testing: Clinical Impression(s) from Imaging Studies Abdomen/Pelvis CT 07/07/22 02:15 IMPRESSION: 1. Diverticulosis coli, without evidence for diverticulitis. 2. No renal or obstructing ureteral stones. 3. Interval development of hypodense thickening of the endometrium, which could be due to exogenous hormonal therapy or endometrial pathology such as endometrial hyperplasia; PRODUCT DIRECTOR follow-up this suggested, especially there is a history of postmenopausal bleeding. Electronically Signed: Dominic Wise MD at 3:47 EDT , Discharge Plan Triage Chief Complaint: Abd Pain ED Provider: Dominic Rosas Dx/Rx/DC Orders Prescriptions: No Action cholecalciferol (vitamin D3) 50 mcg (2,000 unit) capsule 2,000 unit PO DAILY Label Comments: TAKE 1 CAPSULE BY MOUTH DAILY omeprazole 40 mg capsule,delayed release(DR/EC) 20 mg PO DAILY levothyroxine 100 MCG tablet 100 mcg PO DAILY Label Comments: THYROID aspirin 81 MG tablet,chewable 81 mg PO DAILY@0800 Label Comments: HEART HEALTH warfarin 5 mg tablet 5 mg PO MOWEFR Label Comments: blood thinner warfarin 6 mg tablet 4 mg PO SUTUTHSA Label Comments: blood thinner Primary Care Provider: Ron Lindsay Referrals: Ron Lindsay MD [Primary Care Provider] - What to do if you have Problems For any increased pain, shortness of breath, bleeding, nausea or vomiting, chestpain, or any unexpected problems, contact your Primary Care Provider. Call [facility] ([phone]) or report to the closest Emergency Room. Call 911 if necessary. 07/07/22 0451 <Electronically signed by Dominic Rosas DO> Cosigner Signature (if applicable): CC: Dr. Ron Lindsay MD ~ Signed [facility] Work Phone: 1(598) 309-575106-25-2013 Evaluation note* Diagnosis Onset Date Resolution Status Cough acute Hypersomnia acute Dizziness acute Hyperlipidemia acute History of pulmonary embolism August 04, 2012 resolved [facility] Work Phone: 1(791) 601-771606-25-2013 Evaluation note* Diagnosis Onset Date Resolution Status Hyperlipidemia acute Atypical chest pain chronic History of pulmonary embolism August 04, 2012 resolved Mild intermittent asthma, uncomplicated chronic [facility] Work Phone: Discharge summary Author Shannon Bueno [facility] November 11, 2022 10:14am Note Date/Time November 11, 2022 10 :14am [facility] Physical Therapy [facility] [place] [address] / REHABILITATION SERVICES DISCHARGE SUMMARY MR#: [id number] Acct: [id number] Name: YESENIA HODGSON Rep #: [id number] 2 : 1950 72 From: Shannon ARNOLD T Referring Dr.: Dr. Ron Lindsay MD Statu s: REG RCR Insurance: MEDICARE PART A B [employer] Discharge Summary D/C summary: It has been my pleasure to treat YESENIA HODGSON referred by Dr. Ron Lindsay MD, with the diagnosis of Left Piriformis for a total of 9 visit(s). Discharge Date: Please see the following information for a summary of their discharge status. Subjective Subjective: Patient reports that she is doing pretty good. If she stands for a long time she has to shift her weight back and forth but other than she is back to her baseline. She feels that she has learned some exercises she will continue to do at home. She has print outs of the exercises to do at home. Pain Right Buttocks: Pain Intensity (Out of 10): 0 LB: Pain Intensity (Out of 10): 0 Overall Improvement % Improvement: 95 Objective Objective/Function: Posture: Fair throughout Gait: good trunk rotation and arm swing HR/TR: able with UE A Balance: WS unable to SLS ROM: Lumbar: Flexion: hands to toes- no pain with returning to neutral, Extn: WFL, SB/Rot: WFL. LE: WFL Strength: Core: fair, Hip: 4+/5 throughout, Knee: 5/5, Ankle: 5/5 Flex: HS: moderate, Gastroc: moderate, Piriformis: moderate Sensation: WNL to gross touch bilateral LE Reflex: WFL to bilateral patella Palpation: tender along paraspinals Special Tests L/S Slump test left side: Positive L/S Slump test right side: Negative L/S Left Straight Leg Raise: Positive L/S Right Straight Leg Raise: Negative L Hip DANNY - Intraarticular Pathology: Negative L Hip FADDIR - Labrum: Positive Goals Goal 1:: Patient will be I with HEP and progression Goal Progress: Goal Met Goal 2:: Patient will maintain proper posture t/o tx session to demo increase core s/s Goal Progress: Goal Met Goal 3:: Patient will report no radicular s/s for 1 week Goal Progress: Goal Met Goal 4:: Patient will report 80% improvement Goal Progress: Goal Met Plan Plan: 11/11/22: Discharge to I [facility]P- encouraged to call if questions or concerns D/C Information d/c sentence: If there are questions or concerns regarding this patient's physical therapy, please feel free to call me at [phone]. Thank you for the referral of thispatient. Sincerely, Shannon Bueno, DPT Balance/Gait/Functional tests Balance/Special Test Scores Oswestry Low Back Score: 2 Lower Extremity Functional Score: 45 Improvement % Improvement: 95 <Electronically signed by Shannon Bueno DPT> 11/11/22 1014 CC: Dr. Ron Lindsay MD ~ ELR Signed [facility] Work Phone: Evaluation noteNo assessment information available [facility] Work Phone: Evaluation note* Diagnosis Onset Date Resolution Status Cough acute Hypersomnia acute [facility] Work Phone: Evaluation note* Diagnosis Onset Date Resolution Status Hypersomnia acute [facility] Work Phone: Reason for referral (narrative)No [facility] for [facility] Phone: Chief Complaint and Reason for Visit Chief Complaint LUMBAR DDD, PN IN LT LG / RX HERE SCREENING GENERAL ILLNESS Chief Complaint LUMBAR DDD, PN IN LT LG / RX HERE SCREENING GENERAL ILLNESS E ORDERS Chief Complaint GENERAL ILLNESS E ORDERS Chief Complaint E ORDERS LABD AND XRAY- SHORTNESS OF BREATH CHRONIC COUGH Cough Cough DDD LBP/RX HERE Reason for Visit Cough Hypersomnia Chief Complaint LABD AND XRAY- SHORT NESS OF BREATH CHRONIC COUGH Cough Cough DDD LBP/RX HERE Reason for Visit Cough Hypersomnia Chief Complaint CHRONIC COUGH Cough Cough DDD LBP/RX HERE 1 Y FU Reason for Visit Cough Hypersomnia Dizziness Hyperlipidemia History of pulmonary embolism Chief Complaint SCREENING 4 M FU LLQ ABD PAIN, LEFT FLANK PAIN Reason for Visit Hypersomnia Chief Complaint SCREENING 4 M FU LLQ ABD PAIN, LEFT FLANK PAIN NEED ORDER Reason for Visit Hypersomnia Chief Complaint 4 M FU LLQ ABD PAIN, LEFT FLANK PAIN NEED ORDER LEFT UPPER LIMB SWELLING e order LFT PIRIFORMIS TIGHT HIP FLEXOR / RX HERE Reason for Visit Hypersomnia Chief Complaint NEED ORDER LEFT UPPER LIMB SWELLING e order LFT PIRIFORMIS TIGHT HIP FLEXOR / RX HERE Chief Complaint CHEST PAIN S/P [facility] 11/15 6 M FU FLANK PAIN, KIDNEY STONE SUSPECTED FLANK PAIN, KIDNEY STONE SUSPECTED Amb Documentation Reason for Visit Hyperlipidemia Atypical chest pain History of pulmonary embolism Mild intermittent asthma, uncomplicated Chief Complaint Admit Date 1 Y FU April 23, 2024 8:2 8am Left leg pain April 26, 2024 3:4 1pm Reason for Visit Admit Date Atypical chest pain April 23, 2024 8:2 8am Hyperlipidemia April 23, 2024 8:2 8am History of pulmonary embolism April 8:28am Chief Complaint Admit Date 1 Y FU April 23, 2024 8:2 8am Left leg pain April 26, 2024 3:4 1pm FALL May 11, 2024 5:03 pm Chief Complaint Admit Date 1 Y FU April 23, 2024 8:2 8am Left leg pain April 26, 2024 3:4 1pm FALL May 11, 2024 5:03 pm chest pain, sob May 17, 2024 9:45 am SOB May 18, 2024 10:2 7am Chief Complaint Admit Date 1 Y FU April 23, 2024 8:2 8am Left leg pain April 26, 2024 3:4 1pm LEFT LEG PAIN April 26, 2024 3:4 7pm FALL May 11, 2024 5:03 pm chest pain, sob May 17, 2024 9:45 am SOB May 18, 2024 10:2 7am Chief Complaint Admit Date 1 Y April 23, 2024 8:2 8am Left leg pain April 26, 2024 3:4 1pm LEFT LEG PAIN April 26, 2024 3:4 7pm FALL May 11, 2024 5:03 pm chest pain, sob May 17, 2024 9:45 am SOB May 18, 2024 10:2 7am fall, pain -RIGHT SHOULDER May 26, 2 025 3:42pm Advance Directives No Advanced Directives Records Found Advance Directive Response Recorded Date/ Time Advance Directives No June 19 9:34am Living Will No July 25, 2021 10:44am Power of Window Cutter No July 25 10:44am Advance Directive Response Recorded Date/ Time Advance Directives No June 19 8:34am Living Will No July 25, 2021 9:44am Power of Window Cutter No July 25 9:44am Advance Directive Response Recorded Date/ Time Advance Directives No June 19 9:34am Living Will No July 07, 2022 1 :59am Power of Window Cutter No July 07, 2022 1:59am Advance Directive Response Recorded Date/ Time Name of Medical Power of Window Cutter November 15, 2022 10:11am Advance Directives No June 19 8:34am Living Will Yes November 15 10:11am Power of Window Cutter Yes November 15 10:11am Advance Directive Response Recorded Date/ Time Living Will Yes November 15 11:11am Do you have a Healthcare Power of Window Cutter? Yes November 15, 2022 11:11am Advance Directives No June 19 9:34am Advance Directive Response Recorded Date/ Time Living Will Yes November 15 11:11am Do you have a Healthcare Power of Window Cutter? Yes November 15, 2022 11:11am Living Will Yes May 11, 2024 5:16pm Do you have a Healthcare Power of Window Cutter? Yes May 11, 2024 5:16pm Name of Medical Power of Window Cutter otoniel rush May 11, 2024 5:16pm Advance Directives No June 19 9:34am Advance Directive Response Recorded Date/ Time Living Will Yes November 15 11:11am Do you have a Healthcare Power of Window Cutter? Yes November 15, 2022 11:11am Living Will Yes May 11, 2024 5:16pm Do you have a Healthcare Power of Window Cutter? Yes May 11, 2024 5:16pm Name of Medical Power of Window Cutter otoniel rush May 11, 2024 5:16pm Living Will No May 18, 2024 10:33am Do you have a Healthcare Power of Window Cutter? No May 18, 2024 10:33am Advance Directives No June 19 9:34am Summary Purpose Family History No Family History Records Found Additional Source Comments Goals (unrecognized section and content) Goals may be documented in a n alternate sectionGoals may be documented in an alternate sectionGoals may be documented in an alternate sectionGoals may be documented in an alternate sectionGoals may be documented in an alternate sectionGoals may be documented in an alternate sectionGoals may be documented in an alternate sectionGoals may be documented in an alternate sectionGoals may be documented in an alternate sectionGoals may be documented in an alternate sectionGoals may be documented in an alternate sectionGoals may be documented in an alternate sectionGoals may be documented in an alternate sectionGoals may be documented in an alternate sectionGoals may be documented in an alternate sectionGoals may be documented in an alternate sectionGoals may be documented in an alternate sectionGoals may be documented in an alternate sectionGoals may be documented in an alternate sectionGoals may be documented in an alternate sectionGoals may be documented in an alternate sectionGoals may be documented in an alternate section Care Teams (unrecognized sec tion and content) Team Status: Active Member Role Status Dates Dr. Ron Lindsay MD Family Provider Active Dr. Ron Lindsay MD Primary Care Provider Activ e Team Status: Inactive Member Role Status Dates Dr. Ron Lindsay MD Primary Care Provider, Refe rring Provider Active Dr. Lucio Gomez MD Active Claudia Yeh NP, REMEDIATION CONSULTANT-C Attending Provider Active Team Status: Inactive Member Role Status Dates Dr. Ron Lindsay MD Primary Care Provider, Refe rring Provider Active Dr. Cristian Graf MD Attending Provider Active Team Status: Active Member Role Status Dates Dr. Ron Lindsay MD Primary Care Provider Activ e Dr. Cristian Graf MD Attending Provider , Referring Provider, Other Provider Active Team Status: Inactive Member Role Status Dates Dr. Ron Lidnsay MD Primary Care Provider, Atte nding Provider Active Team Status: Inactive Member Role Status Dates Dr. Ron Lindsay MD Primary Care Provider, Attending Provider, Referring Provider Active Team Status: Inactive Member Role Status Dates Dr. Ron Lindsay MD Primary Care Provider Activ e Dr. Cristian Graf MD Attending Provider Active Team Status: Inactive Member Role Status Dates Dr. Ron Lindsay MD Primary Care Provider Activ e Eva Cannon NP-C Attending Provider Active Team Status: Active Member Role Status Dates Dr. Ron Lindsay MD Primary Care Provider, Atte nding Provider Active Team Status: Inactive Member Role Status Dates Dr. Ron Lindsay MD Primary Care Provider, Atte nding Provider Active Claudia Yeh NP, REMEDIATION CONSULTANT-C Other Provider Active Dr. Lucio Gomez MD Other Provider Active Team Status: Inactive Member Role Status Dates Dr. Ron Lindsay MD Primary Care Provider Activ e Dr. Dominic Rosas DO Emergency Provider Active Team Status: Inactive Member Role Status Dates Dr. Ron Lindsay MD Primary Care Provider Activ e Dr. Dominic Rosas DO Attending Provider, Emergency Provider Active Team Status: Inactive Member Role Status Dates Dr. Ron Lindsay MD Primary Care Provider Activ e Jose Mcleod MD Attending Provider Active Team Status: Active Member Role Status Dates Dr. Ron Lindsay MD Primary Care Provider Activ e Dr. Parviz Barragan MD Attending Provider Active Jose Mcleod MD Referring Provider Active Team Status: Inactive Member Role Status Dates Dr. Ron Lindsay MD Primary Care Provider Activ e Jose Mcleod MD Attending Provider, Referring Provide r Active Team Status: Active Member Role Status Dates Dr. Ron Lindsay MD Primary Care Provider, Attending Provider, Referring Provider Active Team Status: Inactive Member Role Status Dates Dr. Ron Lindsay MD Primary Care Provider, Refe rring Provider Active Naz Young REMEDIATION CONSULTANT, REMEDIATION CONSULTANT-C Attending Provider Active Team Status: Inactive Member Role Status Dates Dr. Ron Lindsay MD Primary Care Provider, Refe rring Provider Active Claudia Yeh REMEDIATION CONSULTANT, REMEDIATION CONSULTANT-C Attending Provider Active Team Status: Active Member Role Status Dates Claudia Yeh REMEDIATION CONSULTANT, REMEDIATION CONSULTANT-C Referring Provider, Other Provi yarelis Active Dr. Ron Lindsay MD Primary Care Provider Activ e Dr. Lucio Gomez MD Attending Provider Active Team Status: Active Member Role Status Dates Dr. Ron Lindsay MD Primary Care Provider Activ e Claudia Yeh REMEDIATION CONSULTANT, REMEDIATION CONSULTANT-C Attending Provider Active Team Status: Inactive Member Role Status Dates Claudia Yeh REMEDIATION CONSULTANT, REMEDIATION CONSULTANT-C Attending Provider, Referring P rovider Active Dr. Ron Lindsay MD Primary Care Provider Activ e Team Status: Inactive Member Role Status Dates Dr. Ron Lindsay MD Primary Care Provider Activ e Claudia Yeh REMEDIATION CONSULTANT, REMEDIATION CONSULTANT-C Attending Provider, Referring P rovider Active Team Status: Inactive Member Role Status Dates Dr. Ron Lindsay MD Primary Care Provider Activ e Cuong Gomez MD Attending Provider, Emergency Provid er Active Team Status: Active Member Role Status Dates Dr. Jose David Lindasy MD Primary Care Provider Acti ve Team Status: Inactive Member Role Status Dates Dr. Jose David Lindsay MD Primary Care Provider Acti ve Start: April 23, 2024 End: April 23, 2024 Dr. Jose David Lindsay MD Referring Provider Active Start: April 23, 2024 End: April 23, 2024 ISHMAEL Carvalho Attending Provider Active St art: April 23, 2024 End: April 23, 2024 Team Status: Inactive Member Role Status Dates Dr. Jose David Lindsay MD Primary Care Provider Acti ve Start: April 26, 2024 End: April 26, 2024 Dr. Lindsay Baxter MD Attending Provider Active Start: April 26, 2024 End: April 26, 2024 Dr. Lindsay Baxter MD Referring Provider Active Start: April 26, 2024 End: April 26, 2024 Team Status: Active Member Role Status Dates Dr. Jose David Lindsay MD Primary Care Provider Acti ve Start: May 10, 2024 Dr. Jose David Lindsay MD Attending Provider Active Start: May 10, 2024 Team Status: Inactive Member Role Status Dates Dr. Jose David Lindsay MD Primary Care Provider Acti ve Start: May 11, 2024 End: May 11, 2024 Dr. Jeff Rowe DO Emergency Provider Active Start: May 11, 2024 End: May 11, 2024 Team Status: Inactive Member Role Status Dates Dr. Jose David Lindsay MD Primary Care Provider Acti ve Start: May 10, 2024 End: May 10, 2024 Dr. Jose David Lindsay MD Attending Provider Active Start: May 10, 2024 End: May 10, 2024 Team Status: Inactive Member Role Status Dates Dr. Jose David Lindsay MD Primary Care Provider Acti ve Start: May 11, 2024 End: May 11, 2024 Dr. Jeff Rowe DO Attending Provider Active Start: May 11, 2024 End: May 11, 2024 Dr. Jeff Rowe DO Emergency Provider Active Start: May 11, 2024 End: May 11, 2024 Team Status: Active Member Role Status Dates Dr. Jose David Lindsay MD Primary Care Provider Acti ve Start: May 17, 2024 Ravi Santizo REMEDIATION CONSULTANT, REMEDIATION CONSULTANT-C Attending Provider Active Start: May 17, 2024 Ravi McMorrow REMEDIATION CONSULTANT, REMEDIATION CONSULTANT-C Referring Provider Active Start: May 17, 2024 Team Status: Inactive Member Role Status Dates Dr. Jose David Lindsay MD Primary Care Provider Acti ve Start: May 18, 2024 End: May 18, 2024 Dr. Jeff Rowe DO Emergency Provider Active Start: May 18, 2024 End: May 18, 2024 Team Status: Active Member Role Status Dates Dr. Ryan Mondragon MD Attending Provider Active Start: April 26, 2024 Dr. Lindsay Baxter MD Referring Provider Active Start: April 26, 2024 Team Status: Inactive Member Role Status Dates Dr. Jose David Lindsay MD Primary Care Provider Acti ve Start: May 17, 2024 End: May 17, 2024 [facility] REM[facility]ATION CONSULTANT, REMEDIATION CONSULTANT-C Attending Provider Active Start: May 17, 2024 End: May 17, 2024 Ravi McMorrow REMEDIATION CONSULTANT, REMEDIATION CONSULTANT-C Referring Provider Active Start: May 17, 2024 End: May 17, 2024 Team Status: Inactive Member Role Status Dates Dr. Jose David Lindsay MD Primary Care Provider Acti ve Start: May 18, 2024 End: May 18, 2024 Dr. Jeff Rowe DO Attending Provider Active Start: May 18, 2024 End: May 18, 2024 Dr. Jeff Rowe DO Emergency Provider Active Start: May 18, 2024 End: May 18, 2024 Team Status: Inactive Member Role Status Dates Dr. Jose David Lindsay MD Primary Care Provider Acti ve Start: May 26, 2024 End: May 26, 2024 Dr. Mann Oleary MD Attending Provider Active Start: May 26, 2024 End: May 26, 2024 Dr. Mann Oleary MD Referring Provider Active Start: May 26, 2024 End: May 26, 2024 Team Status: Inactive Member Role Status Dates Dr. Jose David Lindsay MD Primary Care Provider Acti ve Start: June 24, 2024 End: June 24, 2024 ISHMAEL Carvalho Attending Provider Active St art: June 24, 2024 End: June 24, 2024 ISHMAEL Carvalho Referring Provider Active St art: June 24, 2024 End: June 24, 2024 Team Status: Inactive Member Role Status Dates Dr. Jose David Lindsay MD Primary Care Provider Pedro cardona Start: July 06, 2024 End: July 06, 2024 Wilda Castillo NP, REMEDIATION CONSULTANT-C Attending Provider Active Start: July 06, 2024 End: July 06, 2024 INFORMATION SOURCE (unrecogn ized section and content) DATE CREATED AUTHOR 08/09/2024 [facility] FOR RECORDS PERTAINING TO PATIENTS WHO ARE [...] BE BASED ON THE PRIMARY CLINICAL RECORDS. [employer] [facility]. provides no warranty or guarantee of the accuracy or completeness of information in this document.
== END | disposition home or self-care (01) ==
LOC: MTRAD 10:37
PROVIDERS: PCP Family Medicine
DX: M54.2 Cervicalgia (principal)
CPT/HCPCS: 70360

== ENCOUNTER 2024-09-26 15:57 | Emergency (ER) | payer MEDICARE, OTHER, SELFPAY ==
[2024-09-26 15:57] VITALS: BP 127/102; PULSE 84; RESP 14; TEMP 36.1; O2SAT 98; BMI 44.1
--- NOTE | 2024-09-26 16:15 | EKG12_ITS ---
Test Reason : PALPS Blood Pressure : */* mmHG Vent. Rate : 86 BPM Atrial Rate : 86 BPM P-R Int : 154 ms QRS Dur : 74 ms QT Int : 358 ms P-R-T Axes : 32 36 47 degrees QTcB Int : 428 ms Sinus rhythm with Premature atrial complexes Otherwise normal ECG Confirmed by АЛЕКСАНДР GIRALDO, RALPH ([id number]), manager editorial MARY CALLAWAY ([id number]) on 09/28/2024 6:11:40 AM Referred By: AVI/BUCK Confirmed By: RALPH FOUNTAIN MD
--- NOTE | 2024-09-26 16:16 | EX.ED.DYSGE1 ---
HPI History of Present Illness Chief Complaint: GI Bleed Informant: patient Narrative Narrative: Presents by private vehicle for evaluation reporting palpitations lightheaded symptoms for last couple days. No chest pains. She has had a dry cough for last week. No fever or chills. Today had multiple bowel movements she says 67 however every time she wiped she noted blood. There is no blood in the toilet. Mild abdominal cramping. She is on warfarin history of PE and DVT states her last INR check was a couple months ago. Denies history of cardiac dysrhythmia. Denies chest pains. Denies dyspnea. [facility] Medical History Hyperlipidemia Lung nodule Asthma Osteoarthritis Chronic back pain Hypothyroidism History of pulmonary embolism (08/04/12) Obesity Irritable bowel syndrome Esophageal reflux Home Medications ?Medication ?Instructions ?Recorded ?Last Taken ?Type aspirin 81 mg chewable tablet 81 mg PO DAILY@0800 03/13/14 06/19/20 History levothyroxine 100 mcg tablet 100 mcg PO DAILY 03/13/14 06/19/20 History cholecalciferol (vitamin D3) 50 2,000 unit PO DAILY 05/30/20 Unknown History mcg (2,000 unit) capsule omeprazole 40 mg capsule,delayed 40 mg PO DAILY 12/04/22 Unknown History release albuterol sulfate 90 mcg/actuation 2 puff inhalation Q6H PRN 12/30/22 Unknown History aerosol inhaler fluticasone propionate 50 2 spray intranasal DAILY 12/30/22 Unknown History mcg/actuation nasal spray,suspension lactobacillus combination no.4 3 3,000 mmu cells PO DAILY 12/30/22 Unknown History billion cell capsule (Probiotic) warfarin 4 mg tablet 4 mg PO DAILY 12/30/22 Unknown History budesonide-formoterol HFA 160 2 puff inhalation BID 03/20/23 Unknown History mcg-4.5 mcg/actuation aerosol inhaler loratadine 10 mg tablet 10 mg PO QDAY 10/29/23 Unknown History ondansetron 4 mg disintegrating 4 mg PO Q8 PRN 10/29/23 Unknown History tablet evolocumab 140 mg/mL subcutaneous 140 mg subcut QMONTH #1 mL 01/26/24 Unknown Rx pen injector (Repatha SureClick) hydrocodone-acetaminophen 5-325mg 1 tab PO Q6H PRN PRN Pain 3 days 05/11/24 Unknown Rx 5mg-325mg #10 TABLETS rosuvastatin 10 mg tablet 10 mg PO QDAY #90 tabs 06/15/24 Unknown Rx Allergy/AdvReac Type Severity Reaction Status Date / Time Latex, Natural Rubber Allergy Intermediate Severe Verified 09/26/24 15:58 rash with condoms, some bandaids cephalexin monohydrate (From Allergy Chest Verified 09/26/24 15:58 Keflex) tightness ciprofloxacin (From Cipro) Allergy Nausea Verified 09/26/24 15:58 ciprofloxacin HCl (From Allergy Nausea Verified 09/26/24 15:58 Cipro) hyoscyamine sulfate (From Allergy Chest Verified 09/26/24 15:58 Levbid) tightness nitrofurantoin (From Allergy Nausea Verified 09/26/24 15:58 Macrobid) nitrofurantoin Allergy Nausea Verified 09/26/24 15:58 macrocrystalline (From Macrobid) NSAIDS (Non-Steroidal Allergy Nausea Verified 09/26/24 15:58 Anti-Inflamma tramadol Allergy Chest Verified 09/26/24 15:58 tightness atorvastatin AdvReac insomnia/leg Verified 09/26/24 15:58 pain nalbuphine HCl (From Nubain) AdvReac Nausea Verified 09/26/24 15:58 Family History Sister Heart disease CHF at 63 Surgical History History of left heart catheterization (06/19/20) History of bunionectomy History of tonsillectomy History of cholecystectomy History of total knee arthroplasty (2012) Social History Smoking Status: Former smoker how long ago did patient quit smoking: over 30 years alcohol intake: never substance use type: does not use caffeine: Yes Type: coffee Number of servings: 1 ROS ROS ED Constitutional Constitutional ED: Denies chills, fever(s) or sweats ENT ENT ED: Denies sore throat Cardiovascular Cardiovascular: Reports palpitations and other Details: Lightheaded ; Denies chest pain, leg edema or racing heartbeat Respiratory/Chest Respiratory/Chest: Denies cough, dyspnea or dyspnea on exertion Gastrointestinal Gastrointestinal: Reports other Details: Rectal bleeding ; Denies abdominal pain, diarrhea, nausea or vomiting Genitourinary Genitourinary ED: Denies dysuria, hematuria or urinary frequency Musculoskeletal Musculoskeletal: Denies back pain, extremity pain or neck pain Integumentary Denies rash or wounds Neurologic Neurologic: Denies headache(s), paresthesias or weakness EXAM Physical Exam Const Vital Signs: 09/26/24 15:57 09/26/24 16:42 09/26/24 18:51 Temperature 97 F L Temperature Source Temporal Pulse Rate 84 77 89 Respiratory Rate 14 16 21 H Blood Pressure 127/102 H 147/66 H 166/93 H Blood Pressure Mean 110 93 117 Pulse Ox 98 95 99 Oxygen Delivery Method Room Air Room Air Room Air 09/26/24 19:19 Temperature 98.2 F Temperature Source Pulse Rate 79 Respiratory Rate 17 Blood Pressure 138/52 H Blood Pressure Mean 80 Pulse Ox 98 Oxygen Delivery Method Positive well nourished and well developed General Appearance ED: well developed and NAD; Negative for pallor HEENT Reports moist mucous membranes normocephalic and atraumatic Eyes Eyes Narrative: Slight pallor of conjunctiva. Neck full ROM Chest Wall Chest: Negative for tenderness Resp normal respiratory effort and normal air movement Effort and Inspection: symmetric chest movement; Negative for respiratory distress Cardio regular rate, regular rhythm and no murmurs Peripheral Pulses: pulses 2+ throughout GI normal to inspection, nondistended, normoactive bowel sounds and non-tender GI Narrative: Rectal, no thrombosed or bleeding hemorrhoids no fissures noted. Palpation: Negative for guarding or rebound tenderness present Extremity normal to inspection General Extremety ED: Negative for edema or tenderness General Extremity: Negative for edema Neuro oriented x3, CN's II-XII intact bilaterally and no sensory deficits noted Sensorium / Orientation: awake and alert Skin no rashes or lesions noted and no wounds General Skin Exam: Negative for pallor MDM MDM MDM Narrative Medical decision making narrative: Interventions / MDM: Differential diagnosis: Palpitations, near syncope, rectal bleed, chronic anticoagulation Diagnosis considered but do not suspect: No clinical diverticulitis, no clinical hemorrhoids. My EKG interpretation: Sinus rate of 86, no ST changes. Intermittent PACs. QTc 428. Imaging independently reviewed and interpreted by myself: 2 view chest x-ray: No acute process. External documents reviewed: N/A Test considered but not ordered:N/A ED course: Patient reported blood with wiping after bowel movement. No hemorrhoids no clear fissures noted. She is on warfarin. Reports near syncopal episode palpitations since Friday. EKG normal. Labs were ordered, IV fluids given. Lab results INR therapeutic at 2.6 hemoglobin 14.3. BUN 18 creatinine 0.79. No additional bowel movements with any bloody stools while in the ED. Vitals remained stable. She was ambulated stable. Discussed with patient monitoring symptoms if she develops large bloody stools with lightheaded symptoms to immediately return otherwise outpatient follow-up given with GI. Patient understands agrees with plan. All questions were answered. Re-evaluation: stable Disposition discussed with patient/family/significant other: Patient Case discussed with consulting clinician: N/A This note was generated with [employer] dictation software. It may contain incorrect words, spelling, and punctuation that were not noted in checking the note before signing. Lab Data Attestation: I reviewed the patient's lab results. Labs: Laboratory Results - last 24 hr 09/26/24 09/26/24 16:20 17:15 WBC 11.6 H RBC 4.84 Hgb 14.3 Hct 43.6 MCV 90.1 MCH 29.5 MCHC 32.8 RDW Std Deviation 46.3 H RDW Coeff of [place] 13.9 Plt Count 382 MPV 9.3 Immature Gran % (Auto) 0.300 Neut % (Auto) 56.7 Lymph % (Auto) 33.6 [place] % (Auto) 7.5 Eos % (Auto) 1.2 Baso % (Auto) 0.7 Absolute Neuts (auto) 6.6 Absolute Lymphs (auto) 3.90 Nucleated RBC % 0 PT 28.2 H INR 2.6 APTT 43.4 H Sodium Cancelled 136 Potassium Cancelled 4.5 Chloride Cancelled 99 Carbon Dioxide Cancelled 26.8 Anion Gap Cancelled 11 BUN Cancelled 18 Creatinine Cancelled 0.79 Estim Creat Clear Calc Cancelled 71.98 Est GFR (MDRD) Non-Af Cancelled 79 BUN/Creatinine Ratio Cancelled 22.7 H Glucose Cancelled 99 Calcium Cancelled 9.8 Radiography Diagnostic Testing: Clinical Impression(s) from Imaging Studies Chest X-Ray 09/26/24 16:56 IMPRESSION: No evidence of acute cardiopulmonary disease. Reading Location: [facility] Discharge Plan Triage Chief Complaint: GI Bleed ED Provider: Jersey Olivas Dx/Rx/DC Orders Clinical Impression: Palpitations, Near syncope, Rectal bleeding, Chronic anticoagulation Instructions: ED Heart Palpitations, ED Lower GI Bleeding (Stable), ED Near-Fainting, Uncertain Cause Prescriptions: No Action cholecalciferol (vitamin D3) 50 mcg (2,000 unit) capsule 2,000 unit PO DAILY Patient Comments: TAKE 1 CAPSULE BY MOUTH DAILY omeprazole 40 mg capsule,delayed release(DR/EC) 40 mg PO DAILY budesonide-formoterol 160-4.5 mcg/actuation HFA aerosol inhaler 2 puff inhalation BID Probiotic 3 billion cell capsule 3,000 mmu cells PO DAILY Rx Instructions: administer with a meal albuterol sulfate 90 mcg/actuation HFA aerosol inhaler 2 puff inhalation Q6H PRN warfarin 4 mg tablet 4 mg PO DAILY fluticasone propionate 50 mcg/actuation spray,suspension 2 spray intranasal DAILY loratadine 10 mg tablet 10 mg PO QDAY ondansetron 4 mg tablet,disintegrating 4 mg PO Q8 PRN levothyroxine 100 MCG tablet 100 mcg PO DAILY Patient Comments: THYROID aspirin 81 MG tablet,chewable 81 mg PO DAILY@0800 Patient Comments: [facility] hydrocodone-acetaminophen 5-325 mg tablet 1 tab PO Q6H PRN PRN (Reason: Pain) 3 Days Qty: 10 0RF Repatha SureClick 140 mg/mL pen injector 140 mg subcut QMONTH Qty: 1 12RF rosuvastatin 10 mg tablet 10 mg PO QDAY Qty: 90 3RF Primary Care Provider: Jose David Lindsay Referrals: Jose David Lindsay MD [Primary Care Provider] - Friend,DO Mic [Med Staff - Active Staff] - 1-2 Weeks Activity Restrictions/Additional Instructions: Hemoglobin 14.3. Your INR is 2.6. BUN 18 creatinine 0.79. EKG normal. He reports bleeding only with wiping. No fissures or hemorrhoids seen. Monitor symptoms follow-up with GI. Develop increasing bleeding in your stools multiple times noting clots, return immediately to the ED. Print Language: Surinamese Disposition Disposition: Home, Self Care Discharge Date/Time: 09/26/24 19:26
--- OUTSIDE RECORDS SUMMARY | 2024-09-26 16:20 | XMS RPT_ITS | CCD ---
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 Ron Lindsay Primary Care Provider Dr. Ron Lindsay Referring Provider Dr. Cristian Graf Attending Provider [phone] Dr. Cristian Graf Referring Provider Dr. Cristian Graf Other Provider Rao CHAPIN NP-C Claudia Attending Provider Dr. Ron Lindsay Primary Care Provider [phone] Dr. Ron Lindsay Referring Provider Dr. Cristian Graf Attending Provider Dr. Parviz Barragan Attending Provider MD Jose Mcleod Referring Provider [phone] Ron Lindsay Primary Care Provider Dr. Ron Lindsay Primary Care Provider [phone] Dr. Ron Lindsay Referring Provider Rao LANDSCAPER HELPER, LANDSCAPER HELPER-C Claudia Attending Provider Hannah CHAPIN LANDSCAPER HELPER-C Naz Attending Provider Rao LANDSCAPER HELPER, LANDSCAPER HELPER-C Claudia Referring Provider Rao CHAPIN, LANDSCAPER HELPER-C Claudia Other Provider [phone] Lucio Gomez Attending Provider Ranney MD, Dr. Christopher Primary Care Provider Dr. Jose David Lindsay MD Referring Provider Salty Matthews Attending Provider Vee GIRALDO, Dr. Lindsay Perez Attending Provider [phone] Vee GIRALDO, Dr. Lindsay Perez Referring Provider Neftali GIRALDO, Dr. Main Attending Provider Dr. Jeff Rowe DO Emergency Provider [phone] Soledad GRIJALVA, Dr. Aguilar Attending Provider [phone] McMorrow LANDSCAPER HELPER-C, Ravi Attending Provider McMorrow LANDSCAPER HELPER-C, Ravi Referring Provider Giancarlo GIRALDO, Dr. Ryan Bourne Attending Provider Mamta GIRALDO, Dr. Mann Romero Attending Provider Mamta GIRALDO, Dr. Mann Romero Referring Provider [phone] Salty Matthews Referring Provider Jonathan LANDSCAPER HELPER-C, Wilda Attending Provider Ranney, Christopher Primary Care Unavailable McMorrow LANDSCAPER HELPERRavi Referring Unavailable McMorrow LANDSCAPER HELPERRavi Attending Unavailable Ranney, Christopher Primary Care Unavailable Demiter, Salty Referring Unavailable Demiter, Salty Attending Unavailable Ranney, Christopher Primary Care Unavailable Jonathan LANDSCAPER HELPER, Wilda Attending Unavailable Ranney, Christopher Referring Unavailable Naz Young NP Attending Unavailable Ranney, Christopher Primary Care Unavailable Ranney, Christopher Primary Care Unavailable Ranney, Christopher Referring Unavailable Demiter, Salty Attending Unavailable Ranney, Christopher Referring Unavailable Ranney, Christopher Attending Unavailable Ranney, Christopher Primary Care Unavailable Claudia Yeh Referring Unavailable Claudia eYh Attending Unavailable Ranney, Christopher Primary Care Unavailable Ranney, Christopher Primary Care Unavailable Jeff Rowe Attending Unavailable Ranney, Christopher Primary Care Unavailable Jeff Rowe Attending Unavailable Ranney, Christopher Primary Care Unavailable Lindsay Baxter Referring Unavailable Lindsay Baxter Attending Unavailable Ranney, Christopher Primary Care Unavailable Ranney, Christopher Referring Unavailable Jose David Lindsay Attending Unavailable Jose David Lindsay Primary Care Unavailable Jose David Lindsay Attending Unavailable Jose David Lindsay Primary Care Unavailable McMorrow LANDSCAPER HELPER, Ravi Attending Unavailable McMorrow LANDSCAPER HELPER, Ravi Referring Unavailable Jose David Lindsay Primary Care Unavailable Mann Oleary Referring Unavailable Mann Oleary Attending Unavailable Jose David Lindsay Primary Care Unavailable Mann Oleary Referring Unavailable Mann Oleary Attending Unavailable Allergies Allergy Classification Reported Allergen(s) Allergy Type Date of Onset Reaction(s) Facility (20 sources) nalbuphine drug allergy 7 Nausea [facility] Work Phone: (4 sources) LATEX GLOVES ONE SIZE drug allergy 7 [facility] Work Phone: (20 sources) atorvastatin Drug Allergy 2 insomnia/leg pain [facility] (20 sources) Cephalexin; Translations: [cephalexin monohydrate] Drug Allergy 2 Chest tightness [facility] (20 sources) Ciprofloxacin Drug Allergy 2 Nausea [facility] (20 sources) Ciprofloxacin; Translations: [ciprofloxacin HCl] Drug Allergy 2 Nausea [facility] (20 sources) Hyoscyamine; Translations: [hyoscyamine sulfate] Drug Allergy 2 Chest tightness [facility] (20 sources) Nitrofurantoin Drug Allergy 2 [facility] (20 sources) traMADol Drug Allergy 2 Chest tightness [facility] (20 sources) nitrofurantoin macrocrystalline; Translations: [nitrofurantoin macrocrystalline] Allergy to substance 2 Nausea [facility] (20 sources) NSAIDS (Non-Steroidal Anti-Inflamma; Translations: [NSAIDS (Non-Steroidal Anti-Inflamma] Allergy to substance 2 Nausea [facility] (8 sources) natural latex rubber Allergy to substance 3 Severe rash with condoms, some bandaids [facility] (1 source) atorvastatin Drug Allergy 5 [facility] (1 source) Ciprofloxacin Drug Allergy 5 [facility] (1 source) Nalbuphine Drug Allergy 5 [facility] (1 source) natural latex rubber Drug allergy (disorder) 5 [facility] (1 source) Nitrofurantoin Drug Allergy 5 [facility] (1 source) traMADol Drug Allergy 5 [facility] Medications Current Medications Medication Drug [...] 2016 2:41pm May 30, 2020 10:14am 1-2 [id number] 200 actuat albuterol 0.09 mg/actuat metered dose [...] 1:00am Start: 12-30-2022 End: 03-20-2023 Budesonide-Formoterol (Symbi antno) 160-4.5 mcg/actuation HFA aerosol inhaler Discontinued 2 NMA INHALATION TWICE A DAY December 30, 2022 1:00am March 20, 2023 10:16am administer with spacer, rinse mouth after each use Start: 12-30-2022 take 1 puff(s) by mo [facility] twice daily Budesonide-Formoterol (Symbicort) 160-4. 5 [...] injector Active 140 mg SC EVERY MONTH January 26, 2024 11:49am Start: 12-04-2022 End: [...] MG TBEC 1 tab PO daily OMEPRAZOLE [id number] Roderick Barnes MD ondansetron 4 mg disintegrating [...] inued 4 mg PO every Friday, , FriJanuary 02, 2022 11:40am December 30, [...] MG tablet Discont inued 4 mg PO SUMOMarch 13, 2014 1:00am January 02, 2022 11:41am [...] May 30, 2020 11:15am Start: 03-13-2014 End: 04-20-2021 take 1 puff(s) by inhalation twice daily [...] August 24, 2016 2:50pm 60 actuat tiotropium 0.13122 mg/actuat inhalation spray (16 sources) Anticholinergic Start: 01-29-2022 End: 06-27-2022 take 1.25 ug by inhalation once daily as needed Tiotropium Conroy (Spiriva Respimat) 1.25 mcg/actuation mist Discontinued 2 NMA INHALATION DAILY as needed January 29, 2022 1:00am June 27, 2022 10:00am Start: 01-29-2022 End: 06-27-2022 take 1 puff(s) by inhalation once daily Tiotropium Conroy (Spiriva Respimat) 1.25 mcg/actuation mist Discontinued 2 [...] Problem Classification Problem Date Documented Date Episodic/Chronic Asthma (9 sources) Mild intermittent asthma; Translations: [...] disease without esophagitis] Onset: 09-16-2016 09-16-2016 Chronic Other connective tissue disease (8 sources) Pain in left arm; Translations: [Pain in left arm] 11-23-2022 Episodic Other lower respiratory disease (20 sources) Cough; Translations: [Cough] Episodic Other lower respiratory disease (4 sources) Dyspnea; Translations: [Dyspnea, unspecified] 05-18-2024 Episodic Residual codes; unclassified (18 sources) Hypersomnia; Translations: [Hypersomnia, unspecified] 01-02-2022 Chronic Residual codes; unclassified (9 sources) Hypersomnia, unspecified; Translations: [Hypersomnia, unspecified] Chronic Spondylosis; intervertebral disc disorders; other back problems (1 source) Cervicalgia; Translations: [Cervicalgia] Onset: 09-21-2024 Episodic Thyroid disorders (4 sources) Hypothyroidism; Translations: [Hypothyroidism, unspecified] Onset: 09-16-2016 09-16-2016 Chronic Past or Other Problems Problem Classification Problem Date Documented Da te Episodic/Chronic Abdominal pain (1 source) Unspecified abdominal pain; Translations: [Unspecified abdominal pain] Onset: 05-12-2024 Episodic Nonspecific chest pain (20 sources) Atypical chest pain; Translations: [Other chest pain] Onset: 05-21-2024 06-14-2020 Episodic Other lower respiratory disease (1 source) Shortness of breath; Translations: [Shortness of breath] Onset: 05-24-2024 Episodic Other non-traumatic joint disorders (2 sources) Pain in right shoulder; Translations: [Pain in right shoulder] Onset: 05-27-2024 Episodic Other non-traumatic joint disorders (1 source) Pain [...] edema; Translations: [Localized edema] Onset: 05-05-2024 Episodic Sprains and strains (7 sources) Strain of thoracic region; Translations: [Strain of muscle and tendon of unspecified wall of thorax, initial encounter] Onset: 05-11-2024 05-11-2024 Episodic Results Test Name Value Interpretation Reference Range Facility Neck for Soft Tissueon 09-21 Neck for Soft Tissue [facility] Imaging Services [address] [place], [place] [id number] Neck for Soft Tissue MR#: [id number] Acct: [id number] Name: YESENIA HODGSON Rep #: [id number] : 1950 F [id number] From: Aroldo landin MD PCP: Dr. Jose David Lindsay MD Status: REG CLI Study: Neck for Soft Tissue Date of Exam: 09/21/24 Exam# [id number] Ordering Dr: Ravi Weeks NP, NP PROCEDURE: NECK FOR SOFT TISSUE 09/21/2024 REASON FOR EXAM: NECK PAIN TECHNIQUE: NECK FOR SOFT TISSUE COMPARISON: None FINDINGS: Bones: Disc space narrowing and spondylosis at the C5-C6 and C6-C7 levels. Soft tissues: No prevertebral soft tissue swelling. Other: RAD/Neck for Soft Tissue IMPRESSION: Disc space narrowing at the C5-C6 and C6-C7 levels. No prevertebral soft tissue swelling. No radiopaque foreign body seen. Reading Location: [place] [address] CC: Ravi Weeks; Dr. Jose David Lindsay MD Utilization Management Nurse: Signed Normal [facility] Absolute lymphocyte countOrd ered By: Wilda Castillo on 07-06-2024 Lymphocytes Auto (Unsp spec) [#/Vol] 1.86 10*3/uL 0.83-4.51 [facility] Absolute neutrophil countOrd ered By: Wilda Castillo on 07-06-2024 Neutrophils (Bld) [#/Vol] 3.1 10*3/uL 2.0-7.7 [facility] Anion gap in Serum or Plasma Ordered By: Wilda Castillo on 07-06-2024 Anion gap [Moles/Vol] 12 mmol/L 5-15 [facility] Automated lymphocyte count a s percentage of total leukocytesOrdered By: Wilda Castillo on 07-06-2024 Lymphocytes/100 WBC Auto (Unsp spec) 33.1 % 19-41 [facility] BUN/creatinine ratioOrdered By: Wilda Castillo on 07-06-2024 Urea nitrogen/Creatinine [Mass ratio] 21.0 mg/mg High 10-20 [facility] Basophil percentageOrdered B y: Wilda Castillo on 07-06-2024 Basophils/100 WBC (Bld) 1.1 % High 0-1 [facility] Bilirubin, totalOrdered By: Wilda Castillo on 07-06-2024 Bilirubin [Mass/Vol] 0.27 mg/dL 0.00-1.30 [facility] CBC W/Diff, Automatedon 06-11 Absolute Lymph 1.86 X10 3/uL Normal 0.83-4.51 [facility] Comment on above: Performed By: #### L 501.9520, L501.9985, L100.0100, L506.1001, L500.4100, L500.4050 #### [facility] [address] [place], [address] Absolute Neut 3.1 X10 3/uL Normal 2.0-7.7 [facility] Comment on above: Performed By: #### L 501.9520, L501.9985, L100.0100, L506.1001, L500.4100, L500.4050 #### [facility] [address] [place], [address] Basophils/100 WBC (Bld) 1.1 % High 0-1 [facility] Comment on above: Performed By: #### L 501.9520, L501.9985, L100.0100, L506.1001, L500.4100, L500.4050 #### [facility] [address] [place], [address] Eosinophils/100 WBC (Bld) 2.7 % Normal 0-5 [facility] Comment on above: Performed By: #### L 501.9520, L501.9985, L100.0100, L506.1001, L500.4100, L500.4050 #### [facility] [address] [place], [address] Erythrocyte distribution width (RBC) [Ratio] 14.2 % Normal 11.6-14.6 [facility] Comment on above: Performed By: #### L 501.9520, L501.9985, L100.0100, L506.1001, L500.4100, L500.4050 #### [facility] [address] [place], [address] Hematocrit (Bld) [Volume fraction] 43.0 % Normal 37-47 [facility] Comment on above: Performed By: #### L 501.9520, L501.9985, L100.0100, L506.1001, L500.4100, L500.4050 #### [facility] [address] [place], [address] Hemoglobin (Bld) [Mass/Vol] 13.6 g/dL Normal 12.0-15.0 [facility] Comment on above: Performed By: #### L 501.9520, L501.9985, L100.0100, L506.1001, L500.4100, L500.4050 #### [facility] [address] [place], [address] IG% 0.400 Normal 0.0-0.9 [facility] Comment on above: Result Comment: IG% - Immature Granulocytes (promyelocytes, myelocytes and metamyelocytes) > 1% indicates that a LEFT SHIFT is Present. Performed By: #### L 501.9520, L501.9985, L100.0100, L506.1001, L500.4100, L500.4050 #### [facility] [address] [place], [address] Lymphocytes/100 WBC (Bld) 33.1 % Normal 19-41 [facility] Comment on above: Performed By: #### L 501.9520, L501.9985, L100.0100, L506.1001, L500.4100, L500.4050 #### [facility] [address] [place], [address] MCH (RBC) [Entitic mass] 29.4 pg Normal 27.0-32.0 [facility] Comment on above: Performed By: #### L 501.9520, L501.9985, L100.0100, L506.1001, L500.4100, L500.4050 #### [facility] [address] [place], [address] MCHC (RBC) [Mass/Vol] 31.6 g/dL Low 32-36 [facility] Comment on above: Performed By: #### L 501.9520, L501.9985, L100.0100, L506.1001, L500.4100, L500.4050 #### [facility] [address] [place], [address] MCV (RBC) [Entitic vol] 92.9 fL Normal 81-99 [facility] Comment on above: Performed By: #### L 501.9520, L501.9985, L100.0100, L506.1001, L500.4100, L500.4050 #### [facility] [address] [place], [address] Monocytes/100 WBC (Bld) 7.8 % Normal 0-10 [facility] Comment on above: Performed By: #### L 501.9520, L501.9985, L100.0100, L506.1001, L500.4100, L500.4050 #### [facility] [address] [place], [address] Neutrophils/100 WBC (Bld) 54.9 % Normal 47-70 [facility] Comment on above: Performed By: #### L 501.9520, L501.9985, L100.0100, L506.1001, L500.4100, L500.4050 #### [facility] [address] [place], [address] Nucleated RBC (Bld) [#/Vol] 0 10*3/uL Normal 0-5 [facility] Comment on above: Performed By: #### L 501.9520, L501.9985, L100.0100, L506.1001, L500.4100, L500.4050 #### [facility] [address] [place], [address] Platelet mean volume (Bld) [Entitic vol] 9.7 fL Normal 6.2-12.0 [facility] Comment on above: Performed By: #### L 501.9520, L501.9985, L100.0100, L506.1001, L500.4100, L500.4050 #### [facility] [address] [place], [address] Platelets (Bld) [#/Vol] 369 10*3/uL Normal 150-450 [facility] Comment on above: Performed By: #### L 501.9520, L501.9985, L100.0100, L506.1001, L500.4100, L500.4050 #### [facility] [address] [place], [address] RBC (Bld) [#/Vol] 4.63 10*6/uL Normal 4.2-5.4 [facility] Comment on above: Performed By: #### L 501.9520, L501.9985, L100.0100, L506.1001, L500.4100, L500.4050 #### [facility] [address] [place], [address] RDW SD 48.7 fl High 35.1-43.9 [facility] Comment on above: Performed By: #### L 501.9520, L501.9985, L100.0100, L506.1001, L500.4100, L500.4050 #### [facility] [address] [place], [address] WBC (Bld) [#/Vol] 5.6 10*3/uL Normal 4.4-11.0 [facility] Comment on above: Performed By: #### L 501.9520, L501.9985, L100.0100, L506.1001, L500.4100, L500.4050 #### [facility] [address] [place], [address] Calculated very low density lipoprotein (VLDL) cholesterol measurementOrdered By: Wilda Castillo on 07-06-2024 Calculated very low density lipoprotein (VLDL) cholesterol measurement 22 mg/dL 5-40 [facility] Carbon dioxide, total [Moles /volume] in Central venous bloodOrdered By: Wilda Castillo on 07-06-2024 CO2 [Moles/Vol] 23.4 mmol/L 21.0-32.0 [facility] Chloride assayOrdered By: Caden Castillo on 07-06-2024 Chloride [Moles/Vol] 106 mmol/L 98-108 [facility] Comprehensive Metabolic Prof ilon 07-06-2024 Albumin [Mass/Vol] 3.8 g/dL Normal 3.4-4.8 [facility] Comment on above: Performed By: #### L 501.9520, L501.9985, L100.0100, L506.1001, L500.4100, L500.4050 #### [facility] [address] [place], [address] Albumin/Globulin [Mass ratio] 1.2 {ratio} Normal 0.9-2.4 [facility] Comment on above: Performed By: #### L 501.9520, L501.9985, L100.0100, L506.1001, L500.4100, L500.4050 #### [facility] [address] [place], [address] ALK PHOS 80 U/L Normal 35-104 [facility] Comment on above: Performed By: #### L 501.9520, L501.9985, L100.0100, L506.1001, L500.4100, L500.4050 #### [facility] [address] [place], [address] ALT [Catalytic activity/Vol] 17 U/L Normal <=34 [facility] Comment on above: Performed By: #### L 501.9520, L501.9985, L100.0100, L506.1001, L500.4100, L500.4050 #### [facility] [address] [place], [address] AST [Catalytic activity/Vol] 21 U/L Normal <=31 [facility] Comment on above: Performed By: #### L 501.9520, L501.9985, L100.0100, L506.1001, L500.4100, L500.4050 #### [facility] [address] [place], [address] Bilirubin [Mass/Vol] 0.27 mg/dL Normal 0.00-1.30 [facility] Comment on above: Performed By: #### L 501.9520, L501.9985, L100.0100, L506.1001, L500.4100, L500.4050 #### [facility] [address] [place], [address] BUN/CRE 21.0 RATIO High 10-20 [facility] Comment on above: Performed By: #### L 501.9520, L501.9985, L100.0100, L506.1001, L500.4100, L500.4050 #### [facility] [address] [place], [address] Calcium [Mass/Vol] 9.8 mg/dL Normal 7.6-11.0 [facility] Comment on above: Performed By: #### L 501.9520, L501.9985, L100.0100, L506.1001, L500.4100, L500.4050 #### [facility] [address] [place], [address] Chloride [Moles/Vol] 106 mmol/L Normal 98-108 [facility] Comment on above: Performed By: #### L 501.9520, L501.9985, L100.0100, L506.1001, L500.4100, L500.4050 #### [facility] [address] [place], [address] CO2 [Moles/Vol] 23.4 mmol/L Normal 21.0-32.0 [facility] Comment on above: Performed By: #### L 501.9520, L501.9985, L100.0100, L506.1001, L500.4100, L500.4050 #### [facility] [address] [place], [address] Creatinine [Mass/Vol] 0.67 mg/dL Low 0.70-1.20 [facility] Comment on above: Performed By: #### L 501.9520, L501.9985, L100.0100, L506.1001, L500.4100, L500.4050 #### [facility] [address] [place], [address] GAP 12 Normal 5-15 [facility] Comment on above: Performed By: #### L 501.9520, L501.9985, L100.0100, L506.1001, L500.4100, L500.4050 #### [facility] [address] [place], [address] GFR/1.73 sq M.predicted among non-blacks MDRD (S/P/Bld) [Vol rate/Area] 92 mL/min/{1.73_m2} Normal >60 [facility] Comment on above: Result Comment: mL/m in/1.73m2 CKD-EPI Creatinine Equation (2020) Performed By: #### L 501.9520, L501.9985, L100.0100, L506.1001, L500.4100, L500.4050 #### [facility] [address] [place], [address] Globulin (S) [Mass/Vol] 3.1 g/dL Normal 2.2-4.2 [facility] Comment on above: Performed By: #### L 501.9520, L501.9985, L100.0100, L506.1001, L500.4100, L500.4050 #### [facility] [address] [place], [address] Glucose [Mass/Vol] 97 mg/dL Normal 70-99 [facility] Comment on above: Performed By: #### L 501.9520, L501.9985, L100.0100, L506.1001, L500.4100, L500.4050 #### [facility] [address] [place], [address] Potassium [Moles/Vol] 4.1 mmol/L Normal 3.3-5.1 [facility] Comment on above: Performed By: #### L 501.9520, L501.9985, L100.0100, L506.1001, L500.4100, L500.4050 #### [facility] [address] [place], [address] Sodium [Moles/Vol] 141 mmol/L Normal 133-145 [facility] Comment on above: Performed By: #### L 501.9520, L501.9985, L100.0100, L506.1001, L500.4100, L500.4050 #### [facility] [address] [place], [address] T PROT 7.0 g/dL Normal 5.9-8.4 [facility] Comment on above: Performed By: #### L 501.9520, L501.9985, L100.0100, L506.1001, L500.4100, L500.4050 #### [facility] [address] [place], [address] Urea nitrogen [Mass/Vol] 14 mg/dL Normal 4-19 [facility] Comment on above: Performed By: #### L 501.9520, L501.9985, L100.0100, L506.1001, L500.4100, L500.4050 #### [facility] [address] [place], [place], [id number] (846) Eosinophil percentageOrdered By: Wilda Castillo on 07-06-2024 Eosinophils/100 WBC (Bld) 2.7 % 0-5 [facility] Erythrocyte distribution wid th ratioOrdered By: Wilda Castillo on 07-06-2024 Erythrocyte distribution width (RBC) [Ratio] 14.2 % 11.6-14.6 [facility] Erythrocyte distribution wid th standard deviationOrdered By: Wilda Castillo on 07-06-2024 Erythrocyte distribution width (RBC) [Ratio] 48.7 fl High 35.1-43.9 [facility] Glomerular filtration rate ( GFR) estimation/1.73 sq m using serum, plasma, or whole bOrdered By: Wilda Castillo on 07-06-2024 GFR/1.73 sq M.predicted among non-blacks MDRD (S/P/Bld) [Vol rate/Area] 92 mL/min/{1.73_m2} >60 [facility] Comment on above: mL/min/1.73m2 CKD-EP I Creatinine Equation (2020) Hematocrit Auto (Bld) [Volum e fraction]Ordered By: Wilda Castillo on 07-06-2024 Hematocrit (Bld) [Volume fraction] 43.0 % 37-47 [facility] Hemoglobin A1con 07-06-2024 HbA1c (Bld) [Mass fraction] 5.9 % High <=5.6 [facility] Comment on above: Result Comment: Norm al < 5.7 % Prediabetic 5.7 - 6.4 % Diabetic >or= 6.5 % Please note range changes. Performed By: #### L 501.9520, L501.9985, L100.0100, L506.1001, L500.4100, L500.4050 #### [facility] [address] [place], [place], [id number] Hemoglobin A1c percentageOrd ered By: Wilda Castillo on 07-06-2024 HbA1c (Bld) [Mass fraction] 5.9 % High <5.7 [facility] Comment on above: Normal < 5.7 % Predi abetic 5.7 - 6.4 % Diabetic >or= 6.5 % Please note range changes. Hemoglobin measurementOrdere d By: Wilda Castillo on 07-06-2024 Hemoglobin (Bld) [Mass/Vol] 13.6 g/dL 12.0-15.0 [facility] Immature granulocytes/100 WB C Auto (Bld)Ordered By: Wilda Castillo on 07-06-2024 Immature granulocytes/100 WBC (Bld) 0.400 % 0.0-0.9 [facility] Comment on above: IG% - Immature Granu locytes (promyelocytes, myelocytes and metamyelocytes) > 1% indicates that a LEFT SHIFT is Present. LDL calc ser/plasOrdered By: Wilda Castillo on 07-06-2024 Cholesterol in LDL [Mass/Vol] 96 mg/dL [facility] Comment on above: Bvgwmvafao=234-674 m g/dL & Higher Oomo=629 mg/dL or greater Laboratory - Chemistry and C hemistry - challengeOrdered By: Wilda Castillo on 07-06-2024 AST [Catalytic activity/Vol] 21 U/L <32 [facility] Lipid Profileon 07-06-2024 CHOL:HDL 3.07 Normal [facility] Comment on above: Performed By: #### L 501.9520, L501.9985, L100.0100, L506.1001, L500.4100, L500.4050 #### [facility] [address] [place], [address] Cholesterol [Mass/Vol] 174 mg/dL Normal <=200 [facility] Comment on above: Result Comment: Chol esterol level, Desirable <200 mg/dL Borderline high cholesterol 200-239 mg/dL High cholesterol >=240 mg/dL Recommendations of the NCEP Adult Treatment Panel for the following risk-cutoff thresholds for the [place] population. Performed By: #### L 501.9520, L501.9985, L100.0100, L506.1001, L500.4100, L500.4050 #### [facility] [address] [place], [address] Cholesterol in HDL [Mass/Vol] 57 mg/dL Normal [facility] Comment on above: Result Comment: Guillermina onal Cholesterol Education Program (NCEP) guidelines: <40 mg/dL: Low HDL-cholesterol (major risk factor for CHD) >= 60 mg/dL: High HDL-cholesterol (negative risk factor for CHD) HDL-cholesterol is affected by a number of factors, e.g. smoking, exercise, hormones, sex and age. Performed By: #### L 501.9520, L501.9985, L100.0100, L506.1001, L500.4100, L500.4050 #### [facility] [address] [place], [address] Cholesterol in LDL [Mass/Vol] 96 mg/dL Normal [facility] Comment on above: Result Comment: Bord zuhqdq=451-268 mg/dL Higher Xknc=549 mg/dL or greater Performed By: #### L 501.9520, L501.9985, L100.0100, L506.1001, L500.4100, L500.4050 #### [facility] [address] [place], [address] Cholesterol in VLDL [Mass/Vol] 22 mg/dL Normal 5-40 [facility] Comment on above: Performed By: #### L 501.9520, L501.9985, L100.0100, L506.1001, L500.4100, L500.4050 #### [facility] [address] [facility] [address] [place], [place], [id number] Triglyceride [Mass/Vol] 109 mg/dL Normal [facility] Comment on above: Result Comment: The drugs N-Acetylcysteine and Metamizole may falsely depress this assay. Normal range: <150 mg/dL Borderline High: 150-199 mg/dL High: 200-499 mg/dL Very High: >500 mg/dL Performed By: #### L 501.9520, L501.9985, L100.0100, L506.1001, L500.4100, L500.4050 #### [facility] [address] [place], [address] MCV (mean corpuscular volume ) determinationOrdered By: Wilda Castillo on 07-06-2024 MCV (RBC) [Entitic vol] 92.9 fL 81-99 [facility] Mean corpuscular hemoglobin (MCH) determinationOrdered By: Wilda Castillo on 07-06-2024 MCH (RBC) [Entitic mass] 29.4 pg 27.0-32.0 [facility] Mean corpuscular hemoglobin concentration (MCHC) determinationOrdered By: Wilda Castillo on 07-06-2024 MCHC (RBC) [Mass/Vol] 31.6 g/dL Low 32-36 [facility] Mean platelet volume determi nationOrdered By: Wilda Castillo on 07-06-2024 Platelet mean volume (Bld) [Entitic vol] 9.7 fL 6.2-12.0 [facility] Monocyte percentageOrdered B y: Wilda Castillo on 07-06-2024 Monocytes/100 WBC (Bld) 7.8 % 0-10 [facility] Neutrophil percentageOrdered By: Wilda Castillo on 07-06-2024 Neutrophils/100 WBC (Bld) 54.9 % 47-70 [facility] Nucleated red blood cell per centageOrdered By: Wilda Castillo on 07-06-2024 Nucleated RBC/100 WBC (Bld) [Ratio] 0 % 0-5 [facility] Platelet countOrdered By: Caden Castillo on 07-06-2024 Platelets (Bld) [#/Vol] 369 10*3/uL 150-450 [facility] Potassium measurement (mass/ volume)Ordered By: Wilda Castillo on 07-06-2024 Potassium (Unsp spec) [Mass/Vol] 4.1 mmol/L 3.3-5.1 [facility] RBC Auto (Bld) [#/Vol]Ordere d By: Wilda Castillo on 07-06-2024 RBC (Bld) [#/Vol] 4.63 10*6/uL 4.2-5.4 [facility] Screening total cholesterol/ high density lipoprotein (HDL) cholesterol ratioOrdered By: Wilda Castillo on 07-06-2024 Cholesterol.total/Ana sterol in HDL [Mass ratio] 3.07 {ratio} [facility] Serum creatinine measurement (mass/volume)Ordered By: Wilda Castillo on 07-06-2024 Creatinine [Mass/Vol] 0.67 mg/dL Low 0.70-1.20 [facility] Serum globulin measurementOr dered By: Wilda Castillo on 07-06-2024 Globulin (S) [Mass/Vol] 3.1 g/dL 2.2-4.2 [facility] Serum glucose measurement (m ass/volume)Ordered By: Wilda Castillo on 07-06-2024 Glucose [Mass/Vol] 97 mg/dL 70-99 [facility] Serum or plasma alanine gil otransferase (ALT) measurementOrdered By: Wilda Castillo on 07-06-2024 ALT [Catalytic activity/Vol] 17 U/L <35 [facility] Serum or plasma albumin michelle urement (mass/volume)Ordered By: Wilda Castillo on 07-06-2024 Albumin [Mass/Vol] 3.8 g/dL 3.4-4.8 [facility] Serum or plasma albumin/glob ulin mass ratioOrdered By: Wilda Castillo on 07-06-2024 Albumin/Globulin [Mass ratio] 1.2 {ratio} 0.9-2.4 [facility] Serum or plasma alkaline heriberto sphatase measurementOrdered By: Wilda Castillo on 07-06-2024 ALP [Catalytic activity/Vol] 80 U/L 35-104 [facility] Serum or plasma calcium michelle urement (mass/volume)Ordered By: Wilda Castillo on 07-06-2024 Calcium [Mass/Vol] 9.8 mg/dL 7.6-11.0 [facility] Serum or plasma cholesterol in HDL measurement (mass/volume)Ordered By: Wilda Castillo on 07-06-2024 Cholesterol in HDL [Mass/Vol] 57 mg/dL >40 [facility] Comment on above: National Cholesterol Education Program (NCEP) guidelines:<40 mg/dL: Low HDL-cholesterol (major risk factor for CHD)>= 60 mg/dL: High HDL-cholesterol (negative risk factor for CHD)HDL-cholesterol is affected by a number of factors, e.g. smoking, exercise, hormones, sex and age. Serum or plasma cholesterol measurement (mass/volume)Ordered By: Wilda Castillo on 07-06-2024 Cholesterol [Mass/Vol] 174 mg/dL <[address] [facility] Comment on above: Cholesterol level, D esirable <200 mg/dLBorderline high cholesterol 200-239 mg/dLHigh cholesterol >=240 mg/dLRecommendations of the NCEP Adult Treatment Panel for the following risk-cutoff thresholds for the [place] population. Serum or plasma urea nitroge n measurement (mass/volume)Ordered By: Wilda Castillo on 07-06-2024 Urea nitrogen [Mass/Vol] 14 mg/dL 4-19 [facility] Sodium levelOrdered By: Yodit Castillo on 07-06-2024 Sodium [Moles/Vol] 141 mmol/L 133-145 [facility] TSH DL <= 0.005 mIU/L QnOrde red By: Wilda Castillo on 07-06-2024 TSH Qn 0.885 uIU/mL 0.300-4.200 [facility] Thyroid Stim Hormone (TSH)on 07-06-2024 TSH 0.885 uIU/mL Normal 0.300-4.200 [facility] Comment on above: Performed By: #### L 501.9520, L501.9985, L100.0100, L506.1001, L500.4100, L500.4050 #### [facility] [address] [place], [place], [id number] Total proteinOrdered By: Catherine Castillo on 07-06-2024 Protein [Mass/Vol] 7.0 g/dL 5.9-8.4 [facility] Triglycerides measurementOrd ered By: Wilda Castillo on 07-06-2024 Triglyceride [Mass/Vol] 109 mg/dL <199 [facility] Comment on above: The drugs N-Acetylcy steine and Metamizole may falsely depress this assay. Normal range: <150 mg/dLBorderline High: 150-199 mg/dLHigh: 200-499 mg/dLVery High: >500 mg/dL Vitamin D,25 Hydroxyon 07-06 Vitamin D 25-OH 41.6 ng/mL Normal 30-100 [facility] Comment on above: Result Comment: Rebecca min D Status Deficiency: <20 ng/mL (50nmol/L) Insufficiency: 20-30 ng/mL (50-75 nmol/L) Sufficiency: 30-100 ng/mL (75-250 nmol/L) Toxicity: >100 ng/mL (>250 nmol/L) Performed By: #### L 501.9520, L501.9985, L100.0100, L506.1001, L500.4100, L500.4050 #### [facility] [address] [place], [place], [id number] White blood cell (WBC) count Ordered By: Wilda Castillo on 07-06-2024 WBC (Bld) [#/Vol] 5.6 10*3/uL 4.4-11.0 [facility] Bilirubin directOrdered By: Salty Rodriguez on 06-24-2024 Bilirubin.direct [Mass/Vol] 0.14 mg/dL 0.00-0.30 [facility] Bilirubin, totalOrdered By: Salty Rodriguez on 06-24-2024 Bilirubin [Mass/Vol] 0.31 mg/dL 0.00-1.30 [facility] Calculated very low density lipoprotein (VLDL) cholesterol measurementOrdered By: Salty Rodriguez on 06-24-2024 Calculated very low density lipoprotein (VLDL) cholesterol measurement 26 mg/dL 5-40 [facility] LDL calc ser/plasOrdered By: Salty Rodriguez on 06-24-2024 Cholesterol in LDL [Mass/Vol] 76 mg/dL [facility] Comment on above: Fopxqhgnne=711-158 m g/dL & Higher Lkwc=000 mg/dL or greater Laboratory - Chemistry and C hemistry - challengeOrdered By: Salty Rodriguez on 06-24-2024 AST [Catalytic activity/Vol] 17 U/L <32 [facility] Lipid Profileon 06-24-2024 CHOL:HDL 2.78 Normal [facility] Comment on above: Performed By: #### L 500.4100, L500.3400 #### [facility] [address] [place], [address] Cholesterol [Mass/Vol] 159 mg/dL Normal <=200 [facility] Comment on above: Result Comment: Chol esterol level, Desirable <200 mg/dL Borderline high cholesterol 200-239 mg/dL High cholesterol >=240 mg/dL Recommendations of the NCEP Adult Treatment Panel for the following risk-cutoff thresholds for the [place] population. Performed By: #### L 500.4100, L500.3400 #### [facility] [address] [place], [address] Cholesterol in HDL [Mass/Vol] 57 mg/dL Normal [facility] Comment on above: Result Comment: Guillermina onal Cholesterol Education Program (NCEP) guidelines: <40 mg/dL: Low HDL-cholesterol (major risk factor for CHD) >= 60 mg/dL: High HDL-cholesterol (negative risk factor for CHD) HDL-cholesterol is affected by a number of factors, e.g. smoking, exercise, hormones, sex and age. Performed By: #### L 500.4100, L500.3400 #### [facility] [address] [place], [address] Cholesterol in LDL [Mass/Vol] 76 mg/dL Normal [facility] Comment on above: Result Comment: Bord qfsawa=650-077 mg/dL Higher Blmm=578 mg/dL or greater Performed By: #### L 500.4100, L500.3400 #### [facility] [address] [place], [address] Cholesterol in VLDL [Mass/Vol] 26 mg/dL Normal 5-40 [facility] Comment on above: Performed By: #### L 500.4100, L500.3400 #### [facility] [address] [place], [address] Triglyceride [Mass/Vol] 131 mg/dL Normal [facility] Comment on above: Result Comment: The drugs N-Acetylcysteine and Metamizole may falsely depress this assay. Normal range: <150 mg/dL Borderline High: 150-199 mg/dL High: 200-499 mg/dL Very High: >500 mg/dL Performed By: #### L 500.4100, L500.3400 #### [facility] [address] [place], [address] Liver Profileon 06-24-2024 Albumin [Mass/Vol] 3.8 g/dL Normal 3.4-4.8 [facility] Comment on above: Performed By: #### L 500.4100, L500.3400 #### [facility] [address] [place], [address] ALK PHOS 79 U/L Normal 35-104 [facility] Comment on above: Performed By: #### L 500.4100, L500.3400 #### [facility] [address] [place], [address] ALT [Catalytic activity/Vol] 15 U/L Normal <=34 [facility] Comment on above: Performed By: #### L 500.4100, L500.3400 #### [facility] [address] [place], [address] AST [Catalytic activity/Vol] 17 U/L Normal <=31 [facility] Comment on above: Performed By: #### L 500.4100, L500.3400 #### [facility] [address] [place], [address] Bilirubin [Mass/Vol] 0.31 mg/dL Normal 0.00-1.30 [facility] Comment on above: Performed By: #### L 500.4100, L500.3400 #### [facility] [address] [place], [address] Bilirubin.direct [Mass/Vol] 0.14 mg/dL Normal 0.00-0.30 [facility] Comment on above: Performed By: #### L 500.4100, L500.3400 #### [facility] [address] [place], [address] Globulin (S) [Mass/Vol] 3.1 g/dL Normal 2.2-4.2 [facility] Comment on above: Performed By: #### L 500.4100, L500.3400 #### [facility] [address] [place], [address] T PROT 6.9 g/dL Normal 5.9-8.4 [facility] Comment on above: Performed By: #### L 500.4100, L500.3400 #### [facility] [address] [place], [address] Screening total cholesterol/ high density lipoprotein (HDL) cholesterol ratioOrdered By: Salty Rodriguez on 06-24-2024 Cholesterol.total/Ana sterol in HDL [Mass ratio] 2.78 {ratio} [facility] Serum globulin measurementOr dered By: Salty Rodriguez on 06-24-2024 Globulin (S) [Mass/Vol] 3.1 g/dL 2.2-4.2 [facility] Serum or plasma alanine gil otransferase (ALT) measurementOrdered By: Salty Rodriguez on 06-24-2024 ALT [Catalytic activity/Vol] 15 U/L <35 [facility] Serum or plasma albumin michelle urement (mass/volume)Ordered By: Salty Rodriguez on 06-24-2024 Albumin [Mass/Vol] 3.8 g/dL 3.4-4.8 [facility] Serum or plasma alkaline heriberto sphatase measurementOrdered By: Salty Rodriguez on 06-24-2024 ALP [Catalytic activity/Vol] 79 U/L 35-104 [facility] Serum or plasma cholesterol in HDL measurement (mass/volume)Ordered By: Salty Rodriguez on 06-24-2024 Cholesterol in HDL [Mass/Vol] 57 mg/dL >40 [facility] Comment on above: National Cholesterol Education Program (NCEP) guidelines:<40 mg/dL: Low HDL-cholesterol (major risk factor for CHD)>= 60 mg/dL: High HDL-cholesterol (negative risk factor for CHD)HDL-cholesterol is affected by a number of factors, e.g. smoking, exercise, hormones, sex and age. Serum or plasma cholesterol measurement (mass/volume)Ordered By: Salty Rodriguez on 06-24-2024 Cholesterol [Mass/Vol] 159 mg/dL <201 [facility] Comment on above: Cholesterol level, D esirable <200 mg/dLBorderline high cholesterol 200-239 mg/dLHigh cholesterol >=240 mg/dLRecommendations of the NCEP Adult Treatment Panel for the following risk-cutoff thresholds for the [place] population. Total proteinOrdered By: Sohail Rodriguez on 06-24-2024 Protein [Mass/Vol] 6.9 g/dL 5.9-8.4 [facility] Triglycerides measurementOrd ered By: Salty Rodriguez on 06-24-2024 Triglyceride [Mass/Vol] 131 mg/dL <199 [facility] Comment on above: The drugs N-Acetylcy steine and Metamizole may falsely depress this assay. Normal range: <150 mg/dLBorderline High: 150-199 mg/dLHigh: 200-499 mg/dLVery High: >500 mg/dL Shoulder min 2 Viewson 05-26 Shoulder min 2 Views [facility] Imaging Services [address] [place] [address] Shoulder min 2 Views MR#: [id number] Acct: [id number] Name: YESENIA HODGSON Rep #: [id number] : 1950 F 74 From: Colton Gunn DO PCP: Dr. Jose David Lindsay MD Status: REG CLI Study: Shoulder min 2 Views Date of Exam: 05/26/24 Exam# [id number] Ordering Dr: Mann Oleary MD PROCEDURE: SHOULDER MIN 2 VIEWS 05/26/2024 REASON FOR EXAM: FALL, PAIN TECHNIQUE: 5 view(s) of the right shoulder COMPARISON: None FINDINGS: Bones: No acute fracture Joints: Degenerative changes of the acromioclavicular joints. Soft tissues: Soft tissues are unremarkable. Other: RAD/Shoulder min 2 Views IMPRESSION: DEGENERATIVE OSTEOARTHROSIS. NO ACUTE FINDINGS. [facility] CC: Dr. Jose David Lindsay MD; Dr. Mann Oleary MD Utilization Management Nurse: Signed Normal [facility] 12 Lead EKGon 05-18-2024 12 Lead EKG [facility] Cardiovascular Services [address] [place] [address] 12 Lead EKG 05/18/24 1036 MR#: [id number] Acct: [id number] Name: YESENIA HODGSON Rep #: [id number] : 1950 74 From: Lucio Gomez MD [...] 37 bpm Confirmed by LUCIO GOMEZ MD ([id number]), industrial editor MARY CALLAWAY ([id number]) on 05/20/2024 12:52:22 PM Referred By: ADY/RU Confirmed By: LUCIO GOMEZ MD 05/20/24 1252 Date Lucio Gomez MD CC: Dr. Jose David Lindsay MD; Dr. Jeff Rowe, DO Signed Normal [facility] Absolute lymphocyte countOrd ered By: Jeff Rowe on 05-18-2024 Lymphocytes Auto (Unsp spec) [#/Vol] 1.43 10*3/uL 0.83-4.51 [facility] Absolute neutrophil countOrd ered By: Jeff Rowe on 05-18-2024 Neutrophils (Bld) [#/Vol] 3.9 10*3/uL 2.0-7.7 [facility] Activated partial thrombopla stin time (aPTT) in platelet poor plasma by coagulation aOrdered By: Jeff Rowe on 05-18-2024 aPTT Coag (PPP) [Time] 55.3 s High 24.1-36.2 [facility] Anion gap in Serum or Plasma Ordered By: Jeff Rowe on 05-18-2024 Anion gap [Moles/Vol] 13 mmol/L 5-15 [facility] Automated lymphocyte count a s percentage of total leukocytesOrdered By: Jeff Rowe on 05-18-2024 Lymphocytes/100 WBC Auto (Unsp spec) 23.8 % 19-41 [facility] BUN/creatinine ratioOrdered By: Jeff Rowe on 05-18-2024 Urea nitrogen/Creatinine [Mass ratio] 10.4 mg/mg 10- [facility] Basic Metabolic Profile (BMP )on 05-18-2024 BUN/CRE 10.4 RATIO Normal - [facility] Comment on above: Performed By: #### L 500.4100, L500.3400 #### [facility] [address] [place], [address] Calcium [Mass/Vol] 9.7 mg/dL Normal 7.6-11.0 [facility] Comment on above: Performed By: #### L 500.4100, L500.3400 #### [facility] [address] [place], [address] Chloride [Moles/Vol] 102 mmol/L Normal 98-108 [facility] Comment on above: Performed By: #### L 500.4100, L500.3400 #### [facility] [address] [place], [address] CO2 [Moles/Vol] 23.3 mmol/L Normal 21.0-32.0 [facility] Comment on above: Performed By: #### L 500.4100, L500.3400 #### [facility] [address] [place], [address] Creatinine [Mass/Vol] 0.82 mg/dL Normal 0.70-1.20 [facility] Comment on above: Performed By: #### L 500.4100, L500.3400 #### [facility] [address] [place], [address] GAP 13 Normal 5-15 [facility] Comment on above: Performed By: #### L 500.4100, L500.3400 #### [facility] [address] [place], [address] GFR/1.73 sq M.predicted among non-blacks MDRD (S/P/Bld) [Vol rate/Area] 75 mL/min/{1.73_m2} Normal >60 [facility] Comment on above: Result Comment: mL/m in/1.73m2 CKD-EPI Creatinine Equation (2020) Performed By: #### L 500.4100, L500.3400 #### [facility] [address] [place], [address] Glucose [Mass/Vol] 93 mg/dL Normal 70-99 [facility] Comment on above: Performed By: #### L 500.4100, L500.3400 #### [facility] [address], [address] Potassium [Moles/Vol] 4.6 mmol/L Normal 3.3-5.1 [facility] Comment on above: Result Comment: Hemo lysis present, Results??could be affected. ?? Performed By: #### L 500.4100, L500.3400 #### [facility] [address] [place], [address] Sodium [Moles/Vol] 138 mmol/L Normal 133-145 [facility] Comment on above: Performed By: #### L 500.4100, L500.3400 #### [facility] [address] [place], [address] Urea nitrogen [Mass/Vol] 9 mg/dL Normal 4-19 [facility] Comment on above: Performed By: #### L 500.4100, L500.3400 #### [facility] [address] [place], [address] Basophil percentageOrdered B y: Jeff Rowe on 05-18-2024 Basophils/100 WBC (Bld) 0.5 % 0-1 [facility] CBC W/Diff, Automatedon 04-0 Absolute Lymph 1.43 X10 3/uL Normal 0.83-4.51 [facility] Comment on above: Performed By: #### L 500.4100, L500.3400 #### [facility] [address] [place], [address] Absolute Neut 3.9 X10 3/uL Normal 2.0-7.7 [facility] Comment on above: Performed By: #### L 500.4100, L500.3400 #### [facility] [address] [place], [address] Basophils/100 WBC (Bld) 0.5 % Normal 0-1 [facility] Comment on above: Performed By: #### L 500.4100, L500.3400 #### [facility] [address] [place], [address] Eosinophils/100 WBC (Bld) 1.5 % Normal 0-5 [facility] Comment on above: Performed By: #### L 500.4100, L500.3400 #### [facility] [address] [place], [address] Erythrocyte distribution width (RBC) [Ratio] 13.9 % Normal 11.6-14.6 [facility] Comment on above: Performed By: #### L 500.4100, L500.3400 #### [facility] [address] [place], [address] Hematocrit (Bld) [Volume fraction] 43.8 % Normal 37-47 [facility] Comment on above: Performed By: #### L 500.4100, L500.3400 #### [facility] [address] [place], [address] Hemoglobin (Bld) [Mass/Vol] 14.4 g/dL Normal 12.0-15.0 [facility] Comment on above: Performed By: #### L 500.4100, L500.3400 #### [facility] [address] [place], [address] IG% 0.200 Normal 0.0-0.9 [facility] Comment on above: Result Comment: IG% - Immature Granulocytes (promyelocytes, myelocytes and metamyelocytes) > 1% indicates that a LEFT SHIFT is Present. Performed By: #### L 500.4100, L500.3400 #### [facility] [address] [place], [address] Lymphocytes/100 WBC (Bld) 23.8 % Normal 19-41 [facility] Comment on above: Performed By: #### L 500.4100, L500.3400 #### [facility] [address] [place], [address] MCH (RBC) [Entitic mass] 29.6 pg Normal 27.0-32.0 [facility] Comment on above: Performed By: #### L 500.4100, L500.3400 #### [facility] [address] [place], [address] MCHC (RBC) [Mass/Vol] 32.9 g/dL Normal 32-36 [facility] Comment on above: Performed By: #### L 500.4100, L500.3400 #### [facility] [address] [place], [address] MCV (RBC) [Entitic vol] 90.1 fL Normal 81-99 [facility] Comment on above: Performed By: #### L 500.4100, L500.3400 #### [facility] [address] [place], [address] Monocytes/100 WBC (Bld) 10.0 % Normal 0-10 [facility] Comment on above: Performed By: #### L 500.4100, L500.3400 #### [facility] [address] [place], [address] Neutrophils/100 WBC (Bld) 64.0 % Normal 47-70 [facility] Comment on above: Performed By: #### L 500.4100, L500.3400 #### [facility] [address] [place], [address] Nucleated RBC (Bld) [#/Vol] 0 10*3/uL Normal 0-5 [facility] Comment on above: Performed By: #### L 500.4100, L500.3400 #### [facility] [address] [place], [address] Platelet mean volume (Bld) [Entitic vol] 8.9 fL Normal 6.2-12.0 [facility] Comment on above: Performed By: #### L 500.4100, L500.3400 #### [facility] [address] [place], [address] Platelets (Bld) [#/Vol] 349 10*3/uL Normal 150-450 [facility] Comment on above: Performed By: #### L 500.4100, L500.3400 #### [facility] [address] [place], [address] RBC (Bld) [#/Vol] 4.86 10*6/uL Normal 4.2-5.4 [facility] Comment on above: Performed By: #### L 500.4100, L500.3400 #### [facility] [address] [place], [address] RDW SD 46.1 fl High 35.1-43.9 [facility] Comment on above: Performed By: #### L 500.4100, L500.3400 #### [facility] [address] [place], [address] WBC (Bld) [#/Vol] 6.0 10*3/uL Normal 4.4-11.0 [facility] Comment on above: Performed By: #### L 500.4100, L500.3400 #### [facility] [address] [place], [address] CTA Chest W/WO Contraston CTA Chest W/WO Contrast [facility] Imaging Services [address] [place] [address] CTA Chest W/WO Contrast MR#: [id number] Acct: [id number] Name: YESENIA HODGSON Rep #: [id number] : 1950 F 74 From: Jeff Tavares MD PCP: Dr. Jose David Lindsay MD Status: REG ER Study: CTA Chest W/WO Contrast Date of Exam: 05/18/24 Exam# [id number] Ordering Dr: Jeff Rowe DO PROCEDURE: CTA [...] Other nonacute findings detailed above. Reading Location: [place] [address] CC: Dr. Jose David Lindsay MD; Dr. Jeff Rowe DO Utilization Management Nurse: Signed Normal [facility] Carbon dioxide, total [Moles /volume] in Central venous bloodOrdered By: Jeff Rowe on 05-18-2024 CO2 [Moles/Vol] 23.3 mmol/L 21.0-32.0 [facility] Chloride assayOrdered By: Ismael Rowe on 05-18-2024 Chloride [Moles/Vol] 102 mmol/L 98-108 [facility] Emergency Department Summary on 05-18-2024 Emergency Department Summary [facility] Medical Records Department [address] [place] [address] Emergency Department Summary 05/18/24 MR#: [id number] Acct: [id number] Name: YESENIA HODGSON Rep #: [id number] : 1950 74 From: Jeff Rowe DO [...] Recent immobilization, Recent surgery or Recent travel [facility] Medical History Hyperlipidemia Lung nodule Asthma [...] QMONTH #1 mL Unknown Rx pen injector (Repatha Magdalenoick) rosuvastatin 10 mg tablet 10 mg PO [...] alcohol i (more content not included)... Normal [facility] Eosinophil percentageOrdered By: Jeff Rowe on 05-18-2024 Eosinophils/100 WBC (Bld) 1.5 % 0-5 [facility] Erythrocyte distribution wid th (RBC) [Ratio]Ordered By: Jeff Rowe on 05-18-2024 Erythrocyte distribution width (RBC) [Entitic vol] 46.1 fL High 35.1-43.9 [facility] Erythrocyte distribution wid th ratioOrdered By: Jeff Rowe on 05-18-2024 Erythrocyte distribution width (RBC) [Ratio] 13.9 % 11.6-14.6 [facility] Erythrocyte distribution wid th standard deviationOrdered By: Jeff Rowe on 05-18-2024 Erythrocyte distribution width (RBC) [Ratio] 46.1 fl High 35.1-43.9 [facility] GFR/1.73 sq M.predicted alexsandra g non-blacks MDRD (S/P/Bld) [Vol rate/Area]Ordered By: Jeff Rowe on 05-18-2024 Estimated GFR (MDRD) Non-Af Amer 75 >60 [facility] Comment on above: mL/min/1.73m2 CKD-EP I Creatinine Equation (2020) Glomerular filtration rate ( GFR) estimation/1.73 sq m using serum, plasma, or whole bOrdered By: Jeff Rowe on 05-18-2024 GFR/1.73 sq M.predicted among non-blacks MDRD (S/P/Bld) [Vol rate/Area] 75 mL/min/{1.73_m2} >60 [facility] Comment on above: mL/min/1.73m2 CKD-EP I Creatinine Equation (2020) Hematocrit Auto (Bld) [Volum e fraction]Ordered By: Jeff Rowe on 05-18-2024 Hematocrit (Bld) [Volume fraction] 43.8 % 37-47 [facility] Hemoglobin measurementOrdere d By: Jeff Rowe on 05-18-2024 Hemoglobin (Bld) [Mass/Vol] 14.4 g/dL 12.0-15.0 [facility] Immature granulocytes/100 WB C Auto (Bld)Ordered By: Jeff Rowe on 05-18-2024 Immature granulocytes/100 WBC (Bld) 0.200 % 0.0-0.9 [facility] Comment on above: IG% - Immature Granu locytes (promyelocytes, myelocytes and metamyelocytes) > 1% indicates that a LEFT SHIFT is Present. International normalized rat io (INR) calculationOrdered By: Jeff Rowe on 05-18-2024 INR Coag (Bld) [Relative time] 3.7 {INR} [facility] L499.0042on 05-18-2024 Trop T High Sen < 6 Normal <=14 [facility] Comment on above: Performed By: #### L 500.4100, L500.3400 #### [facility] [address] [place], [address] L499.0043on 05-18-2024 Trop T High Sen Normal <=14 [facility] Comment on above: Result Comment: NO S PECIMEN COLLECTED. PATIENT DEPARTED ED. Performed By: #### L 499.0043 #### [facility] [address] [place], [address] L501.4021on 05-18-2024 Trop T High Sen < 6 Normal <=14 [facility] Comment on above: Performed By: #### L 500.4100, L500.3400 #### [facility] [address] [place], [address] Lymphocytes Auto (Unsp spec) [#/Vol]Ordered By: Jeff Rowe on 05-18-2024 Lymphocytes (Bld) [#/Vol] 1.43 10*3/uL 0.83-4.51 [facility] Lymphocytes/100 WBC Auto (Un sp spec)Ordered By: Jeff Rowe on 05-18-2024 Lymphocytes/100 WBC (Bld) 23.8 % 19-41 [facility] MCV (mean corpuscular volume ) determinationOrdered By: Jeff Rowe on 05-18-2024 MCV (RBC) [Entitic vol] 90.1 fL 81-99 [facility] Mean corpuscular hemoglobin (MCH) determinationOrdered By: Jeff Rowe on 05-18-2024 MCH (RBC) [Entitic mass] 29.6 pg 27.0-32.0 [facility] Mean corpuscular hemoglobin concentration (MCHC) determinationOrdered By: Jeff Rowe on 05-18-2024 MCHC (RBC) [Mass/Vol] 32.9 g/dL 32-36 [facility] Mean platelet volume determi nationOrdered By: Jeff Rowe on 05-18-2024 Platelet mean volume (Bld) [Entitic vol] 8.9 fL 6.2-12.0 [facility] Monocyte percentageOrdered B y: Jeff Rowe on 05-18-2024 Monocytes/100 WBC (Bld) 10.0 % 0-10 [facility] Neutrophil percentageOrdered By: Jeff Rowe on 05-18-2024 Neutrophils/100 WBC (Bld) 64.0 % 47-70 [facility] Nucleated red blood cell per centageOrdered By: Jeff Rowe on 05-18-2024 Nucleated RBC/100 WBC (Bld) [Ratio] 0 % 0-5 [facility] Partial Thromboplast Timeon 05-18-2024 aPTT Coag (Bld) [Time] 55.3 s High 24.1-36.2 [facility] Comment on above: Performed By: #### L 500.4100, L500.3400 #### [facility] [address] [place], [address] Platelet countOrdered By: Ismael Rowe on 05-18-2024 Platelets (Bld) [#/Vol] 349 10*3/uL 150-450 [facility] Potassium (Unsp spec) [Mass/ Vol]Ordered By: Jeff Rowe on 05-18-2024 Potassium [Moles/Vol] 4.6 mmol/L 3.3-5.1 [facility] Comment on above: Hemolysis present, R esults could be affected. Potassium measurement (mass/ volume)Ordered By: Jeff Rowe on 05-18-2024 Potassium (Unsp spec) [Mass/Vol] 4.6 mmol/L 3.3-5.1 [facility] Comment on above: Hemolysis present, R esults could be affected. Prothrombin Time w/INRon INR Coag (PPP) [Relative time] 3.7 {INR} Normal [facility] Comment on above: Performed By: #### L 500.4100, L500.3400 #### [facility] [address] [place], [address] PT Coag (PPP) [Time] 37.5 s High 11.7-14.9 [facility] Comment on above: Performed By: #### L 500.4100, L500.3400 #### [facility] [address] [place], [address] Prothrombin timeOrdered By: Jeff Rowe on 05-18-2024 PT Coag (PPP) [Time] 37.5 s High 11.7-14.9 [facility] RBC Auto (Bld) [#/Vol]Ordere d By: Jeff Rowe on 05-18-2024 RBC (Bld) [#/Vol] 4.86 10*6/uL 4.2-5.4 [facility] Serum creatinine measurement (mass/volume)Ordered By: Jeff Rowe on 05-18-2024 Creatinine [Mass/Vol] 0.82 mg/dL 0.70-1.20 [facility] Serum glucose measurement (m ass/volume)Ordered By: Jeff Rowe on 05-18-2024 Glucose [Mass/Vol] 93 mg/dL 70-99 [facility] Serum or plasma calcium michelle urement (mass/volume)Ordered By: Jeff Rowe on 05-18-2024 Calcium [Mass/Vol] 9.7 mg/dL 7.6-11.0 [facility] Serum or plasma urea nitroge n measurement (mass/volume)Ordered By: Jeff Rowe on 05-18-2024 Urea nitrogen [Mass/Vol] 9 mg/dL 4-19 [facility] Sodium levelOrdered By: Jeff Rowe on 05-18-2024 Sodium [Moles/Vol] 138 mmol/L 133-145 [facility] Troponin T.cardiac High sens itivity method [Mass/Vol]Ordered By: Jeff Rowe on 05-18-2024 Troponin T High Sensitivity 2 Hour < 6 ng/L <14 [facility] Troponin T High Sensitivity < 6 ng/L <14 [facility] Troponin T.cardiac [Mass/vol ume] in Serum or Plasma by High sensitivity methodOrdered By: Jeff Rowe on 05-18-2024 Troponin T.cardiac High sensitivity method [Mass/Vol] < 6 ng/L <14 [facility] Troponin T.cardiac High sensitivity method [Mass/Vol] < 6 ng/L <14 [facility] White blood cell (WBC) count Ordered By: Jeff Rowe on 05-18-2024 WBC (Bld) [#/Vol] 6.0 10*3/uL 4.4-11.0 [facility] aPTT Coag (PPP) [Time]Ordere d By: Jeff Rowe on 05-18-2024 aPTT Coag (Bld) [Time] 55.3 s High 24.1-36.2 [facility] Chest PA and Lateralon 05-17 Chest PA and Lateral [facility] Imaging Services [address] [place] [address] Chest PA and Lateral MR#: [id number] Acct: [id number] Name: YESENIA HODGSON Rep #: [id number] : 1950 F 74 From: Guy Escalante i, DO PCP: Dr. Jose David Lindsay MD Status: REG CLI Study: Chest PA and Lateral Date of Exam: 05/17/24 Exam# [id number] Ordering Dr: Ravi Weeks NP, NP -Angelina PROCEDURE: PA and lateral chest radiographs, two [...] considered. Reading Location: [place] CC: Ravi CHAPIN NP-Angelina Weeks; Dr. Jose David Lindsay MD Utilization Management Nurse: Signed Normal [facility] Urine Cultureon 05-12-2024 URC Order Date: 05/10/24 Order Info: 630-4 - CUUR Below infection level. Mixed Gram Positive Organisms Elma Count 1000-10,000 MIXC Mixed contaminants. Submit a new specimen if indicated. Normal [facility] Comment on above: Performed By: #### L 501.4021 #### [facility] [address] [facility] [place], [address] 12 Lead EKGon 05-11-2024 12 Lead EKG [facility] Cardiovascular Services [address] [place] [address] 12 Lead EKG 05/11/24 1714 MR#: [id number] Acct: [id number] Name: YESENIA HODGSON Rep #: [id number] : 1950 74 From: Valdez Winchester MD [...] abnormality Abnormal ECG Confirmed by Valdez Winchester ([id number]), industrial editor BEVERLY SAUER ([id number]) on 05/12/2024 7:52:52 AM Referred By: Confirmed By: Valdez Winchester 05/12/24 0752 Date Valdez Winchester MD CC: Dr. Jose David Lindsay MD; Dr. Jeff Rowe DO Signed Normal [facility] Absolute lymphocyte countOrd ered By: Jeff Rowe on 05-11-2024 Lymphocytes Auto (Unsp spec) [#/Vol] 1.83 10*3/uL 0.83-4.51 [facility] Absolute neutrophil countOrd ered By: Jeff Rowe on 05-11-2024 Neutrophils (Bld) [#/Vol] 7.2 10*3/uL 2.0-7.7 [facility] Activated partial thrombopla stin time (aPTT) in platelet poor plasma by coagulation aOrdered By: Jeff Rowe on 05-11-2024 aPTT Coag (PPP) [Time] 43.6 s High 24.1-36.2 [facility] Anion gap in Serum or Plasma Ordered By: Jeff Rowe on 05-11-2024 Anion gap [Moles/Vol] 16 mmol/L High 5-15 [facility] Automated lymphocyte count a s percentage of total leukocytesOrdered By: Jeff Rowe on 05-11-2024 Lymphocytes/100 WBC Auto (Unsp spec) 17.7 % Low 19-41 [facility] BUN/creatinine ratioOrdered By: Jeff Rowe on 05-11-2024 Urea nitrogen/Creatinine [Mass ratio] 13.5 mg/mg 10-20 [facility] Basic Metabolic Profile (BMP )on 05-11-2024 BUN/CRE 13.5 RATIO Normal 10-20 [facility] Comment on above: Performed By: #### L 501.4021 #### [facility] [address] [place], [address] Calcium [Mass/Vol] 9.4 mg/dL Normal 7.6-11.0 [facility] Comment on above: Performed By: #### L 501.4021 #### [facility] [address] [place], [address] Chloride [Moles/Vol] 101 mmol/L Normal 98-108 [facility] Comment on above: Performed By: #### L 501.4021 #### [facility] [address] [place], [address] CO2 [Moles/Vol] 21.1 mmol/L Normal 21.0-32.0 [facility] Comment on above: Performed By: #### L 501.4021 #### [facility] [address] [place], [address] Creatinine [Mass/Vol] 0.79 mg/dL Normal 0.70-1.20 [facility] Comment on above: Performed By: #### L 501.4021 #### [facility] [address] [place], [address] ECRCL 72.54 ml/min Normal 50-250 [facility] Comment on above: Performed By: #### L 501.4021 #### [facility] [address] [place], [address] GAP 16 High 5-15 [facility] Comment on above: Performed By: #### L 501.4021 #### [facility] [address] [place], [address] GFR/1.73 sq M.predicted among non-blacks MDRD (S/P/Bld) [Vol rate/Area] 79 mL/min/{1.73_m2} Normal >60 [facility] Comment on above: Result Comment: mL/m in/1.73m2 CKD-EPI Creatinine Equation (2020) Performed By: #### L 501.4021 #### [facility] [address] [place], [address] Glucose [Mass/Vol] 129 mg/dL High 70-99 [facility] Comment on above: Performed By: #### L 501.4021 #### [facility] [address] [place], [address] Potassium [Moles/Vol] 4.2 mmol/L Normal 3.3-5.1 [facility] Comment on above: Performed By: #### L 501.4021 #### [facility] [address] [place], [address] Sodium [Moles/Vol] 138 mmol/L Normal 133-145 [facility] Comment on above: Performed By: #### L 501.4021 #### [facility] [address] [place], [address] Urea nitrogen [Mass/Vol] 11 mg/dL Normal 4-19 [facility] Comment on above: Performed By: #### L 501.4021 #### [facility] [address] [place], [address] Basophil percentageOrdered B y: Jeff Rowe on 05-11-2024 Basophils/100 WBC (Bld) 0.5 % 0-1 [facility] Brain/Head without Contrasto n 05-11-2024 Brain/Head without Contrast [facility] Imaging Services [address] [place] [address] Brain/Head without Contrast MR#: [id number] Acct: [id number] Name: GIRMA HODGSONNA KATJA Rep #: [id number] : 1950 F 74 From: Colton Gunn DO PCP: Dr. Jose David Lindsay MD Status: REG ER Study: Brain/Head without Contrast Date of Exam: 03/06 Exam# [id number] Ordering Dr: Jeff Rowe DO PROCEDURE: BRAIN/HEAD [...] David Lindsay MD; Dr. Jeff Rowe DO Utilization Management Nurse: Signed Normal [facility] CBC W/Diff, Automatedon 04- Absolute Lymph 1.83 X10 3/uL Normal 0.83-4.51 [facility] Comment on above: Performed By: #### L 500.4100, L500.3400 #### [facility] [address] [place], [address] Absolute Neut 7.2 X10 3/uL Normal 2.0-7.7 [facility] Comment on above: Performed By: #### L 500.4100, L500.3400 #### [facility] [address] [place], [address] Basophils/100 WBC (Bld) 0.5 % Normal 0-1 [facility] Comment on above: Performed By: #### L 500.4100, L500.3400 #### [facility] [address] [place], [address] Eosinophils/100 WBC (Bld) 1.1 % Normal 0-5 [facility] Comment on above: Performed By: #### L 500.4100, L500.3400 #### [facility] [address] [place], [address] Erythrocyte distribution width (RBC) [Ratio] 13.7 % Normal 11.6-14.6 [facility] Comment on above: Performed By: #### L 500.4100, L500.3400 #### [facility] [address] [place], [address] Hematocrit (Bld) [Volume fraction] 42.0 % Normal 37-47 [facility] Comment on above: Performed By: #### L 500.4100, L500.3400 #### [facility] [address] [place], [address] Hemoglobin (Bld) [Mass/Vol] 13.9 g/dL Normal 12.0-15.0 [facility] Comment on above: Performed By: #### L 500.4100, L500.3400 #### [facility] [address], [address] IG% 0.500 Normal 0.0-0.9 [facility] Comment on above: Result Comment: IG% - Immature Granulocytes (promyelocytes, myelocytes and metamyelocytes) > 1% indicates that a LEFT SHIFT is Present. Performed By: #### L 500.4100, L500.3400 #### [facility] [address] [place], [address] Lymphocytes/100 WBC (Bld) 17.7 % Low 19-41 [facility] Comment on above: Performed By: #### L 500.4100, L500.3400 #### [facility] [address] [place], [address] MCH (RBC) [Entitic mass] 29.6 pg Normal 27.0-32.0 [facility] Comment on above: Performed By: #### L 500.4100, L500.3400 #### [facility] [address] [place], [address] MCHC (RBC) [Mass/Vol] 33.1 g/dL Normal 32-36 [facility] Comment on above: Performed By: #### L 500.4100, L500.3400 #### [facility] [address] [place], [address] MCV (RBC) [Entitic vol] 89.4 fL Normal 81-99 [facility] Comment on above: Performed By: #### L 500.4100, L500.3400 #### [facility] [address], [address] Monocytes/100 WBC (Bld) 10.3 % High 0-10 [facility] Comment on above: Performed By: #### L 500.4100, L500.3400 #### [facility] [address] [place], [address] Neutrophils/100 WBC (Bld) 69.9 % Normal 47-70 [facility] Comment on above: Performed By: #### L 500.4100, L500.3400 #### [facility] [address] [place], [address] Nucleated RBC (Bld) [#/Vol] 0 10*3/uL Normal 0-5 [facility] Comment on above: Performed By: #### L 500.4100, L500.3400 #### [facility] [address] [place], [address] Platelet mean volume (Bld) [Entitic vol] 9.1 fL Normal 6.2-12.0 [facility] Comment on above: Performed By: #### L 500.4100, L500.3400 #### [facility] [address] [place], [address] Platelets (Bld) [#/Vol] 374 10*3/uL Normal 150-450 [facility] Comment on above: Performed By: #### L 500.4100, L500.3400 #### [facility] [address] [place], [address] RBC (Bld) [#/Vol] 4.70 10*6/uL Normal 4.2-5.4 [facility] Comment on above: Performed By: #### L 500.4100, L500.3400 #### [facility] [address] [place], [address] RDW SD 44.7 fl High 35.1-43.9 [facility] Comment on above: Performed By: #### L 500.4100, L500.3400 #### [facility] [address] [place], [address] WBC (Bld) [#/Vol] 10.3 10*3/uL Normal 4.4-11.0 [facility] Comment on above: Performed By: #### L 500.4100, L500.3400 #### [facility] [address] [place], [address] Carbon dioxide, total [Moles /volume] in Central venous bloodOrdered By: Jeff Rowe on 05-11-2024 CO2 [Moles/Vol] 21.1 mmol/L 21.0-32.0 [facility] Chest PA and Lateralon 05-11 Chest PA and Lateral [facility] Imaging Services [address] [place] [address] Chest PA and Lateral MR#: [id number] Acct: [id number] Name: YESENIA HODGSON Rep #: [id number] : 1950 F 74 From: Colton Gunn DO PCP: Dr. Jose David Lindsay MD Status: REG ER Study: Chest PA and Lateral Date of Exam: 05/11/24 Exam# [id number] Ordering Dr: Jeff Rowe DO PROCEDURE: CHEST PA AND LATERAL 05/11/2024 REASON FOR EXAM: CHEST PAIN TECHNIQUE: Frontal and lateral views of the chest. COMPARISON: 11/15/2022 FINDINGS: Hardware: None Heart: The heart size is normal. Mediastinum: The mediastinal contour is unremarkable. Lungs: The lungs are clear. Bones: The bones are unremarkable. RAD/Chest PA and Lateral IMPRESSION: NO ACUTE FINDINGS. Reading Location: [place] CC: Dr. Jose David Lindsay MD; Dr. Jeff Rowe DO Utilization Management Nurse: Signed Normal [facility] Chloride assayOrdered By: Ismael Rowe on 05-11-2024 Chloride [Moles/Vol] 101 mmol/L 98-108 [facility] Emergency Department Summary on 05-11-2024 Emergency Department Summary [facility] Medical Records Department [address] [place] [address] Emergency Department Summary 05/11/24 MR#: [id number] Acct: [id number] Name: YESENIA HODGSON Rep #: [id number] : 1950 74 From: Jeff Rowe DO [...] any headache. Patient denies any visual changes. 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 Normal [facility] Eosinophil percentageOrdered By: Jeff Rowe on 05-11-2024 Eosinophils/100 WBC (Bld) 1.1 % 0-5 [facility] Erythrocyte distribution wid th (RBC) [Ratio]Ordered By: Jeff Rowe on 05-11-2024 Erythrocyte distribution width (RBC) [Entitic vol] 44.7 fL High 35.1-43.9 [facility] Erythrocyte distribution wid th ratioOrdered By: Jeff Rowe on 05-11-2024 Erythrocyte distribution width (RBC) [Ratio] 13.7 % 11.6-14.6 [facility] Erythrocyte distribution wid th standard deviationOrdered By: Jeff Rowe on 05-11-2024 Erythrocyte distribution width (RBC) [Ratio] 44.7 fl High 35.1-43.9 [facility] Estimation of creatinine mauro aranceOrdered By: Jeff Rowe on 05-11-2024 Estimated Creatinine Clearance Calc 72.54 ml/min 50-250 [facility] GFR/1.73 sq M.predicted alexsandra g non-blacks MDRD (S/P/Bld) [Vol rate/Area]Ordered By: Jeff Rowe on 05-11-2024 Estimated GFR (MDRD) Non-Af Amer 79 >60 [facility] Comment on above: mL/min/1.73m2 CKD-EP I Creatinine Equation (2020) Glomerular filtration rate ( GFR) estimation/1.73 sq m using serum, plasma, or whole bOrdered By: Jeff Rowe on 05-11-2024 GFR/1.73 sq M.predicted among non-blacks MDRD (S/P/Bld) [Vol rate/Area] 79 mL/min/{1.73_m2} >60 [facility] Comment on above: mL/min/1.73m2 CKD-EP I Creatinine Equation (2020) Hematocrit Auto (Bld) [Volum e fraction]Ordered By: Jeff Rowe 05-11-2024 Hematocrit (Bld) [Volume fraction] 42.0 % 37-47 [facility] Hemoglobin measurementOrdere d By: Jeff Rowe 05-11-2024 Hemoglobin (Bld) [Mass/Vol] 13.9 g/dL 12.0-15.0 [facility] Immature granulocytes/100 WB C Auto (Bld)Ordered By: Jeff Rowe on 05-11-2024 Immature granulocytes/100 WBC (Bld) 0.500 % 0.0-0.9 [facility] Comment on above: IG% - Immature Granu locytes (promyelocytes, myelocytes and metamyelocytes) > 1% indicates that a LEFT SHIFT is Present. International normalized rat io (INR) calculationOrdered By: Jeff Rowe on 05-11-2024 INR Coag (Bld) [Relative time] 3.5 {INR} [facility] L499.0042on 05-11-2024 Trop T High Sen 7 ng/L Normal <=14 [facility] Comment on above: Performed By: #### L 501.4021 #### [facility] [address] [place], [address] L499.0043on 05-11-2024 Trop T High Sen Normal <=14 [facility] Comment on above: Result Comment: PT D ISCHARGED Performed By: #### L 500.4100, L500.3400 #### [facility] [address] [place], [address] L501.4021on 05-11-2024 Trop T High Sen < 6 Normal <=14 [facility] Comment on above: Performed By: #### L 501.4021 #### [facility] [address] [place], [address] Lymphocytes Auto (Unsp spec) [#/Vol]Ordered By: Jeff Rowe on 05-11-2024 Lymphocytes (Bld) [#/Vol] 1.83 10*3/uL 0.83-4.51 [facility] Lymphocytes/100 WBC Auto (Un sp spec)Ordered By: Jeff Rowe on 05-11-2024 Lymphocytes/100 WBC (Bld) 17.7 % Low 19-41 [facility] MCV (mean corpuscular volume ) determinationOrdered By: Jeff Rowe on 05-11-2024 MCV (RBC) [Entitic vol] 89.4 fL 81-99 [facility] Mean corpuscular hemoglobin (MCH) determinationOrdered By: Jeff Rowe on 05-11-2024 MCH (RBC) [Entitic mass] 29.6 pg 27.0-32.0 [facility] Mean corpuscular hemoglobin concentration (MCHC) determinationOrdered By: Jeff Rowe on 05-11-2024 MCHC (RBC) [Mass/Vol] 33.1 g/dL 32-36 [facility] Mean platelet volume determi nationOrdered By: Jeff Rowe on 05-11-2024 Platelet mean volume (Bld) [Entitic vol] 9.1 fL 6.2-12.0 [facility] Monocyte percentageOrdered B y: Jeff Rowe on 05-11-2024 Monocytes/100 WBC (Bld) 10.3 % High 0-10 [facility] Neutrophil percentageOrdered By: Jeff Rowe on 05-11-2024 Neutrophils/100 WBC (Bld) 69.9 % 47-70 [facility] No Panel InformationOrdered By: Jeff Rowe on 05-11-2024 Troponin T High Sensitivity < 6 ng/L <14 [facility] Nucleated red blood cell per centageOrdered By: Jeff Rowe on 05-11-2024 Nucleated RBC/100 WBC (Bld) [Ratio] 0 % 0-5 [facility] Partial Thromboplast Timeon 05-11-2024 aPTT Coag (Bld) [Time] 43.6 s High 24.1-36.2 [facility] Comment on above: Performed By: #### L 500.4100, L500.3400 #### [facility] [address] [place] [address], [address] Platelet countOrdered By: Ismael Rowe on 05-11-2024 Platelets (Bld) [#/Vol] 374 10*3/uL 150-450 [facility] Potassium (Unsp spec) [Mass/ Vol]Ordered By: Jeff Rowe on 05-11-2024 Potassium [Moles/Vol] 4.2 mmol/L 3.3-5.1 [facility] Potassium measurement (mass/ volume)Ordered By: Jeff Rowe on 05-11-2024 Potassium (Unsp spec) [Mass/Vol] 4.2 mmol/L 3.3-5.1 [facility] Prothrombin Time w/INRon INR Coag (PPP) [Relative time] 3.5 {INR} Normal [facility] Comment on above: Performed By: #### L 500.4100, L500.3400 #### [facility] [address] [place], [address] PT Coag (PPP) [Time] 36.1 s High 11.7-14.9 [facility] Comment on above: Performed By: #### L 500.4100, L500.3400 #### [facility] [address] [place], [address] Prothrombin timeOrdered By: Jeff Rowe on 05-11-2024 PT Coag (PPP) [Time] 36.1 s High 11.7-14.9 [facility] RBC Auto (Bld) [#/Vol]Ordere d By: Jeff Rowe on 05-11-2024 RBC (Bld) [#/Vol] 4.70 10*6/uL 4.2-5.4 [facility] Serum creatinine measurement (mass/volume)Ordered By: Jeff Rowe on 05-11-2024 Creatinine [Mass/Vol] 0.79 mg/dL 0.70-1.20 [facility] Serum glucose measurement (m ass/volume)Ordered By: Jeff Rowe on 05-11-2024 Glucose [Mass/Vol] 129 mg/dL High 70-99 [facility] Serum or plasma calcium michelle urement (mass/volume)Ordered By: Jeff Rowe on 05-11-2024 Calcium [Mass/Vol] 9.4 mg/dL 7.6-11.0 [facility] Serum or plasma urea nitroge n measurement (mass/volume)Ordered By: Jeff Rowe on 05-11-2024 Urea nitrogen [Mass/Vol] 11 mg/dL 4-19 [facility] Sodium levelOrdered By: Jeff Rowe on 05-11-2024 Sodium [Moles/Vol] 138 mmol/L 133-145 [facility] Troponin T.cardiac High sens itivity method [Mass/Vol]Ordered By: Jeff Rowe on 05-11-2024 Troponin T High Sensitivity 2 Hour 7 ng/L <14 [facility] Troponin T.cardiac [Mass/vol ume] in Serum or Plasma by High sensitivity methodOrdered By: Jeff Rowe on 05-11-2024 Troponin T.cardiac High sensitivity method [Mass/Vol] 7 ng/L <14 [facility] White blood cell (WBC) count Ordered By: Jeff Rowe on 05-11-2024 WBC (Bld) [#/Vol] 10.3 10*3/uL 4.4-11.0 [facility] aPTT Coag (PPP) [Time]Ordere d By: Jeff Rowe on 05-11-2024 aPTT Coag (Bld) [Time] 43.6 s High 24.1-36.2 [facility] Bilirubin Test strip Ql (U)O rdered By: Jose David Lindsay on 05-10-2024 Bilirubin Ql (U) Negative Negative [facility] Epithelial cells.squamous LM Ql (Urine sed)Ordered By: Jose David Lindsay on 05-10-2024 Epithelial cells.squamous LM.HPF (Urine sed) [#/Area] 0 /[HPF] 5-10 [facility] Glucose Ql (U)Ordered By: Umesh Lindsay on 05-10-2024 Urine Glucose (UA) Normal mg/dl Normal [facility] Ketones Test strip Ql (U)Ord ered By: Jose David Lindsay on 05-10-2024 Ketones Ql (U) Negative Negative [facility] Microscopic analysis of urin e for red blood cells (RBC)Ordered By: Jose David Lindsay on 05-10-2024 Microscopic analysis of urine for red blood cells (RBC) 5-10 SEEN /hpf 0-5 [facility] Urine RBC 5-10 SEEN /hpf 0-5 [facility] Mucus LM Ql (Urine sed)Order ed By: Jose David Lindsay on 05-10-2024 Mucus Ql (Urine sed) 0 SEEN /hpf [facility] Nitrite Test strip Ql (U)Ord ered By: Jose David Lindsay on 05-10-2024 Nitrite Ql (U) Negative Negative [facility] Protein Test strip Ql (U)Ord ered By: Jose David Lindsay on 05-10-2024 Protein Ql (U) Negative Negative [facility] Squamous epithelial cells de tection in urine sediment by light microscopyOrdered By: Jose David Lindsay on 05-10-2024 Epithelial cells.squamous LM Ql (Urine sed) 0-5 SEEN /hpf 5-10 [facility] Urinalysis, Completeon 05-10 EPI,SQUAMOUS 0-5 SEEN Normal 5-10 [facility] Comment on above: Order Comment: Order Date: 05/10/24Order Info: [id number] - UACCOLLECTOR TO SPECIFY Performed By: #### L 501.4021 #### [facility] [address] [place], [address] RBC 5-10 SEEN Normal 0-5 [facility] Comment on above: Order Comment: Order Date: 05/10/24Order Info: [id number] - UACCOLLECTOR TO SPECIFY Performed By: #### L 501.4021 #### [facility] [address] [place], [address] WBC 0-5 SEEN Normal 0-5 [facility] Comment on above: Order Comment: Order Date: 05/10/24Order Info: [id number] - UACCOLLECTOR TO SPECIFY Performed By: #### L 501.4021 #### [facility] [address] [place], [address] BACTERIA 0 SEEN Normal None Seen [facility] Comment on above: Order Comment: Order Date: 05/10/24Order Info: [id number] - UACCOLLECTOR TO SPECIFY Performed By: #### L 501.4021 #### [facility] [address] [place], [address] Mucus Ql (Urine sed) [address] [facility] Comment on above: Order Comment: Order Date: 05/10/24Order Info: [id number] - UACCOLLECTOR TO SPECIFY Performed By: #### L 501.4021 #### [facility] [address] [place], [address] Urine blood detectionOrdered By: Jose David Lindsay on 05-10-2024 Urine Occult Blood 150 /ul High Negative [facility] Urine clarityOrdered By: Lawson Lindsay on 05-10-2024 Clarity (U) Clear Clear [facility] Urine color determinationOrd ered By: Jose David Lindsay on 05-10-2024 Color (U) Yellow Yellow [facility] Urine cultureOrdered By: Lawson Lindsay on 05-10-2024 Bacteria identified Cx Nom (U) Positive Abnormal [facility] Urine glucose detectionOrder ed By: Jose David Lindsay on 05-10-2024 Glucose Ql (U) Normal mg/dl Normal [facility] Urine leukocyte esterase det ection by dipstickOrdered By: Jose David Lindsay on 05-10-2024 Leukocyte esterase Test strip Ql (U) Negative Negative [facility] Urine pHOrdered By: Claus Lindsay on 05-10-2024 pH (U) 6.5 [pH] 5.0 - 8.0 [facility] Urine sediment bacteria coun t by microscopy (number/high power field)Ordered By: Jose David Lindsay on 05-10-2024 Bacteria LM.HPF (Urine sed) [#/Area] 0 /[HPF] None Seen [facility] Urine specific gravity measu rementOrdered By: Jose David Lindsay on 05-10-2024 Specific gravity (U) [Rel density] 1.005 1.002-1.030 [facility] Urine urobilinogen measureme ntOrdered By: Jose David Lindsay on 05-10-2024 Urobilinogen Ql (U) Normal mg/dl Normal [facility] Urobilinogen Ql (U)Ordered B y: Jose David Lindsay on 05-10-2024 Urine Urobilinogen Normal mg/dl Normal [facility] White blood cell countOrdere d By: Jose David Lindsay on 05-10-2024 Urine WBC 0-5 SEEN /hpf 0-5 [facility] White blood cell count 0-5 SEEN /hpf 0-5 [facility] Venous duplex ultrasound rep ortOrdered By: Ryan Mondragon on 04-27-2024 US Vein [facility] [address] [place] [address] Venous Duplex US, Unilateral 04/26/24 1547 MR#: [id number] Acct: [id number] Name: YESENIA HODGSON Rep #:[id number] : 1950 74 From: Ryan Mondragon MD Attending Dr: Dr. Lindsay Baxter MD Status: REG CLI Ordering Dr: Lindsay Baxter MD Date: 0 04/26/24 Location: [facility] Sex: F C Admitted: [...] David Lindsay MD ~ Date Dictated: 04/26/24 154 Date Transcribed: 04/27/24 1256 Utilization Management Nurse: Signed [facility] Other Venous Duplex US, Unilateral on 04-26-2024 Venous Duplex US, Unilateral [facility] [address] [place] [address] Venous Duplex US, Unilateral 04/26/24 1547 MR#: [id number] Acct: [id number] Name: YESENIA HODGSON Rep #: [id number] : 1950 74 From: Ryan Mondragon MD [...] Dictated: 04/26/24 1547 Date Transcribed: 04/27/24 1256 Utilization Management Nurse: Signed Normal [facility] Cardiology Visit Reporton Cardiology Visit Report [facility] 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 Normal [facility] Basic Metabolic Profile (BMP )on 01-02-2024 BUN/CRE 22.2 RATIO High 11-29 [facility] Comment on above: Order Comment: Order Date: 12/29/23Order Info: [id number] - BMPOrder Info: [id number] - TSH Performed By: #### L 501.1365, L501.9985, L100.0100, L506.1001, L500.4100, L500.4050 #### [facility] [address] [place], [address] CA,Total 9.5 mg/dL Normal 8.5-10.1 [facility] Comment on above: Order Comment: Order Date: 12/29/23Order Info: [id number] - BMPOrder Info: [id number] - TSH Performed By: #### L 501.9520, L501.9985, L100.0100, L506.1001, L500.4100, L500.4050 #### [facility] [address] [place], [address] Chloride [Moles/Vol] 109 mmol/L High 98-107 [facility] Comment on above: Order Comment: Order Date: 12/29/23Order Info: [id number] - BMPOrder Info: [id number] - TSH Performed By: #### L 501.9520, L501.9985, L100.0100, L506.1001, L500.4100, L500.4050 #### [facility] [address] [place], [address] CO2 [Moles/Vol] 25.0 mmol/L Normal 21.0-32.0 [facility] Comment on above: Order Comment: Order Date: 12/29/23Order Info: [id number] - BMPOrder Info: [id number] - TSH Performed By: #### L 501.9520, L501.9985, L100.0100, L506.1001, L500.4100, L500.4050 #### [facility] [address] [place], [address] Creatinine [Mass/Vol] 0.76 mg/dL Normal 0.55-1.02 [facility] Comment on above: Order Comment: Order Date: 12/29/23Order Info: [id number] - BMPOrder Info: [id number] - TSH Result Comment: The validity of the calculated GFR GFRAA in patients over 70 years has not been determined. Clinical correlation is essential. Performed By: #### L 501.9520, L501.9985, L100.0100, L506.1001, L500.4100, L500.4050 #### [facility] [address] [place], [address] EST GFR - AA 95 mL/min Normal >60 [facility] Comment on above: Order Comment: Order Date: 12/29/23Order Info: [id number] - BMPOrder Info: [id number] - TSH Result Comment: Afri can Estonian GFR Calc Performed By: #### L 501.9520, L501.9985, L100.0100, L506.1001, L500.4100, L500.4050 #### [facility] [address] [place], [address] GAP 5 Normal 5-15 [facility] Comment on above: Order Comment: Order Date: 12/29/23Order Info: 666- - BMPOrder Info: 3 - TSH Performed By: #### L 501.9520, L501.9985, L100.0100, L506.1001, L500.4100, L500.4050 #### [facility] [address] [place], [address] GFR/1.73 sq M.predicted among non-blacks MDRD (S/P/Bld) [Vol rate/Area] 79 mL/min/{1.73_m2} Normal >60 [facility] Comment on above: Order Comment: Order Date: 12/29/23Order Info: 06 - BMPOrder Info: 6-3 - TSH Result Comment: Non- GFR Calc Performed By: #### L 501.9520, L501.9985, L100.0100, L506.1001, L500.4100, L500.4050 #### [facility] [address] [place], [address] Glucose [Mass/Vol] 126 mg/dL High 74-106 [facility] Comment on above: Order Comment: Order Date: 12/29/23Order Info: 666-02 - BMPOrder Info: 3015-04 - TSH Result Comment: Fast ing Glucose result greater than or equal to 126 mg/dL suggests DIABETES MELLITUS per A.D.A. criteria. Performed By: #### L 501.9520, L501.9985, L100.0100, L506.1001, L500.4100, L500.4050 #### [facility] [address] [place], [address] Potassium [Moles/Vol] 3.9 mmol/L Normal 3.5-5.1 [facility] Comment on above: Order Comment: Order Date: 12/29/23Order Info: 666-02 - BMPOrder Info: 3015-04 - TSH Performed By: #### L 501.9520, L501.9985, L100.0100, L506.1001, L500.4100, L500.4050 #### [facility] [address] [place], [address] Sodium [Moles/Vol] 139 mmol/L Normal 136-145 [facility] Comment on above: Order Comment: Order Date: 12/29/23Order Info: 666-02 - BMPOrder Info: 3015-04 - TSH Performed By: #### L 501.9520, L501.9985, L100.0100, L506.1001, L500.4100, L500.4050 #### [facility] [address] [place], [address] Urea nitrogen [Mass/Vol] 17 mg/dL Normal 7-18 [facility] Comment on above: Order Comment: Order Date: 12/29/23Order Info: 666-02 BMPOrder Info: 3015-04 - TSH Performed By: #### L 501.9520, L501.9985, L100.0100, L506.1001, L500.4100, L500.4050 #### [facility] [address] [place], [address] CBC-Complete Blood Cnt No Di ffon 01-02-2024 Erythrocyte distribution width (RBC) [Ratio] 13.7 % Normal 11.6-14.6 [facility] Comment on above: Order Comment: Order Date: 12/29/23Order Info: [id number] - CBCOrder Info: 86740-9 - SED Performed By: #### L 501.9520, L501.9985, L100.0100, L506.1001, L500.4100, L500.4050 #### [facility] [address] [place], [address] Hematocrit (Bld) [Volume fraction] 43.0 % Normal 37-47 [facility] Comment on above: Order Comment: Order Date: 12/29/23Order Info: [id number] - CBCOrder Info: 45230-7 - SED Performed By: #### L 501.9520, L501.9985, L100.0100, L506.1001, L500.4100, L500.4050 #### [facility] [address] [place], [address] Hemoglobin (Bld) [Mass/Vol] 13.6 g/dL Normal 12.0-15.0 [facility] Comment on above: Order Comment: Order Date: 12/29/23Order Info: [id number] - CBCOrder Info: 97562-0 - SED Performed By: #### L 501.9520, L501.9985, L100.0100, L506.1001, L500.4100, L500.4050 #### [facility] [address] [place], [address] MCH (RBC) [Entitic mass] 29.4 pg Normal 27.0-32.0 [facility] Comment on above: Order Comment: Order Date: 12/29/23Order Info: [id number] - CBCOrder Info: 37634-0 - SED Performed By: #### L 501.9520, L501.9985, L100.0100, L506.1001, L500.4100, L500.4050 #### [facility] [address] [place], [address] MCHC (RBC) [Mass/Vol] 31.6 g/dL Low 32-36 [facility] Comment on above: Order Comment: Order Date: 12/29/23Order Info: [id number] - CBCOrder Info: [id number] - SED Performed By: #### L 501.9520, L501.9985, L100.0100, L506.1001, L500.4100, L500.4050 #### [facility] [address] [place], [address] MCV (RBC) [Entitic vol] 92.9 fL Normal 81-99 [facility] Comment on above: Order Comment: Order Date: 12/29/23Order Info: [id number] - CBCOrder Info: [id number] - SED Performed By: #### L 501.9520, L501.9985, L100.0100, L506.1001, L500.4100, L500.4050 #### [facility] [address] [place], [address] Platelet mean volume (Bld) [Entitic vol] 9.4 fL Normal 6.2-12.0 [facility] Comment on above: Order Comment: Order Date: 12/29/23Order Info: [id number] - CBCOrder Info: [id number] - SED Performed By: #### L 501.9520, L501.9985, L100.0100, L506.1001, L500.4100, L500.4050 #### [facility] [address] [place], [address] Platelets (Bld) [#/Vol] 388 10*3/uL Normal 150-450 [facility] Comment on above: Order Comment: Order Date: 12/29/23Order Info: [id number] - CBCOrder Info: [id number] - SED Performed By: #### L 501.9520, L501.9985, L100.0100, L506.1001, L500.4100, L500.4050 #### [facility] [address] [place], [address] RBC (Bld) [#/Vol] 4.63 10*6/uL Normal 4.2-5.4 [facility] Comment on above: Order Comment: Order Date: 12/29/23Order Info: [id number] - CBCOrder Info: [id number] - SED Performed By: #### L 501.9520, L501.9985, L100.0100, L506.1001, L500.4100, L500.4050 #### [facility] [address] [place], [address] RDW SD 47.3 fl High 35.1-43.9 [facility] Comment on above: Order Comment: Order Date: 12/29/23Order Info: [id number] - CBCOrder Info: [id number] - SED Performed By: #### L 501.9520, L501.9985, L100.0100, L506.1001, L500.4100, L500.4050 #### [facility] [address] [place], [address] WBC (Bld) [#/Vol] 7.4 10*3/uL Normal 4.4-11.0 [facility] Comment on above: Order Comment: Order Date: 12/29/23Order Info: [id number] - CBCOrder Info: [id number] - SED Performed By: #### L 501.9520, L501.9985, L100.0100, L506.1001, L500.4100, L500.4050 #### [facility] [address] [place], [address] Erythrocyte Sed Rateon 11-22 -2024 SED RATE 29 mm/hr Normal 0-30 [facility] Comment on above: Order Comment: Order Date: 12/29/23Order Info: [id number] - CBCOrder Info: [id number] - SED Performed By: #### L 501.9520, L501.9985, L100.0100, L506.1001, L500.4100, L500.4050 #### [facility] [address] [place], [address] Thyroid Stim Hormone (TSH)on 01-02-2024 TSH 1.250 uIU/mL Normal 0.358-3.740 [facility] Comment on above: Order Comment: Order Date: 12/29/23Order Info: [id number] - BMPOrder Info: [id number] - TSH Performed By: #### L 501.9520, L501.9985, L100.0100, L506.1001, L500.4100, L500.4050 #### [facility] [address] [place], [address] Vitamin D,25 Hydroxyon 01-01 Vitamin D 25-OH 37.8 ng/mL Normal [facility] Comment on above: Order Comment: Order Date: 12/29/23Order Info: [id number] - VITD25 Result Comment: Rebecca min D 25(OH) Status Range Deficiency <20 ng/mL (50nmol/L) Insufficiency 20 - 30 ng/mL (50 - 75 nmol/L) Sufficiency 30 - 100 ng/mL (75 - 250 nmol/L) Toxicity >100 ng/mL (>250 nmol/L) Performed By: #### L 501.9520, L501.9985, L100.0100, L506.1001, L500.4100, L500.4050 #### [facility] [address] [place], [address] Lipid Profileon 12-22-2023 Cholesterol [Mass/Vol] 175 mg/dL Normal 200 [facility] Comment on above: Result Comment: <200 mg/dL Desirable 200-240 mg/dL Borderline >240 mg/dL High Risk Performed By: #### L 501.4021 #### [facility] [address] [place], [address] Cholesterol in HDL [Mass/Vol] 70 mg/dL Normal [facility] Comment on above: Result Comment: The drugs N-Acetylcysteine and Metamizole may falsely depress this assay. Reference Range HDL <40 mg/dL Low HDL Cholesterol HDL >or= 60 mg/dL High HDL Cholesterol Performed By: #### L 501.4021 #### [facility] [address] [place], [address] Cholesterol in LDL [Mass/Vol] 85 mg/dL Normal 0-130 [facility] Comment on above: Performed By: #### L 501.4021 #### [facility] [address] [place], [address] Cholesterol in VLDL [Mass/Vol] 20 mg/dL Normal 5-40 [facility] Comment on above: Performed By: #### L 501.4021 #### [facility] [address] [place], [address] Triglyceride [Mass/Vol] 102 mg/dL Normal [facility] Comment on above: Result Comment: The drugs N-Acetylcysteine and Metamizole may falsely depress this assay. Serum Triglycerides Reference Interval Normal <150 mg/dL Borderline high 150 - 199 mg/dL High 200 - 499 mg/dL Very High > or = 500 mg/dL Performed By: #### L 501.4021 #### [facility] [address] [place], [address] Dexa Bone Density Studyon Dexa Bone Density Study [facility] Services [address] [place] [address] Dexa Bone Density Study MR#: [id number] Acct: [id number] Name: REMAYESENIASERGO HIGHTOWER Rep #: [id number] : 1950 F 73 From: Aroldo landin MD PCP: Dr. Jose David Lindsay MD Status: [facility] Study: Dexa Bone Density Study Date of Exam: 10/29/23 Exam# [id number] Ordering Dr: Jose David Lindsay [id number] STUDY: DUAL ENERGY X-RAY ABSORPTIOMETRY / DXA [...] [employer] www [email or web address] Electronically Signed: Aroldo Neves MD at 9:40 EDT Reading Location ID and State: [facility] / [place] , Service support , CC: Dr. Jose David Lindsay MD Utilization Management Nurse: Signed Normal [facility] Pulmonary Visit Reporton Pulmonary Visit Report [facility] of [address] [place], [place] [address] OFFICE VISIT Date of Service: 10/29/23 MR#: [id number] Acct: [id number] Name: YESENIA HODGSON Rep #: [id number] : 1950 Provider: AKIL Young Age/Sex: 73/F Location: [facility] [place] Status: Signed Assessment and Plan Assessment and [...] never substance (more content not included)... Normal [facility] SCRN MAMM (CAD)W/NIKOLAY BILATo n 10-29-2023 SCRN MAMM (CAD)W/NIKOLAY BILAT [facility] Imaging Services [address] [place] [address] SCRN MAMM (CAD)W/NIKOLAY BILAT MR#: [id number] Acct: [id number] Name: YESENIA HODGSON Rep #: [id number] : 1950 F 73 From: Aroldo landin MD PCP: Dr. Jose David Lindsay MD Status: [facility] Study: SCRN MAMM (CAD)W/NIKOLAY BILAT Date of Exam: 10/11 10/03 Exam# [id number] Ordering Dr: Jose David Lindsay [id number] MAMMOGRAPHY - BILATERAL SCREENING REASON FOR EXAM: [...] delay biopsy of a clinically suspicious abnormality. [id number] Electronically Signed: Aroldo Neves MD at 10:54 EDT , CC: Dr. Jose David Lindsay MD Utilization Management Nurse: Signed Normal [facility] Basophil percentageOrdered B y: Claudia Yeh on 03-07-2023 Bilirubin [Mass/Vol] 0.40 mg/dL 0.20-1.00 [facility] Comment on above: For patients on eltr ombopag therapy, use of Dimension [place] TBIL is not recommended. Cholesterol [Mass/Vol] 146 mg/dL <200 [facility] Comment on above: <200 mg/dL Desirable 200-240 mg/dL Borderline >240 mg/dL High Risk Protein [Mass/Vol] 7.6 g/dL 6.4-8.2 [facility] Triglyceride [Mass/Vol] 98 mg/dL <199 [facility] Comment on above: The drugs N-Acetylcy steine and Metamizole may falsely depress this assay.Serum Triglycerides Reference Interval Normal <150 mg/dL Borderline high 150 - 199 mg/dL High 200 - 499 mg/dL Very High > or = 500 mg/dL Direct bilirubinOrdered By: Claudia Yeh on 03-07-2023 Bilirubin.direct [Mass/Vol] 0.14 mg/dL 0.00-0.30 [facility] High density lipoprotein (HD L) measurementOrdered By: Claudia Yeh on 03-07-2023 Cholesterol in HDL (Body fld) [Mass/Vol] 66 mg/dL >40 [facility] Comment on above: The drugs N-Acetylcy steine and Metamizole may falsely depress this assay. Reference Range HDL <40 mg/dL Low HDL Cholesterol HDL >or= 60 mg/dL High HDL Cholesterol Laboratory - Chemistry and C hemistry - challengeOrdered By: Claudia Yeh on 03-07-2023 ALP [Catalytic activity/Vol] 82 U/L 45-117 [facility] ALT [Catalytic activity/Vol] 23 U/L 13-56 [facility] Globulin (S) [Mass/Vol] 4.2 g/dL 2.2-4.2 [facility] Low density lipoprotein (LDL ) cholesterol measurementOrdered By: Claudia Yeh on 03-07-2023 Cholesterol in LDL (Body fld) [Moles/Vol] 60 mg/dL 0-130 [facility] Thin prep Papanicolaou smear with manual screeningOrdered By: Claudia Yeh on 03-07-2023 Thin prep Papanicolaou smear with manual screening 3.4 g/dL 3.2-5.0 [facility] Thin prep Papanicolaou smear with manual screening 16 U/L 15-37 [facility] Very low density lipoprotein (VLDL) cholesterol measurementOrdered By: Claudia Yeh on 03-07-2023 Cholesterol in VLDL Calc [Moles/Vol] 20 mg/dL 5-40 [facility] Absolute lymphocyte countOrd ered By: Cuong Gomez on 11-15-2022 Lymphocytes Auto (Unsp spec) [#/Vol] 2.11 10*3/uL 0.83-4.51 [facility] Basophil percentageOrdered B y: Cuong Gomez on 11-15-2022 Basophils/100 WBC (Bld) 0.9 % 0-1 [facility] Chloride [Moles/Vol] 104 mmol/L 98-107 [facility] Eosinophils/100 WBC (Bld) 1.6 % 0-5 [facility] Glucose [Mass/Vol] 107 mg/dL 74-106 [facility] Comment on above: Fasting Glucose resu lt from 100 to 125 mg/dL suggests IMPAIRED HOMEOSTASIS per A.D.A. criteria. Neutrophils (Bld) [#/Vol] 5.2 10*3/uL 2.0-7.7 [facility] Neutrophils/100 WBC (Bld) 62.6 % 47-70 [facility] Potassium [Moles/Vol] 4.2 mmol/L 3.5-5.1 [facility] Sodium [Moles/Vol] 136 mmol/L 136-145 [facility] WBC (Bld) [#/Vol] 8.2 10*3/uL 4.4-11.0 [facility] Blood erythrocytes count (nu mber/volume)Ordered By: Cuong Gomez on 11-15-2022 RBC (Bld) [#/Vol] 4.75 10*6/uL 4.2-5.4 [facility] Blood hemoglobin measurement (mass/volume)Ordered By: Cunog Gomez on 11-15-2022 Hemoglobin (Bld) [Mass/Vol] 14.3 g/dL 12.0-15.0 [facility] Blood lymphocytes/100 leukoc ytesOrdered By: Cuong Gomez on 11-15-2022 Lymphocytes/100 WBC (Bld) 25.7 % 19-41 [facility] Blood monocytes/100 leukocyt esOrdered By: Cuong Gomez on 11-15-2022 Monocytes/100 WBC (Bld) 8.8 % 0-10 [facility] Blood platelet mean volumeOr dered By: Cuong Gomez on 11-15-2022 Platelet mean volume (Bld) [Entitic vol] 9.3 fL 6.2-12.0 [facility] Determination of erythrocyte mean corpuscular volume (MCV)Ordered By: Cuong Gomez on 11-15-2022 MCV (RBC) [Entitic vol] 94.9 fL 81-99 [facility] Hematocrit Auto (Bld) [Volum e fraction]Ordered By: Cuong Gomez on 11-15-2022 Hematocrit (Bld) [Volume fraction] 45.1 % 37-47 [facility] Laboratory - Chemistry and C hemistry - challengeOrdered By: Cuong Gomez on 11-15-2022 CO2 [Moles/Vol] 30.0 mmol/L 21.0-32.0 [facility] Natriuretic peptide B (Bld) [Mass/Vol] 15.8 pg/mL 0-100 [facility] Urea nitrogen/Creatinine [Mass ratio] 10.3 mg/mg 10-20 [facility] Laboratory - CoagulationOrde red By: Cuong Gomez on 11-15-2022 PT Coag (PPP) [Time] 25.7 s 11.7-14.9 [facility] Laboratory - Hematology and Cell countsOrdered By: Cuong Gomez on 11-15-2022 Erythrocyte distribution width (RBC) [Entitic vol] 48.6 fL 35.1-43.9 [facility] Erythrocyte distribution width (RBC) [Ratio] 13.8 % 11.6-14.6 [facility] Immature granulocytes/100 WBC (Bld) 0.400 % 0.0-0.9 [facility] Comment on above: IG% - Immature Granu locytes (promyelocytes, myelocytes and metamyelocytes) > 1% indicates that a LEFT SHIFT is Present. MCH (RBC) [Entitic mass] 30.1 pg 27.0-32.0 [facility] Nucleated RBC/100 WBC (Bld) [Ratio] 0 % 0-5 [facility] MCHC Auto (RBC) [Mass/Vol]Or dered By: Cuong Gomez on 11-15-2022 MCHC (RBC) [Mass/Vol] 31.7 g/dL 32-36 [facility] No Panel InformationOrdered By: Cuong Gomez on 11-15-2022 Troponin I High Sensitivity 4 pg/mL 3.0-54.0 [facility] Comment on above: Please Note: New Hector t Units and Gender Specific Reference Ranges. For more information see Policy Stat Procedure [place] High Sensitivity Troponin (TNIH) and attachments. Estimated Creatinine Clearance Calc 46.23 ml/min [facility] Estimated GFR (MDRD) Amer 82 mL/min >60 [facility] Comment on above: GFR Calc Estimated GFR (MDRD) Non-Af Amer 68 mL/min >60 [facility] Comment on above: Non- GFR Calc Platelets bldOrdered By: Cassi Gomez on 11-15-2022 Platelets (Bld) [#/Vol] 380 10*3/uL 150-450 [facility] Serum or plasma calcium michelle urement (mass/volume)Ordered By: Cuong Gomez on 11-15-2022 Calcium [Mass/Vol] 9.7 mg/dL 8.5-10.1 [facility] Serum or plasma creatinine m easurement (mass/volume)Ordered By: Cuong Gomez on 11-15-2022 Creatinine [Mass/Vol] 0.87 mg/dL 0.55-1.02 [facility] Comment on above: The validity of the calculated GFR & GFRAA in patients over 70 years has not been determined. Clinical correlation is essential. Serum or plasma urea nitroge n measurement (mass/volume)Ordered By: Cuong Gomez on 11-15-2022 Urea nitrogen [Mass/Vol] 9 mg/dL 7-18 [facility] Thin prep Papanicolaou smear with manual screeningOrdered By: Cuong Gomez on 11-15-2022 Thin prep Papanicolaou smear with manual screening 2 5-15 [facility] Whole blood international no rmalized ratio (INR)Ordered By: Cuong Gomez on 11-15-2022 INR Coag (Bld) [Relative time] 2.3 {INR} [facility] Absolute lymphocyte countOrd ered By: Ron Lindsay on 10-17-2022 Lymphocytes Auto (Unsp spec) [#/Vol] 2.53 10*3/uL 0.83-4.51 [facility] Basophil percentageOrdered B y: Ron Lindsay on 10-17-2022 Basophil percentage 0-5 SEEN /hpf 0-5 [facility] Basophils/100 WBC (Bld) 0.5 % 0-1 [facility] Bilirubin [Mass/Vol] 0.30 mg/dL 0.20-1.00 [facility] Comment on above: For patients on eltr ombopag therapy, use of Dimension [place] TBIL is not recommended. Chloride [Moles/Vol] 105 mmol/L 98-107 [facility] Eosinophils/100 WBC (Bld) 1.7 % 0-5 [facility] Glucose [Mass/Vol] 83 mg/dL 74-106 [facility] Neutrophils (Bld) [#/Vol] 5.7 10*3/uL 2.0-7.7 [facility] Neutrophils/100 WBC (Bld) 61.7 % 47-70 [facility] Potassium [Moles/Vol] 4.3 mmol/L 3.5-5.1 [facility] Protein [Mass/Vol] 7.4 g/dL 6.4-8.2 [facility] Sodium [Moles/Vol] 137 mmol/L 136-145 [facility] WBC (Bld) [#/Vol] 9.2 10*3/uL 4.4-11.0 [facility] Basophil percentageOrdered B y: Mann Guzman on 10-17-2022 Cholesterol [Mass/Vol] 231 mg/dL <200 [facility] Comment on above: <200 mg/dL Desirable 200-240 mg/dL Borderline >240 mg/dL High Risk Triglyceride [Mass/Vol] 174 mg/dL <199 [facility] Comment on above: The drugs N-Acetylcy steine and Metamizole may falsely depress this assay.Serum Triglycerides Reference Interval Normal <150 mg/dL Borderline high 150 - 199 mg/dL High 200 - 499 mg/dL Very High > or = 500 mg/dL Bilirubin Test strip Ql (U)O rdered By: Ron Lnidsay on 10-17-2022 Bilirubin Ql (U) Negative Negative [facility] Blood erythrocytes count (nu mber/volume)Ordered By: Ron Lindsay on 10-17-2022 RBC (Bld) [#/Vol] 4.67 10*6/uL 4.2-5.4 [facility] Blood hemoglobin measurement (mass/volume)Ordered By: Ron Lindsay on 10-17-2022 Hemoglobin (Bld) [Mass/Vol] 13.8 g/dL 12.0-15.0 [facility] Blood lymphocytes/100 leukoc ytesOrdered By: Ron Lindsay on 10-17-2022 Lymphocytes/100 WBC (Bld) 27.5 % 19-41 [facility] Blood monocytes/100 leukocyt esOrdered By: Ron Lindsay on 10-17-2022 Monocytes/100 WBC (Bld) 8.3 % 0-10 [facility] Blood platelet mean volumeOr dered By: Ron Lindsay on 10-17-2022 Platelet mean volume (Bld) [Entitic vol] 9.7 fL 6.2-12.0 [facility] Culture, urineOrdered By: Umesh Lindsay on 10-17-2022 Bacteria identified Cx Nom (U) Positive [facility] Determination of erythrocyte mean corpuscular volume (MCV)Ordered By: Ron Lindsay on 10-17-2022 MCV (RBC) [Entitic vol] 95.1 fL 81-99 [facility] Direct bilirubinOrdered By: Mann Guzman on 10-17-2022 Bilirubin.direct [Mass/Vol] 0.05 mg/dL 0.00-0.30 [facility] Erythrocyte sedimentation ra teOrdered By: Ron Lindsay on 10-17-2022 ESR (Bld) [Velocity] 32 mm/h 0-30 [facility] Hematocrit Auto (Bld) [Volum e fraction]Ordered By: oRn Lindsay on 10-17-2022 Hematocrit (Bld) [Volume fraction] 44.4 % 37-47 [facility] Ketones Test strip Ql (U)Ord ered By: Ron Lindsay on 10-17-2022 Ketones Ql (U) Negative Negative [facility] Laboratory - Chemistry and C hemistry - challengeOrdered By: Ron Lindsay on 10-17-2022 ALP [Catalytic activity/Vol] 78 U/L 45-117 [facility] ALT [Catalytic activity/Vol] 30 U/L 13-56 [facility] CO2 [Moles/Vol] 27.0 mmol/L 21.0-32.0 [facility] Globulin (S) [Mass/Vol] 4.0 g/dL 2.2-4.2 [facility] Urea nitrogen/Creatinine [Mass ratio] 15.2 mg/mg 10-20 [facility] Laboratory - Hematology and Cell countsOrdered By: Ron Lindsay on 10-17-2022 Erythrocyte distribution width (RBC) [Entitic vol] 49.2 fL 35.1-43.9 [facility] Erythrocyte distribution width (RBC) [Ratio] 14.1 % 11.6-14.6 [facility] Immature granulocytes/100 WBC (Bld) 0.300 % 0.0-0.9 [facility] Comment on above: IG% - Immature Granu locytes (promyelocytes, myelocytes and metamyelocytes) > 1% indicates that a LEFT SHIFT is Present. MCH (RBC) [Entitic mass] 29.6 pg 27.0-32.0 [facility] Nucleated RBC/100 WBC (Bld) [Ratio] 0 % 0-5 [facility] MCHC Auto (RBC) [Mass/Vol]Or dered By: Ron Lindsay on 10-17-2022 MCHC (RBC) [Mass/Vol] 31.1 g/dL 32-36 [facility] Mucus LM Ql (Urine sed)Order ed By: Ron Lindsay on 10-17-2022 Mucus Ql (Urine sed) 0 SEEN /hpf [facility] Nitrite Test strip Ql (U)Ord ered By: Ron Lindsay on 10-17-2022 Nitrite Ql (U) Negative Negative [facility] No Panel InformationOrdered By: Ron Lindsay on 10-17-2022 Estimated GFR (MDRD) Amer 102 mL/min >60 [facility] Comment on above: GFR Calc Estimated GFR (MDRD) Non-Af Amer 84 mL/min >60 [facility] Comment on above: Non- GFR Calc Thyroid Stimulating Hormone (TSH) 1.14 uIU/mL 0.358-3.74 [facility] Platelets bldOrdered By: Lawson Lindsay on 10-17-2022 Platelets (Bld) [#/Vol] 447 10*3/uL 150-450 [facility] Protein Test strip Ql (U)Ord ered By: Ron Lindsay on 10-17-2022 Protein Ql (U) Negative Negative [facility] Serum or plasma albumin michelle urement (mass/volume)Ordered By: Ron Lindsay on 10-17-2022 Albumin [Mass/Vol] 3.4 g/dL 3.2-5.0 [facility] Serum or plasma albumin/glob ulin mass ratioOrdered By: Ron Lindsay on 10-17-2022 Albumin/Globulin [Mass ratio] 0.8 {ratio} 0.9-2.4 [facility] Serum or plasma calcium michelle urement (mass/volume)Ordered By: Ron Lindsay on 10-17-2022 Calcium [Mass/Vol] 9.4 mg/dL 8.5-10.1 [facility] Serum or plasma cholesterol in HDL measurement (mass/volume)Ordered By: Mann Guzman on 10-17-2022 Cholesterol in HDL [Mass/Vol] 59 mg/dL >40 [facility] Comment on above: The drugs N-Acetylcy steine and Metamizole may falsely depress this assay. Reference Range HDL <40 mg/dL Low HDL Cholesterol HDL >or= 60 mg/dL High HDL Cholesterol Serum or plasma cholesterol in VLDL measurement (mass/volume)Ordered By: Mann Guzman on 10-17-2022 Cholesterol in VLDL [Mass/Vol] 35 mg/dL 5-40 [facility] Serum or plasma creatinine m easurement (mass/volume)Ordered By: Ron Lindsay on 10-17-2022 Creatinine [Mass/Vol] 0.72 mg/dL 0.55-1.02 [facility] Comment on above: The validity of the calculated GFR & GFRAA in patients over 70 years has not been determined. Clinical correlation is essential. Serum or plasma low density lipoprotein (LDL) cholesterol measurement (mass/volume)Ordered By: Mann Guzman on 10-17-2022 Cholesterol in LDL [Mass/Vol] 137 mg/dL 0-130 [facility] Serum or plasma urea nitroge n measurement (mass/volume)Ordered By: Ron Lindsay on 10-17-2022 Urea nitrogen [Mass/Vol] 11 mg/dL 7-18 [facility] Squamous epithelial cells de tection in urine sediment by light microscopyOrdered By: Ron Lindsay on 10-17-2022 Epithelial cells.squamous LM Ql (Urine sed) 0-5 SEEN /hpf 5-10 [facility] Thin prep Papanicolaou smear with manual screeningOrdered By: Ron Lindsay on 10-17-2022 Thin prep Papanicolaou smear with manual screening 17 U/L 15-37 [facility] Thin prep Papanicolaou smear with manual screening 5 5-15 [facility] Urine blood detectionOrdered By: Ron Lindsay on 10-17-2022 RBC Ql (U) 250 /ul Negative [facility] RBC Ql (U) 5-10 SEEN /hpf 0-5 [facility] Urine clarityOrdered By: Lawson Lindsay on 10-17-2022 Clarity (U) Clear Clear [facility] Urine color determinationOrd ered By: Ron Lindsay on 10-17-2022 Color (U) Yellow Yellow [facility] Urine glucose detectionOrder ed By: Ron Lindsay on 10-17-2022 Glucose Ql (U) Normal mg/dl Normal [facility] Urine leukocyte esterase det ection by dipstickOrdered By: Ron Lindsay on 10-17-2022 Leukocyte esterase Test strip Ql (U) 500 /ul Negative [facility] Urine pHOrdered By: Claus Lindsay on 10-17-2022 pH (U) 7.0 [pH] 5.0 - 8.0 [facility] Urine sediment bacteria coun t by microscopy (number/high power field)Ordered By: Ron Lindsay on 10-17-2022 Bacteria LM.HPF (Urine sed) [#/Area] 0 /[HPF] None Seen [facility] Urine specific gravity measu rementOrdered By: Ron Lindsay on 10-17-2022 Specific gravity (U) [Rel density] 1.010 1.002-1.030 [facility] Urobilinogen Auto test strip Ql (U)Ordered By: Ron Lindsay on 10-17-2022 Urobilinogen Ql (U) Normal mg/dl Normal [facility] Absolute lymphocyte countOrd ered By: Jose Mcleod on 09-05-2022 Lymphocytes Auto (Unsp spec) [#/Vol] 1.97 10*3/uL 0.83-4.51 [facility] Basophil percentageOrdered B y: Jose Mcleod on 09-05-2022 Basophils/100 WBC (Bld) 0.7 % 0-1 [facility] Bilirubin [Mass/Vol] 0.40 mg/dL 0.20-1.00 [facility] Comment on above: For patients on eltr ombopag therapy, use of Dimension [place] TBIL is not recommended. Chloride [Moles/Vol] 103 mmol/L 98-107 [facility] Cholesterol [Mass/Vol] 223 mg/dL <200 [facility] Comment on above: <200 mg/dL Desirable 200-240 mg/dL Borderline >240 mg/dL High Risk Eosinophils/100 WBC (Bld) 1.5 % 0-5 [facility] Glucose [Mass/Vol] 91 mg/dL 74-106 [facility] Neutrophils (Bld) [#/Vol] 4.7 10*3/uL 2.0-7.7 [facility] Neutrophils/100 WBC (Bld) 63.5 % 47-70 [facility] Potassium [Moles/Vol] 4.4 mmol/L 3.5-5.1 [facility] Protein [Mass/Vol] 7.7 g/dL 6.4-8.2 [facility] Sodium [Moles/Vol] 139 mmol/L 136-145 [facility] Triglyceride [Mass/Vol] 145 mg/dL <199 [facility] Comment on above: The drugs N-Acetylcy steine and Metamizole may falsely depress this assay.Serum Triglycerides Reference Interval Normal <150 mg/dL Borderline high 150 - 199 mg/dL High 200 - 499 mg/dL Very High > or = 500 mg/dL WBC (Bld) [#/Vol] 7.4 10*3/uL 4.4-11.0 [facility] Blood erythrocytes count (nu mber/volume)Ordered By: Jose Mcleod on 09-05-2022 RBC (Bld) [#/Vol] 4.80 10*6/uL 4.2-5.4 [facility] Blood hemoglobin measurement (mass/volume)Ordered By: Jose Mcleod on 09-05-2022 Hemoglobin (Bld) [Mass/Vol] 14.3 g/dL 12.0-15.0 [facility] Blood lymphocytes/100 leukoc ytesOrdered By: Jose Mcleod on 09-05-2022 Lymphocytes/100 WBC (Bld) 26.6 % 19-41 [facility] Blood monocytes/100 leukocyt esOrdered By: Jose Mcleod on 09-05-2022 Monocytes/100 WBC (Bld) 7.6 % 0-10 [facility] Blood platelet mean volumeOr dered By: Jose Mcleod on 09-05-2022 Platelet mean volume (Bld) [Entitic vol] 9.7 fL 6.2-12.0 [facility] Determination of erythrocyte mean corpuscular volume (MCV)Ordered By: Jose Mcleod on 09-05-2022 MCV (RBC) [Entitic vol] 94.2 fL 81-99 [facility] Hematocrit Auto (Bld) [Volum e fraction]Ordered By: Jose Mcleod on 09-05-2022 Hematocrit (Bld) [Volume fraction] 45.2 % 37-47 [facility] Laboratory - Chemistry and C hemistry - challengeOrdered By: Jose Mcleod on 09-05-2022 ALP [Catalytic activity/Vol] 88 U/L 45-117 [facility] ALT [Catalytic activity/Vol] 25 U/L 13-56 [facility] CO2 [Moles/Vol] 30.0 mmol/L 21.0-32.0 [facility] Globulin (S) [Mass/Vol] 4.3 g/dL 2.2-4.2 [facility] Urea nitrogen/Creatinine [Mass ratio] 11.4 mg/mg 10-20 [facility] Laboratory - Hematology and Cell countsOrdered By: Jose Mcleod on 09-05-2022 Erythrocyte distribution width (RBC) [Entitic vol] 47.8 fL 35.1-43.9 [facility] Erythrocyte distribution width (RBC) [Ratio] 13.8 % 11.6-14.6 [facility] Immature granulocytes/100 WBC (Bld) 0.100 % 0.0-0.9 [facility] Comment on above: IG% - Immature Granu locytes (promyelocytes, myelocytes and metamyelocytes) > 1% indicates that a LEFT SHIFT is Present. MCH (RBC) [Entitic mass] 29.8 pg 27.0-32.0 [facility] Nucleated RBC/100 WBC (Bld) [Ratio] 0 % 0-5 [facility] MCHC Auto (RBC) [Mass/Vol]Or dered By: Jose Mcleod on 09-05-2022 MCHC (RBC) [Mass/Vol] 31.6 g/dL 32-36 [facility] No Panel InformationOrdered By: Jose Mcleod on 09-05-2022 Estimated GFR (MDRD) Amer 92 mL/min >60 [facility] Comment on above: GFR Calc Estimated GFR (MDRD) Non-Af Amer 76 mL/min >60 [facility] Comment on above: Non- GFR Calc Troponin I High Sensitivity 4 pg/mL 3.0-54.0 [facility] Comment on above: Please Note: New Hector t Units and Gender Specific Reference Ranges. For more information see Policy Stat Procedure [place] High Sensitivity Troponin (TNIH) and attachments. Platelets bldOrdered By: Toya Mcleod on 09-05-2022 Platelets (Bld) [#/Vol] 409 10*3/uL 150-450 [facility] Serum or plasma albumin michelle urement (mass/volume)Ordered By: Jose Mcleod on 09-05-2022 Albumin [Mass/Vol] 3.4 g/dL 3.2-5.0 [facility] Serum or plasma albumin/glob ulin mass ratioOrdered By: Jose Mcleod on 09-05-2022 Albumin/Globulin [Mass ratio] 0.8 {ratio} 0.9-2.4 [facility] Serum or plasma calcium michelle urement (mass/volume)Ordered By: Jose Mcleod on 09-05-2022 Calcium [Mass/Vol] 10.0 mg/dL 8.5-10.1 [facility] Serum or plasma cholesterol in HDL measurement (mass/volume)Ordered By: Jose Mcleod on 09-05-2022 Cholesterol in HDL [Mass/Vol] 61 mg/dL >40 [facility] Comment on above: The drugs N-Acetylcy steine and Metamizole may falsely depress this assay. Reference Range HDL <40 mg/dL Low HDL Cholesterol HDL >or= 60 mg/dL High HDL Cholesterol Serum or plasma cholesterol in VLDL measurement (mass/volume)Ordered By: Jose Mcleod on 09-05-2022 Cholesterol in VLDL [Mass/Vol] 29 mg/dL 5-40 [facility] Serum or plasma creatinine m easurement (mass/volume)Ordered By: Jose Mcleod on 09-05-2022 Creatinine [Mass/Vol] 0.79 mg/dL 0.55-1.02 [facility] Comment on above: The validity of the calculated GFR & GFRAA in patients over 70 years has not been determined. Clinical correlation is essential. Serum or plasma low density lipoprotein (LDL) cholesterol measurement (mass/volume)Ordered By: Jose Mcleod on 09-05-2022 Cholesterol in LDL [Mass/Vol] 133 mg/dL 0-130 [facility] Serum or plasma urea nitroge n measurement (mass/volume)Ordered By: Jose Mcleod on 09-05-2022 Urea nitrogen [Mass/Vol] 9 mg/dL 7-18 [facility] Thin prep Papanicolaou smear with manual screeningOrdered By: Jose Mcleod on 09-05-2022 Thin prep Papanicolaou smear with manual screening 18 U/L 15-37 [facility] Thin prep Papanicolaou smear with manual screening 6 5-15 [facility] Culture, urineOrdered By: Umesh Mcleod on 08-15-2022 Bacteria identified Cx Nom (U) Mixed Gram Pos & Gram Neg Org [facility] Culture, urineOrdered By: Umesh Lindsay on 07-15-2022 Bacteria identified Cx Nom (U) Enterococcus faecalis [facility] Absolute lymphocyte countOrd ered By: Dr. Rosas on 07-07-2022 Lymphocytes Auto (Unsp spec) [#/Vol] 2.50 10*3/uL 0.83-4.51 [facility] Basophil percentageOrdered B y: Dr. Rosas on 07-07-2022 Basophil percentage 0-5 SEEN /hpf 0-5 [facility] Basophils/100 WBC (Bld) 0.7 % 0-1 [facility] Bilirubin [Mass/Vol] 0.30 mg/dL 0.20-1.00 [facility] Comment on above: For patients on eltr ombopag therapy, use of Dimension [place] TBIL is not recommended. Chloride [Moles/Vol] 105 mmol/L 98-107 [facility] Eosinophils/100 WBC (Bld) 2.4 % 0-5 [facility] Glucose [Mass/Vol] 110 mg/dL 74-106 [facility] Comment on above: Fasting Glucose resu lt from 100 to 125 mg/dL suggests IMPAIRED HOMEOSTASIS per A.D.A. criteria. Neutrophils (Bld) [#/Vol] 3.6 10*3/uL 2.0-7.7 [facility] Neutrophils/100 WBC (Bld) 51.9 % 47-70 [facility] Potassium [Moles/Vol] 3.8 mmol/L 3.5-5.1 [facility] Protein [Mass/Vol] 7.4 g/dL 6.4-8.2 [facility] Sodium [Moles/Vol] 140 mmol/L 136-145 [facility] WBC (Bld) [#/Vol] 6.9 10*3/uL 4.4-11.0 [facility] Bilirubin Test strip Ql (U)O rdered By: Dr. Rosas on 07-07-2022 Bilirubin Ql (U) Negative Negative [facility] Blood erythrocytes count (nu mber/volume)Ordered By: Dr. Rosas on 07-07-2022 RBC (Bld) [#/Vol] 4.55 10*6/uL 4.2-5.4 [facility] Blood hemoglobin measurement (mass/volume)Ordered By: Dr. Rosas on 07-07-2022 Hemoglobin (Bld) [Mass/Vol] 13.8 g/dL 12.0-15.0 [facility] Blood lymphocytes/100 leukoc ytesOrdered By: Dr. Rosas on 07-07-2022 Lymphocytes/100 WBC (Bld) 36.0 % 19-41 [facility] Blood monocytes/100 leukocyt esOrdered By: Dr. Rosas on 07-07-2022 Monocytes/100 WBC (Bld) 8.9 % 0-10 [facility] Blood platelet mean volumeOr dered By: Dr. Rosas on 07-07-2022 Platelet mean volume (Bld) [Entitic vol] 9.0 fL 6.2-12.0 [facility] Determination of erythrocyte mean corpuscular volume (MCV)Ordered By: Dr. Rosas on 07-07-2022 MCV (RBC) [Entitic vol] 92.3 fL 81-99 [facility] Hematocrit Auto (Bld) [Volum e fraction]Ordered By: Dr. Rosas on 07-07-2022 Hematocrit (Bld) [Volume fraction] 42.0 % 37-47 [facility] INR in Blood by Coagulation assayOrdered By: Dr. Rosas on 07-07-2022 INR Coag (Bld) [Relative time] 3.0 {INR} [facility] Ketones Test strip Ql (U)Ord ered By: Dr. Rosas on 07-07-2022 Ketones Ql (U) Negative Negative [facility] Laboratory - Chemistry and C hemistry - challengeOrdered By: Dr. Rosas on 07-07-2022 ALP [Catalytic activity/Vol] 95 U/L 45-117 [facility] ALT [Catalytic activity/Vol] 37 U/L 13-56 [facility] CO2 [Moles/Vol] 28.0 mmol/L 21.0-32.0 [facility] Globulin (S) [Mass/Vol] 4.0 g/dL 2.2-4.2 [facility] Lipase [Catalytic activity/Vol] 35 U/L 13-75 [facility] Comment on above: Please note:LIPASE r evised reference range effective 22. New Lipase methodology. Expected to produce lower values than the previous assay method. NEW Reference Range: 13 - 75 U/L Urea nitrogen/Creatinine [Mass ratio] 12.7 mg/mg 10-20 [facility] Laboratory - CoagulationOrde red By: Dr. Rosas on 07-07-2022 PT Coag (PPP) [Time] 31.9 s 11.7-14.9 [facility] Laboratory - Hematology and Cell countsOrdered By: Dr. Rosas on 07-07-2022 Erythrocyte distribution width (RBC) [Entitic vol] 46.9 fL 35.1-43.9 [facility] Erythrocyte distribution width (RBC) [Ratio] 13.7 % 11.6-14.6 [facility] Immature granulocytes/100 WBC (Bld) 0.100 % 0.0-0.9 [facility] Comment on above: IG% - Immature Granu locytes (promyelocytes, myelocytes and metamyelocytes) > 1% indicates that a LEFT SHIFT is Present. MCH (RBC) [Entitic mass] 30.3 pg 27.0-32.0 [facility] Nucleated RBC/100 WBC (Bld) [Ratio] 0 % 0-5 [facility] MCHC Auto (RBC) [Mass/Vol]Or dered By: Dr. Rosas on 07-07-2022 MCHC (RBC) [Mass/Vol] 32.9 g/dL 32-36 [facility] Mucus LM Ql (Urine sed)Order ed By: Dr. Rosas on 07-07-2022 Mucus Ql (Urine sed) 0 SEEN /hpf [facility] Nitrite Test strip Ql (U)Ord ered By: Dr. Rosas on 07-07-2022 Nitrite Ql (U) Negative Negative [facility] No Panel InformationOrdered By: Dr. Rosas on 07-07-2022 Estimated Creatinine Clearance Calc 40.22 ml/min [facility] Estimated GFR (MDRD) Amer 92 mL/min >60 [facility] Comment on above: GFR Calc Estimated GFR (MDRD) Non-Af Amer 76 mL/min >60 [facility] Comment on above: Non- GFR Calc Platelets bldOrdered By: Dr. Rosas on 07-07-2022 Platelets (Bld) [#/Vol] 354 10*3/uL 150-450 [facility] Protein Test strip Ql (U)Ord ered By: Dr. Rosas on 07-07-2022 Protein Ql (U) Negative Negative [facility] Serum or plasma albumin michelle urement (mass/volume)Ordered By: Dr. Rosas on 07-07-2022 Albumin [Mass/Vol] 3.4 g/dL 3.2-5.0 [facility] Serum or plasma albumin/glob ulin mass ratioOrdered By: Dr. Rosas on 07-07-2022 Albumin/Globulin [Mass ratio] 0.8 {ratio} 0.9-2.4 [facility] Serum or plasma calcium michelle urement (mass/volume)Ordered By: Dr. Rosas on 07-07-2022 Calcium [Mass/Vol] 9.9 mg/dL 8.5-10.1 [facility] Serum or plasma creatinine m easurement (mass/volume)Ordered By: Dr. Rosas on 07-07-2022 Creatinine [Mass/Vol] 0.79 mg/dL 0.55-1.02 [facility] Comment on above: The validity of the calculated GFR & GFRAA in patients over 70 years has not been determined. Clinical correlation is essential. Serum or plasma urea nitroge n measurement (mass/volume)Ordered By: Dr. Rosas on 07-07-2022 Urea nitrogen [Mass/Vol] 10 mg/dL 7-18 [facility] Squamous epithelial cells de tection in urine sediment by light microscopyOrdered By: Dr. Rosas on 07-07-2022 Epithelial cells.squamous LM Ql (Urine sed) 0-5 SEEN /hpf 5-10 [facility] Thin prep Papanicolaou smear with manual screeningOrdered By: Dr. Rosas on 07-07-2022 Thin prep Papanicolaou smear with manual screening 26 U/L 15-37 [facility] Thin prep Papanicolaou smear with manual screening 7 5-15 [facility] Urine blood detectionOrdered By: Dr. Rosas on 07-07-2022 RBC Ql (U) 250 /ul Negative [facility] RBC Ql (U) 5-10 SEEN /hpf 0-5 [facility] Urine clarityOrdered By: Dr. Rosas on 07-07-2022 Clarity (U) Clear Clear [facility] Urine color determinationOrd ered By: Dr. Rosas on 07-07-2022 Color (U) Yellow Yellow [facility] Urine glucose detectionOrder ed By: Dr. Rosas on 07-07-2022 Glucose Ql (U) Normal mg/dl Normal [facility] Urine leukocyte esterase det ection by dipstickOrdered By: Dr. Rosas on 07-07-2022 Leukocyte esterase Test strip Ql (U) 100 /ul Negative [facility] Urine pHOrdered By: Dr. Kg jones on 07-07-2022 pH (U) 6.0 [pH] 5.0 - 8.0 [facility] Urine sediment bacteria coun t by microscopy (number/high power field)Ordered By: Dr. Rosas on 07-07-2022 Bacteria LM.HPF (Urine sed) [#/Area] RARE /hpf None Seen [facility] Urine specific gravity measu rementOrdered By: Dr. Rosas on 07-07-2022 Specific gravity (U) [Rel density] 1.010 1.002-1.030 [facility] Urobilinogen Auto test strip Ql (U)Ordered By: Dr. Rosas on 07-07-2022 Urobilinogen Ql (U) Normal mg/dl Normal [facility] Basophil percentageOrdered B y: Dr. Lindsay on 06-26-2022 Bilirubin [Mass/Vol] 0.30 mg/dL 0.20-1.00 [facility] Comment on above: For patients on eltr ombopag therapy, use of Dimension [place] TBIL is not recommended. Chloride [Moles/Vol] 109 mmol/L 98-107 [facility] Cholesterol [Mass/Vol] 205 mg/dL <200 [facility] Comment on above: <200 mg/dL Desirable 200-240 mg/dL Borderline >240 mg/dL High Risk Glucose [Mass/Vol] 100 mg/dL 74-106 [facility] Comment on above: Fasting Glucose resu lt from 100 to 125 mg/dL suggests IMPAIRED HOMEOSTASIS per A.D.A. criteria. Potassium [Moles/Vol] 4.2 mmol/L 3.5-5.1 [facility] Protein [Mass/Vol] 7.3 g/dL 6.4-8.2 [facility] Sodium [Moles/Vol] 141 mmol/L 136-145 [facility] Triglyceride [Mass/Vol] 112 mg/dL <199 [facility] Comment on above: The drugs N-Acetylcy steine and Metamizole may falsely depress this assay.Serum Triglycerides Reference Interval Normal <150 mg/dL Borderline high 150 - 199 mg/dL High 200 - 499 mg/dL Very High > or = 500 mg/dL WBC (Bld) [#/Vol] 6.0 10*3/uL 4.4-11.0 [facility] Blood erythrocytes count (nu mber/volume)Ordered By: Dr. Lindsay on 06-26-2022 RBC (Bld) [#/Vol] 4.62 10*6/uL 4.2-5.4 [facility] Blood hemoglobin measurement (mass/volume)Ordered By: Dr. Lindsay on 06-26-2022 Hemoglobin (Bld) [Mass/Vol] 14.0 g/dL 12.0-15.0 [facility] Blood platelet mean volumeOr dered By: Dr. Lindsay on 06-26-2022 Platelet mean volume (Bld) [Entitic vol] 9.6 fL 6.2-12.0 [facility] Determination of erythrocyte mean corpuscular volume (MCV)Ordered By: Dr. Lindsay on 06-26-2022 MCV (RBC) [Entitic vol] 93.3 fL 81-99 [facility] Hematocrit Auto (Bld) [Volum e fraction]Ordered By: Dr. Lindsay on 06-26-2022 Hematocrit (Bld) [Volume fraction] 43.1 % 37-47 [facility] Laboratory - Chemistry and C hemistry - challengeOrdered By: Dr. Lindsay on 06-26-2022 ALP [Catalytic activity/Vol] 87 U/L 45-117 [facility] ALT [Catalytic activity/Vol] 30 U/L 13-56 [facility] CO2 [Moles/Vol] 26.0 mmol/L 21.0-32.0 [facility] Globulin (S) [Mass/Vol] 4.0 g/dL 2.2-4.2 [facility] Urea nitrogen/Creatinine [Mass ratio] 18.6 mg/mg 10-20 [facility] Laboratory - Hematology and Cell countsOrdered By: Dr. Lindsay on 06-26-2022 Erythrocyte distribution width (RBC) [Entitic vol] 46.8 fL 35.1-43.9 [facility] Erythrocyte distribution width (RBC) [Ratio] 13.8 % 11.6-14.6 [facility] MCH (RBC) [Entitic mass] 30.3 pg 27.0-32.0 [facility] MCHC Auto (RBC) [Mass/Vol]Or dered By: Dr. Lindsay on 06-26-2022 MCHC (RBC) [Mass/Vol] 32.5 g/dL 32-36 [facility] No Panel InformationOrdered By: Dr. Lindsay on 06-26-2022 Estimated GFR (MDRD) Amer 106 mL/min >60 [facility] Comment on above: GFR Calc Estimated GFR (MDRD) Non-Af Amer 88 mL/min >60 [facility] Comment on above: Non- GFR Calc Thyroid Stimulating Hormone (TSH) 1.09 uIU/mL 0.358-3.74 [facility] Vitamin B12 Level > 2000 pg/mL 211-911 [facility] Vitamin D 25-Hydroxy 57.7 ng/mL [facility] Comment on above: Vitamin D 25(OH) Sta tus Range Deficiency <20 ng/mL (50nmol/L) Insufficiency 20 - 30 ng/mL (50 - 75 nmol/L) Sufficiency 30 - 100 ng/mL (75 - 250 nmol/L) Toxicity >100 ng/mL (>250 nmol/L) Platelets bldOrdered By: Dr. Lindsay on 06-26-2022 Platelets (Bld) [#/Vol] 390 10*3/uL 150-450 [facility] Serum or plasma albumin michelle urement (mass/volume)Ordered By: Dr. Lindsay on 06-26-2022 Albumin [Mass/Vol] 3.3 g/dL 3.2-5.0 [facility] Serum or plasma albumin/glob ulin mass ratioOrdered By: Dr. Lindsay on 06-26-2022 Albumin/Globulin [Mass ratio] 0.8 {ratio} 0.9-2.4 [facility] Serum or plasma calcium michelle urement (mass/volume)Ordered By: Dr. Lindsay on 06-26-2022 Calcium [Mass/Vol] 9.3 mg/dL 8.5-10.1 [facility] Serum or plasma cholesterol in HDL measurement (mass/volume)Ordered By: Dr. Lindsay on 06-26-2022 Cholesterol in HDL [Mass/Vol] 59 mg/dL >40 [facility] Comment on above: The drugs N-Acetylcy steine and Metamizole may falsely depress this assay. Reference Range HDL <40 mg/dL Low HDL Cholesterol HDL >or= 60 mg/dL High HDL Cholesterol Serum or plasma cholesterol in VLDL measurement (mass/volume)Ordered By: Dr. Lindsay on 06-26-2022 Cholesterol in VLDL [Mass/Vol] 22 mg/dL 5-40 [facility] Serum or plasma creatinine m easurement (mass/volume)Ordered By: Dr. Lindsay on 06-26-2022 Creatinine [Mass/Vol] 0.70 mg/dL 0.55-1.02 [facility] Comment on above: The validity of the calculated GFR & GFRAA in patients over 70 years has not been determined. Clinical correlation is essential. Serum or plasma low density lipoprotein (LDL) cholesterol measurement (mass/volume)Ordered By: Dr. Lindsay on 06-26-2022 Cholesterol in LDL [Mass/Vol] 124 mg/dL 0-130 [facility] Serum or plasma urea nitroge n measurement (mass/volume)Ordered By: Dr. Lindsay on 06-26-2022 Urea nitrogen [Mass/Vol] 13 mg/dL 7-18 [facility] Thin prep Papanicolaou smear with manual screeningOrdered By: Dr. Lindsay on 06-26-2022 Thin prep Papanicolaou smear with manual screening 18 U/L 15-37 [facility] Thin prep Papanicolaou smear with manual screening 6 5-15 [facility] Culture, urineOrdered By: Dr Lai Lindsay on 04-11-2022 Bacteria identified Cx Nom (U) Positive [facility] Absolute lymphocyte countOrd ered By: Dr. Lindsay on 04-10-2022 Lymphocytes Auto (Unsp spec) [#/Vol] 2.02 10*3/uL 0.83-4.51 [facility] Basophil percentageOrdered B y: Dr. Lindsay on 04-10-2022 Basophils/100 WBC (Bld) 0.7 % 0-1 [facility] Bilirubin [Mass/Vol] 0.70 mg/dL 0.20-1.00 [facility] Comment on above: For patients on eltr ombopag therapy, use of Dimension [place] TBIL is not recommended. Chloride [Moles/Vol] 105 mmol/L 98-107 [facility] Eosinophils/100 WBC (Bld) 3.0 % 0-5 [facility] Glucose [Mass/Vol] 96 mg/dL 74-106 [facility] Neutrophils (Bld) [#/Vol] 3.9 10*3/uL 2.0-7.7 [facility] Neutrophils/100 WBC (Bld) 58.6 % 47-70 [facility] Potassium [Moles/Vol] 4.0 mmol/L 3.5-5.1 [facility] Protein [Mass/Vol] 7.5 g/dL 6.4-8.2 [facility] Sodium [Moles/Vol] 140 mmol/L 136-145 [facility] WBC (Bld) [#/Vol] 6.7 10*3/uL 4.4-11.0 [facility] Blood erythrocytes count (nu mber/volume)Ordered By: Dr. Lindsay on 04-10-2022 RBC (Bld) [#/Vol] 4.89 10*6/uL 4.2-5.4 [facility] Blood hemoglobin measurement (mass/volume)Ordered By: Dr. Lindsay on 04-10-2022 Hemoglobin (Bld) [Mass/Vol] 14.5 g/dL 12.0-15.0 [facility] Blood lymphocytes/100 leukoc ytesOrdered By: Dr. Lindsay on 04-10-2022 Lymphocytes/100 WBC (Bld) 30.2 % 19-41 [facility] Blood monocytes/100 leukocyt esOrdered By: Dr. Lindsay on 04-10-2022 Monocytes/100 WBC (Bld) 7.2 % 0-10 [facility] Blood platelet mean volumeOr dered By: Dr. Lindsay on 04-10-2022 Platelet mean volume (Bld) [Entitic vol] 9.4 fL 6.2-12.0 [facility] Determination of erythrocyte mean corpuscular volume (MCV)Ordered By: Dr. Lindsay on 04-10-2022 MCV (RBC) [Entitic vol] 92.4 fL 81-99 [facility] Hematocrit Auto (Bld) [Volum e fraction]Ordered By: Dr. Lindsay on 04-10-2022 Hematocrit (Bld) [Volume fraction] 45.2 % 37-47 [facility] Laboratory - Chemistry and C hemistry - challengeOrdered By: Dr. Lindsay on 04-10-2022 ALP [Catalytic activity/Vol] 84 U/L 45-117 [facility] ALT [Catalytic activity/Vol] 29 U/L 13-56 [facility] CO2 [Moles/Vol] 28.0 mmol/L 21.0-32.0 [facility] Globulin (S) [Mass/Vol] 4.0 g/dL 2.2-4.2 [facility] Urea nitrogen/Creatinine [Mass ratio] 10.3 mg/mg 10-20 [facility] Laboratory - Hematology and Cell countsOrdered By: Dr. Lindsay on 04-10-2022 Erythrocyte distribution width (RBC) [Entitic vol] 45.7 fL 35.1-43.9 [facility] Erythrocyte distribution width (RBC) [Ratio] 13.4 % 11.6-14.6 [facility] Immature granulocytes/100 WBC (Bld) 0.300 % 0.0-0.9 [facility] Comment on above: IG% - Immature Granu locytes (promyelocytes, myelocytes and metamyelocytes) > 1% indicates that a LEFT SHIFT is Present. MCH (RBC) [Entitic mass] 29.7 pg 27.0-32.0 [facility] Nucleated RBC/100 WBC (Bld) [Ratio] 0 % 0-5 [facility] MCHC Auto (RBC) [Mass/Vol]Or dered By: Dr. Lindsay on 04-10-2022 MCHC (RBC) [Mass/Vol] 32.1 g/dL 32-36 [facility] No Panel InformationOrdered By: Dr. Lindsay on 04-10-2022 Estimated GFR (MDRD) Amer 93 mL/min >60 [facility] Comment on above: GFR Calc Estimated GFR (MDRD) Non-Af Amer 77 mL/min >60 [facility] Comment on above: Non- GFR Calc Thyroid Stimulating Hormone (TSH) 0.90 uIU/mL 0.358-3.74 [facility] Platelets bldOrdered By: Dr. Lindsay on 04-10-2022 Platelets (Bld) [#/Vol] 398 10*3/uL 150-450 [facility] Serum or plasma albumin michelle urement (mass/volume)Ordered By: Dr. Lindsay on 04-10-2022 Albumin [Mass/Vol] 3.5 g/dL 3.2-5.0 [facility] Serum or plasma albumin/glob ulin mass ratioOrdered By: Dr. Lindsay on 04-10-2022 Albumin/Globulin [Mass ratio] 0.9 {ratio} 0.9-2.4 [facility] Serum or plasma calcium michelle urement (mass/volume)Ordered By: Dr. Lindsay on 04-10-2022 Calcium [Mass/Vol] 10.0 mg/dL 8.5-10.1 [facility] Serum or plasma creatinine m easurement (mass/volume)Ordered By: Dr. Lindsay on 04-10-2022 Creatinine [Mass/Vol] 0.78 mg/dL 0.55-1.02 [facility] Comment on above: The validity of the calculated GFR & GFRAA in patients over 70 years has not been determined. Clinical correlation is essential. Serum or plasma urea nitroge n measurement (mass/volume)Ordered By: Dr. Lindsay on 03-01-2023 Urea nitrogen [Mass/Vol] 8 mg/dL 7-18 [facility] Thin prep Papanicolaou smear with manual screeningOrdered By: Dr. Lindsay on 04-10-2022 Thin prep Papanicolaou smear with manual screening 20 U/L 15-37 [facility] Thin prep Papanicolaou smear with manual screening 7 5-15 [facility] Culture, urineOrdered By: Salma Cannon on 04-07-2022 Bacteria identified Cx Nom (U) Positive [facility] Basophil percentageOrdered B y: Eva Cannon on 04-05-2022 Basophil percentage 0-5 SEEN /hpf 0-5 [facility] Bilirubin Test strip Ql (U)O rdered By: Eva Cannon on 04-05-2022 Bilirubin Ql (U) Negative Negative [facility] Ketones Test strip Ql (U)Ord ered By: Eva Cannon on 04-05-2022 Ketones Ql (U) Negative Negative [facility] Mucus LM Ql (Urine sed)Order ed By: Eva Cannon on 04-05-2022 Mucus Ql (Urine sed) 0 SEEN /hpf [facility] Nitrite Test strip Ql (U)Ord ered By: Eva Cannon on 04-05-2022 Nitrite Ql (U) Negative Negative [facility] Protein Test strip Ql (U)Ord ered By: Eva Cannon on 04-05-2022 Protein Ql (U) Negative Negative [facility] Squamous epithelial cells de tection in urine sediment by light microscopyOrdered By: Eva Cannon on 04-05-2022 Epithelial cells.squamous LM Ql (Urine sed) 0-5 SEEN /hpf 5-10 [facility] Urine blood detectionOrdered By: Eva Cannon on 04-05-2022 RBC Ql (U) 150 /ul Negative [facility] RBC Ql (U) 10-25 SEEN /hpf 0-5 [facility] Urine clarityOrdered By: Pramod Cannon on 04-05-2022 Clarity (U) Sl Cldy Clear [facility] Urine color determinationOrd ered By: Eva Cannon on 04-05-2022 Color (U) Yellow Yellow [facility] Urine glucose detectionOrder ed By: Eva Cannon on 04-05-2022 Glucose Ql (U) Normal mg/dl Normal [facility] Urine leukocyte esterase det ection by dipstickOrdered By: Eva Cannon on 04-05-2022 Leukocyte esterase Test strip Ql (U) Negative Negative [facility] Urine pHOrdered By: Eva corado on 04-05-2022 pH (U) 7.0 [pH] 5.0 - 8.0 [facility] Urine sediment bacteria coun t by microscopy (number/high power field)Ordered By: Eva Cannon on 04-05-2022 Bacteria LM.HPF (Urine sed) [#/Area] 1 /[HPF] None Seen [facility] Urine specific gravity measu rementOrdered By: Eva Cannon on 04-05-2022 Specific gravity (U) [Rel density] 1.005 1.002-1.030 [facility] Urobilinogen Auto test strip Ql (U)Ordered By: Eva Cannon on 04-05-2022 Urobilinogen Ql (U) Normal mg/dl Normal [facility] Culture, urineOrdered By: Salma Cannon on 04-03-2022 Bacteria identified Cx Nom (U) Positive [facility] Basophil percentageon 2021 Bilirubin [Mass/Vol] 0.20 mg/dL 0.20-1.00 [facility] Work Phone: Comment on above: For patients on eltr ombopag therapy, use of Dimension [place] TBIL is not recommended. Chloride [Moles/Vol] 106 mmol/L 98-107 [facility] Work Phone: Glucose [Mass/Vol] 104 mg/dL 74-106 [facility] Work Phone: [phone] Comment on above: Fasting Glucose resu lt from 100 to 125 mg/dL suggests IMPAIRED HOMEOSTASIS per A.D.A. criteria. Potassium [Moles/Vol] 4.1 mmol/L 3.5-5.1 [facility] Work Phone: Protein [Mass/Vol] 7.6 g/dL 6.4-8.2 [facility] Work Phone: Sodium [Moles/Vol] 140 mmol/L 136-145 [facility] Work Phone: WBC (Bld) [#/Vol] 8.4 10*3/uL 4.4-11.0 [facility] Work Phone: Blood erythrocytes count (nu mber/volume)on 11-23-2021 RBC (Bld) [#/Vol] 4.73 10*6/uL 4.2-5.4 [facility] Work [facility]: Blood hemoglobin measurement (mass/volume)on 11-23-2021 Hemoglobin (Bld) [Mass/Vol] 14.5 g/dL 12.0-15.0 [facility] Work Phone: Blood platelet mean volumeon 11-23-2021 Platelet mean volume (Bld) [Entitic vol] 9.4 fL 6.2-12.0 [facility] Work Phone: Determination of erythrocyte mean corpuscular volume (MCV)on 11-23-2021 MCV (RBC) [Entitic vol] 95.1 fL 81-99 [facility] Work Phone: Hematocrit Auto (Bld) [Volum e fraction]on 11-23-2021 Hematocrit (Bld) [Volume fraction] 45.0 % 37-47 [facility] Work Phone: Laboratory - Chemistry and C hemistry - challengeon 11-23-2021 ALP [Catalytic activity/Vol] 79 U/L 45-117 [facility] Work Phone: ALT [Catalytic activity/Vol] 28 U/L 13-56 [facility] Work Phone: CO2 [Moles/Vol] 29.0 mmol/L 21.0-32.0 [facility] Work Phone: Globulin (S) [Mass/Vol] 4.4 g/dL 2.2-4.2 [facility] Work Phone: Magnesium [Mass/Vol] 2.0 mg/dL 1.6-2.6 [facility] Work Phone: Urea nitrogen/Creatinine [Mass ratio] 17.4 mg/mg 10-20 [facility] Work Phone: Laboratory - Hematology and Cell countson 11-23-2021 Erythrocyte distribution width (RBC) [Entitic vol] 49.2 fL 35.1-43.9 [facility] Work Phone: Erythrocyte distribution width (RBC) [Ratio] 13.9 % 11.6-14.6 [facility] Work Phone: MCH (RBC) [Entitic mass] 30.7 pg 27.0-32.0 [facility] Work Phone: MCHC Auto (RBC) [Mass/Vol]on 11-23-2021 MCHC (RBC) [Mass/Vol] 32.2 g/dL 32-36 [facility] Work Phone: No Panel Informationon 11-23 Estimated GFR (MDRD) Amer 98 mL/min >60 [facility] Work Phone: Comment on above: GFR Calc Estimated GFR (MDRD) Non-Af Amer 81 mL/min >60 [facility] Work Phone: Comment on above: Non- GFR Calc Thyroid Stimulating Hormone (TSH) 1.28 uIU/mL 0.358-3.74 [facility] Work Phone: Platelets bldon 11-23-2021 Platelets (Bld) [#/Vol] 388 10*3/uL 150-450 [facility] Work Phone: Serum or plasma albumin michelle urement (mass/volume)on 11-23-2021 Albumin [Mass/Vol] 3.2 g/dL 3.2-5.0 [facility] Work Phone: Serum or plasma albumin/glob ulin mass ratioon 11-23-2021 Albumin/Globulin [Mass ratio] 0.7 {ratio} 0.9-2.4 [facility] Work Phone: Serum or plasma calcium michelle urement (mass/volume)on 11-23-2021 Calcium [Mass/Vol] 9.8 mg/dL 8.5-10.1 [facility] Work Phone: Serum or plasma creatinine m easurement (mass/volume)on 11-23-2021 Creatinine [Mass/Vol] 0.75 mg/dL 0.55-1.02 [facility] Work Phone: Comment on above: The validity of the calculated GFR & GFRAA in patients over 70 years has not been determined. Clinical correlation is essential. Serum or plasma urea nitroge n measurement (mass/volume)on 11-23-2021 Urea nitrogen [Mass/Vol] 13 mg/dL 7-18 [facility] Work Phone: Thin prep Papanicolaou smear with manual screeningon 11-23-2021 Thin prep Papanicolaou smear with manual screening 14 U/L 15-37 [facility] Work Phone: Thin prep Papanicolaou smear with manual screening 5 5-15 [facility] Work Phone: Laboratory - Microbiology an d Antimicrobial susceptibilityon 10-30-2021 SARS-CoV-2 (COVID-19) RNA MORENA+probe Ql (Unsp spec) Detected Not Detect [facility] Work Phone: Comment on above: Normal [...] percentageon 2021 Bilirubin [Mass/Vol] 0.40 mg/dL 0.20-1.00 [facility] Work Phone: Comment on above: For patients on eltr ombopag therapy, use of Dimension [place] TBIL is not recommended. Cholesterol [Mass/Vol] 213 mg/dL <[address] [facility] Work Phone: Comment on above: <200 mg/dL Desirable 200-240 mg/dL Borderline >240 mg/dL High Risk Protein [Mass/Vol] 7.6 g/dL 6.4-8.2 [facility] Work Phone: Triglyceride [Mass/Vol] 129 mg/dL <199 [facility] Work Phone: Comment on above: The drugs N-Acetylcy steine and Metamizole may falsely depress this assay.Serum Triglycerides Reference Interval Normal <150 mg/dL Borderline high 150 - 199 mg/dL High 200 - 499 mg/dL Very High > or = 500 mg/dL Direct bilirubinon 2 Bilirubin.direct [Mass/Vol] 0.09 mg/dL 0.00-0.30 [facility] Work Phone: Laboratory - Chemistry and C hemistry - challengeon 09-19-2021 ALP [Catalytic activity/Vol] 80 U/L 45-117 [facility] Work Phone: ALT [Catalytic activity/Vol] 28 U/L 13-56 [facility] Work Phone: Globulin (S) [Mass/Vol] 4.1 g/dL 2.2-4.2 [facility] Work Phone: Serum or plasma albumin michelle urement (mass/volume)on 09-19-2021 Albumin [Mass/Vol] 3.5 g/dL 3.2-5.0 [facility] Work Phone: Serum or plasma cholesterol in HDL measurement (mass/volume)on 09-19-2021 Cholesterol in HDL [Mass/Vol] 58 mg/dL >40 [facility] Work Phone: Comment on above: The drugs N-Acetylcy steine and Metamizole may falsely depress this assay. Reference Range HDL <40 mg/dL Low HDL Cholesterol HDL >or= 60 mg/dL High HDL Cholesterol Serum or plasma cholesterol in VLDL measurement (mass/volume)on 09-19-2021 Cholesterol in VLDL [Mass/Vol] 26 mg/dL 5-40 [facility] Work Phone: Serum or plasma low density lipoprotein (LDL) cholesterol measurement (mass/volume)on 09-19-2021 Cholesterol in LDL [Mass/Vol] 129 mg/dL 0-130 [facility] Work Phone: Thin prep Papanicolaou smear with manual screeningon 09-19-2021 Thin prep Papanicolaou smear with manual screening 19 U/L 15-37 [facility] Work Phone: Absolute lymphocyte counton 09-17-2021 Lymphocytes Auto (Unsp spec) [#/Vol] 1.60 10*3/uL 0.83-4.51 [facility] Work Phone: Basophil percentageon 2021 Basophils/100 WBC (Bld) 0.7 % 0-1 [facility] Work Phone: Bilirubin [Mass/Vol] 0.30 mg/dL 0.20-1.00 [facility] Work Phone: Comment on above: For patients on eltr ombopag therapy, use of Dimension [place] TBIL is not recommended. Chloride [Moles/Vol] 103 mmol/L 98-107 [facility] Work Phone: [phone] Eosinophils/100 WBC (Bld) 1.6 % 0-5 [facility] Work Phone: Glucose [Mass/Vol] 97 mg/dL 74-106 [facility] Work Phone: Neutrophils (Bld) [#/Vol] 5.1 10*3/uL 2.0-7.7 [facility] Work Phone: Neutrophils/100 WBC (Bld) 68.7 % 47-70 [facility] Work Phone: Potassium [Moles/Vol] 4.1 mmol/L 3.5-5.1 [facility] Work [facility]: Protein [Mass/Vol] 7.8 g/dL 6.4-8.2 [facility] Work Phone: Sodium [Moles/Vol] 138 mmol/L 136-145 [facility] Work Phone: WBC (Bld) [#/Vol] 7.4 10*3/uL 4.4-11.0 [facility] Work Phone: Basophil percentage 0 [facility]EN [facility]: Bilirubin Test strip Ql (U)o n 09-17-2021 Bilirubin Ql (U) Negative Negative [facility] Work Phone: Blood erythrocytes count (nu mber/volume)on 09-17-2021 RBC (Bld) [#/Vol] 4.79 10*6/uL 4.2-5.4 [facility] Work Phone: Blood hemoglobin measurement (mass/volume)on 09-17-2021 Hemoglobin (Bld) [Mass/Vol] 14.6 g/dL 12.0-15.0 [facility] Work Phone: Blood lymphocytes/100 leukoc yteson 09-17-2021 Lymphocytes/100 WBC (Bld) 21.7 % 19-41 [facility] Work Phone: Blood monocytes/100 leukocyt eson 09-17-2021 Monocytes/100 WBC (Bld) 6.9 % 0-10 [facility] Work Phone: Blood platelet mean volumeon 09-17-2021 Platelet mean volume (Bld) [Entitic vol] 9.3 fL 6.2-12.0 [facility] Work Phone: Determination of erythrocyte mean corpuscular volume (MCV)on 09-17-2021 MCV (RBC) [Entitic vol] 93.3 fL 81-99 [facility] Work Phone: Hematocrit Auto (Bld) [Volum e fraction]on 09-17-2021 Hematocrit (Bld) [Volume fraction] 44.7 % 37-47 [facility] Work Phone: INR in Blood by Coagulation assayon 09-17-2021 INR Coag (Bld) [Relative time] 2.1 {INR} [facility] Work Phone: Ketones Test strip Ql (U)on 09-17-2021 Ketones Ql (U) Negative Negative [facility] Work Phone: Laboratory - Chemistry and C hemistry - challengeon 09-17-2021 ALP [Catalytic activity/Vol] 81 U/L 45-117 [facility] Work Phone: ALT [Catalytic activity/Vol] 34 U/L 13-56 [facility] Work Phone: [phone] CO2 [Moles/Vol] 31.0 mmol/L 21.0-32.0 [facility] Work Phone: Globulin (S) [Mass/Vol] 4.3 g/dL 2.2-4.2 [facility] Work Phone: Urea nitrogen/Creatinine [Mass ratio] 16.2 mg/mg 10-20 [facility] Work Phone: Laboratory - Coagulationon 0 09-17-2021 PT Coag (PPP) [Time] 23.2 s 11.7-14.9 [facility] Work Phone: Laboratory - Hematology and Cell countson 09-17-2021 Erythrocyte distribution width (RBC) [Entitic vol] 46.1 fL 35.1-43.9 [facility] Work Phone: Erythrocyte distribution width (RBC) [Ratio] 13.5 % 11.6-14.6 [facility] Work Phone: Immature granulocytes/100 WBC (Bld) 0.400 % 0.0-0.9 [facility] Work Phone: Comment on above: IG% - Immature Granu locytes (promyelocytes, myelocytes and metamyelocytes) > 1% indicates that a LEFT SHIFT is Present. MCH (RBC) [Entitic mass] 30.5 pg 27.0-32.0 [facility] Work Phone: Nucleated RBC/100 WBC (Bld) [Ratio] 0 % 0-5 [facility] Work Phone: MCHC Auto (RBC) [Mass/Vol]on 09-17-2021 MCHC (RBC) [Mass/Vol] 32.7 g/dL 32-36 [facility] Work Phone: Mucus LM Ql (Urine sed)on Mucus Ql (Urine sed) 0 SEEN /hpf [facility] Work Phone: Nitrite Test strip Ql (U)on 09-17-2021 Nitrite Ql (U) Negative Negative [facility] Work Phone: No Panel Informationon 09-17 Estimated GFR (MDRD) Amer 90 mL/min >60 [facility] Work Phone: Comment on above: GFR Calc Estimated GFR (MDRD) Non-Af Amer 75 mL/min >60 [facility] Work Phone: Comment on above: Non- GFR Calc Platelets bldon 09-17-2021 Platelets (Bld) [#/Vol] 370 10*3/uL 150-450 [facility] Work Phone: Protein Test strip Ql (U)on 09-17-2021 Protein Ql (U) Negative Negative [facility] Work Phone: Serum or plasma albumin michelle urement (mass/volume)on 09-17-2021 Albumin [Mass/Vol] 3.5 g/dL 3.2-5.0 [facility] Work Phone: Serum or plasma albumin/glob ulin mass ratioon 09-17-2021 Albumin/Globulin [Mass ratio] 0.8 {ratio} 0.9-2.4 [facility] Work Phone: Serum or plasma calcium michelle urement (mass/volume)on 09-17-2021 Calcium [Mass/Vol] 9.8 mg/dL 8.5-10.1 [facility] Work Phone: Serum or plasma creatinine m easurement (mass/volume)on 09-17-2021 Creatinine [Mass/Vol] 0.80 mg/dL 0.55-1.02 [facility] Work Phone: Comment on above: The validity of the calculated GFR & GFRAA in patients over 70 years has not been determined. Clinical correlation is essential. Serum or plasma urea nitroge n measurement (mass/volume)on 09-17-2021 Urea nitrogen [Mass/Vol] 13 mg/dL 7-18 [facility] Work Phone: Squamous epithelial cells de tection in urine sediment by light microscopyon 09-17-2021 Epithelial cells.squamous LM Ql (Urine sed) 0-5 SEEN /hpf 5-10 [facility] Work Phone: Thin prep Papanicolaou smear with manual screeningon 09-17-2021 Thin prep Papanicolaou smear with manual screening 23 U/L 15-37 [facility] Work Phone: Thin prep Papanicolaou smear with manual screening 4 5-15 [facility] Work Phone: Urine blood detectionon - RBC Ql (U) 50 /ul Negative [facility] Work Phone: RBC Ql (U) 0-5 SEEN /hpf 0-5 [facility] Work Phone: Urine clarityon 09-17-2021 Clarity (U) Sl. Cloudy Clear [facility] Work Phone: Urine color determinationon 09-17-2021 Color (U) Yellow Yellow [facility] Work Phone: Urine glucose detectionon Glucose Ql (U) Normal mg/dl Normal [facility] Work Phone: Urine leukocyte esterase det ection by dipstickon 09-17-2021 Leukocyte esterase Test strip Ql (U) Negative Negative [facility] Work Phone: Urine pHon 09-17-2021 pH (U) 8.0 [pH] 5.0 - 8.0 [facility] Work Phone: Urine sediment bacteria coun t by microscopy (number/high power field)on 09-17-2021 Bacteria LM.HPF (Urine sed) [#/Area] 0 /[HPF] None Seen [facility] Work Phone: Urine specific gravity measu rementon 09-17-2021 Specific gravity (U) [Rel density] 1.010 1.002-1.030 [facility] Work Phone: Urobilinogen Auto test strip Ql (U)on 09-17-2021 Urobilinogen Ql (U) Normal mg/dl Normal [facility] Work Phone: Absolute lymphocyte counton 07-25-2021 Lymphocytes Auto (Unsp spec) [#/Vol] 2.40 10*3/uL 0.83-4.51 [facility] Work Phone: Basophil percentageon 2021 Basophils/100 WBC (Bld) 0.4 % 0-1 [facility] Work Phone: [phone] Chloride [Moles/Vol] 104 mmol/L 98-107 [facility] Work Phone: Eosinophils/100 WBC (Bld) 2.4 % 0-5 [facility] Work Phone: Glucose [Mass/Vol] 114 mg/dL 74-106 [facility] Work Phone: Comment on above: Fasting Glucose resu lt from 100 to 125 mg/dL suggests IMPAIRED HOMEOSTASIS per A.D.A. criteria. Neutrophils (Bld) [#/Vol] 3.9 10*3/uL 2.0-7.7 [facility] Work Phone: Neutrophils/100 WBC (Bld) 54.1 % 47-70 [facility] Work Phone: Potassium [Moles/Vol] 4.2 mmol/L 3.5-5.1 [facility] Work Phone: Comment on above: Moderate Hemolysis, Result may be falsely increased. Sodium [Moles/Vol] 138 mmol/L 136-145 [facility] Work Phone: WBC (Bld) [#/Vol] 7.1 10*3/uL 4.4-11.0 [facility] Work Phone: Blood erythrocytes count (nu mber/volume)on 07-25-2021 RBC (Bld) [#/Vol] 4.72 10*6/uL 4.2-5.4 [facility] Work Phone: Blood hemoglobin measurement (mass/volume)on 07-25-2021 Hemoglobin (Bld) [Mass/Vol] 14.1 g/dL 12.0-15.0 [facility] Work Phone: Blood lymphocytes/100 leukoc yteson 07-25-2021 Lymphocytes/100 WBC (Bld) 33.6 % 19-41 [facility] Work Phone: Blood monocytes/100 leukocyt eson 07-25-2021 Monocytes/100 WBC (Bld) 9.2 % 0-10 [facility] Work Phone: Blood platelet mean volumeon 07-25-2021 Platelet mean volume (Bld) [Entitic vol] 9.3 fL 6.2-12.0 [facility] Work Phone: Determination of erythrocyte mean corpuscular volume (MCV)on 07-25-2021 MCV (RBC) [Entitic vol] 92.6 fL 81-99 [facility] Work Phone: Glucose Glucometer (BldC) [M ass/Vol]on 07-25-2021 Glucose [Mass/Vol] 99 mg/dL 74-106 [facility] Work Phone: Comment on above: MANAGEMENT OF PATIEN T CARE PER NURSING PROTOCOL Hematocrit Auto (Bld) [Volum e fraction]on 07-25-2021 Hematocrit (Bld) [Volume fraction] 43.7 % 37-47 [facility] Work Phone: INR in Blood by Coagulation assayon 07-25-2021 INR Coag (Bld) [Relative time] 1.6 {INR} [facility] Work Phone: Laboratory - Chemistry and C hemistry - challengeon 07-25-2021 CO2 [Moles/Vol] 28.0 mmol/L 21.0-32.0 [facility] Work Phone: Urea nitrogen/Creatinine [Mass ratio] 12.9 mg/mg 10-20 [facility] Work Phone: Laboratory - Coagulationon 0 07-25-2021 PT Coag (PPP) [Time] 18.4 s 11.7-14.9 [facility] Work Phone: Laboratory - Hematology and Cell countson 07-25-2021 Erythrocyte distribution width (RBC) [Entitic vol] 46.3 fL 35.1-43.9 [facility] Work Phone: Erythrocyte distribution width (RBC) [Ratio] 13.5 % 11.6-14.6 [facility] Work Phone: Immature granulocytes/100 WBC (Bld) 0.300 % 0.0-0.9 [facility] Work Phone: Comment on above: IG% - Immature Granu locytes (promyelocytes, myelocytes and metamyelocytes) > 1% indicates that a LEFT SHIFT is Present. MCH (RBC) [Entitic mass] 29.9 pg 27.0-32.0 [facility] Work Phone: Nucleated RBC/100 WBC (Bld) [Ratio] 0 % 0-5 [facility] Work Phone: MCHC Auto (RBC) [Mass/Vol]on 07-25-2021 MCHC (RBC) [Mass/Vol] 32.3 g/dL 32-36 [facility] Work Phone: No Panel Informationon 07-25 Troponin I High Sensitivity 4 pg/mL 3.0-54.0 [facility] Work Phone: Comment on above: Please Note: New Hector t Units and Gender Specific Reference Ranges. For more information see Policy Stat Procedure [place] High Sensitivity Troponin (TNIH) and attachments. Estimated Creatinine Clearance Calc 40.41 ml/min [facility] Work Phone: Estimated GFR (MDRD) Amer 69 mL/min >60 [facility] Work Phone: Comment on above: GFR Calc Estimated GFR (MDRD) Non-Af Amer 57 mL/min >60 [facility] Work Phone: Comment on above: Non- GFR Calc Platelets bldon 07-25-2021 Platelets (Bld) [#/Vol] 380 10*3/uL 150-450 [facility] Work Phone: Serum or plasma calcium michelle urement (mass/volume)on 07-25-2021 Calcium [Mass/Vol] 9.8 mg/dL 8.5-10.1 [facility] Work Phone: Serum or plasma creatinine m easurement (mass/volume)on 07-25-2021 Creatinine [Mass/Vol] 1.01 mg/dL 0.55-1.02 [facility] Work Phone: Comment on above: The validity of the calculated GFR & GFRAA in patients over 70 years has not been determined. Clinical correlation is essential. Serum or plasma urea nitroge n measurement (mass/volume)on 07-25-2021 Urea nitrogen [Mass/Vol] 13 mg/dL 7-18 [facility] Work Phone: Thin prep Papanicolaou smear with manual screeningon 07-25-2021 Thin prep Papanicolaou smear with manual screening 6 5-15 [facility] Work Phone: Office Visit: f/u epigastric painon 10-28-2016 Documentation of current medications (procedure) Done Invalid Interpretation Code [facility] Work Phone: Fall risk assessment No Invalid Interpretation Code [facility] Work Phone: Tobacco smoking status NHIS Never Invalid Interpretation Code [facility] Work Phone: Tobacco use [facility] Former smoker Invalid Interpretation Code [facility] Work Phone: Office Visiton 09-16-2016 Documentation of current medications (procedure) Done Invalid Interpretation Code [facility] Work Phone: Fall risk assessment No Invalid Interpretation Code [facility] Work Phone: Tobacco smoking status NHIS Never Invalid Interpretation Code [facility] Work Phone: Tobacco use [facility] Former smoker Invalid Interpretation Code [facility] Work Phone: Office Visiton 08-10-2016 Breast Mammogram screening Normal Bilateral Invalid Interpretation Code [facility] Work Phone: Office Visiton 02-10-2014 Colonoscopy (procedure) Colonoscopy (procedure) Invalid Interpretation Code [facility] Work Phone: Culture, urine Bacteria identified Cx Nom (U) Presumptive E. coli [facility] Work Phone: Bacteria identified Cx Nom (U) Positive [facility] Work Phone: Vital Signs Date Time Vital Sign Value Performing Clinician Faci lity 05-18-2024 15:15-0400 Body temperature 98.9 [degF] Dr. Jose David Lindsay MD Work Phone: [facility] 05-18-2024 15:15-0400 Diastolic blood pressure 83 mm[Hg] Dr. Jose David Lindsay MD Work Phone: [facility] 05-18-2024 15:15-0400 Heart rate 64 /min Dr. Jose David Lindsay MD Work Phone: [facility] 05-18-2024 15:15-0400 Respiratory rate 18 /min Dr. Jose David Lindsay MD Work Phone: [facility] 05-18-2024 15:15-0400 SaO2% (BldA) [Mass fraction] 99 % Dr. Jose David Lindsay MD Work Phone: [facility] 05-18-2024 15:15-0400 Systolic blood pressure 154 mm[Hg] Dr. Jose David Lindsay MD Work Phone: 8(029)044-788311 [place] [address] 05-18-2024 10:29-0400 Body height 157.[address] Jose David Lindsay MD Work Phone: 6(092)234-838411 [place] [address] 05-11-2024 22:44-0400 Body temperature 98.3 [degF] Dr. Jose David Lindsay MD Work Phone: 7(682)149-945797 [place] [address] 05-11-2024 22:44-0400 Diastolic blood pressure 59 mm[Hg] Dr. Jose David Lindsay MD Work Phone: 0(612)154-401897 [place] [address] 05-11-2024 22:44-0400 Heart rate 90 /min Dr. Jose David Lindsay MD Work Phone: [facility] 05-11-2024 22:44-0400 Respiratory rate 17 /min Dr. Jose David Lindsay MD Work Phone: 1(503)543-814797 [place] [address] 05-11-2024 22:44-0400 SaO2% (BldA) [Mass fraction] 97 % Dr. Jose David Lindsay MD Work Phone: 7(682)795-464097 [place] [address] 05-11-2024 22:44-0400 Systolic blood pressure 134 mm[Hg] Dr. Jose David Lindsay MD Work Phone: 7(804)151-350497 [place] [address] 05-11-2024 17:04-0400 Body height 157.[address] Jose David Lindsay MD Work Phone: 9(185)493-975797 [place] [address] 05-11-2024 17:04-0400 Body mass index (BMI) [Ratio] 44.7 kg/m2 Dr. Jose David Lindsay MD Work Phone: [facility] 05-11-2024 17:04-0400 Body weight 111.[address] Jose David Lindsay MD Work Phone: 4(784)951-299013 [address] 04-23-2024 07:32-0400 Body height 157.[address] Jose David Lindsay MD Work Phone: 7(506)852-735411 [place] [address] 04-23-2024 07:32-0400 Body mass index (BMI) [Ratio] 44 kg/m2 Dr. Jose David Lindsay MD Work Phone: 1(718)519-651611 [place] [address] 04-23-2024 07:32-0400 Body weight 109.[address] Jose David Lindsay MD Work Phone: 5(120)998-588011 [place] [address] 04-23-2024 07:32-0400 Diastolic blood pressure 82 mm[Hg] Dr. Jose David Lindsay MD Work Phone: 4(424)098-167897 [place] [address] 04-23-2024 07:32-0400 Heart rate 65 /min Dr. Jose David Lindsay MD Work Phone: 3(234)237-312011 [place] [address] 04-23-2024 07:32-0400 Respiratory rate 18 /min Dr. Jose David Lindsay MD Work Phone: 1(806)816-794111 [place] [address] 04-23-2024 07:32-0400 SaO2% (BldA) [Mass fraction] 95 % Dr. Jose David Lindsay MD Work Phone: 8(634)457-863797 [place] [address] 04-23-2024 07:32-0400 Systolic blood pressure 129 mm[Hg] Dr. Jose David Lindsay MD Work Phone: 9(900)218-630397 [place] [address] 12-30-2022 07:48-0500 Body height 157.[address] Ron Lindsay Work Phone: 8(528)273-516897 [place] [address] 12-30-2022 07:48-0500 Body mass index (BMI) [Ratio] 43 kg/m2 Dr. Ron Lindsay Work Phone: [facility] 12-30-2022 07:48-0500 Body temperature 97.3 [degF] Dr. Ron Lindsay Work Phone: [facility] 12-30-2022 07:48-0500 Body weight 106.[address] Ron Lindsay Work Phone: [facility] 12-30-2022 07:48-0500 Diastolic blood pressure 63 mm[Hg] Dr. Ron Lindsay Work Phone: [facility] 12-30-2022 07:48-0500 Heart rate 70 /min Dr. Ron Lindsay Work Phone: 8(230)544-363313 [address] 12-30-2022 07:48-0500 Respiratory rate 16 /min Dr. Ron Lindsay Work Phone: 9(427)316-328513 [address] 12-30-2022 07:48-0500 SaO2% (BldA) [Mass fraction] 96 % Dr. Ron Lindsay Work Phone: [facility] 12-30-2022 07:48-0500 Systolic blood pressure 115 mm[Hg] Dr. Ron Lindsay Work Phone: [facility] 12-04-2022 10:30-0400 Body mass index (BMI) [Ratio] 36.7 kg/m2 Dr. Ron Lindsay Work Phone: [facility] 12-04-2022 10:30-0400 Body weight 91.[address] Ron Lindsay Work Phone: [facility] 12-04-2022 10:30-0400 Diastolic blood pressure 75 mm[Hg] Dr. Ron Lindsay Work Phone: [facility] 12-04-2022 10:30-0400 Heart rate 70 /min Dr. Ron Lindsay Work Phone: [facility] 12-04-2022 10:30-0400 Respiratory rate 20 /min Dr. Ron Lindsay Work Phone: [facility] 12-04-2022 10:30-0400 SaO2% (BldA) [Mass fraction] 97 % Dr. Ron Lindsay Work Phone: [facility] 12-04-2022 10:30-0400 Systolic blood pressure 113 mm[Hg] Dr. Ron Lindsay Work Phone: 0(764)106-500211 [place] [address] 11-15-2022 14:30-0400 Diastolic blood pressure 74 mm[Hg] Dr. Ron Lindsay Work Phone: 3(732)924-532911 [place] [address] 11-15-2022 14:30-0400 Heart rate 72 /min Dr. Ron Lindsay Work Phone: 4(904)535-888811 [place] [address] 11-15-2022 14:30-0400 Respiratory rate 16 /min Dr. Ron Lindsay Work Phone: 3(304)766-238611 [place] [address] 11-15-2022 14:30-0400 SaO2% (BldA) [Mass fraction] 97 % Dr. Ron Lindsay Work Phone: 3(177)971-892111 [place] [address] 11-15-2022 14:30-0400 Systolic blood pressure 138 mm[Hg] Dr. Ron Lindsay Work Phone: 8(589)970-144811 [place] [address] 11-15-2022 10:50-0400 Body mass index (BMI) [Ratio] 43 kg/m2 Dr. Ron Lindsay Work Phone: 9(359)855-851511 [place] [address] 11-15-2022 10:50-0400 Body temperature 97.6 [degF] Dr. Ron Lindsay Work Phone: 8(474)[phone] [place] [address] 11-15-2022 10:50-0400 Body weight 106.[address] Ron Lindsay Work Phone: [phone] [place] [address] 07-07-2022 05:01-0400 Diastolic blood pressure 72 mm[Hg] Dr. Ron Lindsay Work Phone: 1([phone] [place] [address] 07-07-2022 05:01-0400 Heart rate 90 /min Dr. Ron Lindsay Work Phone: [facility] 07-07-2022 05:01-0400 Respiratory rate 18 /min Dr. Ron Lindsay Work Phone: [facility] 07-07-2022 05:01-0400 Systolic blood pressure 146 mm[Hg] Dr. Ron Lindsay Work Phone: [facility] 07-07-2022 01:56-0400 Body height 157.[address] Ron Lindsay Work Phone: [facility] 07-07-2022 01:56-0400 Body mass index (BMI) [Ratio] 39.8 kg/m2 Dr. Ron Lindsay Work Phone: [facility] 07-07-2022 01:56-0400 Body temperature 98 [degF] Dr. Ron Lindsay Work Phone: [facility] 07-07-2022 01:56-0400 Body weight 98.[address] Ron Lindsay Work Phone: [facility] 07-07-2022 01:56-0400 SaO2% (BldA) [Mass fraction] 99 % Dr. Ron Lindsay Work Phone: [facility] 06-27-2022 05:50-0400 Body mass index (BMI) [Ratio] 43.9 kg/m2 Dr. Ron Lindsay Work Phone: [facility] 06-27-2022 05:50-0400 Body temperature 97.4 [degF] Dr. Ron Lindsay Work Phone: [facility] 06-27-2022 05:50-0400 Body weight 108.[address] Ron Lindsay Work Phone: [facility] 06-27-2022 05:50-0400 Diastolic blood pressure 90 mm[Hg] Dr. Ron Lindsay Work Phone: [facility] 06-27-2022 05:50-0400 Heart rate 70 /min Dr. Ron Lindsay Work Phone: [facility] 06-27-2022 05:50-0400 Respiratory rate 18 /min Dr. Ron Lindsay Work Phone: [facility] 06-27-2022 05:50-0400 SaO2% (BldA) [Mass fraction] 98 % Dr. Ron Lindsay Work Phone: [facility] 06-27-2022 05:50-0400 Systolic blood pressure 170 mm[Hg] Dr. Ron Lindsay Work Phone: [facility] 01-29-2022 15:33-0500 Diastolic blood pressure 78 mm[Hg] Dr. Ron Lindsay Work Phone: [facility] 01-29-2022 15:33-0500 Systolic blood pressure 126 mm[Hg] Dr. Ron Lindsay Work Phone: [facility] 01-29-2022 15:03-0500 Body height 157.[address] Ron Lindsay Work Phone: [facility] 01-29-2022 15:03-0500 Body mass index (BMI) [Ratio] 44 kg/m2 Dr. Ron Lindsay Work Phone: [facility] 01-29-2022 15:03-0500 Body weight 109.[address] Ron Lindsay Work Phone: [facility] 01-29-2022 15:03-0500 Heart rate 71 /min Dr. Ron Lindsay Work Phone: [facility] 01-29-2022 15:03-0500 Respiratory rate 18 /min Dr. Ron Lindsay Work Phone: [facility] 01-02-2022 10:32-0500 Body height 157.[address] Ron Lindsay Work Phone: [facility] Work Phone: 01-02-2022 10:32-0500 Body mass index (BMI) [Ratio] 43 kg/m2 Dr. Ron Lindsay Work Phone: [facility] 01-02-2022 10:32-0500 Body temperature 98 [degF] Dr. Ron Lindsay Work Phone: [facility] 01-02-2022 10:32-0500 Body weight 106.[address] Ron Lindsay Work Phone: [facility] 01-02-2022 10:32-0500 Diastolic blood pressure 78 mm[Hg] Dr. Ron Lindsay Work Phone: [facility] 01-02-2022 10:32-0500 Heart rate 71 /min Dr. Ron Lindsay Work Phone: [facility] 01-02-2022 10:32-0500 Respiratory rate 16 /min Dr. Ron Lindsay Work Phone: [facility] 01-02-2022 10:32-0500 SaO2% (BldA) [Mass fraction] 95 % Dr. Ron Lindsay Work Phone: [facility] 01-02-2022 10:32-0500 Systolic blood pressure 128 mm[Hg] Dr. Ron Lindsay Work Phone: [facility] 07-25-2021 14:49-0400 Diastolic blood pressure 65 mm[Hg] [facility] Work Phone: 07-25-2021 14:49-0400 Heart rate 74 /min [facility] Work Phone: 07-25-2021 14:49-0400 Respiratory rate 16 /min [facility] Work Phone: 07-25-2021 14:49-0400 SaO2% (BldA) [Mass fraction] 98 % [facility] Work Phone: 07-25-2021 14:49-0400 Systolic blood pressure 122 mm[Hg] [facility] Work Phone: 07-25-2021 10:38-0400 Body height 157.48 cm [facility] Work Phone: 07-25-2021 10:38-0400 Body mass index (BMI) [Ratio] 42.5 kg/m2 [facility] Work Phone: 07-25-2021 10:38-0400 Body temperature 98.4 [degF] [facility] Work Phone: 07-25-2021 10:38-0400 Body weight 105.5 kg [facility] Work Phone: 09-16-2016 13:52-0400 BMI (Body Mass Index) 43.57 kg/m2 Roderick Barnes MD [facility] Work Phone: 09-16-2016 13:52-0400 Body Temperature 98.2 [degF] Roderick Barnes MD [facility] Work Phone: 09-16-2016 13:52-0400 BP Diastolic 73 mm[Hg] Roderick Barnes MD [facility] Work Phone: 09-16-2016 13:52-0400 BP Systolic 106 mm[Hg] Roderick Barnes MD [facility] Work Phone: 09-16-2016 13:52-0400 Height 160.02 cm Roderick Barnes MD [facility] Work Phone: 09-16-2016 13:52-0400 Pulse (Heart Rate) 84 /min Roderick Barnes MD [facility] Work Phone: 09-16-2016 13:52-0400 Respiratory Rate 16 /min Roderick Barnes MD [facility] Work Phone: 09-16-2016 13:52-0400 Weight 111.59 kg Roderick Barnes MD [facility] Work Phone: Encounters Encounter Date Encounter Type Care Provider Facility Start: 09-21-2024 ambulatory Jose David hellery:[facility] Start: 08-09-2024 Encounter for genera l adult medical examination without abnormal findings Wilda Castillo NP [facility] Start: 07-06-2024 End: 07-06-[address] Jose David Lindsay MD Work Phone: [facility] Work Phone: Start: 07-06-2024 End: 07-06-2024 Patient encounter procedure Wilda Castillo LANDSCAPER HELPER-C -Laboratory [facility] Start: 07-06-2024 End: 07-06-2024 [facility] Start: 06-24-2024 End: 06-24-[address] Jose David Lindsay MD Work Phone: [facility] Work Phone: Start: 06-24-2024 End: 06-24-2024 Patient encounter procedure Salty Rodriguez PA -Laboratory Work Phone: Start: 06-24-2024 End: 06-24-2024 ambulatory Jose David Lindsay Facility:[facility] Start: 05-27-2024 [facility] Start: 05-26-2024 End: 05-26-[address] Mann Oleary MD -Radiology [place] Work Phone: Start: 05-26-2024 End: 05-26-2024 ambulatory Jose David Lindsay Facility:[facility] Start: 05-18-2024 End: 05-18-2024 Emergency department patient visit Dr. Jose David Lindsay MD Work Phone: -Emergency Department Work Phone: Start: 05-17-2024 End: 05-17-[address] Jose David Lindsay MD Work Phone: [facility] Work Phone: Start: 05-17-2024 End: 05-17-2024 Patient encounter procedure Ravi Weeks LANDSCAPER HELPER-C -Radiology, [place] Work Phone: Start: 05-17-2024 End: 05-17-2024 ambulatory Jose David Lindsay Facility:[facility] Start: 05-11-2024 End: 05-11-2024 Emergency department patient visit Dr. Jose David Lindsay MD Work Phone: -Emergency Department Work Phone: Start: 05-10-2024 End: 05-10-[address] Jose David Lindsay MD Work Phone: [facility] Work Phone: Start: 05-10-2024 End: 05-10-[address] Jose David Lindsay MD -Laboratory, [place] Work Phone: Start: 05-10-2024 End: 05-10-2024 ambulatory Jose David Lindsay Facility:[facility] Start: 04-26-2024 End: 04-26-[address] Jose David Lindsay MD Work Phone: [facility] Work Phone: Start: 04-26-2024 End: 04-26-[address] Lindsay Baxter MD -Cardiovascular Services Work Phone: Start: 04-26-2024 End: 04-26-2024 ambulatory Jose David Lindsay Facility:[facility] Start: 04-23-2024 End: 04-23-2024 Patient encounter procedure Salty QUIÑONES -[facility] Work Phone: Start: 04-23-2024 End: 04-23-2024 ambulatory Jose David Lindsay Facility:[facility] Start: 01-02-2024 End: 01-02-2024 ambulatory Jose David Lindsay Facility:[facility] Start: 12-22-2023 End: 12-22-2023 ambulatory Claudia Yeh Facility:[facility] Start: 10-29-2023 End: 10-29-2023 ambulatory Jose David Lindsay Facility:[facility] Start: 10-29-2023 End: 10-29-2023 ambulatory Jose David Lindsay Facility:[facility] Start: 03-07-2023 End: 03-07-[address] Ron Lindsay Work Phone: [facility] Work Phone: Start: 03-07-2023 End: 03-07-[address] Ron Lindsay Work Phone: [facility]-Laboratory Work Phone: Start: 01-08-2023 Non-patient / Non-visit Dr. Ron Lindsay Work Phone: [facility] Work Phone: Start: 01-07-2023 Non-patient / Non-visit Dr. Ron Lindsay Work Phone: [facility] Start: 01-07-2023 End: 01-07-[address] Ron Lindsay Work Phone: [facility]-Cardiovascular Services Work Phone: Start: 12-30-2022 End: 12-30-[address] Ron Lindsay Work Phone: [facility]-Pulmonary Medicine [facility] Work Phone: Start: 12-04-2022 End: 12-04-[address] Ron Lindsay Work Phone: [facility] Work Phone: Start: 11-15-2022 End: 11-15-2022 Emergency department patient visit Dr. Ron Lindsay Work Phone: [facility]-Emergency Department Work Phone: Start: 11-11-2022 End: 11-11-[address] Ron Lindsay Work Phone: [facility] Work Phone: Start: 11-11-2022 End: 11-11-[address] [facility] Lindsay [facility] Start: 10-21-[address] Easton Lindsay Work Phone: [facility]-Physical Therapy Work Phone: Start: 10-17-2022 End: 10-17-[address] Ron Lindsay Work Phone: [facility] Work Phone: Start: 10-17-2022 End: 10-17-[address] Ron Lindsay Work Phone: [facility] Work Phone: Start: 09-13-2022 Non-patient / Non-visit Dr. Ron Lindsay Work Phone: [facility] Start: 09-13-2022 End: 09-13-[address] Ron Lindsay [facility] Work [facility] Start: 09-05-2022 End: 09-05-[address] Ron Lindsay Work Phone: [facility] Work Phone: Start: 09-05-2022 End: 09-05-[address] Ron Lindsay Work Phone: [facility] Work Phone: Start: 08-15-2022 End: 08-15-[address] Ron Lindsay Work Phone: [facility] Work Phone: Start: 08-15-2022 End: 08-15-[address] Ron Lindsay Work Phone: [facility] Work Phone: Start: 07-15-2022 End: 07-15-[address] Ron Lindsay [facility] Work Phone: Start: 07-07-2022 End: 07-07-2022 Emergency department patient visit Dr. Ron Lindsay Work Phone: [facility]-Emergency Department Start: 06-27-2022 End: 06-27-[address] Ron Lindsay [facility] Start: 06-26-2022 End: 06-26-[address] Ron Lindsay Work Phone: [facility] Start: 06-24-2022 End: 06-24-[address] Ron Lindsay Work Phone: [facility]-Outpatient Breast Imaging Start: 04-10-2022 End: 04-10-[address] Ron Lindsay Work Phone: [facility] Work Phone: Start: 04-10-2022 End: 04-10-[address] Ron Lindsay Work Phone: [facility] Start: 04-05-2022 End: 04-05-[address] Ron Lindsay Work Phone: [facility] Work Phone: Start: 04-05-2022 End: 04-05-[address] Ron Lindsay Work Phone: [facility] Start: 04-01-2022 End: 04-01-[address] Ron Lindsay Work Phone: [facility] Work Phone: Start: 04-01-2022 End: 04-01-[address] Ron Lindsay Work Phone: [facility]-Laboratory, [place] Start: 01-29-2022 End: 01-29-[address] Ron Lindsay Work Phone: [facility] Start: 01-17-2022 End: 01-17-[address] Ron Lindsay Work Phone: [facility] Work Phone: Start: 01-17-2022 End: 01-17-[address] Ron Lindsay Work Phone: [facility]-Physical Therapy Start: 01-14-2022 Non-patient / Non-visit Dr. Ron Lindsay Work Phone: [facility] Start: 01-14-2022 End: 01-14-[address] Ron Lindsay Work Phone: [facility] Work Phone: Start: 01-14-2022 End: 01-14-[address] Ron Lindsay Work Phone: [facility]-Pulmonary Services/Neurology Start: 01-02-2022 End: 01-02-[address] Ron Lindsay Work Phone: [facility]-Pulmonary Medicine [facility] Start: 12-12-2021 End: 12-12-[address] Ron Lindsay [facility] Start: 11-23-2021 End: 11-23-[address] Ron Lindsay Work Phone[facility] Start: 10-30-2021 End: 10-30-2021 ambulatory [facility] Work Phone: Start: 10-30-2021 End: 10-30-2021 Patient encounter procedure [facility], [place] Start: 09-19-2021 End: 09-19-2021 Patient encounter procedure [facility]-Laboratory Start: 09-17-2021 End: 09-17-2021 Patient encounter procedure [facility]-Laboratory, [place] Start: 07-25-2021 End: 07-25-2021 Emergency department patient visit [facility]-Emergency Department Start: 07-05-2021 End: 07-05-2021 Patient encounter procedure [facility], [place] Start: 06-19-2021 End: 06-19-2021 Patient encounter procedure [facility]-Outpatient Bone Densitometry Start: 05-30-2021 Registered Recurring [facility]-Physical Therapy Procedures Date Procedure Procedure Detail [...] Date Care Activity Detail Author Start: 05-18-2024 [facility] Start: 05-18-2024 [facility] Start: 05-11-2024 [facility] Start: 05-11-2024 [facility] Start: 05-10-2024 Bacteria identified in Urine by Culture Urine Culture [facility] Start: 12-04-2022 Evaluation of diagno stic study results [facility] Start: 11-15-2022 [facility] Start: 07-25-2021 [facility] Work Phone: Start: 10-28-2016 End: 10-28-2016 Appointment Appointment [facility] Work Phone: Hepatic function panel [facility] Lipid 1996 panel - S leidy or Plasma [facility] Patient Education [facility] Work Phone: Patient referral [facility] Work Phone: Troponin T.cardiac [Mass/volume] in Serum or Plasma by High sensitivity method [facility] Troponin T.cardiac [Mass/volume] in Serum or Plasma by High sensitivity method [facility] Urine culture [facility] Work Phone: Payers Date Payer Category Payer Private Health Insurance [id number] 2023 Self-pay [id number] 2023 Private Health Insurance [id number] 2014 Medicare [id number] Private Health Insurance [id number] Unknown [id number] 2.16.8 [id number] Unknown [id number] 2.16.8 [id number] Unknown [id number] 2.16.8 [id number] Unknown [id number] 2.16.8 [id number] Unknown [id number] 2.16.8 [id number] Unknown [id number] 2.16.8 [id number] Unknown [id number] 2.16.8 [id number] Unknown [id number] 2.16.8 [id number] Unknown [id number] 2.16.8 [id number] Unknown [id number] 2.16.8 [id number] Unknown [id number] 2.16.8 [id number] Unknown [id number] 2.16.8 [id number] Unknown [id number] 2.16.8 [id number] Unknown [id number] 2.16.8 [id number] Unknown [id number] 2.16.8 [id number] Social History Date Type Detail Facility Start: 07-25-2021 End: 12-30-2022 Tobacco smoking status IDIS Unknown if ever smoked [facility] Start: 06-14-2020 None [facility] Start: 06-19-2020 Non-smoker [facility] Start: 1950 Sex Assigned At Female W [facility] Start: 08-23-2016 Spouse/ Signif icant Other [facility] Start: 04-23-2024 End: 05-18-2024 Tobacco smoking status NHIS Ex-smoker (finding) [facility] Start: 05-05-2024 End: 05-21-2024 Sex Female (finding) [facility] Mental Status Date Assessment Result Facility 11-15-2022 Cognitive function Level Of Cons ciousness Awake;Alert;Appropriate;Follow s Commands [facility] Work Phone: 07-25-2021 Cognitive function Voice/Name [facility] Work Phone: Clinical Notes 08-04-2012 to 05-18-2024 Note Date & Type Note Facility 05-18-2024 Radiology Diagnostic study note [facility] Imaging Services [address] [place] [address] CTA Chest W/WO Contrast MR#: [id number] Acct: [id number] Name: YESENIA HODGSON Rep #: [id number] : 1950 F 74 From: Daisha Tavares MD PCP: Dr. Jose David Lindsay MD Status: [facility] Study:CTA Chest W/WO Contrast Date of Exam: 05/18/24 Exam# [id number] Ordering Dr: Jeff Rowe DO PROCEDURE: CTA [...] Other nonacute findings detailed above. Reading Location: [place] [address] CC: Dr. Jose David Lindsay MD; Dr. Jeff Rowe DO ~ Utilization Management Nurse: Signed [facility] 05-17-2024 Radiology Diagnostic study note [facility] Imaging Services [address] [place] [address] [id number] Chest PA and Lateral MR#: [id number] Acct: [id number] Name: YESENIA HODGSON Rep #: [id number] 6 : 1950 F 74 From: Mónica Mcghee DO PCP: Dr. Jose David Lindsay MD Status: REG CLI Study:Chest PA and Lateral Date of Exam: 05/17/24 Exam# [id number] Ordering Dr: Ravi Weeks LANDSCAPER HELPER LANDSCAPER HELPER-C PROCEDURE: PA and lateral chest radiographs, two [...] CT evaluation may be considered. [facility] CC: Ravi BARNARD McMorrow; Dr. Jose David Lindsay MD ~ Utilization Management Nurse: Signed [facility] 05-12-2024 Hospital Discharge instructions Additional Instructions Your INR was 3.5 today. [facility] Work Phone: 05-11-2024 Radiology Diagnostic study note [facility] Imaging Services [address] [place] [address] Brain/Head without Contrast MR#: [id number] Acct: [id number] Name: YESENIA HODGSON Rep #: [id number] : 1950 F 74 From: Jeffrey Gunn DO PCP: Dr. Jose David Lindsay MD Status: REG ER Study:Brain/Head without Contrast Date of Exa m: 05/11/24 Exam# [id number] Ordering Dr: Jeff Rowe DO PROCEDURE: BRAIN/HEAD [...] Contrast IMPRESSION: NO ACUTE FINDINGS [facility] CC: Dr. Jose David Lindsay MD; Dr. Jeff Rowe DO ~ Utilization Management Nurse: Signed [facility] 05-11-2024 Radiology Diagnostic study note [facility] Imaging Services [address] [place] [address] Chest PA and Lateral MR#: [id number] Acct: [id number] Name: YESENIA HODGSON Rep #: [id number] : 1950 F 74 From: Jeffrey Gunn DO PCP: Dr. Jose David Lindsay MD Status: REG ER Study:Chest PA and Lateral Date of Exam: 05/11/24 Exam# [id number] Ordering Dr: Jeff Rowe DO PROCEDURE: CHEST PA AND LATERAL 05/11/2024 REASON FOR EXAM: CHEST PAIN TECHNIQUE: Frontal and lateral views of the chest. COMPARISON: 11/15/2022 FINDINGS: Hardware: None Heart: The heart size is normal. Mediastinum: The mediastinal contour is unremarkable. Lungs: The lungs are clear. Bones: The bones are unremarkable. RAD/Chest PA and Lateral IMPRESSION: NO ACUTE FINDINGS. Reading Location: [facility] CC: Dr. Jose David Lindsay MD; Dr. Jeff Rowe DO ~ Utilization Management Nurse: Signed [facility] 05-11-2024 Hospital Discharge instructions Additional Instructions Your INR was 3.5 today. [facility] Work Phone: 04-23-2024 Evaluation note Diagnosis Onset Date Resolution Atypical chest pain chronic April 23, 2024 8:28am Hyperlipidemia chronic April 8:28am History of pulmonary embolism August 04, 2012 resolved April 23, 2024 8:28am [facility] Work Phone: 1(665) 687-483705-28-[address] Rosas [facility] July 07, 2022 4:51am Note Date/Time July 07, 2022 2:23a m [facility] Medical Records Department [address] [place] [address] Emergency Department Summary 07/07/22 MR#: [id number] Acct: [id number] Name: YESENIA HODGSON Rep #:[id number] : 1950 72 From: Dominic Rosas [...] No urinary or vaginal complaints. [facility] diarrhea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 Call [facility] ([phone]) or report to the closest Emergency Room. Call 911 if necessary. 07/07/22 [id number] <Electronically signed by Dominic Rosas DO> Cosigner Signature (if applicable): CC: Dr. Ron Lindsay MD ~ Signed [facility] Work Phone: 1(913) 892-754206-25-2013 Evaluation note* Diagnosis Onset Date Resolution Status Cough acute Hypersomnia acute Dizziness acute Hyperlipidemia acute History of pulmonary embolism August 04, 2012 resolved [facility] Work Phone: 1(487) 898-510106-25-2013 Evaluation note* Diagnosis Onset Date Resolution Status Hyperlipidemia acute Atypical chest pain chronic History of pulmonary embolism August 04, 2012 resolved Mild intermittent asthma, uncomplicated chronic [facility] Work Phone: Discharge summary Author Shannon Bueno [facility] November 11, 2022 10:14am Note Date/Time November 11, 2022 10 :14am [facility] Physical Therapy [address] [place] [address] / REHABILITATION SERVICES DISCHARGE SUMMARY MR#: [id number] Acct: [id number] Name: YESENIA HODGSON Rep #: [id number] : 1950 72 From: Shannon ARNOLD T Referring Dr.: Dr. Ron Lindsay MD Statu s: REG RCR Insurance: MEDICARE PART A B [facility] Discharge Summary D/C summary: It has [...] please feel free to call me at [phone]. Thank you for the referral of thispatient. Sincerely, Shannon Bueno, DPT Balance/Gait/Functional tests Balance/Special Test Scores Oswestry Low Back Score: 2 Lower Extremity Functional Score: 45 Improvement % Improvement: 95 <Electronically signed by Shannon Bueno DPT> 11/11/22 1014 CC: Dr. Ron Lindsay MD ~ ELR Signed [facility] Work Phone: Evaluation noteNo assessment information available [facility] Work Phone: Evaluation note* Diagnosis Onset Date Resolution Status Cough acute Hypersomnia acute [facility] Work Phone: Evaluation note* Diagnosis Onset Date Resolution Status Hypersomnia acute [facility] Work Phone: Reason for referral (narrative)No reason for referral [facility] available[facility] Work Phone: Chief Complaint and Reason [...] RX HERE Chief Complaint CHEST PAIN S/P [facility] 11/15 6 M FU FLANK PAIN, KIDNEY [...] 8:28am Chief Complaint Admit Date 1 Y April [...] No July 25, 2021 10:44am Power of Awning Hanger Supervisor No July 25 10:44am Advance Directive Response Recorded Date/ Time Advance Directives No June 19 8:34am Living Will No July 25, 2021 9:44am Power of Awning Hanger Supervisor No July 25 9:44am Advance Directive Response Recorded Date/ Time Advance Directives No June 19 9:34am Living Will No July 07, 2022 1 :59am Power of Awning Hanger Supervisor No July 07, 2022 1:59am Advance Directive Response Recorded Date/ Time Name of Medical Power of Awning Hanger Supervisor November 15, 2022 10:11am Advance Directives No June 19 8:34am Living Will Yes November 15 10:11am Power of Awning Hanger Supervisor Yes November 15, 10:11am Advance Directive Response Recorded Date/ Time Living Will Yes November 15 11:11am Do you have a Healthcare Power of Awning Hanger Supervisor? Yes November 15, 2022 11:11am Advance Directives No June 19 9:34am Advance Directive Response Recorded Date/ Time Living Will Yes November 15 11:11am Do you have a Healthcare Power of Awning Hanger Supervisor? Yes November 15, 2022 11:11am Living Will Yes May 11, 2024 5:16pm Do you have a Healthcare Power of Awning Hanger Supervisor? Yes May 11, 2024 5:16pm Name of Medical Power of Awning Hanger Supervisor otoniel rush May 11, 2024 5:16pm Advance Directives No June 19 9:34am Advance Directive Response Recorded Date/ Time Living Will Yes November 15 11:11am Do you have a Healthcare Power of Awning Hanger Supervisor? Yes November 15, 2022 11:11am Living Will Yes May 11, 2024 5:16pm Do you have a Healthcare Power of Awning Hanger Supervisor? Yes May 11, 2024 5:16pm Name of Medical Power of Awning Hanger Supervisor otoniel rush May 11, 2024 5:16pm Living Will No May 18, 2024 10:33am Do you have a Healthcare Power of Awning Hanger Supervisor? No May 18, 2024 10:33am Advance Directives [...] Dr. Lucio Gomez MD Active Claudia Yeh LANDSCAPER HELPER, LANDSCAPER HELPER-C Attending Provider Active Team Status: Inactive Member [...] Provider, Atte nding Provider Active Claudia Yeh LANDSCAPER HELPER, LANDSCAPER HELPER-C Other Provider Active Dr. Lucio Gomez MD [...] Provider, Refe rring Provider Active Naz Young LANDSCAPER HELPER, LANDSCAPER HELPER-C Attending Provider Active Team Status: Inactive Member Role Status Dates Dr. Ron Lindsay MD Primary Care Provider, Refe rring Provider Active Claudia Yeh LANDSCAPER HELPER, LANDSCAPER HELPER-C Attending Provider Active Team Status: Active Member Role Status Dates Claudia Yeh LANDSCAPER HELPER, LANDSCAPER HELPER-C Referring Provider, Other Provi yarelis Active Dr. Ron Lindsay MD Primary Care Provider Activ e Dr. Lucio Gomez MD Attending Provider Active Team Status: Active Member Role Status Dates Dr. Ron Lindsay MD Primary Care Provider Activ e Claudia Yeh LANDSCAPER HELPER, LANDSCAPER HELPER-C Attending Provider Active Team Status: Inactive Member Role Status Dates Claudia Yeh LANDSCAPER HELPER, LANDSCAPER HELPER-C Attending Provider, Referring P rovider Active Dr. Ron Lindsay MD Primary Care Provider Activ e Team Status: Inactive Member Role Status Dates Dr. Ron Lindsay MD Primary Care Provider Activ e Claudia Yeh LANDSCAPER HELPER, LANDSCAPER HELPER-C Attending Provider, Referring P rovider Active Team Status: Inactive Member Role Status Dates Dr. Ron Lindsay MD Primary Care Provider Activ e Cuong Gomez MD Attending Provider, Emergency Provid er Active Team Status: Active Member Role Status Dates Dr. Jose David Lindsay MD Primary Care Provider Acti ve Team [...] Acti ve Start: May 17, 2024 Ravi Jacquelineorrow LANDSCAPER HELPER, LANDSCAPER HELPER-C Attending Provider Active Start: May 17, 2024 Ravi Jacquelineorrow LANDSCAPER HELPER, LANDSCAPER HELPER-C Referring Provider Active Start: May 17, 2024 [...] 17, 2024 End: May 17, 2024 Ravi [facility] LANDSCAPER HELPER, LANDSCAPER HELPER-C Attending Provider Active Start: May 17, 2024 End: May 17, 2024 Ravi [facility] LANDSCAPER HELPER, LANDSCAPER HELPER-C Referring Provider Active Start: May 17, 2024 [...] MD Primary Care Provider Acti ve Start: July 06, 2024 End: July 06, 2024 Wilda Castillo NP, LANDSCAPER HELPER-C Attending Provider Active Start: July 06, 2024 End: July 06, 2024 INFORMATION SOURCE (unrecogn ized section and content) DATE CREATED AUTHOR 09/22/2024 [facility] FOR RECORDS PERTAINING TO PATIENTS WHO ARE [...] BE BASED ON THE PRIMARY CLINICAL RECORDS. [email or web address] provides no warranty or guarantee of the accuracy or completeness of information in this document.
[2024-09-26 16:28] LABS: Hematocrit 43.6 % (37-47); Hemoglobin 14.3 g/dL (12.0-15.0); Immature Granulocytes Count 0.030 X10^3/uL (0.0-0.0); Mean Corp Hgb Conc 32.8 g/dL (32-36); Mean Corpuscular Volume 90.1 fL (81-99); Mean Platelet Vol. 9.3 fl (6.2-12.0); NRBC Flagged by Analyzer 0 % (0-5); Platelet Count 382 K/mm3 (150-450); RBC Distribution Width CV 13.9 % (11.6-14.6); RBC Distribution Width SD 46.3 fl (35.1-43.9); Red Blood Count 4.84 M/mm3 (4.2-5.4); White Blood Count 11.6 K/mm3 (4.4-11.0)
[2024-09-26 16:42] VITALS: BP 147/66; PULSE 77; RESP 16; O2SAT 95
[2024-09-26 16:42] LABS: Prothrombin Time (Protime)PT. 28.2 SECONDS (11.7-14.9)
[2024-09-26 16:43] LABS: Partial Thromboplast Time 43.4 Seconds (24.1-36.2)
--- NOTE | 2024-09-26 16:56 | RAD_ITS ---
PROCEDURE: CHEST PA AND LATERAL 09/26/2024 REASON FOR EXAM: COUGH TECHNIQUE: CHEST PA AND LATERAL COMPARISON: 05/17/2024 FINDINGS: Lungs/Pleura: Clear. No airspace consolidation, pneumothorax or pleural effusion. Heart/Mediastinum: Within normal limits. Bones/Soft tissues: Degenerative changes of the spine. RAD/Chest PA and Lateral IMPRESSION: No evidence of acute cardiopulmonary disease. Reading Location: [id number]
[2024-09-26] MEDS: 0.9% Normal Saline (500mL Bag) 500 ML 1000 ML IV (17:18)
[2024-09-26 17:50] LABS: Anion Gap 11 (5-15); BUN 18 mg/dL (4-19); BUN/Creat Ratio 22.7 RATIO (10-20); Calcium,Total 9.8 mg/dL (7.6-11.0); Carbon Dioxide 26.8 mmol/L (21.0-32.0); Chloride 99 mmol/L (98-108); Estimated Creatinine Clearance 71.98 ml/min (50-250); Glucose 99 mg/dL (70-99); Potassium 4.5 mmol/L (3.3-5.1)
[2024-09-26 18:51] VITALS: BP 166/93; PULSE 89; RESP 21; O2SAT 99
[2024-09-26 19:19] VITALS: BP 138/52; PULSE 79; RESP 17; TEMP 36.8; O2SAT 98
== END 2024-09-26 19:26 | disposition home or self-care (01) ==
PROVIDERS: Emergency Provider Emergency Medicine; PCP Family Medicine; Visit Provider Emergency Medicine
DX: K62.5 Hemorrhage of anus and rectum (principal); Z68.41 Body mass index [BMI] 40.0-44.9, adult; R00.2 Palpitations; R55 Syncope and collapse; E66.9 Obesity, unspecified; Z79.01 Long term (current) use of anticoagulants; Z79.82 Long term (current) use of aspirin; Z79.899 Other long term (current) drug therapy; Z86.711 Personal history of pulmonary embolism; Z87.891 Personal history of nicotine dependence
CPT/HCPCS: 71046; 80048; 85025; 85610; 85730; 93005; 96360; 96361; 99284; A4216

== ENCOUNTER → 2024-10-18 | Outpatient (CLI) | payer MEDICARE, OTHER, SELFPAY ==
--- NOTE | 2024-10-18 10:22 | MRI_ITS ---
PROCEDURE: BRAIN W/WO CONTRAST 10/18/2024 REASON FOR EXAM: DIZZINESS, PERSISTENT/RECURRENT,SUSPECT CARDIAC OR VASCULAR CAUSE TECHNIQUE: Procedure Code: [id number] Modality: MR Procedure: BRAIN W/WO CONTRAST Multiplanar and multisequence images were obtained. CONTRAST: Clariscan VOLUME: 20 mL COMPARISON: None FINDINGS: Brain: Mild cerebral atrophy and chronic periventricular white matter disease., There is no abnormal pattern of enhancement. Diffusion: No restricted diffusion Ventricles: Normal. Major Intracranial Vessels: Normal flow void seen in the intracranial structures. Sinuses: Clear. Mastoids: Clear. Other: Normal scalp. Normal sinuses. MRI/Brain W/WO Contrast IMPRESSION: No acute intracranial abnormality. Mild small-vessel ischemic changes. Following contrast Reading Location: [id number]
== END | disposition home or self-care (01) ==
LOC: MRI 10:14
PROVIDERS: PCP Family Medicine; Referring Provider Family Medicine; Visit Provider Family Medicine
DX: R42 Dizziness and giddiness (principal)
CPT/HCPCS: 70553; A9575; A4216

== ENCOUNTER 2024-11-01 09:00 | Outpatient (RCR) | payer MEDICARE, OTHER, SELFPAY ==
--- NOTE | 2024-10-05 10:43 | HP.PTEVAL_ITS ---
Patient's Visit Information Visit Information Visit Information: YESENIA HODGSON is a 74 year old F referred to Physical Therapy by Dr. Jose David Lindsay MD with a diagnosis of gait instability. Date of Evaluation: 10/05/24 Physical Therapist: QUE Garces Visit Plan Frequency: 2x /Week Duration: 2 Months Plan: 2X/ week for 8 weeks for both vertical and horizontal smooth pursuit and head and eyes moving together starting in sitting and moving to standing. Ok to to stop smooth pursuit once does not cause dizziness anymore. Please work on balance on and off foam and with and without head movements and EO/EC with gait training with HEP Subjective Subjective: 3-4 weeks ago started with bad RICHARD and lightheadedness and can not shake it. She got a shot of kenalog and that took care of the burning sensation down her right side of face. She feels lightheaded walking down the sidewalk. If she looks down or up or if she turns fast she will get lightheaded. When it happens it is temporary. Right now her head feels funny but if she turned her head she will probably get lightheaded. Her BP was ok. She has not had a lot of high BP. She has a pain up the back of her neck sometimes but they say that is arthritis in her neck. said he would do an MRI OF HEAD AND NECK. She has been having off and on congestion in the last few weeks. Pain up the back of head and on top of head. Her vision is more blurry more so with reading. Hard to focus on ipad if moving too fast. She feels she veers with walking. She holds onto the railing and feels a little unsure but can go up them recip. Ringing in ears for years and now it is worse and worse on the R side. Pain RICHARD: Pain Intensity (Out of 10): 5 Objective Objective: Gait: walks with decrease stride length and wider ABELINO and walks very cautious. FGA 15 LE MMT: R hip flex 11.1, L 10.5 R knee ext 17.3, L 16.8 R knee flex 14.4, L 13.7 Smooth pursuit horizontal X 30 sec increase dizziness and had to stop. Smooth pursuit vertical X 30 seconds with dizziness but less than horizontal Head and eyes move together horizontal X 30 seconds and increase dizziness Head and eyes move together vertical X 30 some increase dizziness and RICHARD seems to be getting worse Balance/Special Test Scores Functional Gait Assessment Score: 15 % Disability: 50.0000 Lower Extremity Functional Score: 45 Goals Goal 1:: I HEP Goal Time Frame: 6-8 Weeks Goal 2:: Increase balance (FGA score was 15 on eval) Goal Time Frame: 6-8 Weeks Goal 3:: Be able to walk with horizontal and vertical head turns without feeling dizzy or having LOB Goal Time Frame: 6-8 Weeks Goal 4:: Be able to complete smooth pursuit both vertical and horizontal in standing X 30 seconds without dizziness as well and head and eyes moving together Goal Time Frame: 6-8 Weeks Goal 5:: Pt to report that dizziness is improved by 50% Goal Time Frame: 6-8 Weeks Anticipated Interventions Patient/Client Instruction: Educate patient on: Condition and Plan of Care For the Purpose of:: To improve nutrient delivery to tissue, To improve muscle performance and motor function, To improve ability to perform ADL's, To increase tolerance to activity/condition/position, To improve performance and independence with ADL's, To decrease level of supervision to perform tasks, To improve ability of physical actions for home/community/work/leisure, To improve gait and locomotor functions, To improve endurance, To improve balance and To improve safety with gait Therapeutic Exercise to Include: Strength training, Endurance training, Postural training, Gait and locomotor training, Active ROM and Dynamic Lumbar Stabilization For the Purpose of:: To improve muscle performance and motor function, To improve ability to perform ADL's, To increase tolerance to activity/condition/position, To improve performance and independence with ADL's, To decrease level of supervision to perform tasks, To improve ability of physical actions for home/community/work/leisure, To improve gait and locomotor functions, To improve endurance, To improve balance and To improve safety with gait Functional Training to Include: Gait training For the Purpose of:: To improve gait and locomotor functions and To improve safety with gait Text: Thank you for the opportunity to evaluate your patient. For Medicare and Medicare HMO plans, please review the plan of care and approve it. It will need to be FAXED BACK to us at [phone] for Medicare purposes. For Medicare only, by signing this I certify the plan of care. Please let me know if there are questions or concerns regarding this plan of care. Physician Signature: Date:
--- NOTE | 2024-11-01 09:26 | HP.PTDCSUM ---
Discharge Summary D/C summary: It has been my pleasure to treat YESENIA HODGSON referred by Dr. Jose David Lindsay MD, with the diagnosis of gait instability for a total of 9 visit(s). Discharge Date: 11/01/24 Please see the following information for a summary of their discharge status. Subjective Subjective: Pt reports that sometimes her balance is better but yesterday it was really off and then it straightens up. She is still doing the eye exercise and they do help her RICHARD when they come on. She gets RICHARD up the back of the neck. They did do X-rays of her neck and she has arthritis. Pt sees ENT on Friday. Pain RICHARD: Pain Intensity (Out of 10): Unrated Overall Improvement % Improvement: 10 Objective Objective/Function: FGA: 21 Smooth pursuit 30 seconds horizontal and vertical in sitting increased off feeling but did resolve quickly. Goals Goal 1:: I HEP Goal Progress: Progressing Goal 2:: Increase balance (FGA score was 15 on eval) Goal Progress: Goal Met Goal 3:: Be able to walk with horizontal and vertical head turns without feeling dizzy or having LOB Goal Progress: Progressing Goal 4:: Be able to complete smooth pursuit both vertical and horizontal in standing X 30 seconds without dizziness as well and head and eyes moving together Goal Progress: Not Progressing Goal 5:: Pt to report that dizziness is improved by 50% Goal Progress: Not Progressing Plan Plan: DC PT D/C Information Discharge Comments: DC PT to ENT per d/c sentence: If there are questions or concerns regarding this patient's physical therapy, please feel free to call me at [phone]. Thank you for the referral of this patient. Sincerely, Aura Horowitz, MPT Balance/Gait/Functional tests Balance/Special Test Scores Functional Gait Assessment Score: 21 % Disability: 30.0000 Lower Extremity Functional Score: 11 Improvement % Improvement: 10
== END 2024-11-01 13:39 | disposition home or self-care (01) ==
LOC: PT 09:00
PROVIDERS: PCP Family Medicine; Referring Provider Family Medicine; Visit Provider Family Medicine
DX: R26.81 Unsteadiness on feet (principal)
CPT/HCPCS: 97110; 97162; 97530

== ENCOUNTER → 2024-11-04 | Outpatient (CLI) | payer MEDICARE, OTHER, SELFPAY ==
--- NOTE | 2024-11-04 08:38 | BI_ITS ---
EXAM: SCRN MAMM (CAD)W/NIKOLAY BILAT DATE: 11/04/2024 CLINICAL HISTORY: F, Age 74 y/o , SCREENING TECHNIQUE: Procedure Code: [id number] Modality: MG Procedure: SCRN MAMM (CAD)W/NIKOLAY BILAT COMPARISON: Prior exam(s) were compared. FINDINGS: TISSUE DENSITY: The breasts are almost entirely fatty. Bilateral Breast Mammographic Findings: No suspicious masses, calcifications or other abnormalities are identified. BI/SCRN MAMM (CAD)W/NIKOLAY BILAT IMPRESSION: No mammographic evidence of malignancy in either breast. OVERALL FINAL ASSESSMENT BI-RADS 1: NEGATIVE. RECOMMENDATION: Routine annual follow-up in 1 Year Additional Recommendation none A letter with findings and recommendations will be mailed to the patient. Reading Location: [id number]
== END | disposition home or self-care (01) ==
LOC: OPBI 08:37
PROVIDERS: PCP Family Medicine; Referring Provider Family Medicine; Visit Provider Family Medicine
DX: Z12.31 Encounter for screening mammogram for malignant neoplasm of breast (principal)
CPT/HCPCS: 77063; 77067

== ENCOUNTER → 2025-02-08 | Outpatient (CLI) | payer MEDICARE, OTHER, SELFPAY | END | disposition home or self-care (01) | LOC: LABSPEC 15:50 | PROVIDERS: PCP Family Medicine; Visit Provider Family Medicine | DX: R39.9 Unspecified symptoms and signs involving the genitourinary system (principal) | CPT/HCPCS: 87077; 87086; 87088; 87186 ==